=== PATIENT | male | born 1935 | race Caucasian/White ===

== ENCOUNTER 2016-07-11 19:19 | Emergency (ER) | payer MEDICARE ==
[~2016-07-11] VITALS: Ht 182.9 cm; Wt 82.0 kg
[~2016-07-11 19:19] MED LIST: ATRO17AE INH; CART120C2 PO; DUONI NEB; LORA-474 PO; PRED20 PO; PROT40TA PO; TAB-TAB PO; VENTAER INH
[2016-07-11 19:21] VITALS: BP 132/60; PULSE 96; RESP 16; TEMP 97.4; O2SAT 96
[2016-07-11] MEDS ORDERED: IPRASOL INH (21:18)
[2016-07-11] MEDS ORDERED: IPRA17I INH (21:18)
[2016-07-11] MEDS ORDERED: VENTAER INH (21:18)
[2016-07-11] MEDS ORDERED: LORA-474 PO (21:18)
[2016-07-11] MEDS ORDERED: MULT1TAB78 (21:18)
[2016-07-11] MEDS ORDERED: PANT40TA3 PO (21:18)
[2016-07-11] MEDS ORDERED: PLAV75TA29 PO (21:20)
--- NOTE | 2016-07-11 21:23 | PD ---
HPI Chief Complaint: Respiratory Symptoms Time Seen by Provider: 21:23 Travel History International Travel<30 days: No Contact w/Intl Traveler<30days: No Traveled to known affect area: No History of Present Illness HPI 81-year-old male with history of COPD, hypertension, paroxysmal A. fib, CHF, previous [place], on Plavix, benign stomach mass presents to the emergency department for evaluation of worsening shortness of breath and right upper quadrant pain that radiates to his back. He is not acutely short of breath. Patient states that he has had these symptoms for weeks to months. He has been evaluated in the emergency department for evaluation shortness of breath with essentially negative workups in October and January of 2016. Patient states that his primary care provider is aware of the symptoms. He ports he recently had a Holter monitor due to his worsening shortness of breath that showed he was going in and out of A. fib. Patient denies any recent illnesses, fever, or chills. No chest pain. His only pain is his right upper quadrant pain. Reports one time emesis after taking metoprolol for the first time but since not taking it again he has not had any nausea or vomiting. Denies any bowel changes. Does report difficulty urinating which is not new for him. No hematuria. PFSH Past Medical History Hx Anticoagulant Therapy: Yes (PLAVIX) AAA: Yes Arthritis: Yes Asthma: Yes Atrial Fibrillation: Yes Autoimmune Disease: No Blood Disorders: No Anxiety: Yes Depression: No Heart Rhythm Problems: Yes Cancer: No Cardiovascular Problems: Yes (AFIB/[place]) High Cholesterol: No Chemotherapy: No Chest Pain: No Congestive Heart Failure: Yes COPD: Yes Cerebrovascular Accident: No Coronary Artery Disease: Yes Diabetes: No Diminished Hearing: Yes (HARD OF HEARING) Endocrine: No Gastrointestinal Disorders: Yes (COLON LESION) GERD: Yes Genitourinary: Yes Headaches: No Hiatal Hernia: No Hypertension: Yes Immune Disorder: No Implanted Vascular Access Dvce: No Kidney Stones: Yes Musculoskeletal: No Neurologic: No Psychiatric: Yes Reproductive: No Respiratory: Yes (COPD) Immunizations Current: Yes Migraines: Yes Radiation Therapy: No Renal Failure: No Seizures: No Sickle Cell Disease: No Sleep Apnea: No Thyroid Disease: No Ulcer: No PNEUMOCCOCAL Vaccine (Year): 2007 Past Surgical History Abdominal Surgery: No AICD: No Arteriovenous Shunt: No Body Medical Devices: stents in both legs Cardiac Surgery: No Coronary Stent: Yes Ear Surgery: No Endocrine Surgery: No Eye Surgery: Yes (CATARACTS WITH LENS IMPLANTS) Genitourinary Surgery: Yes (TURP AGE 60) Gynecologic Surgery: No Insulin Pump: No Joint Replacement: No Neurologic Surgery: No Oral Surgery: No Pacemaker: No Thoracic Surgery: No Other Surgery: Yes Social History Alcohol Use: Yes Tobacco Use: No (quit 2 yrs ago) Substance Use: No Allergies-Medications (Allergen,Severity, Reaction): Coded Allergies: Aspirin (Verified Allergy, Severe, HIVES, 07/11/16) PT STATES HE IS NOT Lanoxin (Verified Allergy, Severe, Hives, 07/11/16) PT STATES HE IS NOT Reported Meds & Prescriptions Reported Meds & Active Scripts Active Reported Plavix (Clopidogrel Bisulfate) 75 Mg Tab 75 Mg PO DAILY Pantoprazole (Pantoprazole Sodium) 40 Mg Tab 40 Mg PO DAILY Multivitamin Adults 50+ (Multiple Vitamins W/ Minerals) 1 Tab Tab Ativan (Lorazepam) 1 Mg Tab 1 Mg PO HS PRN Atrovent HFA 12.9 GM Inh (Ipratropium [place]) 17 Mcg/Act Aer 1 Puff INH Q6HR PRN Duoneb (Ipratropium-Albuterol Neb) 0.5-2.5 Mg/3 Ml Neb 1 Nebule INH Q6HR NEB Ventolin Hfa 18 GM Inh (Albuterol Sulfate) 90 Mcg/Act Aer 2 Puff INH Q6H PRN Review of Systems Except as stated in HPI: all other systems reviewed are Neg Physical Exam Narrative GENERAL: Well-nourished elderly male patient, lying in bed, in no acute distress SKIN: Warm and dry. HEAD: Atraumatic. Normocephalic. EYES: Pupils are equal, left pupil is 3 mm while the right pupil is 2 mm. This is chronic for the patient following surgery on the left eye. No scleral icterus. No injection or drainage. ENT: No nasal bleeding or discharge. Mucous membranes pink and moist. NECK: Trachea midline. No JVD. CARDIOVASCULAR: Regular rate and rhythm. No murmur appreciated. RESPIRATORY: No accessory muscle use. Clear; diminished bases. Breath sounds equal bilaterally. GASTROINTESTINAL: Abdomen soft, nondistended. Right upper quadrant tenderness to palpation. No rebound tenderness. No guarding. Hepatic and splenic margins not palpable. MUSCULOSKELETAL: No obvious deformities. No clubbing. No cyanosis. No edema. Tenderness to percussion over the right posterior thorax NEUROLOGICAL: Awake and alert. No obvious cranial nerve deficits. Motor grossly within normal limits. Normal speech. PSYCHIATRIC: Appropriate mood and affect; insight and judgment normal. Data Data Last Documented VS Vital Signs Date Time Temp Pulse Resp B/P Pulse Ox O2 Delivery O2 Flow Rate FiO2 07/11/16 21:37 18 97 Room Air 07/11/16 19:21 97.4 96 132/60 Orders Electrocardiogram (07/11/16 ) Complete Blood Count With Diff (07/11/16 21:21) Comprehensive Metabolic Panel (07/11/16 21:21) Lipase (07/11/16 21:21) Prothrombin Time / Inr (Pt) (07/11/16 21:21) Act Partial Throm Time (Ptt) (07/11/16 21:21) Urinalysis - C+S If Indicated (07/11/16 21:21) Iv Access Insert/Monitor (07/11/16 21:21) Ecg Monitoring (07/11/16 21:21) Oximetry (07/11/16 21:21) Sodium Chloride 0.9% Flush (Ns Flush) (07/11/16 21:30) Chest, Single Ap (07/11/16 21:21) B-Type Natriuretic Peptide (07/11/16 21:21) Ckmb (Isoenzyme) Profile (07/11/16 21:21) Troponin I (07/11/16 21:21) Ct Abd/Pel W Iv Contrast(Rout) (07/11/16 ) Labs Laboratory Tests Test 07/11/16 21:20 White Blood Count 6.0 TH/MM3 Red Blood Count 4.35 MIL/MM3 Hemoglobin 11.9 GM/DL Hematocrit 35.9 % Mean Corpuscular Volume 82.5 FL Mean Corpuscular Hemoglobin 27.4 PG Mean Corpuscular Hemoglobin 33.2 % Concent Red Cell Distribution Width 15.4 % Platelet Count 236 TH/MM3 Mean Platelet Volume 7.5 FL Neutrophils (%) (Auto) 55.4 % Lymphocytes (%) (Auto) 29.6 % Monocytes (%) (Auto) 12.7 % Eosinophils (%) (Auto) 0.9 % Basophils (%) (Auto) 1.4 % Neutrophils # (Auto) 3.3 TH/MM3 Lymphocytes # (Auto) 1.8 TH/MM3 Monocytes # (Auto) 0.8 TH/MM3 Eosinophils # (Auto) 0.1 TH/MM3 Basophils # (Auto) 0.1 TH/MM3 CBC Comment DIFF FINAL Differential Comment Prothrombin Time 11.4 SEC Prothromb Time International 1.0 RATIO Ratio Activated Partial 26.7 SEC Thromboplast Time Sodium Level 139 MEQ/L Potassium Level 4.3 MEQ/L Chloride Level 105 MEQ/L Carbon Dioxide Level 28.1 MEQ/L Anion Gap 6 MEQ/L Blood Urea Nitrogen 18 MG/DL Creatinine 0.92 MG/DL Estimat Glomerular Filtration 79 ML/MIN Rate Random Glucose 97 MG/DL Calcium Level 8.7 MG/DL Total Bilirubin 0.3 MG/DL Aspartate Amino Transf 15 U/L (AST/SGOT) Alanine Aminotransferase 17 U/L (ALT/SGPT) Alkaline Phosphatase 114 U/L Total Creatine Kinase 65 U/L Troponin I LESS THAN 0.02 NG/ML B-Type Natriuretic Peptide 209 PG/ML Total Protein 6.9 GM/DL Albumin 3.6 GM/DL Lipase 200 U/L [facility] Medical Decision Making Medical Screen Exam Complete: Yes Emergency Medical Condition: Yes Medical Record Reviewed: Yes Differential Diagnosis COPD exacerbation versus CHF versus cholecystitis versus chest wall pain versus pneumonia versus biliary colic Narrative Course 81 year old male presents to the ED for evaluation of shortness of breath and RUQ pain that has persisted over the last weeks to months, but has gotten worse as of late. Pt appears well. He does have RUQ tenderness to palpation. His vital signs are stable. Laboratory Tests Test 07/11/16 21:20 White Blood Count 6.0 TH/MM3 Red Blood Count 4.35 MIL/MM3 Hemoglobin 11.9 GM/DL Hematocrit 35.9 % Mean Corpuscular Volume 82.5 FL Mean Corpuscular Hemoglobin 27.4 PG Mean Corpuscular Hemoglobin 33.2 % Concent Red Cell Distribution Width 15.4 % Platelet Count 236 TH/MM3 Mean Platelet Volume 7.5 FL Neutrophils (%) (Auto) 55.4 % Lymphocytes (%) (Auto) 29.6 % Monocytes (%) (Auto) 12.7 % Eosinophils (%) (Auto) 0.9 % Basophils (%) (Auto) 1.4 % Neutrophils # (Auto) 3.3 TH/MM3 Lymphocytes # (Auto) 1.8 TH/MM3 Monocytes # (Auto) 0.8 TH/MM3 Eosinophils # (Auto) 0.1 TH/MM3 Basophils # (Auto) 0.1 TH/MM3 CBC Comment DIFF FINAL Differential Comment Prothrombin Time 11.4 SEC Prothromb Time International 1.0 RATIO Ratio Activated Partial 26.7 SEC Thromboplast Time Sodium Level 139 MEQ/L Potassium Level 4.3 MEQ/L Chloride Level 105 MEQ/L Carbon Dioxide Level 28.1 MEQ/L Anion Gap 6 MEQ/L Blood Urea Nitrogen 18 MG/DL Creatinine 0.92 MG/DL Estimat Glomerular Filtration 79 ML/MIN Rate Random Glucose 97 MG/DL Calcium Level 8.7 MG/DL Total Bilirubin 0.3 MG/DL Aspartate Amino Transf 15 U/L (AST/SGOT) Alanine Aminotransferase 17 U/L (ALT/SGPT) Alkaline Phosphatase 114 U/L Total Creatine Kinase 65 U/L Troponin I LESS THAN 0.02 NG/ML B-Type Natriuretic Peptide 209 PG/ML Total Protein 6.9 GM/DL Albumin 3.6 GM/DL Lipase 200 U/L CBC and CMP are without acute concern. Lipase is 200. Troponin is <0.2; BNP is 209. I have discussed the pt with Dr. Dong who also assessed the pt. CT abd.pelvis is ordered; he will assume care at this time. Condition: Stable Juliana Goetz Jul 11, 2016 21:23
[2016-07-11] MEDS ORDERED: SODIUM CHLORIDE 0.9% FLUSH 10 ML FLUSH IV FLUSH PRN (21:30)
[2016-07-11 21:37] VITALS: RESP 18; O2SAT 97
[2016-07-11 21:45] LABS: AUTOMATED NEUTROPHIL # 3.3 TH/MM3 (1.8-7.7); BASOPHIL # 0.1 TH/MM3 (0-0.2); BASOPHIL % 1.4 % (0.0-2.0); EOSINOPHIL # 0.1 TH/MM3 (0-0.4); EOSINOPHIL % 0.9 % (0.0-4.0); HEMATOCRIT 35.9 % (39.0-51.0); HEMO FLAGS DIFF FINAL; LYMPH % 29.6 % (9.0-44.0); LYMPHOCYTE # 1.8 TH/MM3 (1.0-4.8); MEAN CELL VOLUME 82.5 FL (80.0-100.0); MEAN CORPUSCULAR HEMOGLOBIN 27.4 PG (27.0-34.0); MEAN CORPUSCULAR HGB CONC 33.2 % (32.0-36.0); MONO % 12.7 % (0.0-8.0); NEUT % 55.4 % (16.0-70.0); PLATELET COUNT 236 TH/MM3 (150-450); RED BLOOD COUNT 4.35 MIL/MM3 (4.50-5.90); RED CELL DISTRIBUTION WIDTH 15.4 % (11.6-17.2)
[2016-07-11 21:51] LABS: APTT (PATIENT) 26.7 SEC (24.3-30.1); PROTHROMBIN TIME - PATIENT 11.4 SEC (9.8-11.6)
--- NOTE | 2016-07-11 21:52 | RADRPT ---
EXAM DATE/TIME: 07/11/2016 21:39 [facility] COMPARISON: CHEST PA & LAT, February 02, 2016, 8:34. INDICATIONS : Shortness of breath and chest pain. MEDICAL HISTORY : Congestive heart failure. Chronic obstructive pulmonary disease. SURGICAL HISTORY : None. ENCOUNTER: Initial ACUITY: 1 day PAIN SCORE: 4/10 LOCATION: chest FINDINGS: The lungs are clear without infiltrate, nodule, or mass. There is no appreciable pleural effusion fo r technique. Heart and mediastinum are unremarkable. CONCLUSION: No acute cardiopulmonary disease. Tres Monte MD on July 11, 2016 at 21:50 Board Certified Radiologist. This report was verified electronically.
[2016-07-11 21:55] LABS: ANION GAP 6 MEQ/L (5-15); AST (GOT) 15 U/L (15-37); BICARBONATE 28.1 MEQ/L (21.0-32.0); BLOOD UREA NITROGEN 18 MG/DL (7-18); CHLORIDE 105 MEQ/L (98-107); GLOMERULAR FILTRATION RATE 79 ML/MIN (>89); POTASSIUM 4.3 MEQ/L (3.5-5.1); SODIUM (NA) 139 MEQ/L (136-145)
[2016-07-11 22:00] LABS: ALKALINE PHOSPHATASE 114 U/L (45-117); ALT (GPT) 17 U/L (12-78); TOTAL BILIRUBIN ADULT 0.3 MG/DL (0.2-1.0)
[2016-07-11 22:01] LABS: CREATINE KINASE 65 U/L (39-308)
[2016-07-11 23:00] LABS: BLOOD, URINE NEG (NEG); GLUCOSE,URINE NEG (NEG); KETONE, URINE NEG (NEG); NITRITE,URINE NEG (NEG); PH, URINE 5.5 (5.0-8.5); SQUAMOUS EPITHELIAL CELL URINE <1 /hpf (0-5); URINE COLOR LIGHT-YELLOW (YELLW/STRAW)
[2016-07-11 23:11] LABS: COMMENT (UR) CULT NOT INDICATED; CULTURE IF INDICATED CULT NOT INDICATED
[2016-07-12] MEDS ORDERED: IOHEXOL 350 MG/ML 10 ML VIAL (for RAD DIAG) IV ONE (00:50)
--- NOTE | 2016-07-12 01:06 | RADRPT ---
EXAM DATE/TIME: 07/12/2016 00:42 [facility] COMPARISON: CHEST PA & LAT, February 02, 2016, 8:34. CT LUMBAR SPINE W/O CONTRAST, November 13, 2015, 10:16. INDICATIONS : Right flank pain past 3weeks. IV CONTRAST: 100 cc Omnipaque 350 (iohexol) IV ORAL CONTRAST: No oral contrast ingested. RADIATION DOSE: 9.96 CTDIvol (mGy) MEDICAL HISTORY : Cardiovascular disease. Hypertension. Chronic obstructive pulmonary disease.Renal stones GERD AAA SURGICAL HISTORY : None. ENCOUNTER: Initial ACUITY: 3 weeks PAIN SCALE: 2/10 LOCATION: Right flank TECHNIQUE: Volumetric scanning of the abdomen and pelvis was performed. Using automated exposure control and ad justment of the mA and/or kV according to patient size, radiation dose was kept as low as reasonably achievable to obtain optimal diagnostic quality images. FINDINGS: Upper scrotum of the aorta and iliac vessels are identified. There is a stent in the right external i liac artery and the right internal iliac artery is occluded. Urinary bladder contains a calcification in the posterior portion measuring 5.4 mm. There is no evidence of bowel obstruction. Appendix is no rmal. There is no lymphadenopathy. The adrenal glands, pancreas, gallbladder are unremarkable. Calcif ied granulomas in the spleen and liver are present. There is aneurysmal dilatation of the infrarenal abdominal aorta with a large amount of mural thrombus measuring 4.7 x 4.9 cm in transverse dimension. There is a nonobstructing right middle pole renal calculus measuring 3 mm on image 41. Left kidney u nremarkable. Stomach unremarkable. Small fat containing umbilical hernia. Emphysematous changes are s een with mild interstitial prominence. There is a noncalcified nodule in the right middle lobe latera l segment measuring 6.9 mm. The osseous structures demonstrate degenerative changes of the spine with a severe compression fracture deformity of T12 vertebral body. This is nonacute. Small pericardial e ffusion. CONCLUSION: 1. Abdominal aortic aneurysm and atherosclerosis. 2. Bladder calculus. 3. Calcified liver and splenic granulomas. 4. Small pericardial effusion. 5. Emphysematous changes and mild interstitial prominence with right middle lobe nodule. Rebel Taylor MD on July 12, 2016 at 1:00 Board Certified Radiologist. This report was verified electronically.
[2016-07-12] MEDS ORDERED: HYDR-3533 PO (01:39)
--- NOTE | 2016-07-12 01:40 | PD ---
Data Data Last Documented VS Vital Signs Date Time Temp Pulse Resp B/P Pulse Ox O2 Delivery O2 Flow Rate FiO2 07/11/16 21:37 18 97 Room Air 07/11/16 19:21 97.4 96 132/60 Orders Electrocardiogram (07/11/16 ) Complete Blood Count With Diff (07/11/16 21:21) Comprehensive Metabolic Panel (07/11/16 21:21) Lipase (07/11/16 21:21) Prothrombin Time / Inr (Pt) (07/11/16 21:21) Act Partial Throm Time (Ptt) (07/11/16 21:21) Urinalysis - C+S If Indicated (07/11/16 21:21) Iv Access Insert/Monitor (07/11/16 21:21) Ecg Monitoring (07/11/16 21:21) Oximetry (07/11/16 21:21) Sodium Chloride 0.9% Flush (Ns Flush) (07/11/16 21:30) Chest, Single Ap (07/11/16 21:21) B-Type Natriuretic Peptide (07/11/16 21:21) Ckmb (Isoenzyme) Profile (07/11/16 21:21) Troponin I (07/11/16 21:21) Ct Abd/Pel W Iv Contrast(Rout) (07/12/16 ) Iohexol 350 Inj (Omnipaque 350 Inj) (07/12/16 00:50) Acetamin-Hydrocod 325-5 Mg ([place] 5-325 (07/12/16 01:45) Labs Laboratory Tests Test 07/11/16 07/11/16 21:20 22:35 White Blood Count 6.0 TH/MM3 Red Blood Count 4.35 MIL/MM3 Hemoglobin 11.9 GM/DL Hematocrit 35.9 % Mean Corpuscular Volume 82.5 FL Mean Corpuscular Hemoglobin 27.4 PG Mean Corpuscular Hemoglobin 33.2 % Concent Red Cell Distribution Width 15.4 % Platelet Count 236 TH/MM3 Mean Platelet Volume 7.5 FL Neutrophils (%) (Auto) 55.4 % Lymphocytes (%) (Auto) 29.6 % Monocytes (%) (Auto) 12.7 % Eosinophils (%) (Auto) 0.9 % Basophils (%) (Auto) 1.4 % Neutrophils # (Auto) 3.3 TH/MM3 Lymphocytes # (Auto) 1.8 TH/MM3 Monocytes # (Auto) 0.8 TH/MM3 Eosinophils # (Auto) 0.1 TH/MM3 Basophils # (Auto) 0.1 TH/MM3 CBC Comment DIFF FINAL Differential Comment Prothrombin Time 11.4 SEC Prothromb Time International 1.0 RATIO Ratio Activated Partial 26.7 SEC Thromboplast Time Sodium Level 139 MEQ/L Potassium Level 4.3 MEQ/L Chloride Level 105 MEQ/L Carbon Dioxide Level 28.1 MEQ/L Anion Gap 6 MEQ/L Blood Urea Nitrogen 18 MG/DL Creatinine 0.92 MG/DL Estimat Glomerular Filtration 79 ML/MIN Rate Random Glucose 97 MG/DL Calcium Level 8.7 MG/DL Total Bilirubin 0.3 MG/DL Aspartate Amino Transf 15 U/L (AST/SGOT) Alanine Aminotransferase 17 U/L (ALT/SGPT) Alkaline Phosphatase 114 U/L Total Creatine Kinase 65 U/L Troponin I LESS THAN 0.02 NG/ML B-Type Natriuretic Peptide 209 PG/ML Total Protein 6.9 GM/DL Albumin 3.6 GM/DL Lipase 200 U/L Urine Color LIGHT-YELLOW Urine Turbidity CLEAR Urine pH 5.5 Urine Specific [place] 1.005 Urine Protein NEG mg/dL Urine Glucose (UA) NEG mg/dL Urine Ketones NEG mg/dL Urine Occult Blood NEG Urine Nitrite NEG Urine Bilirubin NEG Urine Urobilinogen LESS THAN 2.0 MG/DL Urine Leukocyte Esterase NEG Urine RBC LESS THAN 1 /hpf Urine WBC LESS THAN 1 /hpf Urine Squamous Epithelial <1 /hpf Cells Microscopic Urinalysis Comment CULT NOT INDICATED MDM Medical Record Reviewed: Yes Supervised Visit with LORELEI: Yes Narrative Course I, Dr. Dong, have reviewed the advance practice practitioner's documentation and am in agreement, met with the patient face to face, made the diagnosis, and the medical decision making was done by me. *My assessment and Findings: Please refer to the mid-level provider note. The plan is fairly nonspecific. He has flank pain and right upper quadrant pain with walking. He is under the impression might be suffering from claudication in the paralumbar musculature. Her workup here reveals a urinary bladder calculus as well as a 4.9 cm infrarenal abdominal aortic aneurysm. The patient states he is noted to have a 5 cm infrarenal abdominal aortic aneurysm. He follows closely with Dr. Carney. He will follow up tomorrow. We'll provide Lortab for the interim. Last 24 hours Impressions Abdomen/Pelvis CT 07/12/16 0000 Signed Impressions: Service Date/Time: June 00:42 - CONCLUSION: 1. Abdominal aortic aneurysm and atherosclerosis. 2. Bladder calculus. 3. Calcified liver and splenic granulomas. 4. Small pericardial effusion. 5. Emphysematous changes and mild interstitial prominence with right middle lobe nodule. Rebel Taylor MD Chest X-Ray 07/11/162120 Signed Impressions: Service Date/Time: Monday, July 11, 2016 21:39 - CONCLUSION: No acute cardiopulmonary disease. Tres Monte MD CBC & BMP Diagram 07/11/16 21:20 LFTs normal BNP 209 Lipase 200 Diagnosis Primary Impression: AAA (abdominal aortic aneurysm) Qualified Code: I71.4 - Abdominal aortic aneurysm (AAA) without rupture Additional Impressions: Back pain Qualified Code: M54.9 - Back pain, unspecified back location, unspecified back pain laterality, unspecified chronicity Dyspnea on exertion Referrals: Mita Carney MD 1 day Additional Instruction: You have a choice when it comes to health care, and we are glad that you chose [facility]. Hopefully, we have met your expectations on today's visit. You are welcome to return to [facility] at any time, as we are committed to meeting the health care needs of our community. Med/Other Pt SpecificInfo: Prescription(s) given Scripts Hydrocodone-Acetaminophen (Lortab)5-325 Mg Tab1-2 Tab PO Q6H PRN (PAIN SCALE 6 TO 10) #15 TAB Ref 0 Prov:Osmani Dong MD 07/12/16 Disposition: DISCHARGE HOME Condition: Stable Osmani Dong MD Jul 12, 2016 01:40
[2016-07-12] MEDS ORDERED: ACETAMINOPHEN/HYDROcodone 325 MG/5 MG TAB PO ONE (01:45)
--- NOTE | 2016-07-12 21:05 | EKG ---
Date Performed: 07/11/2016 Time Performed: 19:53:15 PTAGE: 81 years EKG: ATRIAL FIBRILLATION WITH RAPID VENTRICULAR RESPONSE WITH ABERRANT CONDUCTION OR VENTRICULAR PREMATURE COMPLEXES. When compared to previous tracing, atrial fibrillation is new. ABNORMAL RHYTHM ECG PREVIOUS TRACING : 02/01/201609 DOCTOR: Adam Crystal Interpretating Date/Time 07/12/2016 21:05:13
== END 2016-07-12 02:00 | disposition home or self-care (01) ==
LOC: NEPE 19:19
DX: I71.4 Abdominal aortic aneurysm, without rupture (principal); M54.9 Dorsalgia, unspecified; R06.09 Other forms of dyspnea; R94.31 Abnormal electrocardiogram [ECG] [EKG]; I48.0 Paroxysmal atrial fibrillation; J44.9 Chronic obstructive pulmonary disease, unspecified; I25.2 Old myocardial infarction; I10 Essential (primary) hypertension; I50.9 Heart failure, unspecified; Z79.02 Long term (current) use of antithrombotics/antiplatelets
CPT/HCPCS: 71010; 74177; 80053; 81001; 82550; 83690; 83880; 84484; 85025; 85610; 85730; 93005; 99284; Q9967

== ENCOUNTER 2016-07-16 10:12 | Emergency (ER) | payer MEDICARE ==
[~2016-07-16] VITALS: Ht 182.9 cm; Wt 72.5 kg
[2016-07-16] VITALS (8 sets, daily range): BP systolic 101–151; BP diastolic 55–85; PULSE 69–99; RESP 16–18; TEMP 97.5; O2SAT 94–97
[~2016-07-16 10:12] MED LIST changes: -ATRO17AE INH; -CART120C2 PO; -DUONI NEB; +HYDR-3533 PO; +IPRA17I INH; +IPRASOL INH; +MULT1TAB78; +PANT40TA3 PO; +PLAV75TA29 PO; -PRED20 PO; -PROT40TA PO; -TAB-TAB PO
--- NOTE | 2016-07-16 10:34 | PD ---
HPI Chief Complaint: OD/ Ingestion Time Seen by Provider: 10:22 Travel History International Travel<30 days: No Contact w/Intl Traveler<30days: No Traveled to known affect area: No History of Present Illness HPI Patient is an 81-year-old male presents to emergency department after accidentally ingesting 15 lorazepam 1 mg tablets in 5-7 Fioricet tablets approximately 30 minutes prior to arrival. Patient states he normally puts his pills and one bottle and take small amount time in the morning but accidentally grabbed the pill bottles the above medicines instead. Patient states he has no complaints currently. Denies suicidal or homicidal ideation. PFSH Past Medical History Hx Anticoagulant Therapy: Yes (PLAVIX) AAA: Yes Arthritis: Yes Asthma: Yes Atrial Fibrillation: Yes Autoimmune Disease: No Blood Disorders: No Anxiety: Yes Depression: No Heart Rhythm Problems: Yes Cancer: No Cardiovascular Problems: Yes High Cholesterol: No Chemotherapy: No Chest Pain: No Congestive Heart Failure: Yes COPD: Yes Cerebrovascular Accident: No Coronary Artery Disease: Yes Diabetes: No Diminished Hearing: Yes (HARD OF HEARING) Endocrine: No Gastrointestinal Disorders: Yes (COLON LESION) GERD: Yes Genitourinary: Yes Headaches: No Hiatal Hernia: No Heparin Induced Thrombocytopen: No Hypertension: Yes Immune Disorder: No Implanted Vascular Access Dvce: No Kidney Stones: Yes Musculoskeletal: No Neurologic: No Psychiatric: Yes Reproductive: No Respiratory: Yes Immunizations Current: Yes Migraines: Yes Radiation Therapy: No Renal Failure: No Seizures: No Sickle Cell Disease: No Sleep Apnea: No Thyroid Disease: No Ulcer: No Tetanus Vaccination: < 5 Years PNEUMOCCOCAL Vaccine (Year): 2007 Past Surgical History Abdominal Surgery: No AICD: No Arteriovenous Shunt: No Body Medical Devices: stents in both legs Cardiac Surgery: No Coronary Stent: Yes Ear Surgery: No Endocrine Surgery: No Eye Surgery: Yes (CATARACTS WITH LENS IMPLANTS) Genitourinary Surgery: Yes (TURP AGE 60) Gynecologic Surgery: No Insulin Pump: No Joint Replacement: No Neurologic Surgery: No Oral Surgery: No Pacemaker: No Thoracic Surgery: No Other Surgery: Yes Social History Alcohol Use: Yes Tobacco Use: No (quit 2 yrs ago) Substance Use: No Allergies-Medications (Allergen,Severity, Reaction): Coded Allergies: Aspirin (Verified Allergy, Severe, HIVES, 07/16/16) PT STATES HE IS NOT Lanoxin (Verified Allergy, Severe, Hives, 07/16/16) PT STATES HE IS NOT Reported Meds & Prescriptions Reported Meds & Active Scripts Active Lortab (Hydrocodone-Acetaminophen) 5-325 Mg Tab 1-2 Tab PO Q6H PRN Reported Pantoprazole (Pantoprazole Sodium) 40 Mg Tab 40 Mg PO DAILY Multivitamin Adults 50+ (Multiple Vitamins W/ Minerals) 1 Tab Tab Ativan (Lorazepam) 1 Mg Tab 1 Mg PO HS PRN Atrovent HFA 12.9 GM Inh (Ipratropium [place]) 17 Mcg/Act Aer 1 Puff INH Q6HR PRN Duoneb (Ipratropium-Albuterol Neb) 0.5-2.5 Mg/3 Ml Neb 1 Nebule INH Q6HR NEB Ventolin Hfa 18 GM Inh (Albuterol Sulfate) 90 Mcg/Act Aer 2 Puff INH Q6H PRN Review of Systems Except as stated in HPI: all other systems reviewed are Neg Physical Exam Narrative GENERAL: Well-developed well-nourished no apparent distress. SKIN: Focused skin assessment warm/dry. HEAD: Atraumatic. Normocephalic. EYES: Left pupil is 4mm right is 3. Left is irregular. History of left cataract surgery.. No scleral icterus. No injection or drainage. ENT: No nasal bleeding or discharge. Mucous membranes pink and moist. NECK: Trachea midline. No JVD. CARDIOVASCULAR: Regular rate and rhythm. No murmur appreciated. RESPIRATORY: No accessory muscle use. Clear to auscultation. Breath sounds equal bilaterally. GASTROINTESTINAL: Abdomen soft, non-tender, nondistended. Hepatic and splenic margins not palpable. MUSCULOSKELETAL: No obvious deformities. No clubbing. No cyanosis. No edema. NEUROLOGICAL: Awake and alert. No obvious cranial nerve deficits. Motor grossly within normal limits. Normal speech. PSYCHIATRIC: Appropriate mood and affect; insight and judgment normal. Data Data Last Documented VS Vital Signs Date Time Temp Pulse Resp B/P Pulse Ox O2 Delivery O2 Flow Rate FiO2 07/16/16 16:49 79 16 136/75 97 Room Air 07/16/16 10:16 97.5 Orders Complete Blood Count With Diff (07/16/16 10:31) Comprehensive Metabolic Panel (07/16/16 10:31) Prothrombin Time / Inr (Pt) (07/16/16 10:31) Act Partial Throm Time (Ptt) (07/16/16 10:31) Urinalysis - C+S If Indicated (07/16/16 10:31) Chest, Single Ap (07/16/16 10:31) Iv Access Insert/Monitor (07/16/16 10:31) Ecg Monitoring (07/16/16 10:31) Oximetry (07/16/16 10:31) Charcoal Activated Liq (Actidose-Aqua Li (07/16/16 10:45) Sodium Chloride 0.9% Flush (Ns Flush) (07/16/16 10:45) Drug Screen, Random Urine (07/16/16 10:31) Alcohol (Ethanol) (07/16/16 10:31) Salicylates (Aspirin) (07/16/16 10:31) Tylenol (Acetaminophen) (07/16/16 10:31) Tylenol (Acetaminophen) (07/16/16 14:00) Electrocardiogram (07/16/16 10:23) Diet Regular Basic (07/16/16 Dinner) Labs Laboratory Tests Test 07/16/16 07/16/16 07/16/16 10:40 12:55 13:54 White Blood Count 6.1 TH/MM3 Red Blood Count 4.17 MIL/MM3 Hemoglobin 11.0 GM/DL Hematocrit 35.1 % Mean Corpuscular Volume 84.1 FL Mean Corpuscular Hemoglobin 26.4 PG Mean Corpuscular Hemoglobin 31.4 % Concent Red Cell Distribution Width 14.8 % Platelet Count 241 TH/MM3 Mean Platelet Volume 7.7 FL Neutrophils (%) (Auto) 68.1 % Lymphocytes (%) (Auto) 21.5 % Monocytes (%) (Auto) 8.5 % Eosinophils (%) (Auto) 0.9 % Basophils (%) (Auto) 1.0 % Neutrophils # (Auto) 4.1 TH/MM3 Lymphocytes # (Auto) 1.3 TH/MM3 Monocytes # (Auto) 0.5 TH/MM3 Eosinophils # (Auto) 0.1 TH/MM3 Basophils # (Auto) 0.1 TH/MM3 CBC Comment DIFF FINAL Differential Comment Prothrombin Time 11.4 SEC Prothromb Time International 1.0 RATIO Ratio Activated Partial 25.9 SEC Thromboplast Time Sodium Level 142 MEQ/L Potassium Level 4.0 MEQ/L Chloride Level 108 MEQ/L Carbon Dioxide Level 24.3 MEQ/L Anion Gap 10 MEQ/L Blood Urea Nitrogen 20 MG/DL Creatinine 1.10 MG/DL Estimat Glomerular Filtration 64 ML/MIN Rate Random Glucose 146 MG/DL Calcium Level 8.9 MG/DL Total Bilirubin 0.4 MG/DL Aspartate Amino Transf 11 U/L (AST/SGOT) Alanine Aminotransferase 15 U/L (ALT/SGPT) Alkaline Phosphatase 105 U/L Total Protein 6.6 GM/DL Albumin 3.5 GM/DL Salicylates Level LESS THAN 1.7 MG/DL Acetaminophen Level 5.1 MCG/ML 10.2 MCG/ML Ethyl Alcohol Level LESS THAN 3 MG/DL Urine Collection Type VOIDED Urine Color YELLOW Urine Turbidity CLEAR Urine pH 6.0 Urine Specific [place] 1.009 Urine Protein NEG mg/dL Urine Glucose (UA) NEG mg/dL Urine Ketones NEG mg/dL Urine Occult Blood NEG Urine Nitrite NEG Urine Bilirubin NEG Urine Leukocyte Esterase NEG Urine WBC 0-2 /hpf Urine Hyaline Casts 0-2 /lpf Microscopic Urinalysis Comment CULT NOT INDICATED Urine Collection Time 1255 Urine Opiates Screen NEG Urine Barbiturates Screen POS Urine Amphetamines Screen NEG Urine Benzodiazepines Screen NEG Urine Cocaine Screen NEG Urine Cannabinoids Screen NEG MDM Medical Decision Making Medical Screen Exam Complete: Yes Emergency Medical Condition: Yes Interpretation(s) EKG shows age fibrillation with a normal axis normal R-wave progression. Intervals otherwise within normal limits. No concerning ST T changes. This an abnormal EKG. Differential Diagnosis Overdose, Tylenol toxicity, which led abnormality, benzodiazepine overdose, Narrative Course Patient was roomed in the emergency department, given that he is only 30 minutes out of ingestion he does meet criteria for activated charcoal and patient drank this without objection. Patient is hemodynamically stable and is not sedated on arrival. He was observed in the emergency department for almost 6 hours under my care. His second Tylenol level was drawn at a 4 hour time are from his ingestion. His disposition would be dependent on this Tylenol level. Patient is becoming and see in the emergency department and would like to leave. I explained to him that Fioricet does contain Tylenol and he needs to have Tylenol toxicity ruled out prior to discharge. Patient will be discussed with the oncoming provider Dr. Mendoza to follow-up Tylenol level and disposition properly. I highly doubt the patient has had an intentional overdose to harm himself. He contracts for self-preservation Darren Newton MD Jul 16, 2016 10:34
[2016-07-16] MEDS ORDERED: SODIUM CHLORIDE 0.9% FLUSH 10 ML FLUSH IVF PRN (10:45)
[2016-07-16] MEDS ORDERED: ACTIVATED CHARCOAL LIQUID 25 GM/120 ML BTL PO/NG ONE (10:45)
[2016-07-16 10:59] LABS: AUTOMATED NEUTROPHIL # 4.1 TH/MM3 (1.8-7.7); BASOPHIL # 0.1 TH/MM3 (0-0.2); EOSINOPHIL # 0.1 TH/MM3 (0-0.4); EOSINOPHIL % 0.9 % (0.0-4.0); HEMATOCRIT 35.1 % (39.0-51.0); HEMO FLAGS DIFF FINAL; LYMPH % 21.5 % (9.0-44.0); LYMPHOCYTE # 1.3 TH/MM3 (1.0-4.8); MEAN CELL VOLUME 84.1 FL (80.0-100.0); MEAN CORPUSCULAR HEMOGLOBIN 26.4 PG (27.0-34.0); MEAN CORPUSCULAR HGB CONC 31.4 % (32.0-36.0); MONO % 8.5 % (0.0-8.0); NEUT % 68.1 % (16.0-70.0); PLATELET COUNT 241 TH/MM3 (150-450); RED BLOOD COUNT 4.17 MIL/MM3 (4.50-5.90); RED CELL DISTRIBUTION WIDTH 14.8 % (11.6-17.2); WHITE BLOOD COUNT 6.1 TH/MM3 (4.0-11.0)
[2016-07-16 11:03] LABS: CHLORIDE 108 MEQ/L (98-107); SODIUM (NA) 142 MEQ/L (136-145)
[2016-07-16 11:07] LABS: ANION GAP 10 MEQ/L (5-15); BICARBONATE 24.3 MEQ/L (21.0-32.0); BLOOD UREA NITROGEN 20 MG/DL (7-18)
[2016-07-16 11:08] LABS: APTT (PATIENT) 25.9 SEC (24.3-30.1); PROTHROMBIN TIME - PATIENT 11.4 SEC (9.8-11.6)
[2016-07-16 11:10] LABS: ALT (GPT) 15 U/L (12-78); AST (GOT) 11 U/L (15-37); GLOMERULAR FILTRATION RATE 64 ML/MIN (>89)
[2016-07-16 11:12] LABS: TOTAL BILIRUBIN ADULT 0.4 MG/DL (0.2-1.0)
[2016-07-16 11:13] LABS: ALKALINE PHOSPHATASE 105 U/L (45-117)
--- NOTE | 2016-07-16 11:28 | RADHPO ---
EXAM DATE/TIME: 07/16/2016 10:54 [facility] COMPARISON: CHEST SINGLE AP, July 11, 2016, 21:39. INDICATIONS : Short of breath MEDICAL HISTORY : Congestive heart failure. Hypertension SURGICAL HISTORY : Carotid stent. ENCOUNTER: Initial ACUITY: 1 day PAIN SCORE: 2/10 LOCATION: Bilateral chest FINDINGS: A single view of the chest demonstrates the lungs to be symmetrically aerated without evidence of mas s, infiltrate or effusion. The cardiomediastinal contours are unremarkable. Osseous structures are intact. CONCLUSION: No acute disease. Octavio Phillips MD FACR on July 16, 2016 at 11:26 Board Certified Radiologist. This report was verified electronically.
[2016-07-16 12:28] LABS: ACETAMINOPHEN 5.1 MCG/ML (10.0-30.0)
[2016-07-16 13:12] LABS: BLOOD, URINE NEG (NEG); GLUCOSE,URINE NEG (NEG); KETONE, URINE NEG (NEG); NITRITE,URINE NEG (NEG)
[2016-07-16 13:16] LABS: METHOD OF COLLECTION VOIDED; URINE COLOR YELLOW (YELLW/STRAW)
[2016-07-16 13:19] LABS: COMMENT (UR) CULT NOT INDICATED; CULTURE IF INDICATED CULT NOT INDICATED; WBC, URINE 0-2 /hpf (0-5)
[2016-07-16 13:20] LABS: AMPHETAMINE, URINE NEG (NEG); BARBITURATES, URINE POS (NEG); COCAINE, URINE NEG (NEG); COMMENT2 (UR) MUCOUS PRESENT; HYALINE CAST, URINE 0-2 /lpf (RARE)
--- NOTE | 2016-07-16 17:17 | PD ---
Physical Exam Date Seen by Provider: Jul 16, 2016 Time Seen by Provider: 17:15 Narrative This 81-year-old male accidentally ingested about 15 mg of lorazepam and 5-7 tablets of Fioricet just prior to arrival. He took the pills accidentally and drove immediately to the emergency department. He has been observed. He remains awake so he is a little bit unsteady on his feet. His Tylenol level is nontoxic. Patient has been stable in the emergency department. He has remained alert. He will be released but we are insisting that he get somebody to drive him home Data Data Last Documented VS Vital Signs Date Time Temp Pulse Resp B/P Pulse Ox O2 Delivery O2 Flow Rate FiO2 07/16/16 16:49 79 16 136/75 97 Room Air 07/16/16 10:16 97.5 Orders Complete Blood Count With Diff (07/16/16 10:31) Comprehensive Metabolic Panel (07/16/16 10:31) Prothrombin Time / Inr (Pt) (07/16/16 10:31) Act Partial Throm Time (Ptt) (07/16/16 10:31) Urinalysis - C+S If Indicated (07/16/16 10:31) Chest, Single Ap (07/16/16 10:31) Iv Access Insert/Monitor (07/16/16 10:31) Ecg Monitoring (07/16/16 10:31) Oximetry (07/16/16 10:31) Charcoal Activated Liq (Actidose-Aqua Li (07/16/16 10:45) Sodium Chloride 0.9% Flush (Ns Flush) (07/16/16 10:45) Drug Screen, Random Urine (07/16/16 10:31) Alcohol (Ethanol) (07/16/16 10:31) Salicylates (Aspirin) (07/16/16 10:31) Tylenol (Acetaminophen) (07/16/16 10:31) Tylenol (Acetaminophen) (07/16/16 14:00) Electrocardiogram (07/16/16 10:23) Diet Regular Basic (07/16/16 Dinner) Labs Laboratory Tests Test 07/16/16 07/16/16 07/16/16 10:40 12:55 13:54 White Blood Count 6.1 TH/MM3 Red Blood Count 4.17 MIL/MM3 Hemoglobin 11.0 GM/DL Hematocrit 35.1 % Mean Corpuscular Volume 84.1 FL Mean Corpuscular Hemoglobin 26.4 PG Mean Corpuscular Hemoglobin 31.4 % Concent Red Cell Distribution Width 14.8 % Platelet Count 241 TH/MM3 Mean Platelet Volume 7.7 FL Neutrophils (%) (Auto) 68.1 % Lymphocytes (%) (Auto) 21.5 % Monocytes (%) (Auto) 8.5 % Eosinophils (%) (Auto) 0.9 % Basophils (%) (Auto) 1.0 % Neutrophils # (Auto) 4.1 TH/MM3 Lymphocytes # (Auto) 1.3 TH/MM3 Monocytes # (Auto) 0.5 TH/MM3 Eosinophils # (Auto) 0.1 TH/MM3 Basophils # (Auto) 0.1 TH/MM3 CBC Comment DIFF FINAL Differential Comment Prothrombin Time 11.4 SEC Prothromb Time International 1.0 RATIO Ratio Activated Partial 25.9 SEC Thromboplast Time Sodium Level 142 MEQ/L Potassium Level 4.0 MEQ/L Chloride Level 108 MEQ/L Carbon Dioxide Level 24.3 MEQ/L Anion Gap 10 MEQ/L Blood Urea Nitrogen 20 MG/DL Creatinine 1.10 MG/DL Estimat Glomerular Filtration 64 ML/MIN Rate Random Glucose 146 MG/DL Calcium Level 8.9 MG/DL Total Bilirubin 0.4 MG/DL Aspartate Amino Transf 11 U/L (AST/SGOT) Alanine Aminotransferase 15 U/L (ALT/SGPT) Alkaline Phosphatase 105 U/L Total Protein 6.6 GM/DL Albumin 3.5 GM/DL Salicylates Level LESS THAN 1.7 MG/DL Acetaminophen Level 5.1 MCG/ML 10.2 MCG/ML Ethyl Alcohol Level LESS THAN 3 MG/DL Urine Collection Type VOIDED Urine Color YELLOW Urine Turbidity CLEAR Urine pH 6.0 Urine Specific [place] 1.009 Urine Protein NEG mg/dL Urine Glucose (UA) NEG mg/dL Urine Ketones NEG mg/dL Urine Occult Blood NEG Urine Nitrite NEG Urine Bilirubin NEG Urine Leukocyte Esterase NEG Urine WBC 0-2 /hpf Urine Hyaline Casts 0-2 /lpf Microscopic Urinalysis Comment CULT NOT INDICATED Urine Collection Time 1255 Urine Opiates Screen NEG Urine Barbiturates Screen POS Urine Amphetamines Screen NEG Urine Benzodiazepines Screen NEG Urine Cocaine Screen NEG Urine Cannabinoids Screen NEG MDM Medical Record Reviewed: Yes Supervised Visit with LORELEI: No Differential Diagnosis Differential includes benzodiazepine toxicity, Tylenol toxicity Narrative Course Patient has remained stable. His Tylenol level is nontoxic. He remains awake and alert. He will be released home Diagnosis Primary Impression: Accidental drug ingestion Qualified Code: T50.901A - Accidental drug ingestion, initial encounter Disposition: DISCHARGE HOME Condition: Stable Adarsh Mendoza MD Jul 16, 2016 17:17
--- NOTE | 2016-07-17 21:41 | EKG ---
Date Performed: 07/16/2016 Time Performed: 10:23:18 PTAGE: 81 years EKG: Atrial fibrillation with PVC(s) or aberrant ventricular conduction Since previous tracing, no significant change noted Abnormal ECG PREVIOUS TRACING : 07/11/2016 19.53 DOCTOR: Tanisha Aquino Interpretating Date/Time 07/17/2016 21:40:23
== END 2016-07-16 18:06 | disposition home or self-care (01) ==
LOC: PHED 10:12
DX: T39.1X1A Poisoning by 4-Aminophenol derivatives, accidental (unintentional), initial encounter (principal); I48.91 Unspecified atrial fibrillation
CPT/HCPCS: 71010; 80053; 80307; 81001; 85025; 85610; 85730; 93005

== ENCOUNTER → 2016-08-27 | Outpatient (CLI) | payer MEDICARE ==
[2016-08-27 10:51] LABS: BLOOD GAS BASE EXCESS -3.9 mmol/L (-2-2); BLOOD GAS CARBOXYHEMOGLOBIN 1.7 % (0-4); BLOOD GAS HCO3 20 mmol/L (22-26); BLOOD GAS O2 HGB SATURATION 95 % (90-100); BLOOD GAS OXYGEN CONTENT 14.7 Vol % (12.0-20.0); BLOOD GAS PCO2 30 mmHG (38-42); BLOOD GAS PO2 94 mmHG (61-120); BLOOD GAS TOTAL HGB 10.9 G/DL (12.0-16.0); CRITICAL VALUE NO; OXYGEN DEVICE ROOM AIR; TEMP CORR TO 98.6
[2016-08-27 10:52] LABS: DRAW SITE RT RADIAL; FIO2 21 %; NUMBER OF ARTERIAL PUNCTURES 1; STAT NO; ULNAR PULSE PRESENT
--- NOTE | 2016-08-28 09:26 | RSPPFT ---
DATE OF PROCEDURE: 08/27/16 COMMENTS: Spirometry shows FVC of 3.8 at 88% of predicted, FEV1 of 2.1 at 78%, FEV1/FVC ratio is decreased. Flow is decreased at FEF 25-, FEF 50, FEF 75 and FEF 25-75. There is no response after bronchodilator treatment. Lung volumes show residual volume is decreased. TLC is mildly decreased. Diffusion capacity is decreased. Flow volume loop indicates an obstructive pattern. Room air arterial blood gases show pH of 7.43, PCO2 of 30, PO2 of 93, BiCarb of 20 and O2 Saturation at 95%. IMPRESSION: 1. Mild obstructive lung disease. 2. No response after bronchodilator treatment. 3. Additional mild restrictive lung disease. 4. Significant loss in diffusion capacity. 5. Blood gases show normal oxygenation on room air.
== END ==
LOC: PHRSP 10:26
PROVIDERS: ATTEND Specialist
DX: J44.9 Chronic obstructive pulmonary disease, unspecified (principal)
CPT/HCPCS: 36600; 82805; 94060; 94726; 94729

== ENCOUNTER 2017-03-24 09:17 | Observation (INO) | payer MEDICARE ==
[~2017-03-24] VITALS: Ht 182.9 cm; Wt 81.0 kg
[2017-03-24 09:19] VITALS: BP 122/60; PULSE 74; RESP 12; TEMP 97.8; O2SAT 96
[2017-03-24 10:27] LABS: AUTOMATED NEUTROPHIL # 3.3 TH/MM3 (1.8-7.7); BASOPHIL % 0.8 % (0.0-2.0); EOSINOPHIL # 0.1 TH/MM3 (0-0.4); EOSINOPHIL % 2.6 % (0.0-4.0); HEMATOCRIT 37.3 % (39.0-51.0); HEMO FLAGS DIFF FINAL; LYMPH % 22.3 % (9.0-44.0); LYMPHOCYTE # 1.3 TH/MM3 (1.0-4.8); MEAN CELL VOLUME 87.1 FL (80.0-100.0); MEAN CORPUSCULAR HEMOGLOBIN 28.5 PG (27.0-34.0); MEAN CORPUSCULAR HGB CONC 32.7 % (32.0-36.0); NEUT % 57.3 % (16.0-70.0); PLATELET COUNT 267 TH/MM3 (150-450); RED BLOOD COUNT 4.28 MIL/MM3 (4.50-5.90); RED CELL DISTRIBUTION WIDTH 19.2 % (11.6-17.2); WHITE BLOOD COUNT 5.7 TH/MM3 (4.0-11.0)
--- NOTE | 2017-03-24 10:32 | PD ---
HPI Chief Complaint: Neuro Symptoms/ Deficits Time Seen by Provider: 09:55 Travel History International Travel<30 days: No Contact w/Intl Traveler<30days: No Traveled to known affect area: No History of Present Illness HPI This is a 81-year-old man who presents to the emergency department with progressive worsening diarrhea. Patient has extensive medical history including was notably gastric mass with initial negative biopsy still being evaluated. He also has A. fib COPD hypertension. He AAA and GERD. He had a CT scan done about 3 weeks ago after which she had significant diarrhea. His intermittent diarrhea since then. Over the past week he's had progressive worsening diarrhea and had diarrhea with fecal incontinence in the emergency department. He describes loose watery stools. No blood that he is noted. He does have abdominal pain and cramping with it. He also no significant weight loss, as well as feeling lightheaded and off balance when he first stands up. No history of previous similar symptoms. History Past Medical History Narrative Medical A. fib COPD Hypertension PAD AAA GERD Gastric mass PNEUMOCCOCAL Vaccine (Year): 2007 Social History Alcohol Use: Yes Tobacco Use: No Allergies-Medications (Allergen,Severity, Reaction): Coded Allergies: aspirin (Unverified Allergy, Severe, HIVES, 03/24/17) PT STATES HE IS NOT digoxin (Unverified Allergy, Severe, Hives, 03/24/17) PT STATES HE IS NOT Reported Meds & Prescriptions Reported Meds & Active Scripts Active Reported Prednisone 10 Mg Tab 10 Mg PO DAILY Multiple Vitamin 1 Tab 1 Tab PO DAILY Oxycodone-Acetaminophen 5-325 (Oxycodone HCl/Acetaminophen) 5 Mg-325 Mg Tablet Lansoprazole 30 Mg Capdr 30 Mg PO DAILY Ferrous Fumarate 324 Mg (106 Mg Iron) Tab 325 Mg PO DAILY Cartia Xt (Diltiazem ER 24 HR) 120 Mg Caper 120 Mg PO DAILY Amiodarone (Amiodarone HCl) 200 Mg Tab 200 Mg PO DAILY Plavix (Clopidogrel Bisulfate) 75 Mg Tab 75 Mg PO DAILY Ativan (Lorazepam) 1 Mg Tab 1 Mg PO HS PRN Atrovent HFA 12.9 GM Inh (Ipratropium [place]) 17 Mcg/Act Aer 1 Puff INH Q6HR PRN Duoneb (Ipratropium-Albuterol Neb) 0.5-2.5 Mg/3 Ml Neb 1 Nebule INH Q6HR NEB Ventolin Hfa 18 GM Inh (Albuterol Sulfate) 90 Mcg/Act Aer 2 Puff INH Q6H PRN Review of Systems Except as stated in HPI: all other systems reviewed are Neg Physical Exam Narrative GENERAL: 81-year-old man, little bit wan appearing. July wasting. SKIN: Focused skin assessment warm/dry. Decreased skin turgor. NECK: Trachea midline. No JVD. CARDIOVASCULAR: Regular rate and rhythm. No murmur appreciated. RESPIRATORY: No accessory muscle use. Clear to auscultation. Breath sounds equal bilaterally. GASTROINTESTINAL: Abdomen is flat and soft. No CVA tenderness. MUSCULOSKELETAL: No obvious deformities. No clubbing. No cyanosis. No edema. NEUROLOGICAL: Awake and alert. No obvious cranial nerve deficits. Motor grossly within normal limits. Normal speech. PSYCHIATRIC: Appropriate mood and affect; insight and judgment normal. Data Data Last Documented VS Vital Signs Date Time Temp Pulse Resp B/P (MAP) Pulse Ox O2 Delivery O2 Flow Rate FiO2 03/24/17 09:34 74 22 97 Room Air 03/24/17 09:19 97.8 122/60 (80) Orders Orders Complete Blood Count With Diff (03/24/17 10:12) Comprehensive Metabolic Panel (03/24/17 10:12) Iv Access Insert/Monitor (03/24/17 10:12) C Diff Toxin Pcr (03/24/17 10:12) Enteric Path (Stool) (03/24/17 10:12) Ct Abd/Pel W Iv Contrast(Rout) (03/24/17 ) Iohexol 350 Inj (Omnipaque 350 Inj) (03/24/17 11:11) Ct Brain W/O Iv Contrast(Rout) (03/24/17 ) Isolation (03/24/17 11:36) Admit To Inpatient (03/24/17 ) Code Status (03/24/17 11:47) Vital Signs (Adult) Q4H (03/24/17 11:47) Activity Oob With Assistance (03/24/17 11:47) Diet Regular Basic (03/24/17 Lunch) Sodium Chloride 0.9% Flush (Ns Flush) (03/24/17 12:00) Sodium Chloride 0.9% Flush (Ns Flush) (03/24/17 21:00) Acetaminophen (Tylenol) (03/24/17 12:00) Ondansetron Inj (Zofran Inj) (03/24/17 12:00) Basic Metabolic Panel (Bmp) (03/25/17 06:00) Complete Blood Count With Diff (03/25/17 06:00) Chest, Single Ap (03/24/17 11:47) Electrocardiogram (03/24/17 11:47) Pt Request For Service (03/24/17 11:47) Scd Bilateral/Knee High TL.BID (03/24/17 11:47) Naloxone Inj (Narcan Inj) (03/24/17 12:00) Inpatient Certification (03/24/17 ) 1/2 Ns + Kcl 20 Meq Inj (1/2 Ns + Kcl 20 (03/24/17 12:00) Amiodarone (Cordarone) (03/25/17 09:00) Clopidogrel (Plavix) (03/25/17 09:00) Diltiazem Cd (Cardizem Cd) (03/25/17 09:00) Lorazepam (Ativan) (03/24/17 12:00) (Nf) Lansoprazole (03/25/17 09:00) Albuterol-Ipratropium Neb (Duoneb Neb) (03/24/17 12:00) Acetamin-Hydrocod 325-5 Mg ([place] 5-325 (03/24/17 12:00) Admit Order (Ed Use Only) (03/24/17 ) Cryptosporidium (Stool) (03/24/17 11:56) Cyclospora (Stool) (03/24/17 11:56) Giardia Antigen (Stool) (03/24/17 11:56) Occult Blood (Hemoccult) Stool (03/24/17 11:56) Stool Ova And Parasite Screen (03/24/17 11:56) Stool Wbc (Leukocytes) (03/24/17 11:56) Specimen To Be Collected PRN (03/24/17 11:56) Specimen To Be Collected PRN (03/24/17 11:56) Specimen To Be Collected PRN (03/24/17 11:56) Specimen To Be Collected PRN (03/24/17 11:56) Labs Laboratory Tests Test 12/3/17 10:15 White Blood Count 5.7 TH/MM3 Red Blood Count 4.28 MIL/MM3 Hemoglobin 12.2 GM/DL Hematocrit 37.3 % Mean Corpuscular Volume 87.1 FL Mean Corpuscular Hemoglobin 28.5 PG Mean Corpuscular Hemoglobin Concent 32.7 % Red Cell Distribution Width 19.2 % Platelet Count 267 TH/MM3 Mean Platelet Volume 7.3 FL Neutrophils (%) (Auto) 57.3 % Lymphocytes (%) (Auto) 22.3 % Monocytes (%) (Auto) 17.0 % Eosinophils (%) (Auto) 2.6 % Basophils (%) (Auto) 0.8 % Neutrophils # (Auto) 3.3 TH/MM3 Lymphocytes # (Auto) 1.3 TH/MM3 Monocytes # (Auto) 1.0 TH/MM3 Eosinophils # (Auto) 0.1 TH/MM3 Basophils # (Auto) 0.0 TH/MM3 CBC Comment DIFF FINAL Differential Comment Blood Urea Nitrogen 9 MG/DL Creatinine 1.25 MG/DL Random Glucose 88 MG/DL Total Protein 6.9 GM/DL Albumin 3.6 GM/DL Calcium Level 8.8 MG/DL Alkaline Phosphatase 196 U/L Aspartate Amino Transf (AST/SGOT) 58 U/L Alanine Aminotransferase (ALT/SGPT) 100 U/L Total Bilirubin 0.3 MG/DL Sodium Level 138 MEQ/L Potassium Level 3.0 MEQ/L Chloride Level 104 MEQ/L Carbon Dioxide Level 28.9 MEQ/L Anion Gap 5 MEQ/L Estimat Glomerular Filtration Rate 55 ML/MIN MDM Medical Decision Making Medical Screen Exam Complete: Yes Emergency Medical Condition: Yes Interpretation(s) LABS: CBC is remarkable for mild anemia. CMP is remarkable for mildly elevated AST ALT and alkaline phosphatase. CT abdomen and pelvis: No acute inflammatory process. Nonobstructing right renal calculus. Normal appendix. Bilateral renal low densities. Aortic aneurysm bypass grafting residual aneurysmal sac measuring 4.3 cm. Differential Diagnosis Diarrhea, C. difficile, infection, neuroendocrine tumor or carcinoid syndrome, adverse effect of medication Narrative Course Medical decision making INITIAL: Is an 81-year-old man who presents emergency Department with neuroendocrine several weeks of persistent diarrhea and the setting of gastric mass and recent CT scan. Possible diverticulitis. Concern for other unusual causes of diarrhea including infection, C. difficile. No recent antibiotic exposures. Multiple healthcare exposures although no recent hospitalizations. Also has a gastric mass and a neuroendocrine tumor is possible. Recommend IV fluid hydration, check labs, check CT scan for diverticulitis, likely admission for further evaluation. Diagnosis Primary Impression: Severe diarrhea Additional Impression: Dehydration Admitting Information Admitting Physician Requests: Admit Pierre Goodwin MD Mar 24, 2017 10:32
[2017-03-24 10:45] LABS: ALT (GPT) 100 U/L (12-78); ANION GAP 5 MEQ/L (5-15); AST (GOT) 58 U/L (15-37); BICARBONATE 28.9 MEQ/L (21.0-32.0); BLOOD UREA NITROGEN 9 MG/DL (7-18); CHLORIDE 104 MEQ/L (98-107); GLOMERULAR FILTRATION RATE 55 ML/MIN (>89); SODIUM (NA) 138 MEQ/L (136-145)
[2017-03-24 10:47] LABS: ALKALINE PHOSPHATASE 196 U/L (45-117); TOTAL BILIRUBIN ADULT 0.3 MG/DL (0.2-1.0)
[2017-03-24] MEDS ORDERED: AMIO200T PO (10:56)
[2017-03-24] MEDS ORDERED: MULTTAB67 PO (10:56)
[2017-03-24] MEDS ORDERED: LANS30CA PO (10:56)
[2017-03-24] MEDS ORDERED: FERR324T8 PO (10:56)
[2017-03-24] MEDS ORDERED: PRED10 PO (10:56)
[2017-03-24] MEDS ORDERED: OXYC1TAB63 (10:56)
[2017-03-24] MEDS ORDERED: CART120C PO (10:56)
[2017-03-24] MEDS ORDERED: IOHEXOL 350 MG/ML 10 ML VIAL (for RAD DIAG) IVCONTRAST ONE (11:11)
--- NOTE | 2017-03-24 11:23 | RADRPT ---
EXAM DATE/TIME: 03/24/2017 11:01 [facility] COMPARISON: CT ABDOMEN & PELVIS W CONTRAST, July 12, 2016, 0:42. INDICATIONS : Right side abdominal pain with diarrhea x3 weeks. IV CONTRAST: 100 cc Omnipaque 350 (iohexol) IV ORAL CONTRAST: No oral contrast ingested. RADIATION DOSE: 15.00 CTDIvol (mGy) MEDICAL HISTORY : Congestive heart failure. Gastroesophageal reflux disease. Renal calculi.AAA. Hypertension. COPD. SURGICAL HISTORY : Coronary artery stent. ENCOUNTER: Initial ACUITY: 3 weeks PAIN SCALE: 8/10 LOCATION: Right abdomen. TECHNIQUE: Volumetric scanning of the abdomen and pelvis was performed. Using automated exposure control and ad justment of the mA and/or kV according to patient size, radiation dose was kept as low as reasonably achievable to obtain optimal diagnostic quality images. DICOM format image data is available electro nically for review and comparison. FINDINGS: LOWER LUNGS: The visualized lower lungs are clear. LIVER: Homogeneous density without lesion. There is no dilation of the biliary tree. No calcified [place] es. SPLEEN: Normal size without lesion. PANCREAS: Within normal limits. KIDNEYS: Normal in size and shape. There is no mass or hydronephrosis. Nonobstructing calculus lower Pole rig ht kidney measures 3-4 mm. Subcentimeter low densities bilaterally. ADRENAL GLANDS: Within normal limits. VASCULAR: Aortobifemoral bypass graft. Residual aneurysmal sac measures 4.3 x 4.1 cm and the distal aorta.. BOWEL/MESENTERY: The stomach, small bowel, and colon demonstrate no acute abnormality. There is no free intraperitone al air or fluid. Normal appendix. ABDOMINAL WALL: Within normal limits. RETROPERITONEUM: There is no lymphadenopathy. BLADDER: No wall thickening or mass. REPRODUCTIVE: Within normal limits. INGUINAL: There is no lymphadenopathy or hernia. MUSCULOSKELETAL: Within normal limits for patient age. CONCLUSION: 1. No acute inflammatory process. 2. Nonobstructing 3-4 mm right renal calculus. 3. Normal appendix. 4. Bilateral renal low densities. 5. Abdominal aortic aneurysm with bypass graft and residual aneurysmal sac measuring 4.3 cm. Juanito Chen MD on March 24, 2017 at 11:18 Board Certified Radiologist. This report was verified electronically.
[2017-03-24] MEDS ORDERED: SODIUM CHLORIDE 0.9% FLUSH 10 ML FLUSH IV FLUSH PRN (12:00)
[2017-03-24] MEDS ORDERED: ACETAMINOPHEN 325 MG TAB PO PRN (12:00)
[2017-03-24] MEDS ORDERED: RESP: ALBUTEROL 2.5 MG/IPRATROPIUM 0.5 MG NEB (PRN) NEB ×2 (12:00→17:00)
[2017-03-24] MEDS ORDERED: NALOXONE HCL 0.4 MG/ML AMP IV PUSH PRN (12:00)
--- NOTE | 2017-03-24 12:05 | RADRPT ---
EXAM DATE/TIME: 03/24/2017 11:52 [facility] COMPARISON: No previous studies available for comparison. INDICATIONS : Dizziness. RADIATION DOSE: 48.48 CTDIvol (mGy) MEDICAL HISTORY : Cardiovascular disease. Congestive heart failure. Aneurysm, abdominal.Hypertension. A-Fib. SURGICAL HISTORY : None. ENCOUNTER: Initial ACUITY: 1 week PAIN SCALE: 0/10 LOCATION: cranial TECHNIQUE: Multiple contiguous axial images were obtained of the head. Using automated exposure control and adj ustment of the mA and/or kV according to patient size, radiation dose was kept as low as reasonably a chievable to obtain optimal diagnostic quality images. DICOM format image data is available electro nically for review and comparison. FINDINGS: CEREBRUM: The ventricles are normal for age. No evidence of midline shift, mass lesion, hemorrhage or acute in farction. No extra-axial fluid collections are seen. POSTERIOR FOSSA: The cerebellum and brainstem are intact. The 4th ventricle is midline. The cerebellopontine angle i s unremarkable. EXTRACRANIAL: The visualized portion of the orbits is intact. Plate and screws along the left maxillary sinus. SKULL: The calvaria is intact. No evidence of skull fracture. CONCLUSION: No acute intracranial abnormality. Juanito Chen MD on March 24, 2017 at 12:01 Board Certified Radiologist. This report was verified electronically.
--- NOTE | 2017-03-24 12:14 | RADRPT ---
EXAM DATE/TIME: 03/24/2017 12:00 [facility] COMPARISON: CHEST SINGLE AP, July 16, 2016, 10:54. INDICATIONS : Cough. MEDICAL HISTORY : Chronic obstructive pulmonary disease. Congestive heart failure. Gastroesophageal reflux diseas e. Renal calculi. Hypertension. SURGICAL HISTORY : Coronary artery stent. ENCOUNTER: Initial ACUITY: 1 day PAIN SCORE: 0/10 LOCATION: Bilateral chest FINDINGS: A single view of the chest demonstrates the lungs to be symmetrically aerated without evidence of mas s, infiltrate or effusion. The cardiomediastinal contours are unremarkable. Osseous structures are intact. CONCLUSION: No acute disease. Juanito Chen MD on March 24, 2017 at 12:11 Board Certified Radiologist. This report was verified electronically.
[2017-03-24 12:19] VITALS: BP 168/77; PULSE 59; RESP 20; O2SAT 96
[2017-03-24 14:19] VITALS: BP 167/74; PULSE 60; RESP 18; TEMP 98.7; O2SAT 97
[2017-03-24] MEDS: ONDANSETRON HCL 4 MG/2 ML VIAL IVP PRN ×2 (15:06→21:55)
[2017-03-24] MEDS: ACETAMINOPHEN/HYDROcodone 325 MG/5 MG TAB PO PRN (15:07)
[2017-03-24] MEDS: 1/2 NS + KCL 20 MEQ INJ 1,000 ML IV SCH (15:07)
[2017-03-24 15:26] LABS: C. DIFF EPI 027 PRESUMPTIVE NEGATIVE (NEGATIVE)
--- NOTE | 2017-03-24 15:38 | HHI.HP ---
HPI Service [facility] Hospitalists Primary Care Physician Mita Carney MD Admission Diagnosis diarrhea, lightheadedness Chief Complaint: Diarrhea, abd pain Travel History International Travel<30 Days: No Contact w/Intl Traveler <30 Da: No Traveled to Known Affected Are: No History of Present Illness Mr. Nino is an 81 y/o male with paroxysmal atrial fibrillation, COPD, HTN, known gastric mass, and previous T12 compression fracture in 10/2015. Pt presented to the ER at [facility] [place]24/17 with progressive worsening diarrhea. Patient has known history of a gastric mass, initially noted in 2015. He initially had an EGD/colonoscopy on 10/18/15 which noted a submucosal mass in the antrum, gastritis in the gastric antrum, sessile polyp in the ascending colon and proximal transverse colon, mild diverticulosis in the sigmoid colon. Pathology was negative. He was recommended to have an EUS which was performed on 02/07/[address] 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 There are two final pathology reports in the EHR system ( one was path report from EGD and one was from FNA done during the EUS). 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 He has followed back up with GI in February 2017 and had a repeat EGD on 02/20/17 and revealed food residue in the gastric body, mass measuring 3cm x 3cm in the gastric antrum, multiple biopsies performed which were negative for malignancy. He had a CT Abd/pelvis with IV contrast on for complaints of continued abd pain. The CT noted a stable appearing soft tissue mass in the gastric antrum measuring up to 2.6cm. After the CT he reportedly began having significant diarrhea. This was initially intermittent diarrhea, but over the past week he's had progressive worsening diarrhea having over 10 BMs in a 24 hour time period. He has had progressive generalized weakness and worsening appetite. He states that he has lost about 6lbs in the last 3 weeks. Pt denies any noted melena or hematochezia. He describes the stools as loose, watery stools. He does have abdominal pain and cramping. He has had some fecal incontinence. CT Abd/pelvis in the ED noted no acute inflammatory process, nonobstructing 3-4 mm right renal calculus, normal appendix, bilateral renal low densities, abdominal aortic aneurysm with bypass graft and residual aneurysmal sac measuring 4.3 cm. Stool studies were taken in the ED and are negative for C. diff. He has not been on any antibiotics recently and denies any recent medicine changes. Review of Systems Constitutional: COMPLAINS OF: Weight loss, Dizziness, DENIES: Fever, Chills Eyes: DENIES: Vision loss Ears, nose, mouth, throat: DENIES: Hearing loss Respiratory: DENIES: Cough, Shortness of breath Cardiovascular: DENIES: Chest pain, Palpitations, Dyspnea on Exertion, Lower Extremity Edema Gastrointestinal: COMPLAINS OF: Abdominal pain, Diarrhea, See HPI, DENIES: Black stools, Bloody stools, BRB per rectum, Constipation, GERD, Nausea, Vomiting, Difficulty Swallowing Genitourinary: DENIES: Hematuria, Dysuria Musculoskeletal: DENIES: Back pain Integumentary: DENIES: Rash Neurologic: DENIES: Headache Psychiatric: DENIES: Confusion Past Family Social History Past Medical History COPD HTN PAD with stenting to the right ext iliac and left sup. fem 2013 AAA A. fib GERD T12 comp fx,10% Submucosal gastric mass, pathology was negative. - Pt had a CT Abd/pelvis (10/25/15) --> 2.6cm enteral mass without evidence of metastatic adenopathy, 4.6cm dominant aortic aneurysm, and nonobstructing right renal stone and bladder stone. - Pt was recommended to have an outpt EUS and Capsule endoscopy which has not been done yet. Essential tremor Past Surgical History EGD (02/20/17) with Dr. Zacarias --> Food residue in the gastric body, mass measuring 3cm x 3cm in the gastric antrum, multiple biopsies performed which were negative for malignancy EUS (02/07/16) with Dr. 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 Pathology was negative Cataract surgery TURP Reported Medications -Oxycodone-Acetaminophen 5-325Mg PO BID PRN -Lansoprazole 30 Mg PO DAILY -Ferrous Fumarate 325 Mg PO DAILY -Cartia Xt 120 Mg PO DAILY -Amiodarone 200 Mg PO DAILY -Plavix 75 Mg PO DAILY -Ativan 1 Mg PO HS PRN -Atrovent HFA 12.9 GM Inh (Ipratropium [place]oria) 17 Mcg/Act Aer 1 Puff INH Q6HR PRN -Duoneb 0.5-2.5 Mg/3 Ml Neb 1 Nebule INH Q6HR NEB -Ventolin Hfa 90 Mcg/Act Aer 2 Puff INH Q6H PRN Allergies: Coded Allergies: digoxin (Unverified Allergy, Intermediate, hives, 03/27/17) pt stopped this medication 30 years ago aspirin (Verified Allergy, Mild, pt states he takes aspirin and is not allergic to aspirin, 03/27/17) PT STATES HE IS NOT Family History Noncontributory Social History Denies any tobacco use Hx of alcohol use, none recently Francois any illicit drug use Physical Exam Vital Signs Vital Signs Date Time Temp Pulse Resp B/P (MAP) Pulse Ox O2 Delivery O2 Flow Rate FiO2 03/24/17 14:19 98.7 60 18 167/74 (105) 97 03/24/17 13:06 (107) 03/24/17 12:19 59 20 168/77 (107) 96 Room Air 03/24/17 09:34 74 22 97 Room Air 03/24/17 09:19 97.8 74 12 122/60 (80) 96 Physical Exam GENERAL: This is a well-nourished, well-developed patient, in no apparent distress. SKIN: No rashes, ecchymoses or lesions. Cool and dry. HEENT: Atraumatic. Normocephalic. No temporal or scalp tenderness. No scleral icterus. Airway patent. NECK: Trachea midline, supple, nontender, no meningeal signs. CARDIO: Regular. RESP: CTA bilaterally. No wheezes, rales, or rhonchi. ABD: +BS, soft, non-tender, nondistended. EXT: Extremities without clubbing, cyanosis, or edema. NEURO: Awake and alert. Motor and sensory grossly within normal limits. Normal speech. Laboratory Laboratory Tests Test 03/24/17 10:15 03/24/17 13:25 White Blood Count 5.7 Red Blood Count 4.28 Hemoglobin 12.2 Hematocrit 37.3 Mean Corpuscular Volume 87.1 Mean Corpuscular Hemoglobin 28.5 Mean Corpuscular Hemoglobin Concent 32.7 Red Cell Distribution Width 19.2 Platelet Count 267 Mean Platelet Volume 7.3 Neutrophils (%) (Auto) 57.3 Lymphocytes (%) (Auto) 22.3 Monocytes (%) (Auto) 17.0 Eosinophils (%) (Auto) 2.6 Basophils (%) (Auto) 0.8 Neutrophils # (Auto) 3.3 Lymphocytes # (Auto) 1.3 Monocytes # (Auto) 1.0 Eosinophils # (Auto) 0.1 Basophils # (Auto) 0.0 CBC Comment DIFF FINAL Differential Comment Blood Urea Nitrogen 9 Creatinine 1.25 Random Glucose 88 Total Protein 6.9 Albumin 3.6 Calcium Level 8.8 Alkaline Phosphatase 196 Aspartate Amino Transf (AST/SGOT) 58 Alanine Aminotransferase (ALT/SGPT) 100 Total Bilirubin 0.3 Sodium Level 138 Potassium Level 3.0 Chloride Level 104 Carbon Dioxide Level 28.9 Anion Gap 5 Estimat Glomerular Filtration Rate 55 Date/Time Source Procedure Growth Status 03/24/17 13:25 Stool Stool Pending Received Result Diagram: 03/24/17 1015 03/24/17 1015 Imaging Last Impressions Chest X-Ray 03/24/17 1147 Signed Impressions: Service Date/Time: Friday, March 24, 2017 12:00 - CONCLUSION: No acute disease. Juanito Chen MD Head CT 03/24/17 0000 Signed Impressions: Service Date/Time: Friday, March 24, 2017 11:52 - CONCLUSION: No acute intracranial abnormality. Juanito Chen MD Abdomen/Pelvis CT 03/24/17 0000 Signed Impressions: Service Date/Time: Friday, March 24, 2017 11:01 - CONCLUSION: 1. No acute inflammatory process. 2. Nonobstructing 3-4 mm right renal calculus. 3. Normal appendix. 4. Bilateral renal low densities. 5. Abdominal aortic aneurysm with bypass graft and residual aneurysmal sac measuring 4.3 cm. Juanito Chen MD Septic Shock Reassessment Heart: Regular rate and rhythm Lungs: Clear Skin: Warm Caprini VTE Risk Assessment Caprini VTE Risk Assessment: Mod/High Risk (score >= 2) Caprini Risk Assessment Model Point Value = 1 Point Value = 2 Point Value = 3 Point Value = 5 Age 41-60 Minor surgery BMI > 25 kg/m2 Swollen legs Varicose veins or History of unexplained or recurrent spontaneous Oral contraceptives or hormone replacement Sepsis (< 1 month) Serious lung disease, including pneumonia (< 1 month) Abnormal pulmonary function Acute myocardial infarction Congestive heart failure (< 1 month) History of inflammatory bowel disease Medical patient at bed rest Age 61-74 Arthroscopic surgery Major open surgery (> 45 min) Laparoscopic surgery (> 45 min) Malignancy Confined to bed (> 72 hours) Immobilizing plaster cast Central venous access Age >= 75 History of VTE Family history of VTE Factor V Leiden Prothrombin [id number] Lupus anticoagulant Anticardiolipin antibodies Elevated serum homocysteine Heparin-induced thrombocytopenia Other congenital or acquired thrombophilia Stroke (< 1 month) Elective arthroplasty Hip, pelvis, or leg fracture Acute spinal cord injury (< 1 month) Prophylaxis Regimen Total Risk Factor Score Risk Level Prophylaxis Regimen 0-1 Low Early ambulation 2 Moderate Order ONE of the following: *Sequential Compression Device (SCD) *Heparin 5000 units SQ BID 3-4 Higher Order ONE of the following medications: *Heparin 5000 units SQ TID *Enoxaparin/Lovenox 40 mg SQ daily (WT < 150 kg, CrCl > 30 mL/min) *Enoxaparin/Lovenox 30 mg SQ daily (WT < 150 kg, CrCl > 10-29 mL/min) *Enoxaparin/Lovenox 30 mg SQ BID (WT < 150 kg, CrCl > 30 mL/min) AND/OR *Sequential Compression Device (SCD) 5 or more Highest Order ONE of the following medications: *Heparin 5000 units SQ TID (Preferred with Epidurals) *Enoxaparin/Lovenox 40 mg SQ daily (WT < 150 kg, CrCl > 30 mL/min) *Enoxaparin/Lovenox 30 mg SQ daily (WT < 150 kg, CrCl > 10-29 mL/min) *Enoxaparin/Lovenox 30 mg SQ BID (WT < 150 kg, CrCl > 30 mL/min) AND *Sequential Compression Device (SCD) Assessment and Plan Problem List: (1) Severe diarrhea ICD Codes: K52.9 - Noninfective gastroenteritis and colitis, unspecified Status: Acute Plan: - Pt is an 81 y/o male with paroxysmal atrial fibrillation, COPD, HTN, known gastric mass, and previous T12 compression fracture in 10/2015. - Pt presented to the ER at [facility] on 03/24/17 with progressive worsening diarrhea. - Pt has had issues with abd pain and his PCP sent him for a CT Abd/pelvis with IV contrast on 03/06/17 for complaints of continued abd pain. The CT noted a stable appearing soft tissue mass in the gastric antrum measuring up to 2.6cm. After the CT he reportedly began having significant diarrhea. This was initially intermittent diarrhea, but over the past week he's had progressive worsening diarrhea having over 10 BMs in a 24 hour time period. He has had progressive generalized weakness and worsening appetite. He states that he has lost about 6lbs in the last 3 weeks. Pt denies any noted melena or hematochezia. The weakness and profuse diarrhea prompted his ER evaluation. - In the ED he had CT Abd/pelvis --> no acute inflammatory process, nonobstructing 3-4 mm right renal calculus, normal appendix, bilateral renal low densities, abdominal aortic aneurysm with bypass graft and residual aneurysmal sac measuring 4.3 cm. - Stool studies were taken in the ED and are negative for C. diff. - Await remaining stool study results - He has not been on any antibiotics recently and denies any recent medicine changes. - IVF with potassium - Consult GI - Supportive care - DVT prophylaxis with SCDs (2) Dehydration ICD Codes: E86.0 - Dehydration Status: Acute Plan: - See above. (3) Gastric mass ICD Codes: K31.9 - Disease of stomach and duodenum, unspecified Status: Acute Plan: - Patient has known history of a gastric mass, initially noted in 2015. - He initially had an EGD/colonoscopy on 10/18/15 which noted a submucosal mass in the antrum, gastritis in the gastric antrum, sessile polyp in the ascending colon and proximal transverse colon, mild diverticulosis in the sigmoid colon. Pathology was negative. - He was recommended to have an EUS which was performed on 02/07/[address] 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 There are two final pathology reports in the EHR system (one was path report from EGD and one was from FNA done during the EUS). 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 - He has followed back up with GI in January 2017 and had a repeat EGD on which noted food residue in the gastric body, mass measuring 3cm x 3cm in the gastric antrum, multiple biopsies performed which were negative for malignancy. - GI consulted (4) COPD (chronic obstructive pulmonary disease) ICD Codes: J44.9 - Chronic obstructive pulmonary disease, unspecified Status: Chronic Plan: - Home meds continued - Duonebs PRN and scheduled (5) AAA (abdominal aortic aneurysm) ICD Codes: I71.4 - Abdominal aortic aneurysm, without rupture Status: Acute Plan: - s/p surgical repair (6) HTN (hypertension) ICD Codes: I10 - Essential (primary) hypertension Status: Chronic Plan: - Home meds continued - Vasotec and Clonidine PRN (7) Paroxysmal atrial fibrillation ICD Codes: I48.0 - Paroxysmal atrial fibrillation Status: Chronic Plan: - Home meds continued - telemetry Assessment and Plan Patient examined. Assessment and plan formulated with Lorena Schneider PA-C. I agree with the above. Physician Certification 2 Midnight Certification Type: Admission for Inpatient Services Order for Inpatient Services The services are ordered in accordance with Medicare regulations or non- Medicare payer requirements, as applicable. In the case of services not specified as inpatient-only, they are appropriately provided as inpatient services in accordance with the 2-midnight benchmark. Estimated LOS (days): 3 3 days is the estimated time the patient will need to remain in the hospital, assuming treatment plan goals are met and no additional complications. Post-Hospital Plan: Not yet determined Lorena Schneider Mar 24, 2017 15:38 Byron Gaoan DO Mar 27, 2017 22:59
[2017-03-24 16:48] VITALS: BP 156/95; PULSE 82; RESP 18; TEMP 98.2; O2SAT 95
[2017-03-24 20:40] VITALS: BP 142/66; PULSE 60; RESP 18; TEMP 98.1; O2SAT 96
[2017-03-24] MEDS: SODIUM CHLORIDE 0.9% FLUSH 10 ML FLUSH IV FLUSH SCH (21:00)
[2017-03-24] MEDS: RESP: ALBUTEROL 2.5 MG/IPRATROPIUM 0.5 MG NEB (SCH) NEB (21:36)
[2017-03-25] VITALS (9 sets, daily range): BP systolic 132–164; BP diastolic 58–72; PULSE 54–69; RESP 17–20; TEMP 97.4–98.1; O2SAT 94–98
[2017-03-25] MEDS: ACETAMINOPHEN/HYDROcodone 325 MG/5 MG TAB PO PRN ×2 (02:26→08:03)
[2017-03-25] MEDS: 1/2 NS + KCL 20 MEQ INJ 1,000 ML IV SCH ×2 (06:11→11:43)
[2017-03-25] MEDS: SODIUM CHLORIDE 0.9% FLUSH 10 ML FLUSH IV FLUSH SCH ×2 (07:45→21:00)
[2017-03-25] MEDS: RESP: ALBUTEROL 2.5 MG/IPRATROPIUM 0.5 MG NEB (SCH) NEB ×3 (07:47→19:54)
[2017-03-25] MEDS: DILTIAZEM-CD 120 MG CAP ER PO SCH (07:57)
[2017-03-25] MEDS: AMIODARONE 200 MG TAB PO SCH (07:57)
[2017-03-25] MEDS: PANTOPRAZOLE SOD 40 MG DELAYED RELEASE TAB PO SCH (07:57)
[2017-03-25] MEDS: CLOPIDOGREL 75 MG TAB PO SCH (07:57)
[2017-03-25] MEDS: LORazepam 1 MG TAB PO PRN (08:02)
[2017-03-25 08:04] LABS: AUTOMATED NEUTROPHIL # 2.5 TH/MM3 (1.8-7.7); BASOPHIL % 0.7 % (0.0-2.0); EOSINOPHIL # 0.1 TH/MM3 (0-0.4); EOSINOPHIL % 1.6 % (0.0-4.0); HEMATOCRIT 35.1 % (39.0-51.0); HEMO FLAGS DIFF FINAL; LYMPH % 30.2 % (9.0-44.0); LYMPHOCYTE # 1.5 TH/MM3 (1.0-4.8); MEAN CELL VOLUME 86.7 FL (80.0-100.0); MEAN CORPUSCULAR HEMOGLOBIN 28.5 PG (27.0-34.0); MEAN CORPUSCULAR HGB CONC 32.8 % (32.0-36.0); MONO % 17.5 % (0.0-8.0); PLATELET COUNT 254 TH/MM3 (150-450); RED BLOOD COUNT 4.05 MIL/MM3 (4.50-5.90); WHITE BLOOD COUNT 4.9 TH/MM3 (4.0-11.0)
[2017-03-25 08:36] LABS: BICARBONATE 25.5 MEQ/L (21.0-32.0); POTASSIUM 3.3 MEQ/L (3.5-5.1)
[2017-03-25] MEDS ORDERED: POTASSIUM CHLORIDE 20 MEQ CONTROLLED RELEASE TAB PO ONE (10:00)
[2017-03-25 10:24] LABS: INDIRECT BILIRUBIN 0.2 MG/DL (0.0-0.8); TOTAL BILIRUBIN ADULT 0.3 MG/DL (0.2-1.0)
--- NOTE | 2017-03-25 12:56 | PD.CONS ---
HPI History of Present Illness This is a 81 year old male with hx AF, COPD, CHF, gastric mass who presented with loose frequent stool, onset 3 weeks ago. He had a CT scan 3 weeks ago and subsequently developed loose watery stool 10-15 times daily and some nausea. He also has epigastric pain which he has had intermittently for months but is becoming more frequent. He tells me that he had a 15 second long episode of continuous flatus and had a great deal of relief after but can provide no other associated, relieving or aggravating factors. He is also c/o more flatus than usual. He denies blood in stool, vomiting, black tarry stool, fevers, medication change, change diet, recent travel or recent abx use. Per EMR His last EGD was 02/2017 and found food residue and a 3x3 cm mass with benign pathology. He had EGD and colonoscopy in 05/2015 that found submucosal mass antrum, gatritis; sessile polyp, mild isgmoid diverticulosis, path benign. He had EUS with Dr Motta 01/2017 that found antrum nodule pancreatic heterotopia vs GIST and conflicting path reports per EMR. He tells me it has been more than 2 years since his last colonoscopy and is unable to provide further details. (Tiffanie Cho) PFSH Past Medical History AF COPD Gastric mass kidney stones bladder stones Past Surgical History cataract TURP (Tiffanie Cho) Coded Allergies: aspirin (Unverified Allergy, Severe, HIVES, 03/24/17) PT STATES HE IS NOT digoxin (Unverified Allergy, Severe, Hives, 03/24/17) PT STATES HE IS NOT Family History kidney ca Social History denies ETOH quit smoking 2 y ago no illicit drug use (Tfifanie Cho) Review of Systems Constitutional: DENIES: Fever Eyes: DENIES: Blurred vision Ears, nose, mouth, throat: COMPLAINS OF: Hearing loss Respiratory: DENIES: Cough Cardiovascular: DENIES: Chest pain Gastrointestinal: COMPLAINS OF: Abdominal pain, Diarrhea, Nausea, DENIES: Black stools, Bloody stools, Constipation, Vomiting, Hematemesis Genitourinary: DENIES: Urinary incontinence Musculoskeletal: DENIES: Muscle aches Integumentary: DENIES: Abnormal pigmentation Hematologic/lymphatic: DENIES: Lymphadenopathy Neurologic: DENIES: Headache Psychiatric: DENIES: Confusion (Tiffanie Cho) GI Exam Vitals I&O Vital Signs Date Time Temp Pulse Resp B/P (MAP) Pulse Ox O2 Delivery O2 Flow Rate FiO2 03/25/17 09:06 16 03/25/17 08:00 97.7 54 18 164/72 (102) 94 03/25/17 04:40 97.8 59 18 134/70 (91) 97 03/25/17 00:00 97.4 56 17 147/67 (93) 95 03/24/17 20:40 98.1 60 18 142/66 (91) 96 03/24/17 16:48 98.2 82 18 156/95 (115) 95 03/24/17 14:19 98.7 60 18 167/74 (105) 97 03/24/17 13:06 (107) I/O 03/24/17 03/24/17 03/24/17 03/25/17 03/25/17 03/25/17 07:00 15:00 23:00 07:00 15:00 23:00 Intake Total 500 ml 1000 ml Output Total 900 ml Balance 500 ml 100 ml Intake Oral 500 ml 1000 ml Output Urine Total 900 ml # Voids 1 # Bowel Movements 3 4 Imaging Last Impressions Chest X-Ray 03/24/17 1147 Signed Impressions: Service Date/Time: Friday, March 24, 2017 12:00 - CONCLUSION: No acute disease. Juanito Chen MD Head CT 03/24/17 0000 Signed Impressions: Service Date/Time: Friday, March 24, 2017 11:52 - CONCLUSION: No acute intracranial abnormality. Juanito Chen MD Abdomen/Pelvis CT 03/24/17 0000 Signed Impressions: Service Date/Time: Friday, March 24, 2017 11:01 - CONCLUSION: 1. No acute inflammatory process. 2. Nonobstructing 3-4 mm right renal calculus. 3. Normal appendix. 4. Bilateral renal low densities. 5. Abdominal aortic aneurysm with bypass graft and residual aneurysmal sac measuring 4.3 cm. Juanito Chen MD Laboratory Test 03/24/17 13:25 03/25/17 07:34 Stool C. difficile Toxin (PCR) NEGATIVE Stl C. difficile Toxin Epiderm 027 PRESUMPTIVE NEGATIVE White Blood Count 4.9 TH/MM3 Red Blood Count 4.05 MIL/MM3 Hemoglobin 11.5 GM/DL Hematocrit 35.1 % Mean Corpuscular Volume 86.7 FL Mean Corpuscular Hemoglobin 28.5 PG Mean Corpuscular Hemoglobin Concent 32.8 % Red Cell Distribution Width 19.0 % Platelet Count 254 TH/MM3 Mean Platelet Volume 7.0 FL Neutrophils (%) (Auto) 50.0 % Lymphocytes (%) (Auto) 30.2 % Monocytes (%) (Auto) 17.5 % Eosinophils (%) (Auto) 1.6 % Basophils (%) (Auto) 0.7 % Neutrophils # (Auto) 2.5 TH/MM3 Lymphocytes # (Auto) 1.5 TH/MM3 Monocytes # (Auto) 0.9 TH/MM3 Eosinophils # (Auto) 0.1 TH/MM3 Basophils # (Auto) 0.0 TH/MM3 CBC Comment DIFF FINAL Differential Comment Blood Urea Nitrogen 9 MG/DL Creatinine 1.23 MG/DL Random Glucose 87 MG/DL Calcium Level 8.4 MG/DL Sodium Level 140 MEQ/L Potassium Level 3.3 MEQ/L Chloride Level 106 MEQ/L Carbon Dioxide Level 25.5 MEQ/L Anion Gap 9 MEQ/L Estimat Glomerular Filtration Rate 56 ML/MIN Total Bilirubin 0.3 MG/DL Direct Bilirubin 0.1 MG/DL Indirect Bilirubin 0.2 MG/DL Aspartate Amino Transf (AST/SGOT) 31 U/L Alanine Aminotransferase (ALT/SGPT) 63 U/L Alkaline Phosphatase 160 U/L Total Protein 6.3 GM/DL Albumin 3.3 GM/DL Date/Time Source Procedure Growth Status 03/24/17 15:08 Stool Stool Cyclospora Exam - Final NO CYCLOSPORA SEEN Complete 03/24/17 15:08 Stool Stool Cryptosporidium Exam - Final NEGATIVE - NO CRYPTOSPORIDIUM ANTIGEN... Complete 03/24/17 15:08 Stool Stool Stool Pus ([facility]) - Final RARE WBC Complete 03/24/17 15:08 Stool Stool Giardia Antigen ([facility]) - Final NEGATIVE - NO GIARDIA ANTIGEN DETECTE... Complete 03/24/17 15:08 Stool Stool Stool Occult Blood ([facility]Y[place]) - Final HEMOCCULT NEGATIVE Complete Physical Examination HEENT: PERRL; normocephalic; atraumatic; no jaundice. CHEST: CTA CARDIAC: RRR ABDOMEN: Soft, nondistended,epigastric TTP; no hepatosplenomegaly; bowel sounds are present in all four quadrants. EXTREMITIES: No clubbing, cyanosis, or edema. SKIN: Normal; no rash; no jaundice. CEO NA: alert (Tiffanie Cho) Assessment and Plan Plan ASSESSMENT - diarrhea - onset 3 wks ago, 10-15 BM daily. last colonoscopy 09/2015 per EMR and sessile polyp, mild sigmoid diverticulosis found. stool studies pending. c diff neg - epigastric pain - pt unable to give exact onset but has "been awhile". could be r/t stomach mass. EGD 02/20 food residue, 3cm x 3 cm mass with benign path. GS consulted PLAN - await stool studies - if neg will consider colonoscopy - await GS consult - ISA - PPI - further recs to follow - supportive care This pt seen by myself and Dr Faust and this note is written on his behalf (Tiffanie Cho) Physician Comments Seen and examined with JUNG, previous history reviewed with DR. Gaona and Ms. Wyatt FENG. Stool studies-p. recent egd and colonoscopy noted. Consulted Oncology and surgery for GIST. ? repeat colonoscopy depending upon above. Thank you (Marilyn Faust MD) Tiffanie Cho Mar 25, 2017 12:56 Marilyn Faust MD Mar 25, 2017 14:02
--- NOTE | 2017-03-25 14:06 | HHI.PR ---
Subjective Remarks Pt complains of continued diarrhea. He had three BMs last night and 4 so far today Pt has been afebrile He states that he did not sleep much last night because of the diarrhea. Objective Vitals Vital Signs Date Time Temp Pulse Resp B/P (MAP) Pulse Ox O2 Delivery O2 Flow Rate FiO2 03/25/17 12:00 98.0 55 18 132/58 (82) 98 03/25/17 09:06 16 03/25/17 08:00 97.7 54 18 164/72 (102) 94 03/25/17 04:40 97.8 59 18 134/70 (91) 97 03/25/17 00:00 97.4 56 17 147/67 (93) 95 03/24/17 20:40 98.1 60 18 142/66 (91) 96 03/24/17 16:48 98.2 82 18 156/95 (115) 95 03/24/17 14:19 98.7 60 18 167/74 (105) 97 Result Diagram: 03/25/17 0734 03/25/17 0734 Other Results Laboratory Tests Test 03/24/17 10:15 03/24/17 13:25 03/25/17 07:34 White Blood Count 5.7 TH/MM3 4.9 TH/MM3 Red Blood Count 4.28 MIL/MM3 4.05 MIL/MM3 Hemoglobin 12.2 GM/DL 11.5 GM/DL Hematocrit 37.3 % 35.1 % Mean Corpuscular Volume 87.1 FL 86.7 FL Mean Corpuscular Hemoglobin 28.5 PG 28.5 PG Mean Corpuscular Hemoglobin Concent 32.7 % 32.8 % Red Cell Distribution Width 19.2 % 19.0 % Platelet Count 267 TH/MM3 254 TH/MM3 Mean Platelet Volume 7.3 FL 7.0 FL Neutrophils (%) (Auto) 57.3 % 50.0 % Lymphocytes (%) (Auto) 22.3 % 30.2 % Monocytes (%) (Auto) 17.0 % 17.5 % Eosinophils (%) (Auto) 2.6 % 1.6 % Basophils (%) (Auto) 0.8 % 0.7 % Neutrophils # (Auto) 3.3 TH/MM3 2.5 TH/MM3 Lymphocytes # (Auto) 1.3 TH/MM3 1.5 TH/MM3 Monocytes # (Auto) 1.0 TH/MM3 0.9 TH/MM3 Eosinophils # (Auto) 0.1 TH/MM3 0.1 TH/MM3 Basophils # (Auto) 0.0 TH/MM3 0.0 TH/MM3 CBC Comment DIFF FINAL DIFF FINAL Differential Comment Blood Urea Nitrogen 9 MG/DL 9 MG/DL Creatinine 1.25 MG/DL 1.23 MG/DL Random Glucose 88 MG/DL 87 MG/DL Total Protein 6.9 GM/DL 6.3 GM/DL Albumin 3.6 GM/DL 3.3 GM/DL Calcium Level 8.8 MG/DL 8.4 MG/DL Alkaline Phosphatase 196 U/L 160 U/L Aspartate Amino Transf (AST/SGOT) 58 U/L 31 U/L Alanine Aminotransferase (ALT/SGPT) 100 U/L 63 U/L Total Bilirubin 0.3 MG/DL 0.3 MG/DL Sodium Level 138 MEQ/L 140 MEQ/L Potassium Level 3.0 MEQ/L 3.3 MEQ/L Chloride Level 104 MEQ/L 106 MEQ/L Carbon Dioxide Level 28.9 MEQ/L 25.5 MEQ/L Anion Gap 5 MEQ/L 9 MEQ/L Estimat Glomerular Filtration Rate 55 ML/MIN 56 ML/MIN Stool C. difficile Toxin (PCR) NEGATIVE Stl C. difficile Toxin Epiderm 027 PRESUMPTIVE NEGATIVE Direct Bilirubin 0.1 MG/DL Indirect Bilirubin 0.2 MG/DL Imaging Last Impressions Chest X-Ray 03/24/17 1147 Signed Impressions: Service Date/Time: Friday, March 24, 2017 12:00 - CONCLUSION: No acute disease. Juanito Chen MD Head CT 03/24/17 0000 Signed Impressions: Service Date/Time: Friday, March 24, 2017 11:52 - CONCLUSION: No acute intracranial abnormality. Juanito Chen MD Abdomen/Pelvis CT 03/24/17 0000 Signed Impressions: Service Date/Time: Friday, March 24, 2017 11:01 - CONCLUSION: 1. No acute inflammatory process. 2. Nonobstructing 3-4 mm right renal calculus. 3. Normal appendix. 4. Bilateral renal low densities. 5. Abdominal aortic aneurysm with bypass graft and residual aneurysmal sac measuring 4.3 cm. Juanito Chen MD Objective Remarks General: NAD, AAOx3 Chest: CTA Cardiac: Regular Abd: +BS, soft ND, epigastric tenderness Ext: No edema A/P Problem List: (1) Severe diarrhea ICD Codes: K52.9 - Noninfective gastroenteritis and colitis, unspecified Status: Acute Plan: - Pt is an 81 y/o male with paroxysmal atrial fibrillation, COPD, HTN, known gastric mass/GIST, and previous T12 compression fracture in 10/2015. - [place] [facility] [place] with progressive worsening diarrhea. - Pt has had issues with abd pain and his PCP sent him for a CT Abd/pelvis with IV contrast on 03/06/17 for complaints of continued abd pain. The CT noted a stable appearing soft tissue mass in the gastric antrum measuring up to 2.6cm. After the CT he reportedly began having significant diarrhea. This was initially intermittent diarrhea, but over the past week he's had progressive worsening diarrhea having over 10 BMs in a 24 hour time period. He has had progressive generalized weakness and worsening appetite. He states that he has lost about 6lbs in the last 3 weeks. Pt denies any noted melena or hematochezia. The weakness and profuse diarrhea prompted his ER evaluation. - In the ED he had CT Abd/pelvis --> no acute inflammatory process, nonobstructing 3-4 mm right renal calculus, normal appendix, bilateral renal low densities, abdominal aortic aneurysm with bypass graft and residual aneurysmal sac measuring 4.3 cm. - Stool studies taken in the ED are pending - Stools are negative for C. diff. - He has not been on any antibiotics recently and denies any recent medicine changes. - IVF with potassium - Replace with oral potassium today - Monitor electrolytes - His last colonoscopy was 10/18/2015 --> sessile polyp in the ascending colon and proximal transverse colon, mild diverticulosis in the sigmoid colon. - Appreciate GI consultation, discussed the case with Dr Faust. Ok for Lomotil PRN - Supportive care - DVT prophylaxis with SCDs (2) Dehydration ICD Codes: E86.0 - Dehydration Status: Acute Plan: - See above. (3) Gastric mass ICD Codes: K31.9 - Disease of stomach and duodenum, unspecified Status: Acute Plan: - Patient has known history of a gastric mass, initially noted in 2015. - He initially had an EGD/colonoscopy on 10/18/15 which noted a submucosal mass in the antrum, gastritis in the gastric antrum, sessile polyp in the ascending colon and proximal transverse colon, mild diverticulosis in the sigmoid colon. Pathology was negative. - He was recommended to have an EUS which was performed on 02/07/[address] 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 There are two final pathology reports in the EHR system (one was path report from EGD and one was from FNA done during the EUS). 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 - He has followed back up with GI in January 2017 and had a repeat EGD on which noted food residue in the gastric body, mass measuring 3cm x 3cm in the gastric antrum, multiple biopsies performed which were negative for malignancy. - GI consulted. The case was discussed with Dr. Faust today - Reviewed pathology and previous reports - It was recommended to get General Surgery involved in the case for further evaluation of the GIST tumor. (4) COPD (chronic obstructive pulmonary disease) ICD Codes: J44.9 - Chronic obstructive pulmonary disease, unspecified Status: Chronic Plan: - Home meds continued - Duonebs PRN and scheduled (5) AAA (abdominal aortic aneurysm) ICD Codes: I71.4 - Abdominal aortic aneurysm, without rupture Status: Acute Plan: - s/p surgical repair (6) HTN (hypertension) ICD Codes: I10 - Essential (primary) hypertension Status: Chronic Plan: - Home meds continued - Vasotec and Clonidine PRN (7) Paroxysmal atrial fibrillation ICD Codes: I48.0 - Paroxysmal atrial fibrillation Status: Chronic Plan: - Home meds continued - telemetry Assessment and Plan Patient examined. Assessment and plan formulated with Lorena Schneider PA-C. I agree with the above. Lorena Schneider Mar 25, 2017 14:06 Byron Gaona DO Mar 27, 2017 23:00
[2017-03-25] MEDS: DIPHENOXYLATE/ATROPINE 2.5 MG/0.025 MG TAB PO PRN (17:47)
--- NOTE | 2017-03-25 19:12 | EKG ---
Date Performed: 03/24/2017 Time Performed: 12:13:44 PTAGE: 81 years EKG: SINUS BRADYCARDIA WITH FIRST DEGREE AV BLOCK MODERATE INTRAVENTRICULAR CONDUCTION DELAY Sin ce previous tracing, no significant change noted ABNORMAL ECG PREVIOUS TRACING : 07/16/2016 10.23 DOCTOR: Mamie Apple Interpretating Date/Time 03/25/2017 19:10:44
[2017-03-26] VITALS (9 sets, daily range): BP systolic 133–168; BP diastolic 57–112; PULSE 53–73; RESP 18–20; TEMP 97.2–97.7; O2SAT 95–99
[2017-03-26] MEDS: ACETAMINOPHEN/HYDROcodone 325 MG/5 MG TAB PO PRN ×2 (00:57→23:24)
[2017-03-26] MEDS: LORazepam 1 MG TAB PO PRN ×3 (00:57→23:32)
[2017-03-26] MEDS: 1/2 NS + KCL 20 MEQ INJ 1,000 ML IV SCH ×3 (04:59→21:09)
[2017-03-26] MEDS: RESP: ALBUTEROL 2.5 MG/IPRATROPIUM 0.5 MG NEB (SCH) NEB ×3 (08:00→20:00)
[2017-03-26] MEDS: SODIUM CHLORIDE 0.9% FLUSH 10 ML FLUSH IV FLUSH SCH ×2 (08:16→21:00)
[2017-03-26] MEDS: CLOPIDOGREL 75 MG TAB PO SCH (08:27)
[2017-03-26] MEDS: DILTIAZEM-CD 120 MG CAP ER PO SCH (08:27)
[2017-03-26] MEDS: AMIODARONE 200 MG TAB PO SCH (08:27)
[2017-03-26] MEDS: PANTOPRAZOLE SOD 40 MG DELAYED RELEASE TAB PO SCH (08:27)
[2017-03-26] MEDS: ONDANSETRON HCL 4 MG/2 ML VIAL IVP PRN ×2 (08:28→23:27)
[2017-03-26 12:01] LABS: AUTOMATED NEUTROPHIL # 2.7 TH/MM3 (1.8-7.7); BASOPHIL % 0.8 % (0.0-2.0); EOSINOPHIL # 0.1 TH/MM3 (0-0.4); EOSINOPHIL % 1.8 % (0.0-4.0); HEMATOCRIT 32.5 % (39.0-51.0); HEMO FLAGS DIFF FINAL; LYMPH % 23.5 % (9.0-44.0); LYMPHOCYTE # 1.1 TH/MM3 (1.0-4.8); MEAN CELL VOLUME 86.9 FL (80.0-100.0); MEAN CORPUSCULAR HEMOGLOBIN 28.4 PG (27.0-34.0); MEAN CORPUSCULAR HGB CONC 32.7 % (32.0-36.0); MONO % 17.6 % (0.0-8.0); NEUT % 56.3 % (16.0-70.0); PLATELET COUNT 220 TH/MM3 (150-450); RED BLOOD COUNT 3.74 MIL/MM3 (4.50-5.90); RED CELL DISTRIBUTION WIDTH 18.9 % (11.6-17.2); WHITE BLOOD COUNT 4.7 TH/MM3 (4.0-11.0)
--- NOTE | 2017-03-26 12:16 | HHI.PR ---
Subjective Remarks Pt reports three loose stools so far today No melena or BRBPR Pt tolerating diet without difficulty this afternoon but did have some nausea this morning. Afebrile. Objective Vitals Vital Signs Date Time Temp Pulse Resp B/P (MAP) Pulse Ox O2 Delivery O2 Flow Rate FiO2 03/26/17 11:45 97.7 58 20 150/67 (94) 95 03/26/17 07:00 73 03/26/17 07:00 97.7 73 20 133/60 (84) 95 03/26/17 05:23 97.6 56 20 168/72 (104) 96 03/26/17 00:55 97.2 60 20 144/66 (92) 95 03/25/17 23:42 60 03/25/17 20:03 69 03/25/17 20:00 98.1 60 20 148/67 (94) 94 03/25/17 16:17 55 03/25/17 16:00 97.7 54 18 135/61 (85) 96 Result Diagram: 03/26/17 1140 03/25/17 0734 Other Results Laboratory Tests Test 03/24/17 13:25 03/25/17 07:34 03/26/17 11:40 Stool C. difficile Toxin (PCR) NEGATIVE Stl C. difficile Toxin Epiderm 027 PRESUMPTIVE NEGATIVE White Blood Count 4.9 TH/MM3 4.7 TH/MM3 Red Blood Count 4.05 MIL/MM3 3.74 MIL/MM3 Hemoglobin 11.5 GM/DL 10.6 GM/DL Hematocrit 35.1 % 32.5 % Mean Corpuscular Volume 86.7 FL 86.9 FL Mean Corpuscular Hemoglobin 28.5 PG 28.4 PG Mean Corpuscular Hemoglobin Concent 32.8 % 32.7 % Red Cell Distribution Width 19.0 % 18.9 % Platelet Count 254 TH/MM3 220 TH/MM3 Mean Platelet Volume 7.0 FL 6.9 FL Neutrophils (%) (Auto) 50.0 % 56.3 % Lymphocytes (%) (Auto) 30.2 % 23.5 % Monocytes (%) (Auto) 17.5 % 17.6 % Eosinophils (%) (Auto) 1.6 % 1.8 % Basophils (%) (Auto) 0.7 % 0.8 % Neutrophils # (Auto) 2.5 TH/MM3 2.7 TH/MM3 Lymphocytes # (Auto) 1.5 TH/MM3 1.1 TH/MM3 Monocytes # (Auto) 0.9 TH/MM3 0.8 TH/MM3 Eosinophils # (Auto) 0.1 TH/MM3 0.1 TH/MM3 Basophils # (Auto) 0.0 TH/MM3 0.0 TH/MM3 CBC Comment DIFF FINAL DIFF FINAL Differential Comment Blood Urea Nitrogen 9 MG/DL Creatinine 1.23 MG/DL Random Glucose 87 MG/DL Calcium Level 8.4 MG/DL Sodium Level 140 MEQ/L Potassium Level 3.3 MEQ/L Chloride Level 106 MEQ/L Carbon Dioxide Level 25.5 MEQ/L Anion Gap 9 MEQ/L Estimat Glomerular Filtration Rate 56 ML/MIN Total Bilirubin 0.3 MG/DL Direct Bilirubin 0.1 MG/DL Indirect Bilirubin 0.2 MG/DL Aspartate Amino Transf (AST/SGOT) 31 U/L Alanine Aminotransferase (ALT/SGPT) 63 U/L Alkaline Phosphatase 160 U/L Total Protein 6.3 GM/DL Albumin 3.3 GM/DL Imaging Last Impressions Chest X-Ray 03/24/17 1147 Signed Impressions: Service Date/Time: Friday, March 24, 2017 12:00 - CONCLUSION: No acute disease. Juanito Chen MD Head CT 03/24/17 0000 Signed Impressions: Service Date/Time: Friday, March 24, 2017 11:52 - CONCLUSION: No acute intracranial abnormality. Juanito Chen MD Abdomen/Pelvis CT 03/24/17 0000 Signed Impressions: Service Date/Time: Friday, March 24, 2017 11:01 - CONCLUSION: 1. No acute inflammatory process. 2. Nonobstructing 3-4 mm right renal calculus. 3. Normal appendix. 4. Bilateral renal low densities. 5. Abdominal aortic aneurysm with bypass graft and residual aneurysmal sac measuring 4.3 cm. Juanito Chen MD Objective Remarks General: NAD, AAOx3 Chest: CTA Cardiac: Regular Abd: +BS, soft ND, epigastric tenderness Ext: No edema A/P Problem List: (1) Severe diarrhea ICD Codes: K52.9 - Noninfective gastroenteritis and colitis, unspecified Status: Acute Plan: - Pt is an 81 y/o male with paroxysmal atrial fibrillation, COPD, HTN, known gastric mass/GIST, and previous T12 compression fracture in 10/2015. - Pt presented to the [place] [facility] [place] with progressive worsening diarrhea. - Pt has had issues with abd pain and his PCP sent him for a CT Abd/pelvis with IV contrast on 03/06/17 for complaints of continued abd pain. The CT noted a stable appearing soft tissue mass in the gastric antrum measuring up to 2.6cm. After the CT he reportedly began having significant diarrhea. This was initially intermittent diarrhea, but over the past week he's had progressive worsening diarrhea having over 10 BMs in a 24 hour time period. He has had progressive generalized weakness and worsening appetite. He states that he has lost about 6lbs in the last 3 weeks. Pt denies any noted melena or hematochezia. The weakness and profuse diarrhea prompted his ER evaluation. - In the ED he had CT Abd/pelvis --> no acute inflammatory process, nonobstructing 3-4 mm right renal calculus, normal appendix, bilateral renal low densities, abdominal aortic aneurysm with bypass graft and residual aneurysmal sac measuring 4.3 cm. - Stool studies taken in the ED are negative - Stools are negative for C. diff. - He has not been on any antibiotics recently and denies any recent medicine changes. - IVF with potassium - Replace with oral potassium today - Monitor electrolytes - His last colonoscopy was 10/18/2015 --> sessile polyp in the ascending colon and proximal transverse colon, mild diverticulosis in the sigmoid colon. - Appreciate GI consultation, discussed the case with Dr Faust. - Lomotil PRN - Supportive care - DVT prophylaxis with SCDs (2) Dehydration ICD Codes: E86.0 - Dehydration Status: Acute Plan: - See above. (3) Gastric mass ICD Codes: K31.9 - Disease of stomach and duodenum, unspecified Status: Acute Plan: - Patient has known history of a gastric mass, initially noted in 2015. - He initially had an EGD/colonoscopy on 10/18/15 which noted a submucosal mass in the antrum, gastritis in the gastric antrum, sessile polyp in the ascending colon and proximal transverse colon, mild diverticulosis in the sigmoid colon. Pathology was negative. - He was recommended to have an EUS which was performed on 02/07/[address] 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 There are two final pathology reports in the EHR system (one was path report from EGD and one was from FNA done during the EUS). 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 - He has followed back up with GI in January 2017 and had a repeat EGD on which noted food residue in the gastric body, mass measuring 3cm x 3cm in the gastric antrum, multiple biopsies performed which were negative for malignancy. - GI consulted. The case was discussed with Dr. Faust on 03/25 - Reviewed pathology and previous reports - Await General Surgery consultation for further evaluation of the GIST tumor. (4) COPD (chronic obstructive pulmonary disease) ICD Codes: J44.9 - Chronic obstructive pulmonary disease, unspecified Status: Chronic Plan: - Home meds continued - Duonebs PRN and scheduled (5) AAA (abdominal aortic aneurysm) ICD Codes: I71.4 - Abdominal aortic aneurysm, without rupture Status: Acute Plan: - s/p surgical repair (6) HTN (hypertension) ICD Codes: I10 - Essential (primary) hypertension Status: Chronic Plan: - Home meds continued - Vasotec and Clonidine PRN (7) Paroxysmal atrial fibrillation ICD Codes: I48.0 - Paroxysmal atrial fibrillation Status: Chronic Plan: - Home meds continued - telemetry Assessment and Plan Patient examined. Assessment and plan formulated with Lorena Schneider PA-C. I agree with the above. Lorena Schneider Mar 26, 2017 12:16 Byron Gaona DO Mar 27, 2017 23:00
[2017-03-26 12:23] LABS: ALKALINE PHOSPHATASE 137 U/L (45-117); ALT (GPT) 45 U/L (12-78); ANION GAP 9 MEQ/L (5-15); AST (GOT) 23 U/L (15-37); BICARBONATE 24.8 MEQ/L (21.0-32.0); BLOOD UREA NITROGEN 10 MG/DL (7-18); CHLORIDE 106 MEQ/L (98-107); GLOMERULAR FILTRATION RATE 61 ML/MIN (>89); MAGNESIUM 1.6 MG/DL (1.5-2.5); SODIUM (NA) 140 MEQ/L (136-145); TOTAL BILIRUBIN ADULT 0.2 MG/DL (0.2-1.0)
[2017-03-26 12:29] LABS: POTASSIUM 2.9 MEQ/L (3.5-5.1)
[2017-03-26] MEDS: DIPHENOXYLATE/ATROPINE 2.5 MG/0.025 MG TAB PO PRN (14:45)
[2017-03-26] MEDS ORDERED: PEG (High)/E-LYTE SOLN 4000 ML BTL PO ONE (14:45)
[2017-03-26] MEDS: POTASSIUM CHLORIDE 20 MEQ CONTROLLED RELEASE TAB PO SCH ×2 (14:46→21:13)
--- NOTE | 2017-03-26 14:46 | HHI.GIFU ---
Subjective Remarks Pt resting in bed. Still with diarrhea. (Tiffanie Cho) Objective Vitals I&O Vital Signs Date Time Temp Pulse Resp B/P (MAP) Pulse Ox O2 Delivery O2 Flow Rate FiO2 03/26/17 11:45 97.7 58 20 150/67 (94) 95 03/26/17 07:00 73 03/26/17 07:00 97.7 73 20 133/60 (84) 95 03/26/17 05:23 97.6 56 20 168/72 (104) 96 03/26/17 00:55 97.2 60 20 144/66 (92) 95 03/25/17 23:42 60 03/25/17 20:03 69 03/25/17 20:00 98.1 60 20 148/67 (94) 94 03/25/17 16:17 55 03/25/17 16:00 97.7 54 18 135/61 (85) 96 I/O 03/25/17 03/25/17 03/25/17 03/26/17 03/26/17 03/26/17 07:00 15:00 23:00 07:00 15:00 23:00 Intake Total 1000 ml 720 ml Output Total 900 ml Balance 100 ml 720 ml Intake Oral 1000 ml 720 ml Output Urine Total 900 ml # Voids 3 1 # Bowel Movements 4 3 5 Laboratory Laboratory Tests Test 03/26/17 11:40 White Blood Count 4.7 Red Blood Count 3.74 Hemoglobin 10.6 Hematocrit 32.5 Mean Corpuscular Volume 86.9 Mean Corpuscular Hemoglobin 28.4 Mean Corpuscular Hemoglobin Concent 32.7 Red Cell Distribution Width 18.9 Platelet Count 220 Mean Platelet Volume 6.9 Neutrophils (%) (Auto) 56.3 Lymphocytes (%) (Auto) 23.5 Monocytes (%) (Auto) 17.6 Eosinophils (%) (Auto) 1.8 Basophils (%) (Auto) 0.8 Neutrophils # (Auto) 2.7 Lymphocytes # (Auto) 1.1 Monocytes # (Auto) 0.8 Eosinophils # (Auto) 0.1 Basophils # (Auto) 0.0 CBC Comment DIFF FINAL Differential Comment Blood Urea Nitrogen 10 Creatinine 1.15 Random Glucose 94 Total Protein 5.9 Albumin 3.0 Calcium Level 8.3 Magnesium Level 1.6 Alkaline Phosphatase 137 Aspartate Amino Transf (AST/SGOT) 23 Alanine Aminotransferase (ALT/SGPT) 45 Total Bilirubin 0.2 Sodium Level 140 Potassium Level 2.9 Chloride Level 106 Carbon Dioxide Level 24.8 Anion Gap 9 Estimat Glomerular Filtration Rate 61 Date/Time Source Procedure Growth Status 03/24/17 15:08 Stool Stool Cyclospora Exam - Final NO CYCLOSPORA SEEN Complete 03/24/17 15:08 Stool Stool Cryptosporidium Exam - Final NEGATIVE - NO CRYPTOSPORIDIUM ANTIGEN... Complete 03/24/17 15:08 Stool Stool Stool Pus ([facility]) - Final RARE WBC Complete 03/24/17 15:08 Stool Stool Giardia Antigen ([facility]) - Final NEGATIVE - NO GIARDIA ANTIGEN DETECTE... Complete 03/24/17 15:08 Stool Stool Stool Occult Blood ([facility]) - Final HEMOCCULT NEGATIVE Complete Physical Exam HEENT: PERRL; normocephalic; atraumatic; no jaundice. CHEST: CTA CARDIAC: RRR ABDOMEN: Soft, nondistended, mild lower quadrant TTP; no hepatosplenomegaly; bowel sounds are present in all four quadrants. EXTREMITIES: No clubbing, cyanosis, or edema. SKIN: Normal; no rash; no jaundice. COLOR ARTIST: No focal deficits; alert and oriented times three. (Tiffanie Cho) Assessment and Plan Plan ASSESSMENT - diarrhea - onset 3 wks ago, 10-15 BM daily. last colonoscopy 09/2015 per EMR and sessile polyp, mild sigmoid diverticulosis found. stool studies neg. c diff neg - epigastric pain - pt unable to give exact onset but has "been awhile". could be r/t stomach mass. EGD 02/20 food residue, 3cm x 3 cm mass with benign path. GS consulted PLAN - colonoscopy tomorrow - obtain consent - clears - NPO after midnight - GoLytely - await GS consult - ISA - PPI - further recs to follow - supportive care This pt seen by myself and Dr Faust and this note is written on his behalf (Tiffanie Cho) Physician Comments Seen and examined with JUNG, still with diarrhea and abdominal pain. Discussed with , no immediate surgery planned. Colonoscopy tomorrow. Recent egd noted. (Marilyn Faust MD) Tiffanie Cho Mar 26, 2017 14:46 Marilyn Faust MD Mar 26, 2017 15:28
[2017-03-27] VITALS (9 sets, daily range): BP systolic 134–176; BP diastolic 63–77; PULSE 53–73; RESP 18; TEMP 97.5–98.6; O2SAT 95–97
[2017-03-27 08:06] LABS: AUTOMATED NEUTROPHIL # 2.2 TH/MM3 (1.8-7.7); BASOPHIL % 0.8 % (0.0-2.0); EOSINOPHIL # 0.1 TH/MM3 (0-0.4); EOSINOPHIL % 2.9 % (0.0-4.0); HEMO FLAGS DIFF FINAL; LYMPHOCYTE # 1.6 TH/MM3 (1.0-4.8); MEAN CORPUSCULAR HEMOGLOBIN 29.4 PG (27.0-34.0); MEAN CORPUSCULAR HGB CONC 33.8 % (32.0-36.0); MONO % 14.2 % (0.0-8.0); NEUT % 47.1 % (16.0-70.0); PLATELET COUNT 209 TH/MM3 (150-450); RED BLOOD COUNT 3.68 MIL/MM3 (4.50-5.90); RED CELL DISTRIBUTION WIDTH 19.1 % (11.6-17.2); WHITE BLOOD COUNT 4.6 TH/MM3 (4.0-11.0)
[2017-03-27 08:34] LABS: BICARBONATE 27.9 MEQ/L (21.0-32.0); MAGNESIUM 1.5 MG/DL (1.5-2.5); POTASSIUM 3.9 MEQ/L (3.5-5.1)
[2017-03-27] MEDS: PANTOPRAZOLE SOD 40 MG DELAYED RELEASE TAB PO SCH (08:48)
[2017-03-27] MEDS: DILTIAZEM-CD 120 MG CAP ER PO SCH (08:49)
[2017-03-27] MEDS: SODIUM CHLORIDE 0.9% FLUSH 10 ML FLUSH IV FLUSH SCH ×2 (08:49→21:00)
[2017-03-27] MEDS: CLOPIDOGREL 75 MG TAB PO SCH (08:49)
[2017-03-27] MEDS: AMIODARONE 200 MG TAB PO SCH (08:49)
[2017-03-27] MEDS: RESP: ALBUTEROL 2.5 MG/IPRATROPIUM 0.5 MG NEB (SCH) NEB ×3 (08:50→19:43)
[2017-03-27] MEDS: 1/2 NS + KCL 20 MEQ INJ 1,000 ML IV SCH (09:01)
[2017-03-27] MEDS ORDERED: PROPOFOL 200 MG/20 ML AMP IV ONE (12:00)
[2017-03-27] MEDS ORDERED: LIDOCAINE HCL 1% PF 5 ML SYRINGE OTHER ONE (12:00)
--- NOTE | 2017-03-27 14:48 | GIPROC ---
[facility] [address] [facility]. [facility], [address] COLONOSCOPY PROCEDURE REPORT EXAM DATE: 03/27/2017 PATIENT NAME: Darren Nino MR #: [id number] BIRTHDATE: 1935 ENDOSCOPIST: Marilyn Faust MD ORDER #: [id number] NURSE MIDWIFE: Yolanda Manuel STATUS: inpatient INDICATIONS: The patient is a 81 yr old male here for a colonoscopy due to unexplained diarrhea PROCEDURE PERFORMED: Colonoscopy with biopsy MEDICATIONS: None and Per Anesthesia. PREP QUALITY: The [place] Bowel Prep Score was Right colon 2, Mid colon 2, and Left colon 3. Total = 7. PREP TYPE:GoLytely ESTIMATED BLOOD LOSS: None CONSENT: The patient understands the risks and benefits of the procedure and understands that these risks include, but are not limited to: sedation, allergic reaction, infection, perforation and/or bleeding. Alternative means of evaluation and treatment include, among others: physical exam, x-rays, and/or surgical intervention. The patient elects to proceed with this endoscopic procedure. medical equipment was checked for proper function. Hand hygiene and appropriate measures for infection prevention was taken. After the risks, benefits and alternatives of the procedure were thoroughly explained, Informed consent was verified, confirmed and timeout was successfully executed by the treatment team. A digital exam revealed external hemorrhoids The Pentax [id number] endoscope was introduced through the anus and advanced to the cecum, which was identified by both the appendix and ileocecal valve. The instrument was then slowly withdrawn as the colon was fully examined. COLON FINDINGS: Mild diverticulosis was noted in the sigmoid colon. Biopsied. Retroflexed views revealed internal hemorrhoids and Retroflexed views revealed small internal hemorrhoids The scope was then completely withdrawn from the patient and the procedure terminated. PROCEDURE WITHDRAWAL TIME:6minutes ADVERSE EVENTS: There were no complications. IMPRESSIONS: 1. Mild diverticulosis was noted in the sigmoid colon 2. Biopsied 3. Retroflexed views revealed internal hemorrhoids 4. Retroflexed views revealed small internal hemorrhoids 5. Revealed external hemorrhoids RECOMMENDATIONS: 1. Await biopsy results. Biopsy results will not be ready for 7-10 days. If you don't hear from us in two weeks, call our office for results. 2. Continue surveillance 3. Yearly hemoccult RECALL: Return 5 years Colonoscopy, pending biopsy results Marilyn Faust MD eSigned: Marilyn Faust MD 03/27/2017 2:48 PM cc: PATIENT NAME: Darren Nino MR#: [id number]
--- NOTE | 2017-03-27 15:52 | HHI.PR ---
Subjective Remarks Patient is S/P colonoscopy today Objective Vitals Vital Signs Date Time Temp Pulse Resp B/P (MAP) Pulse Ox O2 Delivery O2 Flow Rate FiO2 03/27/17 14:57 97.9 59 20 150/65 (93) 96 Room Air 03/27/17 10:23 155/70 (98) 03/27/17 08:00 97.5 56 18 176/77 (110) 97 03/27/17 04:00 97.5 61 18 160/72 (101) 96 03/27/17 00:00 97.6 62 18 134/63 (86) 95 03/26/17 23:00 59 03/26/17 20:54 69 03/26/17 20:00 97.6 63 18 162/57 (92) 99 03/26/17 16:07 97.4 60 20 148/112 (124) 96 03/26/17 16:00 53 03/27/17 03/27/17 03/28/17 15:00 23:00 07:00 # Voids 4 Result Diagram: 03/27/17 0700 03/27/17 0700 Other Results Laboratory Tests Test 03/25/17 07:34 03/26/17 11:40 03/27/17 07:00 White Blood Count 4.9 TH/MM3 4.7 TH/MM3 4.6 TH/MM3 Red Blood Count 4.05 MIL/MM3 3.74 MIL/MM3 3.68 MIL/MM3 Hemoglobin 11.5 GM/DL 10.6 GM/DL 10.8 GM/DL Hematocrit 35.1 % 32.5 % 32.0 % Mean Corpuscular Volume 86.7 FL 86.9 FL 87.0 FL Mean Corpuscular Hemoglobin 28.5 PG 28.4 PG 29.4 PG Mean Corpuscular Hemoglobin Concent 32.8 % 32.7 % 33.8 % Red Cell Distribution Width 19.0 % 18.9 % 19.1 % Platelet Count 254 TH/MM3 220 TH/MM3 209 TH/MM3 Mean Platelet Volume 7.0 FL 6.9 FL 7.5 FL Neutrophils (%) (Auto) 50.0 % 56.3 % 47.1 % Lymphocytes (%) (Auto) 30.2 % 23.5 % 35.0 % Monocytes (%) (Auto) 17.5 % 17.6 % 14.2 % Eosinophils (%) (Auto) 1.6 % 1.8 % 2.9 % Basophils (%) (Auto) 0.7 % 0.8 % 0.8 % Neutrophils # (Auto) 2.5 TH/MM3 2.7 TH/MM3 2.2 TH/MM3 Lymphocytes # (Auto) 1.5 TH/MM3 1.1 TH/MM3 1.6 TH/MM3 Monocytes # (Auto) 0.9 TH/MM3 0.8 TH/MM3 0.7 TH/MM3 Eosinophils # (Auto) 0.1 TH/MM3 0.1 TH/MM3 0.1 TH/MM3 Basophils # (Auto) 0.0 TH/MM3 0.0 TH/MM3 0.0 TH/MM3 CBC Comment DIFF FINAL DIFF FINAL DIFF FINAL Differential Comment Blood Urea Nitrogen 9 MG/DL 10 MG/DL 7 MG/DL Creatinine 1.23 MG/DL 1.15 MG/DL 0.98 MG/DL Random Glucose 87 MG/DL 94 MG/DL 81 MG/DL Calcium Level 8.4 MG/DL 8.3 MG/DL 8.6 MG/DL Sodium Level 140 MEQ/L 140 MEQ/L 143 MEQ/L Potassium Level 3.3 MEQ/L 2.9 MEQ/L 3.9 MEQ/L Chloride Level 106 MEQ/L 106 MEQ/L 109 MEQ/L Carbon Dioxide Level 25.5 MEQ/L 24.8 MEQ/L 27.9 MEQ/L Anion Gap 9 MEQ/L 9 MEQ/L 6 MEQ/L Estimat Glomerular Filtration Rate 56 ML/MIN 61 ML/MIN 73 ML/MIN Total Bilirubin 0.3 MG/DL 0.2 MG/DL Direct Bilirubin 0.1 MG/DL Indirect Bilirubin 0.2 MG/DL Aspartate Amino Transf (AST/SGOT) 31 U/L 23 U/L Alanine Aminotransferase (ALT/SGPT) 63 U/L 45 U/L Alkaline Phosphatase 160 U/L 137 U/L Total Protein 6.3 GM/DL 5.9 GM/DL Albumin 3.3 GM/DL 3.0 GM/DL Magnesium Level 1.6 MG/DL 1.5 MG/DL Imaging Last Impressions Chest X-Ray 03/24/17 1147 Signed Impressions: Service Date/Time: Friday, March 24, 2017 12:00 - CONCLUSION: No acute disease. Juanito Chen MD Head CT 03/24/17 0000 Signed Impressions: Service Date/Time: Friday, March 24, 2017 11:52 - CONCLUSION: No acute intracranial abnormality. Juanito Chen MD Abdomen/Pelvis CT 03/24/17 0000 Signed Impressions: Service Date/Time: Friday, March 24, 2017 11:01 - CONCLUSION: 1. No acute inflammatory process. 2. Nonobstructing 3-4 mm right renal calculus. 3. Normal appendix. 4. Bilateral renal low densities. 5. Abdominal aortic aneurysm with bypass graft and residual aneurysmal sac measuring 4.3 cm. Juanito Chen MD Objective Remarks General: NAD, AAOx3 Chest: CTA Cardiac: Regular Abd: +BS, soft ND, epigastric tenderness Ext: No edema Procedures 03/[address] Faust A/P Problem List: (1) Severe diarrhea ICD Codes: K52.9 - Noninfective gastroenteritis and colitis, unspecified Status: Acute Plan: - Pt is an 81 y/o male with paroxysmal atrial fibrillation, COPD, HTN, known gastric mass/GIST, and previous T12 compression fracture in 10/2015. - [place] [facility] [place] with progressive worsening diarrhea. - Pt has had issues with abd pain and his PCP sent him for a CT Abd/pelvis with IV contrast on 03/06/17 for complaints of continued abd pain. The CT noted a stable appearing soft tissue mass in the gastric antrum measuring up to 2.6cm. After the CT he reportedly began having significant diarrhea. This was initially intermittent diarrhea, but over the past week he's had progressive worsening diarrhea having over 10 BMs in a 24 hour time period. He has had progressive generalized weakness and worsening appetite. He states that he has lost about 6lbs in the last 3 weeks. Pt denies any noted melena or hematochezia. The weakness and profuse diarrhea prompted his ER evaluation. - In the ED he had CT Abd/pelvis --> no acute inflammatory process, nonobstructing 3-4 mm right renal calculus, normal appendix, bilateral renal low densities, abdominal aortic aneurysm with bypass graft and residual aneurysmal sac measuring 4.3 cm. - Stool studies taken in the ED are negative - Stools are negative for C. diff. - He has not been on any antibiotics recently and denies any recent medicine changes. - IVF with potassium - Replace with oral potassium 03/26 - Monitor electrolytes - His last colonoscopy was 10/18/2015 --> sessile polyp in the ascending colon and proximal transverse colon, mild diverticulosis in the sigmoid colon. - Appreciate GI consultation, discussed the case with Dr Faust. - patient s/p colonoscopy 03/27 which revealed: Mild diverticulosis was noted in the sigmoid colon, Biopsied, Retroflexed views revealed internal hemorrhoids, Retroflexed views revealed small internal hemorrhoids, Revealed external hemorrhoids GI recommendations: F/U outpatient for biopsy results. Continue surveillance. Yearly Hemoccult and Return 5 years Colonoscopy, pending biopsy results - Lomotil PRN - Supportive care - DVT prophylaxis with SCDs (2) Dehydration ICD Codes: E86.0 - Dehydration Status: Acute Plan: - See above. (3) Gastric mass ICD Codes: K31.9 - Disease of stomach and duodenum, unspecified Status: Acute Plan: - Patient has known history of a gastric mass, initially noted in 2015. - He initially had an EGD/colonoscopy on 10/18/15 which noted a submucosal mass in the antrum, gastritis in the gastric antrum, sessile polyp in the ascending colon and proximal transverse colon, mild diverticulosis in the sigmoid colon. Pathology was negative. - He was recommended to have an EUS which was performed on 02/07/[address] 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 There are two final pathology reports in the EHR system (one was path report from EGD and one was from FNA done during the EUS). 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 - He has followed back up with GI in January 2017 and had a repeat EGD on which noted food residue in the gastric body, mass measuring 3cm x 3cm in the gastric antrum, multiple biopsies performed which were negative for malignancy. - GI consulted. The case was discussed with Dr. Faust on 03/25 - Reviewed pathology and previous reports - Discussed case with Dr. 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 and future surgery as an outpatient (4) COPD (chronic obstructive pulmonary disease) ICD Codes: J44.9 - Chronic obstructive pulmonary disease, unspecified Status: Chronic Plan: - Home meds continued - Duonebs PRN and scheduled (5) AAA (abdominal aortic aneurysm) ICD Codes: I71.4 - Abdominal aortic aneurysm, without rupture Status: Acute Plan: - s/p surgical repair (6) HTN (hypertension) ICD Codes: I10 - Essential (primary) hypertension Status: Chronic Plan: - Home meds continued - Vasotec and Clonidine PRN (7) Paroxysmal atrial fibrillation ICD Codes: I48.0 - Paroxysmal atrial fibrillation Status: Chronic Plan: - Home meds continued - telemetry Assessment and Plan Patient examined. Assessment and plan formulated with Niesha Teran PA-C. I agree with the above. Pt seen in room following return from colonoscopy. Pt some confused and agitation. Suspect etoh withdraw. pt to receive ativan prn Case d/w Dr. Faust. Colonoscopy showed diverticulosis and hem. Case d/w Dr. Martinez (03/27) No surgery during this hospitalization. pt will f/u with Dr. Martinez outpt & discuss possible resection of gastric mass. Niesha Teran Mar 27, 2017 15:52 Byorn Gaona DO Mar 27, 2017 23:03
[2017-03-27] MEDS ORDERED: ENALAPRILAT 1.25 MG/ML VIAL IV PUSH PRN (16:00)
[2017-03-27] MEDS ORDERED: LORazepam 2 MG/ML VIAL IV PUSH PRN (16:45)
[2017-03-27] MEDS: LORazepam 1 MG TAB PO PRN (23:34)
[2017-03-27] MEDS: ACETAMINOPHEN/HYDROcodone 325 MG/5 MG TAB PO PRN (23:34)
[2017-03-27] MEDS: DIPHENOXYLATE/ATROPINE 2.5 MG/0.025 MG TAB PO PRN (23:38)
[2017-03-28] VITALS (10 sets, daily range): BP systolic 136–178; BP diastolic 65–78; PULSE 49–73; RESP 16–20; TEMP 97.4–98.1; O2SAT 94–97
[2017-03-28] MEDS: 1/2 NS + KCL 20 MEQ INJ 1,000 ML IV SCH (02:49)
[2017-03-28] MEDS: DILTIAZEM-CD 120 MG CAP ER PO SCH (09:00)
[2017-03-28] MEDS: RESP: ALBUTEROL 2.5 MG/IPRATROPIUM 0.5 MG NEB (SCH) NEB (09:25)
[2017-03-28] MEDS: PANTOPRAZOLE SOD 40 MG DELAYED RELEASE TAB PO SCH (10:21)
[2017-03-28] MEDS: AMIODARONE 200 MG TAB PO SCH (10:21)
[2017-03-28] MEDS: CLOPIDOGREL 75 MG TAB PO SCH (10:22)
[2017-03-28] MEDS: ACETAMINOPHEN/HYDROcodone 325 MG/5 MG TAB PO PRN ×2 (10:33→21:21)
--- NOTE | 2017-03-28 13:22 | HHI.GIFU ---
Subjective Remarks Pt resting in bed comfortably. He reports he is tolerating diet today, had scrambled eggs for breakfast. Denies BM today. Denies abdominal pain, nausea, vomiting. Pt is complaining that no one has done anything for his diarrhea since he arrived to the hospital. Pt does have Lomotil ordered PRN which has not been given since 03/25. Made pt aware that he has medication for the diarrhea if needed. Discussed with nurse to educate pt that medication is available on an as needed basis. (Julia Valladares) Objective Vitals I&O Vital Signs Date Time Temp Pulse Resp B/P (MAP) Pulse Ox O2 Delivery O2 Flow Rate FiO2 03/28/17 09:26 96 03/28/17 08:13 97.4 60 20 178/78 (111) 96 03/28/17 05:34 97.6 54 16 163/71 (101) 96 03/28/17 01:29 98.1 73 18 143/65 (91) 97 03/27/17 23:00 73 03/27/17 20:32 53 03/27/17 20:00 98.0 53 18 155/72 (99) 95 03/27/17 16:00 98.6 62 18 166/74 (104) 96 03/27/17 15:00 57 03/27/17 14:57 97.9 59 20 150/65 (93) 96 Room Air I/O 03/27/17 03/27/17 03/27/17 03/28/17 03/28/17 03/28/17 07:00 15:00 23:00 07:00 15:00 23:00 Intake Total 200 ml 600 ml Balance 200 ml 600 ml IV Total 600 ml Other 200 ml # Voids 4 Laboratory Date/Time Source Procedure Growth Status 03/24/17 15:08 Stool Stool Cyclospora Exam - Final NO CYCLOSPORA SEEN Complete 03/24/17 15:08 Stool Stool Cryptosporidium Exam - Final NEGATIVE - NO CRYPTOSPORIDIUM ANTIGEN... Complete 03/24/17 15:08 Stool Stool Stool Pus ([facility]) - Final RARE WBC Complete 03/24/17 15:08 Stool Stool Giardia Antigen ([facility]) - Final NEGATIVE - NO GIARDIA ANTIGEN DETECTE... Complete 03/24/17 15:08 Stool Stool Stool Occult Blood ([facility]) - Final HEMOCCULT NEGATIVE Complete Imaging Last Impressions Chest X-Ray 03/24/17 1147 Signed Impressions: Service Date/Time: Friday, March 24, 2017 12:00 - CONCLUSION: No acute disease. Juanito Chen MD Head CT 03/24/17 0000 Signed Impressions: Service Date/Time: Friday, March 24, 2017 11:52 - CONCLUSION: No acute intracranial abnormality. Juanito Chen MD Abdomen/Pelvis CT 03/24/17 0000 Signed Impressions: Service Date/Time: Friday, March 24, 2017 11:01 - CONCLUSION: 1. No acute inflammatory process. 2. Nonobstructing 3-4 mm right renal calculus. 3. Normal appendix. 4. Bilateral renal low densities. 5. Abdominal aortic aneurysm with bypass graft and residual aneurysmal sac measuring 4.3 cm. Juanito Chen MD Physical Exam HEENT: PERRL; normocephalic; atraumatic; no jaundice. CHEST: CTA CARDIAC: RRR ABDOMEN: Soft, nondistended, mild lower quadrant TTP; no hepatosplenomegaly; bowel sounds active x 4. EXTREMITIES: No clubbing, cyanosis, or edema. SKIN: Normal; no rash; no jaundice. [employer]: No focal deficits; alert and oriented times three. (Julia Valladares) Assessment and Plan Plan ASSESSMENT - Diarrhea with fecal urgency - onset 3 wks ago, 10-15 BM daily. Has not had BM today S/P colonoscopy yesterday. Colonoscopy (03/27) --> Mild diverticulosis in the sigmoid colon.Biopsied. Internal and external hemorrhoids. Recommendation for repeat exam in 5 years. Biopsy pending. Lomotil PRN. - Epigastric pain - pt unable to give exact onset but has "been awhile". could be r/t stomach mass. EGD 02/20 food residue, 3cm x 3 cm mass with benign path. GS consulted, discussed with Dr. Simpson and no immediate surgery is planned. PLAN - PPI - Repeat colonoscopy in 5 years - Biopsy pending - Lomotil PRN for diarrhea - Supportive care - Follow up at [facility] in 1-2 weeks post discharge This pt has been seen and examined by myself and Dr. Faust and this note is written on his behalf (Julia Valladares) Physician Comments Seen and examined with [employer], still with diarrhea. Lomotil 1 po bid. Cholestyramine 4 gm po bid. Await biopsies. (Marilyn Faust MD) Julia Valladares Mar 28, 2017 13:22 Marilyn Faust MD Mar 28, 2017 15:41
[2017-03-28] MEDS: DIPHENOXYLATE/ATROPINE 2.5 MG/0.025 MG TAB PO SCH (14:45)
--- NOTE | 2017-03-28 14:50 | HHI.PR ---
Subjective Remarks Pt c/o continued diarrhea, but has NOT been requesting prn lomotil Objective Vitals Vital Signs Date Time Temp Pulse Resp B/P (MAP) Pulse Ox O2 Delivery O2 Flow Rate FiO2 03/28/17 12:00 97.4 59 20 146/65 (92) 95 03/28/17 09:26 96 03/28/17 08:13 97.4 60 20 178/78 (111) 96 03/28/17 05:34 97.6 54 16 163/71 (101) 96 03/28/17 01:29 98.1 73 18 143/65 (91) 97 03/27/17 23:00 73 03/27/17 20:32 53 03/27/17 20:00 98.0 53 18 155/72 (99) 95 03/27/17 16:00 98.6 62 18 166/74 (104) 96 03/27/17 15:00 57 03/27/17 14:57 97.9 59 20 150/65 (93) 96 Room Air Result Diagram: 03/27/17 0700 03/27/17 0700 Imaging Last Impressions Chest X-Ray 03/24/17 1147 Signed Impressions: Service Date/Time: Friday, March 24, 2017 12:00 - CONCLUSION: No acute disease. Juanito Chen MD Head CT 03/24/17 0000 Signed Impressions: Service Date/Time: Friday, March 24, 2017 11:52 - CONCLUSION: No acute intracranial abnormality. Juanito Chen MD Abdomen/Pelvis CT 03/24/17 0000 Signed Impressions: Service Date/Time: Friday, March 24, 2017 11:01 - CONCLUSION: 1. No acute inflammatory process. 2. Nonobstructing 3-4 mm right renal calculus. 3. Normal appendix. 4. Bilateral renal low densities. 5. Abdominal aortic aneurysm with bypass graft and residual aneurysmal sac measuring 4.3 cm. Juanito Chen MD Objective Remarks General: NAD, AAOx3 Chest: CTA Cardiac: Regular Abd: +BS, soft ND, epigastric tenderness Ext: No edema Procedures 03/[address] Faust A/P Problem List: (1) Severe diarrhea ICD Codes: K52.9 - Noninfective gastroenteritis and colitis, unspecified Status: Acute Plan: - Pt is an 81 y/o male with paroxysmal atrial fibrillation, COPD, HTN, known gastric mass/GIST, and previous T12 compression fracture in 10/2015. - [place] [facility] [place] with progressive worsening diarrhea. - Pt has had issues with abd pain and his PCP sent him for a CT Abd/pelvis with IV contrast on 03/06/17 for complaints of continued abd pain. The CT noted a stable appearing soft tissue mass in the gastric antrum measuring up to 2.6cm. After the CT he reportedly began having significant diarrhea. This was initially intermittent diarrhea, but over the past week he's had progressive worsening diarrhea having over 10 BMs in a 24 hour time period. He has had progressive generalized weakness and worsening appetite. He states that he has lost about 6lbs in the last 3 weeks. Pt denies any noted melena or hematochezia. The weakness and profuse diarrhea prompted his ER evaluation. - In the ED he had CT Abd/pelvis --> no acute inflammatory process, nonobstructing 3-4 mm right renal calculus, normal appendix, bilateral renal low densities, abdominal aortic aneurysm with bypass graft and residual aneurysmal sac measuring 4.3 cm. - Stool studies taken in the ED are negative - Stools are negative for C. diff. - Potassium repleted - colonoscopy was 10/18/2015 --> sessile polyp in the ascending colon and proximal transverse colon, mild diverticulosis in the sigmoid colon. - patient s/p colonoscopy 03/27 which revealed: Mild diverticulosis was noted in the sigmoid colon, Biopsied, Retroflexed views revealed internal hemorrhoids, Retroflexed views revealed small internal hemorrhoids, Revealed external hemorrhoids, biopsies taken to r/o microscopic colitis - pending GI recommendations: F/U outpatient for biopsy results. Continue surveillance. Yearly Hemoccult and Return 5 years Colonoscopy, pending biopsy results - Lomotil. will schedule. and prn - Supportive care - DVT prophylaxis with SCDs - anticipate d/c to home in next 1-2 days with [facility] and home PT (2) Dehydration ICD Codes: E86.0 - Dehydration Status: Acute Plan: - See above. (3) Gastric mass ICD Codes: K31.9 - Disease of stomach and duodenum, unspecified Status: Acute Plan: - Patient has known history of a gastric mass, initially noted in 2015. - He initially had an EGD/colonoscopy on 10/18/15 which noted a submucosal mass in the antrum, gastritis in the gastric antrum, sessile polyp in the ascending colon and proximal transverse colon, mild diverticulosis in the sigmoid colon. Pathology was negative. - He was recommended to have an EUS which was performed on 02/07/[address] 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 There are two final pathology reports in the EHR system (one was path report from EGD and one was from FNA done during the EUS). 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 - He has followed back up with GI in January 2017 and had a repeat EGD on which noted food residue in the gastric body, mass measuring 3cm x 3cm in the gastric antrum, multiple biopsies performed which were negative for malignancy. - GI consulted. The case was discussed with Dr. Faust on 03/25 - Reviewed pathology and previous reports - Discussed case with Dr. 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 and future surgery as an outpatient (4) COPD (chronic obstructive pulmonary disease) ICD Codes: J44.9 - Chronic obstructive pulmonary disease, unspecified Status: Chronic Plan: - Home meds continued - Duonebs PRN and scheduled (5) AAA (abdominal aortic aneurysm) ICD Codes: I71.4 - Abdominal aortic aneurysm, without rupture Status: Acute Plan: - s/p surgical repair (6) HTN (hypertension) ICD Codes: I10 - Essential (primary) hypertension Status: Chronic Plan: - Home meds continued - Vasotec and Clonidine PRN (7) Paroxysmal atrial fibrillation ICD Codes: I48.0 - Paroxysmal atrial fibrillation Status: Chronic Plan: - Home meds continued - telemetry Byron Gaona DO Mar 28, 2017 14:50
[2017-03-28] MEDS ORDERED: CHOLESTYRAMINE LIGHT 4 GM PACKAGE PO SCH (21:00)
[2017-03-28] MEDS ORDERED: DIPHENOXYLATE/ATROPINE 2.5 MG/0.025 MG TAB PO SCH (21:00)
[2017-03-28] MEDS: SODIUM CHLORIDE 0.9% FLUSH 10 ML FLUSH IV FLUSH SCH (21:20)
[2017-03-28] MEDS: LORazepam 1 MG TAB PO PRN (22:22)
[2017-03-29] VITALS (11 sets, daily range): BP systolic 115–170; BP diastolic 58–78; PULSE 51–86; RESP 16–19; TEMP 97.4–98.8; O2SAT 93–97
[2017-03-29] MEDS: cloNIDine HCL 0.1 MG TAB PO PRN (00:48)
[2017-03-29] MEDS: DILTIAZEM-CD 120 MG CAP ER PO SCH (08:48)
[2017-03-29] MEDS: AMIODARONE 200 MG TAB PO SCH (08:49)
[2017-03-29] MEDS: PANTOPRAZOLE SOD 40 MG DELAYED RELEASE TAB PO SCH (08:49)
[2017-03-29] MEDS: CLOPIDOGREL 75 MG TAB PO SCH (08:50)
[2017-03-29] MEDS: DIPHENOXYLATE/ATROPINE 2.5 MG/0.025 MG TAB PO SCH (08:53)
--- NOTE | 2017-03-29 08:53 | HHI.DS ---
Discharge Summary Admission Date Mar 28, 2017 at 09:15 Discharge Date: Mar 30, 2017 Admitting Diagnosis diarrhea, lightheadedness (1) Severe diarrhea Diagnosis: Principal ICD Codes: K52.9 - Noninfective gastroenteritis and colitis, unspecified Status: Acute (2) Dehydration Diagnosis: Principal ICD Codes: E86.0 - Dehydration Status: Acute (3) Gastric mass Diagnosis: Principal ICD Codes: K31.9 - Disease of stomach and duodenum, unspecified Status: Acute (4) COPD (chronic obstructive pulmonary disease) Diagnosis: Secondary ICD Codes: J44.9 - Chronic obstructive pulmonary disease, unspecified Status: Chronic (5) AAA (abdominal aortic aneurysm) Diagnosis: Secondary ICD Codes: I71.4 - Abdominal aortic aneurysm, without rupture Status: Acute (6) HTN (hypertension) Diagnosis: Secondary ICD Codes: I10 - Essential (primary) hypertension Status: Chronic (7) Paroxysmal atrial fibrillation Diagnosis: Secondary ICD Codes: I48.0 - Paroxysmal atrial fibrillation Status: Chronic Consultants Dr. Faust Procedures 03/[address] Faust Brief History Mr. Nino is an 81 y/o male with paroxysmal atrial fibrillation, COPD, HTN, known gastric mass, and previous T12 compression fracture in 10/2015. Pt presented to the ER at [facility] on 03/24/17 with progressive worsening diarrhea. Patient has known history of a gastric mass, initially noted in 2015. He initially had an EGD/colonoscopy on 10/18/15 which noted a submucosal mass in the antrum, gastritis in the gastric antrum, sessile polyp in the ascending colon and proximal transverse colon, mild diverticulosis in the sigmoid colon. Pathology was negative. He was recommended to have an EUS which was performed on 02/07/[address] 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 There are two final pathology reports in the EHR system ( one was path report from EGD and one was from FNA done during the EUS). 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 He has followed back up with GI in February 2017 and had a repeat EGD on 02/20/17 and revealed food residue in the gastric body, mass measuring 3cm x 3cm in the gastric antrum, multiple biopsies performed which were negative for malignancy. He had a CT Abd/pelvis with IV contrast on for complaints of continued abd pain. The CT noted a stable appearing soft tissue mass in the gastric antrum measuring up to 2.6cm. After the CT he reportedly began having significant diarrhea. This was initially intermittent diarrhea, but over the past week he's had progressive worsening diarrhea having over 10 BMs in a 24 hour time period. He has had progressive generalized weakness and worsening appetite. He states that he has lost about 6lbs in the last 3 weeks. Pt denies any noted melena or hematochezia. He describes the stools as loose, watery stools. He does have abdominal pain and cramping. He has had some fecal incontinence. CT Abd/pelvis in the ED noted no acute inflammatory process, nonobstructing 3-4 mm right renal calculus, normal appendix, bilateral renal low densities, abdominal aortic aneurysm with bypass graft and residual aneurysmal sac measuring 4.3 cm. Stool studies were taken in the ED and are negative for C. diff. He has not been on any antibiotics recently and denies any recent medicine changes. CBC/BMP: 03/27/17 0700 03/27/17 0700 Significant Findings Laboratory Tests Test 03/26/17 11:40 03/27/17 07:00 Red Blood Count 3.74 MIL/MM3 (4.50-5.90) 3.68 MIL/MM3 (4.50-5.90) Hemoglobin 10.6 GM/DL (13.0-17.0) 10.8 GM/DL (13.0-17.0) Hematocrit 32.5 % (39.0-51.0) 32.0 % (39.0-51.0) Red Cell Distribution Width 18.9 % (11.6-17.2) 19.1 % (11.6-17.2) Mean Platelet Volume 6.9 FL (7.0-11.0) Monocytes (%) (Auto) 17.6 % (0.0-8.0) 14.2 % (0.0-8.0) Total Protein 5.9 GM/DL (6.4-8.2) Albumin 3.0 GM/DL (3.4-5.0) Calcium Level 8.3 MG/DL (8.5-10.1) Alkaline Phosphatase 137 U/L (45-117) Potassium Level 2.9 MEQ/L (3.5-5.1) Estimat Glomerular Filtration Rate 61 ML/MIN (>89) 73 ML/MIN (>89) Chloride Level 109 MEQ/L (98-107) Imaging Last Impressions Chest X-Ray 03/24/17 1147 Signed Impressions: Service Date/Time: Friday, March 24, 2017 12:00 - CONCLUSION: No acute disease. Juanito Chen MD Head CT 03/24/17 0000 Signed Impressions: Service Date/Time: Friday, March 24, 2017 11:52 - CONCLUSION: No acute intracranial abnormality. Juanito Chen MD Abdomen/Pelvis CT 03/24/17 0000 Signed Impressions: Service Date/Time: Friday, March 24, 2017 11:01 - CONCLUSION: 1. No acute inflammatory process. 2. Nonobstructing 3-4 mm right renal calculus. 3. Normal appendix. 4. Bilateral renal low densities. 5. Abdominal aortic aneurysm with bypass graft and residual aneurysmal sac measuring 4.3 cm. Juanito Chen MD PE at Discharge General: NAD, AAOx3 Chest: CTA Cardiac: Regular Abd: +BS, soft ND, epigastric tenderness Ext: No edema Hospital Course Severe diarrhea - Pt is an 81 y/o male with paroxysmal atrial fibrillation, COPD, HTN, known gastric mass/GIST, and previous T12 compression fracture in 10/2015. - Pt presented to the ER at [facility] on 03/24/17 with progressive worsening diarrhea. - Pt has had issues with abd pain and his PCP sent him for a CT Abd/pelvis with IV contrast on 03/06/17 for complaints of continued abd pain. The CT noted a stable appearing soft tissue mass in the gastric antrum measuring up to 2.6cm. After the CT he reportedly began having significant diarrhea. This was initially intermittent diarrhea, but over the past week he's had progressive worsening diarrhea having over 10 BMs in a 24 hour time period. He has had progressive generalized weakness and worsening appetite. He states that he has lost about 6lbs in the last 3 weeks. Pt denies any noted melena or hematochezia. The weakness and profuse diarrhea prompted his ER evaluation. - In the ED he had CT Abd/pelvis --> no acute inflammatory process, nonobstructing 3-4 mm right renal calculus, normal appendix, bilateral renal low densities, abdominal aortic aneurysm with bypass graft and residual aneurysmal sac measuring 4.3 cm. - Stool studies taken in the ED are negative - Stools are negative for C. diff. - Potassium repleted - colonoscopy was 10/18/2015 --> sessile polyp in the ascending colon and proximal transverse colon, mild diverticulosis in the sigmoid colon. - patient s/p colonoscopy 03/27 which revealed: Mild diverticulosis was noted in the sigmoid colon, Biopsied, Retroflexed views revealed internal hemorrhoids, Retroflexed views revealed small internal hemorrhoids, Revealed external hemorrhoids, biopsies taken to r/o microscopic colitis - pending GI recommendations: F/U outpatient for biopsy results. Continue surveillance. Yearly Hemoccult and Return 5 years Colonoscopy, pending biopsy results - Lomotil. will schedule. and prn - Supportive care - DVT prophylaxis with SCDs - d/c to home with HHC and home PT Dehydration - See above. Gastric mass - Patient has known history of a gastric mass, initially noted in 2015. - He initially had an EGD/colonoscopy on 10/18/15 which noted a submucosal mass in the antrum, gastritis in the gastric antrum, sessile polyp in the ascending colon and proximal transverse colon, mild diverticulosis in the sigmoid colon. Pathology was negative. - He was recommended to have an EUS which was performed on 02/07/[address] 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 There are two final pathology reports in the EHR system (one was path report from EGD and one was from FNA done during the EUS). 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 - He has followed back up with GI in January 2017 and had a repeat EGD on which noted food residue in the gastric body, mass measuring 3cm x 3cm in the gastric antrum, multiple biopsies performed which were negative for malignancy. - GI consulted. The case was discussed with Dr. Faust on 03/25 - Reviewed pathology and previous reports - Discussed case with Dr. 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 and future surgery as an outpatient COPD (chronic obstructive pulmonary disease) - Home meds continued - Duonebs PRN and scheduled AAA (abdominal aortic aneurysm) - s/p surgical repair HTN (hypertension) - Home meds continued - Vasotec and Clonidine PRN Paroxysmal atrial fibrillation - Home meds continued - telemetry Pt Condition on Discharge: Stable Discharge Disposition: Disch w/ Home Health Serv Discharge Instructions DIET: Follow Instructions for: As Tolerated, No Restrictions Activities you can perform: Regular-No Restrictions Follow up Referrals: Gastroenterology - 2 Weeks with Marilyn Faust MD PCP Follow-up - [address] Keenan Montes Surgical - 2 Weeks with Dayo Marsh MD New Medications: Diphenoxylate W/ Atropine (Diphenatol 2.5-0.025 mg) 2.5 Mg-0.025 Mg Tab 1 TAB PO DAILY for diarrhea, #30 TAB 0 Refills Losartan (Cozaar) 50 Mg Tab 50 MG PO DAILY for blood pressure, #30 TAB 0 Refills Continued Medications: Albuterol 18 GM Inh (Ventolin Hfa 18 GM Inh) 90 Mcg/Act Aer 2 PUFF INH Q6H PRN for SHORTNESS OF BREATH, #1 INHALER 0 Refills Amiodarone (Amiodarone) 200 Mg Tab 200 MG PO DAILY for Regulate Heart Beat, #30 TAB 0 Refills Clopidogrel (Plavix) 75 Mg Tab 75 MG PO DAILY for Blood Clot Prevention, #30 TAB 0 Refills Diltiazem ER 24 HR (Cartia Xt) 120 Mg Caper 120 MG PO DAILY, #30 CAP 0 Refills Ferrous Fumarate (Ferrous Fumarate) 324 Mg (106 Mg Iron) Tab 325 MG PO DAILY for Nutritional Supplement, #30 TAB 0 Refills Ipratropium HFA 12.9 GM Inh (Atrovent HFA 12.9 GM Inh) 17 Mcg/Act Aer 1 PUFF INH Q6HR PRN for SHORTNESS OF BREATH, #1 INHALER 0 Refills Ipratropium-Albuterol Neb (Duoneb) 0.5-2.5 Mg/3 Ml Neb 1 NEBULE INH Q6HR NEB for Breathing Treatment, #120 NEBULE 0 Refills Lansoprazole (Lansoprazole) 30 Mg Capdr 30 MG PO DAILY, CAP 0 Refills Lorazepam (Ativan) 1 Mg Tab 1 MG PO HS PRN for ANXIETY AND/OR AGITATION, TAB 0 Refills Multiple Vitamin (Multiple Vitamin) 1 Tab 1 TAB PO DAILY for Nutritional Supplement, TAB 0 Refills Oxycodone HCl/Acetaminophen (Oxycodone-Acetaminophen 5-325) 5 Mg-325 Mg Tablet Discontinued Medications: Prednisone (Prednisone) 10 Mg Tab 10 MG PO DAILY, TAB 0 Refills Additional Information Patient examined. Assessment and plan formulated with Niesha Teran PA-C. I agree with the above. Niesha Teran Mar 29, 2017 08:53 Byron Gaona DO Apr 05, 2017 11:24
--- NOTE | 2017-03-29 08:54 | HHI.DCPOC ---
Discharge Care Plan Diagnosis: (1) Severe diarrhea (2) Gastric mass (3) Paroxysmal atrial fibrillation (4) COPD (chronic obstructive pulmonary disease) (5) HTN (hypertension) Goals to Promote Your Health * To prevent worsening of your condition and complications * To maintain your health at the optimal level Directions to Meet Your Goals Take your medications as prescribed Follow your dietary instruction Follow activity as directed Keep your appointments as scheduled Take your immunizations and boosters as scheduled If your symptoms worsen call your PCP, if no PCP go to Urgent Care Center or Emergency Room Smoking is Dangerous to Your Health. Avoid second hand smoke Call the 24-hour hour crisis hotline for domestic abuse at Niesha Teran Mar 29, 2017 08:54 Byron Gaona DO Apr 05, 2017 11:25
[2017-03-29] MEDS ORDERED: LISINOPRIL 5 MG TAB PO SCH (09:00)
[2017-03-29] MEDS: SODIUM CHLORIDE 0.9% FLUSH 10 ML FLUSH IV FLUSH SCH ×2 (09:00→20:54)
--- NOTE | 2017-03-29 09:53 | HHI.FF ---
Face to Face Verification Diagnosis: (1) Severe diarrhea (2) Paroxysmal atrial fibrillation (3) HTN (hypertension) Physical Therapy Order: Evaluate and Treat, Improve ambulation, Strength and gait training Home Health Nursing Order: Medical education Signs/symptoms of disease process Medication education-adverse effect Nursing assessment with vital signs I have seen patient Darren Nino on 03/29/17. My clinical findings support the need for the requested home health care services because: Limited ability to care for self Limited ability to care for self I certify that my clinical findings support that this patient is homebound because: Unsteady gait/balance Unsteady gait/balance Niesha Teran Mar 29, 2017 09:53 Byron Gaona DO Apr 05, 2017 11:23
[2017-03-29] MEDS ORDERED: LOSARTAN 50 MG TAB PO ONE (10:30)
[2017-03-29] MEDS: ACETAMINOPHEN/HYDROcodone 325 MG/5 MG TAB PO PRN (10:54)
--- NOTE | 2017-03-29 13:58 | HHI.GIFU ---
Subjective Remarks Pt resting in bed, in no apparent distress. He denies any episodes of diarrhea since having the colonoscopy done. Pt denies N/V/abdominal pain. (Julia Valladares) Objective Vitals I&O Vital Signs Date Time Temp Pulse Resp B/P (MAP) Pulse Ox O2 Delivery O2 Flow Rate FiO2 03/29/17 12:19 97.4 56 18 156/70 (98) 94 03/29/17 08:25 97.6 56 18 170/73 (105) 96 03/29/17 06:22 97.5 56 16 163/78 (106) 95 03/29/17 04:45 54 03/29/17 00:44 97.7 86 18 170/72 (104) 93 03/29/17 00:11 54 03/28/17 21:12 97.5 57 16 153/67 (95) 94 03/28/17 20:00 55 03/28/17 16:00 97.7 56 20 136/65 (88) 95 I/O 03/28/17 03/28/17 03/28/17 03/29/17 03/29/17 03/29/17 07:00 15:00 23:00 07:00 15:00 23:00 Intake Total 480 ml 700 ml Balance 480 ml 700 ml Intake Oral 480 ml IV Total 700 ml # Voids 4 2 Laboratory Date/Time Source Procedure Growth Status 03/24/17 15:08 Stool Stool Cyclospora Exam - Final NO CYCLOSPORA SEEN Complete 03/24/17 15:08 Stool Stool Cryptosporidium Exam - Final NEGATIVE - NO CRYPTOSPORIDIUM ANTIGEN... Complete 03/24/17 15:08 Stool Stool Stool Pus ([facility]) - Final RARE WBC Complete 03/24/17 15:08 Stool Stool Giardia Antigen ([facility]) - Final NEGATIVE - NO GIARDIA ANTIGEN DETECTE... Complete 03/24/17 15:08 Stool Stool Stool Occult Blood ([facility]) - Final HEMOCCULT NEGATIVE Complete Imaging Last Impressions Chest X-Ray 03/24/17 1147 Signed Impressions: Service Date/Time: Friday, March 24, 2017 12:00 - CONCLUSION: No acute disease. Juanito Chen MD Head CT 03/24/17 0000 Signed Impressions: Service Date/Time: Friday, March 24, 2017 11:52 - CONCLUSION: No acute intracranial abnormality. Juanito Chen MD Abdomen/Pelvis CT 03/24/17 0000 Signed Impressions: Service Date/Time: Friday, March 24, 2017 11:01 - CONCLUSION: 1. No acute inflammatory process. 2. Nonobstructing 3-4 mm right renal calculus. 3. Normal appendix. 4. Bilateral renal low densities. 5. Abdominal aortic aneurysm with bypass graft and residual aneurysmal sac measuring 4.3 cm. Juanito Chen MD Physical Exam HEENT: PERRL; normocephalic; atraumatic; no jaundice. CHEST: CTA CARDIAC: RRR ABDOMEN: Soft, nondistended, nontender; no hepatosplenomegaly; bowel sounds active x 4. EXTREMITIES: No clubbing, cyanosis, or edema. SKIN: Normal; no rash; no jaundice. LPN INSTRUCTOR: No focal deficits; alert and oriented times three. (Julia Valladares) Assessment and Plan Plan ASSESSMENT - Diarrhea with fecal urgency - resolved. Colonoscopy (03/27) --> Mild diverticulosis in the sigmoid colon.Biopsied. Internal and external hemorrhoids. Recommendation for repeat exam in 5 years. Biopsy pending. Lomotil PRN. - Epigastric pain - pt unable to give exact onset but has "been awhile". could be r/t stomach mass. EGD 02/20 food residue, 3cm x 3 cm mass with benign path. GS consulted, discussed with Dr. Simpson and no immediate surgery is planned. PLAN - Continue PPI - Repeat colonoscopy in 5 years - Biopsy pending - Lomotil PRN for diarrhea - Supportive care - Follow up at [facility] in 1-2 weeks post discharge This pt has been seen and examined by myself and Dr. Faust and this note is written on his behalf (Julia Valladaers) Physician Comments Seen and examined with JUNG, doing better in terms of diarrhea. History inconsistent. Started on scheduled lomotil and cholestyramine yesterday. Can dc home with gi fu. DIscussed with Dr. Gaona yesterday. (Marilyn Faust MD) Julia Valladares Mar 29, 2017 13:58 Marilyn Faust MD Mar 29, 2017 15:01
[2017-03-29] MEDS ORDERED: COZA50TA PO (17:41)
[2017-03-29] MEDS ORDERED: LOMO PO (17:42)
[2017-03-29] MEDS: LORazepam 1 MG TAB PO PRN (20:54)
[2017-03-30] VITALS (7 sets, daily range): BP systolic 143–170; BP diastolic 63–78; PULSE 48–70; RESP 17–20; TEMP 97.1–97.4; O2SAT 94–97
[2017-03-30] MEDS: cloNIDine HCL 0.1 MG TAB PO PRN (04:47)
[2017-03-30] MEDS: ACETAMINOPHEN/HYDROcodone 325 MG/5 MG TAB PO PRN (06:29)
--- NOTE | 2017-03-30 08:58 | HHI.PR ---
Subjective Remarks Late charting 03/29 around 1700 Patient denies any diarrhea since colonoscopy patient reports feeling generally unwell although is unable to pinpoint Objective Vitals Vital Signs Date Time Temp Pulse Resp B/P (MAP) Pulse Ox O2 Delivery O2 Flow Rate FiO2 03/30/17 08:35 97.4 55 20 165/70 (101) 95 03/30/17 04:15 97.3 58 18 170/78 (108) 97 03/30/17 04:08 55 03/30/17 00:22 48 03/29/17 22:00 98.8 64 19 118/64 (82) 97 03/29/17 20:15 98.1 65 19 115/58 (77) 96 03/29/17 16:00 97.4 55 18 139/65 (89) 95 03/29/17 16:00 51 03/29/17 12:19 97.4 56 18 156/70 (98) 94 03/29/17 12:00 53 Result Diagram: 03/27/17 0700 03/27/17 0700 Imaging Last Impressions Chest X-Ray 03/24/17 1147 Signed Impressions: Service Date/Time: Friday, March 24, 2017 12:00 - CONCLUSION: No acute disease. Juanito Chen MD Head CT 03/24/17 0000 Signed Impressions: Service Date/Time: Friday, March 24, 2017 11:52 - CONCLUSION: No acute intracranial abnormality. Juanito Chen MD Abdomen/Pelvis CT 03/24/17 0000 Signed Impressions: Service Date/Time: Friday, March 24, 2017 11:01 - CONCLUSION: 1. No acute inflammatory process. 2. Nonobstructing 3-4 mm right renal calculus. 3. Normal appendix. 4. Bilateral renal low densities. 5. Abdominal aortic aneurysm with bypass graft and residual aneurysmal sac measuring 4.3 cm. Juanito Chen MD Objective Remarks General: NAD, AAOx3 Chest: CTA Cardiac: Regular Abd: +BS, soft ND, epigastric tenderness Ext: No edema Procedures 03/[address] Faust A/P Problem List: (1) Severe diarrhea ICD Codes: K52.9 - Noninfective gastroenteritis and colitis, unspecified Status: Acute Plan: - Pt is an 81 y/o male with paroxysmal atrial fibrillation, COPD, HTN, known gastric mass/GIST, and previous T12 compression fracture in 10/2015. - Pt presented to the ER at [facility] on 03/24/17 with progressive worsening diarrhea. - Pt has had issues with abd pain and his PCP sent him for a CT Abd/pelvis with IV contrast on 03/06/17 for complaints of continued abd pain. The CT noted a stable appearing soft tissue mass in the gastric antrum measuring up to 2.6cm. After the CT he reportedly began having significant diarrhea. This was initially intermittent diarrhea, but over the past week he's had progressive worsening diarrhea having over 10 BMs in a 24 hour time period. He has had progressive generalized weakness and worsening appetite. He states that he has lost about 6lbs in the last 3 weeks. Pt denies any noted melena or hematochezia. The weakness and profuse diarrhea prompted his ER evaluation. - In the ED he had CT Abd/pelvis --> no acute inflammatory process, nonobstructing 3-4 mm right renal calculus, normal appendix, bilateral renal low densities, abdominal aortic aneurysm with bypass graft and residual aneurysmal sac measuring 4.3 cm. - Stool studies taken in the ED are negative - Stools are negative for C. diff. - Potassium repleted - colonoscopy was 10/18/2015 --> sessile polyp in the ascending colon and proximal transverse colon, mild diverticulosis in the sigmoid colon. - patient s/p colonoscopy 03/27 which revealed: Mild diverticulosis was noted in the sigmoid colon, Biopsied, Retroflexed views revealed internal hemorrhoids, Retroflexed views revealed small internal hemorrhoids, Revealed external hemorrhoids, biopsies taken to r/o microscopic colitis - pending GI recommendations: F/U outpatient for biopsy results. Continue surveillance. Yearly Hemoccult and Return 5 years Colonoscopy, pending biopsy results - Lomotil. will schedule. and prn - Supportive care - DVT prophylaxis with SCDs - will observe overnight anticipate d/c to home tomorrow if stable (2) Dehydration ICD Codes: E86.0 - Dehydration Status: Acute Plan: - See above. (3) Gastric mass ICD Codes: K31.9 - Disease of stomach and duodenum, unspecified Status: Acute Plan: - Patient has known history of a gastric mass, initially noted in 2015. - He initially had an EGD/colonoscopy on 10/18/15 which noted a submucosal mass in the antrum, gastritis in the gastric antrum, sessile polyp in the ascending colon and proximal transverse colon, mild diverticulosis in the sigmoid colon. Pathology was negative. - He was recommended to have an EUS which was performed on 02/07/[address] 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 There are two final pathology reports in the EHR system (one was path report from EGD and one was from FNA done during the EUS). 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 - He has followed back up with GI in January 2017 and had a repeat EGD on which noted food residue in the gastric body, mass measuring 3cm x 3cm in the gastric antrum, multiple biopsies performed which were negative for malignancy. - GI consulted. The case was discussed with Dr. Faust on 03/25 - Reviewed pathology and previous reports - Discussed case with Dr. 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 and future surgery as an outpatient (4) COPD (chronic obstructive pulmonary disease) ICD Codes: J44.9 - Chronic obstructive pulmonary disease, unspecified Status: Chronic Plan: - Home meds continued - Duonebs PRN and scheduled (5) AAA (abdominal aortic aneurysm) ICD Codes: I71.4 - Abdominal aortic aneurysm, without rupture Status: Acute Plan: - s/p surgical repair (6) HTN (hypertension) ICD Codes: I10 - Essential (primary) hypertension Status: Chronic Plan: - Home meds continued - Vasotec and Clonidine PRN (7) Paroxysmal atrial fibrillation ICD Codes: I48.0 - Paroxysmal atrial fibrillation Status: Chronic Plan: - Home meds continued - telemetry Assessment and Plan Patient examined. Assessment and plan formulated with Niesha Teran PA-C. I agree with the above. Niesha Teran Mar 30, 2017 08:58 Byron Gaona DO Apr 05, 2017 11:23
[2017-03-30] MEDS ORDERED: LOSARTAN 50 MG TAB PO SCH (09:00)
[2017-03-30] MEDS: SODIUM CHLORIDE 0.9% FLUSH 10 ML FLUSH IV FLUSH SCH (09:00)
[2017-03-30] MEDS: DILTIAZEM-CD 120 MG CAP ER PO SCH (09:00)
[2017-03-30] MEDS: DIPHENOXYLATE/ATROPINE 2.5 MG/0.025 MG TAB PO SCH (09:00)
[2017-03-30] MEDS: PANTOPRAZOLE SOD 40 MG DELAYED RELEASE TAB PO SCH (09:24)
[2017-03-30] MEDS: CLOPIDOGREL 75 MG TAB PO SCH (09:24)
[2017-03-30] MEDS: AMIODARONE 200 MG TAB PO SCH (09:25)
[2017-03-30] MEDS: LORazepam 1 MG TAB PO PRN (17:42)
== END 2017-03-30 18:01 | disposition home health service (06) ==
LOC: NEPE 09:17 → INTOOBSV 12:03 → NEDA 12:03 → N05B 13:42 → INTOOBSV 03-28 09:15 → OBSVTOIN 03-28 09:15
PROVIDERS: ADMIT Hospitalist; ATTEND Hospitalist
DX: K52.9 Noninfective gastroenteritis and colitis, unspecified (principal); E86.0 Dehydration; K31.9 Disease of stomach and duodenum, unspecified; K57.30 Diverticulosis of large intestine without perforation or abscess without bleeding; I44.0 Atrioventricular block, first degree; R00.1 Bradycardia, unspecified; R94.31 Abnormal electrocardiogram [ECG] [EKG]; K64.8 Other hemorrhoids; K64.4 Residual hemorrhoidal skin tags; R15.9 Full incontinence of feces; R42 Dizziness and giddiness; N20.0 Calculus of kidney; R05 Cough; J44.9 Chronic obstructive pulmonary disease, unspecified; I71.4 Abdominal aortic aneurysm, without rupture; I11.0 Hypertensive heart disease with heart failure; I50.9 Heart failure, unspecified; I73.9 Peripheral vascular disease, unspecified; I48.0 Paroxysmal atrial fibrillation; K21.9 Gastro-esophageal reflux disease without esophagitis; G25.0 Essential tremor; Z79.899 Other long term (current) drug therapy; Z79.02 Long term (current) use of antithrombotics/antiplatelets; Z95.5 Presence of coronary angioplasty implant and graft
CPT/HCPCS: 00810; 45380; 70450; 71010; 74177; 80048; 80053; 80076; 82272; 83735; 85025; 87205; 87207; 87328; 87329; 87493; 87506; 88305; 93005; 94640; 94664; 96361; 96374; 96375; 96376; 97110; 97116; 97162; 99285; G0378; J2060; J2405; Q9967

== ENCOUNTER → 2017-05-16 | Outpatient (CLI) | payer MEDICARE ==
[~2017-05-16] VITALS: Ht 182.9 cm; Wt 79.2 kg
[~2017-05-16] MED LIST changes: +AMIO200T PO; +CART120C PO; +CHLORHEXIDINE GLUCONATE 2 % 1 PACK (2 CLOTHS) TOPICAL PRN; +COZA50TA PO; +FERR324T8 PO; +HYDR-3516 PO; -HYDR-3533 PO; +LACTATED RINGER'S 1000 ML IV PRN; +LANS30CA PO; +LOMO PO; +METOPROLOL TARTRATE 25 MG TAB PO PRN; -MULT1TAB78; +MULTTAB67 PO; +OXYC1TAB63; -PANT40TA3 PO; +POVIDONE IODINE 5% (ANTISEPSIS KIT) 4 APPLICATIONS EACH NARE PRN; +PROPOFOL 200 MG/20 ML AMP IV ONE; +SODIUM CHLORID 0.9% 500 ML IV PRN
--- NOTE | 2017-05-16 14:14 | PD.PROCEDR ---
GI Procedure PROCEDURE PERFORMED Endoscopic ultrasound with fine-needle aspiration INDICATION FOR PROCEDURE Submucosal gastric mass PROCEDURE: The procedure, risks and benefits were discussed with Mr. Nino and informed consent was obtained. Anesthesia sedated him with Diprivan. He was placed in the left lateral decubitus position. Endoscopic ultrasound: The Pentax videoscope was introduced through the oropharynx and advanced to the second portion of the stomach. 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
[2017-05-16 14:42] VITALS: BP 138/72; PULSE 52; RESP 16; TEMP 97.8; O2SAT 99
== END ==
LOC: HSDC 11:14
PROVIDERS: ATTEND Internal Medicine Gastroenterology
DX: C49.A2 Gastrointestinal stromal tumor of stomach (principal); J44.9 Chronic obstructive pulmonary disease, unspecified; I10 Essential (primary) hypertension
CPT/HCPCS: 00731; 43242; 88112; 88305; 88341; 88342; J7120

== ENCOUNTER 2017-07-08 08:22 | Inpatient (IN) | payer MEDICARE ==
[~2017-07-08] VITALS: Ht 182.9 cm; Wt 77.6 kg
[~2017-07-08 08:22] MED LIST changes: -CHLORHEXIDINE GLUCONATE 2 % 1 PACK (2 CLOTHS) TOPICAL PRN; -FERR324T8 PO; -LACTATED RINGER'S 1000 ML IV PRN; -LOMO PO; -METOPROLOL TARTRATE 25 MG TAB PO PRN; -OXYC1TAB63; -POVIDONE IODINE 5% (ANTISEPSIS KIT) 4 APPLICATIONS EACH NARE PRN; -PROPOFOL 200 MG/20 ML AMP IV ONE; -SODIUM CHLORID 0.9% 500 ML IV PRN
[2017-07-08] MEDS ORDERED: SODIUM CHLORID 0.9% 500 ML IV PRN (09:00)
[2017-07-08] MEDS ORDERED: POVIDONE IODINE 5% (ANTISEPSIS KIT) 4 APPLICATIONS EACH NARE PRN (09:00)
[2017-07-08] MEDS ORDERED: METOPROLOL TARTRATE 25 MG TAB PO PRN (09:00)
[2017-07-08] MEDS ORDERED: CHLORHEXIDINE GLUCONATE 2 % 1 PACK (2 CLOTHS) TOPICAL PRN (09:00)
[2017-07-08] MEDS ORDERED: LACTATED RINGER'S 1000 ML IV PRN (09:00)
[2017-07-08] MEDS ORDERED: ZOFR4TAB PO (09:14)
[2017-07-08] MEDS ORDERED: MIRA3350 PO (09:15)
[2017-07-08] MEDS ORDERED: ONDANSETRON HCL 4 MG/2 ML VIAL ONE (09:40)
[2017-07-08] MEDS ORDERED: ACETAMINOPHEN 1000 MG/100 ML 100 ML IV ONE (09:40)
[2017-07-08] MEDS ORDERED: APREPITANT 40 MG CAP ONE (09:40)
[2017-07-08] MEDS ORDERED: ONDANSETRON HCL 4 MG/2 ML VIAL IV PUSH SCH (10:15)
[2017-07-08] MEDS ORDERED: ceFAZolin 2 GM PREMIX 50 ML IV SCH (10:15)
[2017-07-08] MEDS ORDERED: APREPITANT 40 MG CAP PO SCH (10:15)
[2017-07-08] MEDS ORDERED: ACETAMINOPHEN 1000 MG/100 ML 100 ML IV SCH (10:15)
[2017-07-08] MEDS ORDERED: GLYCOPYRROLATE 1 MG/5 ML SYRINGE IV PUSH ONE (12:00)
[2017-07-08] MEDS ORDERED: ESMOLOL HCL 100 MG/10 ML VIAL IV ONE (12:00)
[2017-07-08] MEDS ORDERED: NEOSTIGMINE 5 MG/5 ML SYRINGE IV PUSH ONE (12:00)
[2017-07-08] MEDS ORDERED: LIDOCAINE HCL 1% PF 5 ML SYRINGE OTHER ONE (12:00)
[2017-07-08] MEDS ORDERED: ePHEDrine/NS 25 MG/5 ML SYRINGE IV ONE (12:00)
[2017-07-08] MEDS ORDERED: ONDANSETRON HCL 4 MG/2 ML VIAL IV ONE (12:00)
[2017-07-08] MEDS ORDERED: PROPOFOL 200 MG/20 ML AMP IV ONE (12:00)
[2017-07-08] MEDS ORDERED: LACTATED RINGER'S 1000 ML INJ 1,000 ML IV ONE (12:00)
[2017-07-08] MEDS ORDERED: DEXAMETHASONE SOD PHOS 4 MG/ML VIAL IV ONE (12:00)
[2017-07-08] MEDS ORDERED: ROCURONIUM INJ 50 MG/5 ML SYRINGE IV PUSH ONE (12:00)
[2017-07-08] MEDS ORDERED: BUPIVACAINE/EPINEPHRINE 0.25% PF 10 ML VIAL ONE (12:29)
[2017-07-08] MEDS ORDERED: fentaNYL CITRATE 250 MCG/5 ML AMP ONE (15:08)
[2017-07-08] MEDS ORDERED: SUGAMMADEX SODIUM 200 MG/2 ML VIAL IV PUSH ONE (16:15)
[2017-07-08] MEDS ORDERED: METHYLENE BLUE 10 MG/ML VIAL ONE (16:32)
[2017-07-08] MEDS ORDERED: MORPHINE SULFATE 30 MG/30 ML PCA IV SCH (17:15)
[2017-07-08] MEDS ORDERED: METOCLOPRAMIDE HCL 10 MG/2 ML VIAL IVS PRN (17:15)
[2017-07-08] MEDS ORDERED: SODIUM CHLORIDE 0.9% FLUSH 10 ML FLUSH IV FLUSH PRN (17:15)
[2017-07-08] MEDS ORDERED: MAGNESIUM HYDROXIDE SUSP 30 ML CUP PO PRN (17:15)
[2017-07-08] MEDS ORDERED: ONDANSETRON HCL 4 MG/2 ML VIAL IV PUSH PRN (17:15)
[2017-07-08] MEDS ORDERED: NALOXONE HCL 0.4 MG/ML AMP IV PUSH PRN (17:15)
[2017-07-08] MEDS ORDERED: Post-op Orders (for Pharmacy) XX ONE (17:15)
[2017-07-08] MEDS ORDERED: ACETAMINOPHEN/HYDROcodone 325 MG/5 MG TAB PO PRN (17:15)
[2017-07-08] MEDS ORDERED: DO NOT ADM ANY ANTICOAGULANT DRUGS PRN (17:26)
[2017-07-08] MEDS ORDERED: *morphine SULFATE 10 MG/ML PERIprocedure ONLY ONE ×2 (17:30→18:00)
[2017-07-08] MEDS: SODIUM CHLOR 0.9% 1000 ML INJ 1,000 ML IV SCH (19:11)
[2017-07-08 20:00] VITALS: BP 191/78; PULSE 60; RESP 17; TEMP 97.6; O2SAT 100
[2017-07-08] MEDS: SODIUM CHLORIDE 0.9% FLUSH 10 ML FLUSH IV FLUSH SCH (21:00)
[2017-07-08] MEDS: PCA - TOTAL MG MORPHINE DELIVERED PER SHIFT SCH (22:00)
[2017-07-09] VITALS: BP 164/78; PULSE 61; RESP 17; TEMP 97.2; O2SAT 100
[2017-07-09 04:00] VITALS: BP 151/72; PULSE 65; RESP 17; TEMP 96.2; O2SAT 98
[2017-07-09] MEDS: SODIUM CHLOR 0.9% 1000 ML INJ 1,000 ML IV SCH ×2 (05:22→14:00)
[2017-07-09] MEDS: PCA - TOTAL MG MORPHINE DELIVERED PER SHIFT SCH ×2 (05:22→14:00)
[2017-07-09 06:08] LABS: AUTOMATED NEUTROPHIL # 6.6 TH/MM3 (1.8-7.7); BASOPHIL % 0.1 % (0.0-2.0); HEMATOCRIT 38.7 % (39.0-51.0); LYMPH % 7.1 % (9.0-44.0); LYMPHOCYTE # 0.5 TH/MM3 (1.0-4.8); MEAN CELL VOLUME 92.2 FL (80.0-100.0); MEAN CORPUSCULAR HEMOGLOBIN 30.9 PG (27.0-34.0); MEAN CORPUSCULAR HGB CONC 33.6 % (32.0-36.0); MEAN PLATELET VOLUME 8.2 FL (7.0-11.0); MONO % 4.5 % (0.0-8.0); MONOCYTE # 0.3 TH/MM3 (0-0.9); NEUT % 88.3 % (16.0-70.0); PLATELET COUNT 185 TH/MM3 (150-450); RED CELL DISTRIBUTION WIDTH 15.3 % (11.6-17.2); WHITE BLOOD COUNT 7.4 TH/MM3 (4.0-11.0)
[2017-07-09 06:34] LABS: BICARBONATE 26.3 MEQ/L (21.0-32.0); CREATININE 1.14 MG/DL (0.60-1.30)
[2017-07-09 08:00] VITALS: BP 164/72; PULSE 62; RESP 17; TEMP 97.3; O2SAT 100
[2017-07-09] MEDS: SODIUM CHLORIDE 0.9% FLUSH 10 ML FLUSH IV FLUSH SCH ×2 (08:03→21:00)
[2017-07-09] MEDS ORDERED: ACETAMINOPHEN/HYDROcodone 325 MG/5 MG TAB PO PRN (09:30)
[2017-07-09] MEDS ORDERED: ALBUTEROL SULFATE 90 MCG/ACT HFA 8 GM INHALER INH PRN (10:00)
--- NOTE | 2017-07-09 10:01 | HHI.PR ---
Subjective Subjective Notes C/O of some gas pain, no flatus yet Pain fairly well controlled Objective Vitals/I&O Vital Signs Date Time Temp Pulse Resp B/P (MAP) Pulse Ox O2 Delivery O2 Flow Rate FiO2 07/09/17 08:00 97.3 62 17 164/72 (102) 100 07/08/17 21:43 Nasal Cannula 3.00 Labs Laboratory Tests Test 07/09/17 03:58 White Blood Count 7.4 Red Blood Count 4.20 Hemoglobin 13.0 Hematocrit 38.7 Mean Corpuscular Volume 92.2 Mean Corpuscular Hemoglobin 30.9 Mean Corpuscular Hemoglobin Concent 33.6 Red Cell Distribution Width 15.3 Platelet Count 185 Mean Platelet Volume 8.2 Neutrophils (%) (Auto) 88.3 Lymphocytes (%) (Auto) 7.1 Monocytes (%) (Auto) 4.5 Eosinophils (%) (Auto) 0.0 Basophils (%) (Auto) 0.1 Neutrophils # (Auto) 6.6 Lymphocytes # (Auto) 0.5 Monocytes # (Auto) 0.3 Eosinophils # (Auto) 0.0 Basophils # (Auto) 0.0 CBC Comment DIFF FINAL Differential Comment Blood Urea Nitrogen 14 Creatinine 1.14 Random Glucose 132 Calcium Level 9.0 Sodium Level 139 Potassium Level 4.9 Chloride Level 105 Carbon Dioxide Level 26.3 Anion Gap 8 Estimat Glomerular Filtration Rate 61 Cardiovascular: Regular Lungs: Clear Abdomen: Post-op tenderness Extremities: Perfused Wound Wound : Wound Location: Abdomen Appearance: Clean & Dry A/P Assessment and Plan 82yo M POD#1 Laparoscopic cholecystectomy and wedge resection of stomach -Transition to oral pain control -Restart home BP meds -Continue with PO liquids -Continue with frequent ambulation -Will consult CM for short term SNF placement Talib Feliciano Jul 09, 2017 10:01
[2017-07-09] MEDS: AMIODARONE 200 MG TAB PO SCH (10:27)
[2017-07-09] MEDS: POLYETHYLENE GLYCOL 17 GM PKG PO SCH (10:27)
[2017-07-09] MEDS: CLOPIDOGREL 75 MG TAB PO SCH (10:28)
[2017-07-09] MEDS: DILTIAZEM-CD 120 MG CAP ER PO SCH (10:28)
[2017-07-09] MEDS: LOSARTAN 50 MG TAB PO SCH (10:28)
--- NOTE | 2017-07-09 11:28 | MP ---
cc: Dayo Marsh MD DATE OF OPERATION: 07/08/2017 PREOPERATIVE DIAGNOSIS: 1. Chronic cholecystitis. 2. GIST tumor of the antrum. POSTOPERATIVE DIAGNOSIS: 1. Chronic cholecystitis. 2. GIST tumor of the antrum. PROCEDURE: Laparoscopic cholecystectomy. SURGEON: Hayden Marsh MD ANESTHESIA: General endotracheal anesthesia. ESTIMATED BLOOD LOSS: Scant. FINDINGS: Distended gallbladder, tumor in the antrum of the stomach. SPECIMENS: None. COMPLICATIONS: None. OPERATIVE PROCEDURE: The patient was taken to the operating room and placed on the operating table in supine position. Bilateral sequential inflation devices were placed on the lower extremities. General anesthesia was instituted. The abdomen was then prepped and draped in a standard surgical fashion. The infraumbilical region was anesthetized with 0.5% Marcaine with epinephrine. A vertical incision was made and extended into the umbilicus. A 12 mm Optiview port was placed. A pneumoperitoneum was created. Under direct vision a 10 mm subxiphoid and two 5 mm right upper quadrant ports were placed. Prior to placement of all ports the skin and peritoneum was anesthetized with 0.5% Marcaine with epinephrine. The gallbladder was identified, grasped and retracted into the right upper quadrant. The infundibulum was grasped. The peritoneum overlying Calot's triangle was incised with a Bovie. The cystic duct was identified, circumferentially dissected, doubly ligated proximally and distally and then divided. The cystic artery was identified, circumferentially dissected, doubly ligated proximally and distally and divided. The gallbladder was removed from the gallbladder fossa using Bovie electrocautery. Hemostasis was achieved along the way using the Bovie. The gallbladder was removed from the peritoneal cavity through the subxiphoid port. The liver bed was inspected. Hemostasis was present. Hemoclips were intact. There was no evidence of hemorrhage or bile leak. Attention was then focused in the left upper quadrant, a 5 mm port was placed in the left upper quadrant under direct vision. The tumor was identified in the antrum of the stomach along the greater curve. A 40-Irish ViSiGi bougie was placed into the duodenum. The vasculature along the greater curve in association with the antrum was using the Harmonic scalpel. An endovascular stapler black load, reinforced with Seamguard was then used to resect the tumor. Care was taken not to encroach on the angle incisura. Two firings of the stapler were taken. The posterior leaflet of Seamguard was then sutured to the gastrocolic ligament. The operating field was inspected. Hemostasis was present. CO2 was then released. All ports were removed. All incisions closed with 4-0 Monocryl. The abdominal wall was cleaned and a sterile dressing placed. The patient was awakened and taken to the recovery room stable. MD NIKHIL Patiño/LINCOLN , 11:08 AM , 11:27 AM
[2017-07-09 12:00] VITALS: BP 165/69; PULSE 61; RESP 16; TEMP 96.5; O2SAT 99
[2017-07-09 16:00] VITALS: BP 167/72; PULSE 59; RESP 17; TEMP 95.8; O2SAT 99
[2017-07-09] MEDS ORDERED: diphenhydrAMINE HCL 50 MG/ML VIAL IV PUSH ONE (16:15)
[2017-07-09] MEDS: ENOXAPARIN SODIUM 30 MG/0.3 ML SYRINGE SQ SCH (18:11)
[2017-07-09 20:00] VITALS: BP 171/73; PULSE 62; RESP 16; TEMP 95.6; O2SAT 99
[2017-07-09] MEDS ORDERED: LORazepam 1 MG TAB PO PRN (21:00)
[2017-07-09] MEDS: ACETAMINOPHEN/HYDROcodone 325 MG/5 MG TAB PO PRN (21:55)
[2017-07-10] VITALS: BP 182/79; PULSE 61; RESP 18; TEMP 95.6; O2SAT 95
[2017-07-10] MEDS: ACETAMINOPHEN/HYDROcodone 325 MG/5 MG TAB PO PRN ×2 (01:26→10:59)
[2017-07-10] MEDS: SODIUM CHLOR 0.9% 1000 ML INJ 1,000 ML IV SCH ×2 (01:28→10:21)
[2017-07-10 01:32] VITALS: BP 174/74; PULSE 58; RESP 18; O2SAT 95
[2017-07-10 08:00] VITALS: BP 159/70; PULSE 57; RESP 15; TEMP 96.8; O2SAT 94
[2017-07-10] MEDS: SODIUM CHLORIDE 0.9% FLUSH 10 ML FLUSH IV FLUSH SCH (09:00)
[2017-07-10] MEDS: POLYETHYLENE GLYCOL 17 GM PKG PO SCH (09:00)
[2017-07-10] MEDS: LOSARTAN 50 MG TAB PO SCH (10:18)
[2017-07-10] MEDS: AMIODARONE 200 MG TAB PO SCH (10:18)
[2017-07-10] MEDS: DILTIAZEM-CD 120 MG CAP ER PO SCH (10:19)
[2017-07-10] MEDS: CLOPIDOGREL 75 MG TAB PO SCH (10:19)
[2017-07-10 12:00] VITALS: BP 160/69; PULSE 62; RESP 16; TEMP 96.1; O2SAT 96
[2017-07-10] MEDS ORDERED: LOSARTAN 25 MG TAB PO ONE (12:15)
--- NOTE | 2017-07-10 12:19 | HHI.PR ---
Subjective Subjective Notes Pain fairly controlled Tolerating PO fluids Objective Vitals/I&O Vital Signs Date Time Temp Pulse Resp B/P (MAP) Pulse Ox O2 Delivery O2 Flow Rate FiO2 07/10/17 08:00 96.8 57 15 159/70 (99) 94 07/08/17 21:43 Nasal Cannula 3.00 Labs Laboratory Tests Test 07/09/17 03:58 White Blood Count 7.4 TH/MM3 Red Blood Count 4.20 MIL/MM3 Hemoglobin 13.0 GM/DL Hematocrit 38.7 % Mean Corpuscular Volume 92.2 FL Mean Corpuscular Hemoglobin 30.9 PG Mean Corpuscular Hemoglobin Concent 33.6 % Red Cell Distribution Width 15.3 % Platelet Count 185 TH/MM3 Mean Platelet Volume 8.2 FL Neutrophils (%) (Auto) 88.3 % Lymphocytes (%) (Auto) 7.1 % Monocytes (%) (Auto) 4.5 % Eosinophils (%) (Auto) 0.0 % Basophils (%) (Auto) 0.1 % Neutrophils # (Auto) 6.6 TH/MM3 Lymphocytes # (Auto) 0.5 TH/MM3 Monocytes # (Auto) 0.3 TH/MM3 Eosinophils # (Auto) 0.0 TH/MM3 Basophils # (Auto) 0.0 TH/MM3 CBC Comment DIFF FINAL Differential Comment Blood Urea Nitrogen 14 MG/DL Creatinine 1.14 MG/DL Random Glucose 132 MG/DL Calcium Level 9.0 MG/DL Sodium Level 139 MEQ/L Potassium Level 4.9 MEQ/L Chloride Level 105 MEQ/L Carbon Dioxide Level 26.3 MEQ/L Anion Gap 8 MEQ/L Estimat Glomerular Filtration Rate 61 ML/MIN Cardiovascular: Regular Lungs: Clear Abdomen: Post-op tenderness Extremities: Perfused Wound Wound : Wound Location: Abdomen Appearance: Clean & Dry A/P Assessment and Plan 82yo M POD#2 Laparoscopic cholecystectomy and wedge resection of stomach -Pt has been hypertensive overnight into today despite restarting home meds, will give additional one time dose of losartan 25mg -Continue with PO liquids -Continue with frequent ambulation -If placement available D/C to SNF today Discharge Planning D/C to SNF for short term rehab Talib Feliciano Jul 10, 2017 12:19
[2017-07-10 16:00] VITALS: BP 180/74; PULSE 53; RESP 15; TEMP 95.2; O2SAT 96
[2017-07-10] MEDS: ENOXAPARIN SODIUM 30 MG/0.3 ML SYRINGE SQ SCH (17:02)
[2017-07-10] MEDS ORDERED: PERC5TAB12 PO ×2 (17:06)
[2017-07-10] MEDS ORDERED: LORA-474 PO (17:06)
== END 2017-07-10 19:12 | DRG 418 ==
LOC: HSDI 08:22 → N07A 19:40
PROVIDERS: ADMIT Surgery; ATTEND Surgery
PROC: 0DB64ZZ Excision of Stomach, Percutaneous Endoscopic Approach (ICD-10-PCS; 2017-07-08)
PROC: 0FT44ZZ Resection of Gallbladder, Percutaneous Endoscopic Approach (ICD-10-PCS; principal; 2017-07-08 15:26)
DX: K80.10 Calculus of gallbladder with chronic cholecystitis without obstruction (principal); C49.A0 Gastrointestinal stromal tumor, unspecified site; I27.20 Pulmonary hypertension, unspecified; I48.91 Unspecified atrial fibrillation; I73.9 Peripheral vascular disease, unspecified; I10 Essential (primary) hypertension; I25.10 Atherosclerotic heart disease of native coronary artery without angina pectoris; Z95.5 Presence of coronary angioplasty implant and graft; Z79.02 Long term (current) use of antithrombotics/antiplatelets; J44.9 Chronic obstructive pulmonary disease, unspecified; Z87.891 Personal history of nicotine dependence; K21.9 Gastro-esophageal reflux disease without esophagitis; N40.0 Benign prostatic hyperplasia without lower urinary tract symptoms; F41.9 Anxiety disorder, unspecified
CPT/HCPCS: 80048; 85025; 88304; 88307; 88309; 94150; J0131; J0690; J1100; J1200; J1650; J2270; J2405; J2710; J2765; J3010; J7030; J7120; J8501

== ENCOUNTER 2017-07-18 00:36 | Inpatient (IN) | payer MEDICARE ==
[2017-07-18] VITALS (8 sets, daily range): BP systolic 144–195; BP diastolic 65–83; PULSE 71–79; RESP 16–20; TEMP 98.2–101.2; O2SAT 92–95
[~2017-07-18] VITALS: Ht 182.9 cm; Wt 83.9 kg
[~2017-07-18 00:36] MED LIST changes: +MIRA3350 PO; +PERC5TAB12 PO; +ZOFR4TAB PO
[2017-07-18] MEDS ORDERED: SODIUM CHLOR 0.9% 1000 ML INJ 1,000 ML IV SCH (00:52)
[2017-07-18] MEDS ORDERED: SODIUM CHLORIDE 0.9% FLUSH 10 ML FLUSH IV FLUSH PRN (01:00)
[2017-07-18] MEDS ORDERED: ONDANSETRON HCL 4 MG/2 ML VIAL IVP ONE (01:00)
[2017-07-18] MEDS ORDERED: PIPERACIL-TAZO 3.375 GM PREMIX 50 ML IV ONE (01:00)
[2017-07-18 01:18] LABS: AUTOMATED NEUTROPHIL # 6.7 TH/MM3 (1.8-7.7); BASOPHIL % 0.6 % (0.0-2.0); EOSINOPHIL # 0.1 TH/MM3 (0-0.4); EOSINOPHIL % 1.1 % (0.0-4.0); HEMATOCRIT 33.2 % (39.0-51.0); HEMOGLOBIN 11.3 GM/DL (13.0-17.0); LYMPH % 7.9 % (9.0-44.0); LYMPHOCYTE # 0.7 TH/MM3 (1.0-4.8); MEAN CELL VOLUME 91.2 FL (80.0-100.0); MEAN CORPUSCULAR HEMOGLOBIN 31.1 PG (27.0-34.0); MEAN CORPUSCULAR HGB CONC 34.1 % (32.0-36.0); MEAN PLATELET VOLUME 7.8 FL (7.0-11.0); MONO % 9.1 % (0.0-8.0); MONOCYTE # 0.8 TH/MM3 (0-0.9); NEUT % 81.3 % (16.0-70.0); PLATELET COUNT 228 TH/MM3 (150-450); RED BLOOD COUNT 3.64 MIL/MM3 (4.50-5.90); WHITE BLOOD COUNT 8.3 TH/MM3 (4.0-11.0)
[2017-07-18 01:30] LABS: INTERNATIONAL NORMALIZED RATIO 1.1 RATIO; PROTHROMBIN TIME - PATIENT 11.4 SEC (9.8-11.6)
--- NOTE | 2017-07-18 01:41 | RADRPT ---
EXAM DATE/TIME: 07/18/2017 01:12 [facility] COMPARISON: CHEST SINGLE AP, March 24, 2017, 12:00. INDICATIONS : Weakness. Short of breath. MEDICAL HISTORY : Hypertension. Renal calculi. Chronic obstructive pulmonary disease. Congestive heart failure. SURGICAL HISTORY : Coronary artery stent. ENCOUNTER: Initial ACUITY: 1 day PAIN SCORE: 0/10 LOCATION: Bilateral chest FINDINGS: A single view of the chest demonstrates the lungs to be symmetrically aerated without evidence of mas s, infiltrate or effusion. The cardiomediastinal contours are unremarkable. Osseous structures are intact. CONCLUSION: No acute disease. Juanito Chen MD on July 18, 2017 at 1:39 Board Certified Radiologist. This report was verified electronically.
[2017-07-18 01:42] LABS: ALBUMIN 3.2 GM/DL (3.4-5.0); ALT (GPT) 25 U/L (12-78); AST (GOT) 14 U/L (15-37); BICARBONATE 26.8 MEQ/L (21.0-32.0); BLOOD UREA NITROGEN 16 MG/DL (7-18); CALCIUM 8.6 MG/DL (8.5-10.1); CHLORIDE 105 MEQ/L (98-107); CREATININE 1.25 MG/DL (0.60-1.30); GLOMERULAR FILTRATION RATE 55 ML/MIN (>89); GLUCOSE,RANDOM 88 MG/DL (74-106); SODIUM (NA) 140 MEQ/L (136-145)
[2017-07-18 01:45] LABS: ALKALINE PHOSPHATASE 100 U/L (45-117); TOTAL BILIRUBIN ADULT 0.3 MG/DL (0.2-1.0); TOTAL PROTEIN 6.2 GM/DL (6.4-8.2)
[2017-07-18] MEDS ORDERED: IOHEXOL 350 MG/ML 10 ML VIAL (for RAD DIAG) IVCONTRAST ONE (01:53)
[2017-07-18] MEDS ORDERED: MORPHINE SULFATE 2 MG/ML SYRINGE IV PUSH ONE (02:30)
[2017-07-18] MEDS ORDERED: ONDANSETRON HCL 4 MG/2 ML VIAL IV PUSH ONE (02:30)
--- NOTE | 2017-07-18 02:35 | RADRPT ---
EXAM DATE/TIME: 07/18/2017 01:52 [facility] COMPARISON: CT ABDOMEN & PELVIS W CONTRAST, March 24, 2017, 11:01. INDICATIONS : Abdomen pain. IV CONTRAST: 75 cc Omnipaque 350 (iohexol) IV ORAL CONTRAST: No oral contrast ingested.]Frontal and RADIATION DOSE: 7.17 CTDIvol (mGy) MEDICAL HISTORY : Cardiovascular disease. Renal calculi. Chronic obstructive pulmonary disease. SURGICAL HISTORY : Cholecystectomy. ENCOUNTER: Initial ACUITY: 1 day PAIN SCALE: 5/10 LOCATION: Bilateral abdomen TECHNIQUE: Volumetric scanning of the abdomen and pelvis was performed. Using automated exposure control and ad justment of the mA and/or kV according to patient size, radiation dose was kept as low as reasonably achievable to obtain optimal diagnostic quality images. DICOM format image data is available electro nically for review and comparison. FINDINGS: LOWER LUNGS: The visualized lower lungs are clear. LIVER: Homogeneous density without lesion. There is no dilation of the biliary tree. Cholecystectomy clips. SPLEEN: Normal size without lesion. PANCREAS: Within normal limits. KIDNEYS: Normal in size and shape. There is no mass, stone or hydronephrosis on the left. 3-4 mm nonobstructi ng right renal calculus. Small renal low densities. ADRENAL GLANDS: Within normal limits. VASCULAR: Aortic stent graft again seen with aneurysmal sac measuring 4.0 x 3.9 cm. No. BOWEL/MESENTERY: The stomach is dilated containing debris. There is pneumoperitoneum predominantly in the right upper quadrant as well as some adjacent to the dilated stomach. There is no free intraperitoneal fluid. ABDOMINAL WALL: Within normal limits. RETROPERITONEUM: There is no lymphadenopathy. BLADDER: No wall thickening or mass. 3-4 mm calculus seen posteriorly. REPRODUCTIVE: Within normal limits. INGUINAL: There is no lymphadenopathy or hernia. MUSCULOSKELETAL: Compression fracture at T12. CONCLUSION: 1. Pneumoperitoneum. Stomach being the likely source. 2. Dilated stomach containing debris. 3. Bladder calculus measuring 3-4 mm. 4. Unchanged nonobstructing right renal calculus. 5. Status post cholecystectomy. 6. Aortic stent graft with aneurysmal sac measuring [address] Morris was notified. Juanito Chen MD on July 18, 2017 at 2:20 Board Certified Radiologist. This report was verified electronically.
[2017-07-18 02:37] LABS: BILIRUBIN, URINE NEG (NEG); BLOOD, URINE NEG (NEG); GLUCOSE,URINE NEG (NEG); HYALINE CAST, URINE 6 /lpf (RARE); KETONE, URINE 10 mg/dL (NEG); MUCUS URINE FEW /lpf (OCC); NITRITE,URINE NEG (NEG); URINE COLOR YELLOW (YELLW/STRAW); URINE LEUKOCYTE ESTERASE NEG (NEG)
[2017-07-18] MEDS ORDERED: PIPERACIL-TAZO 4.5 GM PREMIX 100 ML IV ONE (03:00)
--- NOTE | 2017-07-18 03:04 | PD ---
HPI Chief Complaint: Abdominal Pain Time Seen by Provider: 00:52 Travel History International Travel<30 days: No Contact w/Intl Traveler<30days: No Traveled to known affect area: No History of Present Illness HPI 82-year-old male presents to the emergency department complaint of progressively worsening abdominal pain. Patient is status post cholecystectomy and antral wedge biopsy. Patient's had no fever chills. Patient has had nausea. No report of hematemesis or coffee-ground emesis melena hematochezia. Patient is taking Plavix. Patient rates his pain 10/10 in intensity. Patient has not noticed any abdominal distention. PFSH Past Medical History Narrative Medical Plavix therapy, CAD, CHF, COPD, diminished hearing, cholecystectomy, GIST status post antral biopsy, AAA repair, anxiety depression, atrial fibrillation, HTN, migraines Hx Anticoagulant Therapy: Yes (plavix) AAA: Yes Arthritis: No Asthma: No Atrial Fibrillation: Yes Autoimmune Disease: No Blood Disorders: No Anxiety: Yes Depression: Yes Heart Rhythm Problems: Yes (Afib) Cancer: Yes Cardiovascular Problems: Yes (afib, stent in aorta, stents in both hips) High Cholesterol: No Chemotherapy: No Chest Pain: No Congestive Heart Failure: Yes COPD: Yes Cerebrovascular Accident: No Coronary Artery Disease: Yes Diabetes: No Diminished Hearing: Yes (HARD OF HEARING) Endocrine: Yes Gastrointestinal Disorders: Yes (COLON LESION) GERD: Yes Genitourinary: Yes (TURP) Headaches: No Hepatitis: No Hiatal Hernia: No Heparin Induced Thrombocytopen: No Hypertension: Yes Immune Disorder: No Implanted Vascular Access Dvce: No Kidney Stones: Yes Musculoskeletal: No Neurologic: No Psychiatric: Yes Reproductive: No Respiratory: Yes Immunizations Current: Yes Migraines: Yes Radiation Therapy: No Renal Failure: No Seizures: No Sickle Cell Disease: No Sleep Apnea: No Thyroid Disease: Yes Ulcer: No PNEUMOCCOCAL Vaccine (Year): 2007 Past Surgical History Abdominal Surgery: No AICD: No Arteriovenous Shunt: No Body Medical Devices: stents bilateral lower extremities & heart Cardiac Surgery: Yes (stents aorta, stents in both legs) Cholecystectomy: Yes (06/2017) Coronary Stent: Yes Ear Surgery: No Endocrine Surgery: No Eye Surgery: Yes (cataracts, surgery around l eye) Genitourinary Surgery: Yes (turp, bladder stone removal ) Gynecologic Surgery: No Insulin Pump: No Joint Replacement: No Neurologic Surgery: No Oral Surgery: No Pacemaker: No Thoracic Surgery: No Other Surgery: Yes Social History Alcohol Use: No Tobacco Use: No Substance Use: No Allergies-Medications (Allergen,Severity, Reaction): Coded Allergies: digoxin (Unverified Allergy, Intermediate, hives, 05/16/17) pt stopped this medication 30 years ago Reported Meds & Prescriptions Reported Meds & Active Scripts Active Ativan (Lorazepam) 1 Mg Tab 1 Mg PO HS PRN Percocet (Oxycodone-Acetaminophen) 5-325 mg Tab 1-2 Tab PO Q4H PRN Percocet (Oxycodone-Acetaminophen) 5-325 mg Tab 1 Tab PO Q6H PRN 30 Days Cozaar (Losartan Potassium) 50 Mg Tab 50 Mg PO DAILY Reported Linzess (Linaclotide) 145 Mcg Cap 145 Mcg PO DAILY Zofran (Ondansetron HCl) 4 Mg Tab 4 Mg PO Q6HR PRN Ferrous Sulfate 325 Mg (65 Mg Iron) Tablet 325 Mg PO BIDPC Miralax Powder (Polyethylene Glycol 3350 Powder) 17 Gm Powd 17 Gm PO DAILY Mix and dissolve one measuring cap-ful (17 grams) in water or juice. Zofran (Ondansetron HCl) 4 Mg Tab 4 Mg PO Q6HR PRN Hydrocodone-Acetaminophen 5-325 mg Tab 1 Tab PO BID PRN Multiple Vitamin 1 Tab 1 Tab PO DAILY Lansoprazole 30 Mg Capdr 30 Mg PO DAILY Cartia Xt (Diltiazem ER 24 HR) 120 Mg Caper 120 Mg PO DAILY Amiodarone (Amiodarone HCl) 200 Mg Tab 200 Mg PO DAILY Plavix (Clopidogrel Bisulfate) 75 Mg Tab 75 Mg PO DAILY Ativan (Lorazepam) 1 Mg Tab 1 Mg PO HS PRN Atrovent HFA 12.9 GM Inh (Ipratropium Albia) 17 Mcg/Act Aer 1 Puff INH Q6HR PRN Duoneb (Ipratropium-Albuterol Neb) 0.5-2.5 Mg/3 Ml Neb 1 Nebule INH Q6HR NEB Ventolin Hfa 18 GM Inh (Albuterol Sulfate) 90 Mcg/Act Aer 2 Puff INH Q6H PRN Review of Systems Except as stated in HPI: all other systems reviewed are Neg General / Constitutional: No: Fever, Chills HENT: No: Congestion Cardiovascular: No: Chest Pain or Discomfort Respiratory: No: Shortness of Breath Gastrointestinal: Positive: Nausea, Abdominal Pain Genitourinary: No: Dysuria, Flank Pain Musculoskeletal: No: Myalgias, Arthralgias Skin: No Rash Neurologic: No: Weakness Psychiatric: No: Anxiety Hematologic/Lymphatic: No: Lymph Node Enlargement Physical Exam Narrative GENERAL: Well-developed elderly male in no respiratory SKIN: Warm and dry. HEAD: Normocephalic. EYES: No scleral icterus. No injection or drainage. NECK: Supple, trachea midline. No JVD or lymphadenopathy. CARDIOVASCULAR: Regular rate and rhythm without murmurs, gallops, or rubs. RESPIRATORY: Breath sounds equal bilaterally. No accessory muscle use. GASTROINTESTINAL: Abdomen soft, diffusely tender to palpation, nondistended. MUSCULOSKELETAL: No cyanosis, or edema. BACK: Nontender without obvious deformity. No CVA tenderness. Data Data Last Documented VS Orders Orders Complete Blood Count With Diff (07/18/17 00:52) Comprehensive Metabolic Panel (07/18/17 00:52) Lipase (07/18/17 00:52) Lactic Acid (07/18/17 00:52) Prothrombin Time / Inr (Pt) (07/18/17 00:52) Act Partial Throm Time (Ptt) (07/18/17 00:52) Urinalysis - C+S If Indicated (07/18/17 00:52) Ct Abd/Pel W Iv Contrast(Rout) (07/18/17 00:52) Iv Access Insert/Monitor (07/18/17 00:52) Ecg Monitoring (07/18/17 00:52) Oximetry (07/18/17 00:52) Ondansetron Inj (Zofran Inj) (07/18/17 01:00) Sodium Chlor 0.9% 1000 Ml Inj (Ns 1000 M (07/18/17 00:52) Sodium Chloride 0.9% Flush (Ns Flush) (07/18/17 01:00) Electrocardiogram (07/18/17 00:52) Chest, Single Ap (07/18/17 00:52) Piperacil-Tazo 3.375 Gm Premix (Zosyn 3. (07/18/17 01:00) Blood Culture (07/18/17 00:52) Iohexol 350 Inj (Omnipaque 350 Inj) (07/18/17 01:53) Ondansetron Inj (Zofran Inj) (07/18/17 02:30) Morphine Inj (Morphine Inj) (07/18/17 02:30) Ng Gastric Tube Insert/Monitor (07/18/17 02:54) Place Ng Tube To Low Intermit (07/18/17 02:54) Piperacil-Tazo 4.5 Gm Premix (Zosyn 4.5 (07/18/17 03:00) NPO (07/18/17 02:59) Admit Order (Ed Use Only) (07/18/17 ) Director Of Income Tax / Telemetry TL.Q8H (07/18/17 03:17) Diet Npo (07/18/17 Breakfast) Activity Bed Rest (07/18/17 03:17) Notify Dr: Other (07/18/17 03:17) Labs Laboratory Tests Test 07/18/17 00:55 07/18/17 02:25 White Blood Count 8.3 TH/MM3 Red Blood Count 3.64 MIL/MM3 Hemoglobin 11.3 GM/DL Hematocrit 33.2 % Mean Corpuscular Volume 91.2 FL Mean Corpuscular Hemoglobin 31.1 PG Mean Corpuscular Hemoglobin Concent 34.1 % Red Cell Distribution Width 15.0 % Platelet Count 228 TH/MM3 Mean Platelet Volume 7.8 FL Neutrophils (%) (Auto) 81.3 % Lymphocytes (%) (Auto) 7.9 % Monocytes (%) (Auto) 9.1 % Eosinophils (%) (Auto) 1.1 % Basophils (%) (Auto) 0.6 % Neutrophils # (Auto) 6.7 TH/MM3 Lymphocytes # (Auto) 0.7 TH/MM3 Monocytes # (Auto) 0.8 TH/MM3 Eosinophils # (Auto) 0.1 TH/MM3 Basophils # (Auto) 0.0 TH/MM3 CBC Comment DIFF FINAL Differential Comment Prothrombin Time 11.4 SEC Prothromb Time International Ratio 1.1 RATIO Activated Partial Thromboplast Time 23.4 SEC Blood Urea Nitrogen 16 MG/DL Creatinine 1.25 MG/DL Random Glucose 88 MG/DL Total Protein 6.2 GM/DL Albumin 3.2 GM/DL Calcium Level 8.6 MG/DL Alkaline Phosphatase 100 U/L Aspartate Amino Transf (AST/SGOT) 14 U/L Alanine Aminotransferase (ALT/SGPT) 25 U/L Total Bilirubin 0.3 MG/DL Sodium Level 140 MEQ/L Potassium Level 3.8 MEQ/L Chloride Level 105 MEQ/L Carbon Dioxide Level 26.8 MEQ/L Anion Gap 8 MEQ/L Estimat Glomerular Filtration Rate 55 ML/MIN Lactic Acid Level 0.8 mmol/L Lipase 89 U/L Urine Color YELLOW Urine Turbidity CLEAR Urine pH 6.0 Urine Specific [place] 1.016 Urine Protein NEG mg/dL Urine Glucose (UA) NEG mg/dL Urine Ketones 10 mg/dL Urine Occult Blood NEG Urine Nitrite NEG Urine Bilirubin NEG Urine Urobilinogen LESS THAN 2.0 MG/DL Urine Leukocyte Esterase NEG Urine RBC 5 /hpf Urine WBC 1 /hpf Urine Hyaline Casts 6 /lpf Urine Mucus FEW /lpf Microscopic Urinalysis Comment CULT NOT INDICATED MDM Medical Decision Making Medical Screen Exam Complete: Yes Emergency Medical Condition: Yes Medical Record Reviewed: Yes Interpretation(s) Last Impressions Chest X-Ray 07/18/1751 Signed Impressions: Service Date/Time: June 01:12 - CONCLUSION: No acute disease. Juanito Chen MD Abdomen/Pelvis CT 07/18/1751 Signed Impressions: Service Date/Time: June 01:52 - CONCLUSION: 1. Pneumoperitoneum. Stomach being the likely source. 2. Dilated stomach containing debris. 3. Bladder calculus measuring 3-4 mm. 4. Unchanged nonobstructing right renal calculus. 5. Status post cholecystectomy. 6. Aortic stent graft with aneurysmal sac measuring [address] Morris was notified. Juanito Chen MD CBC & BMP Diagram 07/18/17 00:55 Total Protein 6.2 L, Albumin 3.2 L, Calcium Level 8.6, Alkaline Phosphatase 100 , Aspartate Amino Transf (AST/SGOT) 14 L, Alanine Aminotransferase (ALT/SGPT) 25 , Total Bilirubin 0.3 Differential Diagnosis Abdominal pain, perforated viscus, abscess, bowel obstruction, ileus, colitis, diverticulitis Narrative Course IV access obtained specimens collected and sent for resulting; chest x-ray ordered; CT abdomen and pelvis ordered Called by radiologist regarding CT shows pneumoperitoneum Call placed to general surgeon covering for Physician Communication Physician Communication @ 03:[address] Fly --- admit Diagnosis Primary Impression: Pneumoperitoneum Admitting Information Admitting Physician Requests: Admit Klaudia Morris MD Jul 18, 2017 03:03
[2017-07-18] MEDS: SODIUM CHLOR 0.9% 1000 ML INJ 1,000 ML IV SCH ×3 (03:29→23:17)
[2017-07-18] MEDS ORDERED: ZOFR4TAB PO (03:32)
[2017-07-18] MEDS ORDERED: FERR325T18 PO (03:32)
[2017-07-18] MEDS ORDERED: LINA145C PO (04:26)
[2017-07-18] MEDS: MORPHINE SULFATE 2 MG/ML SYRINGE IV PUSH PRN ×5 (04:27→23:37)
[2017-07-18] MEDS: PANTOPRAZOLE SODIUM 40 MG VIAL IV PUSH SCH (08:54)
[2017-07-18] MEDS ORDERED: LINACLOTIDE 145 MCG PO SCH (09:00)
[2017-07-18] MEDS: SODIUM CHLORIDE 0.9% FLUSH 10 ML FLUSH IV FLUSH SCH ×2 (09:00→23:38)
[2017-07-18] MEDS ORDERED: DIATRIZOATE MEGLUM/DIATRIZOATE SOD 120 ML BTL (for RAD DIAG) NG ONE (10:30)
[2017-07-18] MEDS: LOSARTAN 50 MG TAB PO SCH (11:32)
[2017-07-18] MEDS: AMIODARONE 200 MG TAB PO SCH (11:32)
[2017-07-18] MEDS: DILTIAZEM-CD 120 MG CAP ER PO SCH (11:32)
--- NOTE | 2017-07-18 11:40 | RADRPT ---
EXAM DATE/TIME: 07/18/2017 09:53 [facility] COMPARISON: No previous studies available for comparison. INDICATIONS : Abdominal pain, evaluate gastric obstruction and free air FLUORO TIME: 3.3 minutes IMAGE COUNT: 26 CONTRAST: 1. MD Young MEDICAL HISTORY : gastric mass SURGICAL HISTORY : Cholecystectomy. partial antrectomy ENCOUNTER: Subsequent ACUITY: 2 days PAIN SCORE: 10/10 LOCATION: Bilateral abdomen FINDINGS: The preliminary film demonstrates a coiled NG tube in the esophagus. Prior to the examination the NG tube was repositioned into the stomach. Gastrografin was placed through the NG tube into the stomach. There is good filling of the stomach. The stomach appears to be diffusely distended. After approxima tely 30-40 minutes a small amount of contrast is seen in the proximal small bowel. No definite extrav asation is seen. The stomach is diffusely distended. The findings were called by telephone to the ordering physician. CONCLUSION: The stomach is diffusely distended with debris. By 30-40 minutes there is a small amount of contrast getting into the proximal small bowel. This suggests a partial gastric outlet obstruction. Demond Kingston MD on July 18, 2017 at 11:36 Board Certified Radiologist. This report was verified electronically.
--- NOTE | 2017-07-18 12:22 | EKG ---
Date Performed: 07/18/2017 Time Performed: 01:35:09 PTAGE: 82 years EKG: Sinus rhythm WITH FIRST DEGREE AV BLOCK NONSPECIFIC T-WAVE ABNORMALITY ABNORMAL ECG PREVIOUS TRACING : 03/24/2017 12.13 Since the previous tracing, no significant change noted DOCTOR: Evin Trent Interpretating Date/Time 07/18/2017 12:21:36
--- NOTE | 2017-07-18 14:06 | HHI.HP ---
[facility] Primary Care Physician Mita Carney MD Admission Diagnosis pneumoperitoneum s/p cholecystectomy and antral biopsy Chief Complaint: Abdominal pain and vomiting History of Present Illness Mr. Nino is a pleasant 82yo male who recently underwent laparoscopic cholecystecomy with wedge resection of the stomach on 06/27/17. He was sent to a SNF for rehab due to his deconditioned status and the fact that he lives alone. Yesterday he developed abdominal pain and vomiting and was transported to the ER. CT show pneumoperitoneum and he was admitted for further evaluation Review of Systems Constitutional: COMPLAINS OF: Fatigue Endocrine: DENIES: Heat/cold intolerance, Polydipsia, Polyuria, Polyphagia Eyes: DENIES: Blurred vision, Diplopia, Eye inflammation, Eye pain, Vision loss , Photosensitivity, Double Vision Ears, nose, mouth, throat: DENIES: Tinnitus, Hearing loss, Vertigo, Nasal discharge, Oral lesions, Throat pain, Hoarseness, Ear Pain, Running Nose, Epistaxis, Sinus Pain, Toothache, Odynophagia Respiratory: DENIES: Apneas, Cough, Snoring, Wheezing, Hemoptysis, Sputum production, Shortness of breath Cardiovascular: DENIES: Chest pain, Palpitations, Syncope, Dyspnea on Exertion , PND, Lower Extremity Edema, Orthopnea, Claudication Gastrointestinal: COMPLAINS OF: Abdominal pain, Nausea, Vomiting Genitourinary: DENIES: Sexual dysfunction, Urinary frequency, Urinary incontinence, Urgency, Hematuria, Dysuria, Nocturia, Penile Discharge, Testicular Pain, Testicular Swelling Musculoskeletal: DENIES: Joint pain, Muscle aches, Stiffness, Joint Swelling, Back pain, Neck pain Integumentary: DENIES: Abnormal pigmentation, Nail changes, Pruritus, Rash Hematologic/lymphatic: DENIES: Bruising, Lymphadenopathy Immunologic/allergic: DENIES: Eczema, Urticaria Neurologic: DENIES: Abnormal gait, Headache, Localized weakness, Paresthesias, Seizures, Speech Problems, Tremor, Poor Balance Psychiatric: DENIES: Anxiety, Confusion, Mood changes, Depression, Hallucinations, Agitation, Suicidal Ideation, Homicidal Ideation, Delusions Past Family Social History Past Medical History HTN Afib CVD AAA COPD Reflux Hypothyroidism Migraines Past Surgical History Cardiac stent placement Cholecystectomy Reported Medications Current Medications Medications (Trade) Dose Ordered Sig/Rudolph Route PRN Reason Start Time Stop Time Status Last Admin Dose Admin Sodium Chloride 1,000 ml @ 100 mls/hr Q10H IV 07/18/17 03:17 07/18/17 08:53 Sodium Chloride (NS Flush) 2 ml UNSCH PRN IV FLUSH FLUSH AFTER USING IV ACCESS 07/18/17 03:30 Sodium Chloride (NS Flush) 2 ml BID IV FLUSH 07/18/17 09:00 Ondansetron HCl (Zofran Inj) 4 mg Q6H PRN IV PUSH NAUSEA 07/18/17 03:30 Morphine Sulfate (Morphine Inj) 2 mg Q3H PRN IV PUSH PAIN SCALE 4 TO 10 07/18/17 03:30 07/18/17 08:54 Pantoprazole Sodium (Protonix Inj) 40 mg Q24H IV PUSH 07/18/17 09:00 07/18/17 08:54 Amiodarone HCl (Cordarone) 200 mg DAILY PO 07/18/17 09:00 07/18/17 11:32 Diltiazem HCl (Cardizem Cd) 120 mg DAILY PO 07/18/17 09:00 07/18/17 11:32 Lorazepam (Ativan) 1 mg HS PRN PO ANXIETY AND/OR AGITATION 07/18/17 09:00 Losartan Potassium (Cozaar) 50 mg DAILY PO 07/18/17 09:00 07/18/17 11:32 Patient Own Medication PT OWN MED: LINACLOT... DAILY PO 07/18/17 09:00 Future Hold Allergies: Coded Allergies: digoxin (Unverified Allergy, Intermediate, hives, 05/16/17) pt stopped this medication 30 years ago Active Ordered Medications Current Medications Medications (Trade) Dose Ordered Sig/Rudolph Route Start Time Stop Time Status Last Admin Sodium Chloride 1,000 ml @ 100 mls/hr Q10H IV 07/18/17 03:17 07/18/17 08:53 (NS Flush) 2 ml UNSCH PRN IV FLUSH 07/18/17 03:30 (NS Flush) 2 ml BID IV FLUSH 07/18/17 09:00 (Zofran Inj) 4 mg Q6H PRN IV PUSH 07/18/17 03:30 (Morphine Inj) 2 mg Q3H PRN IV PUSH 07/18/17 03:30 07/18/17 08:54 (Protonix Inj) 40 mg Q24H IV PUSH 07/18/17 09:00 07/18/17 08:54 (Cordarone) 200 mg DAILY PO 07/18/17 09:00 07/18/17 11:32 (Cardizem Cd) 120 mg DAILY PO 07/18/17 09:00 07/18/17 11:32 (Ativan) 1 mg HS PRN PO 07/18/17 09:00 (Cozaar) 50 mg DAILY PO 07/18/17 09:00 07/18/17 11:32 Patient Own Medication PT OWN MED: LINACLOT... DAILY PO 07/18/17 09:00 Future Hold Family History Non contributory Social History Retired Physical Exam Vital Signs Vital Signs Date Time Temp Pulse Resp B/P (MAP) Pulse Ox O2 Delivery O2 Flow Rate FiO2 07/18/17 13:25 73 16 195/81 (119) 94 07/18/17 08:50 98.9 71 16 193/83 (119) 94 Room Air 07/18/17 04:32 16 07/18/17 03:15 78 16 182/81 (114) 94 Room Air 07/18/17 01:57 95 Room Air 07/18/17 00:50 98.2 72 16 185/83 (117) 94 Room Air 07/18/17 00:45 16 Physical Exam GENERAL: appears fatigued RESPIRATORY: No accessory muscle use. GASTROINTESTINAL: Abdomen soft, tenderness to the epigastrum MUSCULOSKELETAL: No cyanosis, or edema. Laboratory Laboratory Tests Test 07/18/17 00:55 07/18/17 02:25 White Blood Count 8.3 Red Blood Count 3.64 Hemoglobin 11.3 Hematocrit 33.2 Mean Corpuscular Volume 91.2 Mean Corpuscular Hemoglobin 31.1 Mean Corpuscular Hemoglobin Concent 34.1 Red Cell Distribution Width 15.0 Platelet Count 228 Mean Platelet Volume 7.8 Neutrophils (%) (Auto) 81.3 Lymphocytes (%) (Auto) 7.9 Monocytes (%) (Auto) 9.1 Eosinophils (%) (Auto) 1.1 Basophils (%) (Auto) 0.6 Neutrophils # (Auto) 6.7 Lymphocytes # (Auto) 0.7 Monocytes # (Auto) 0.8 Eosinophils # (Auto) 0.1 Basophils # (Auto) 0.0 CBC Comment DIFF FINAL Differential Comment Prothrombin Time 11.4 Prothromb Time International Ratio 1.1 Activated Partial Thromboplast Time 23.4 Blood Urea Nitrogen 16 Creatinine 1.25 Random Glucose 88 Total Protein 6.2 Albumin 3.2 Calcium Level 8.6 Alkaline Phosphatase 100 Aspartate Amino Transf (AST/SGOT) 14 Alanine Aminotransferase (ALT/SGPT) 25 Total Bilirubin 0.3 Sodium Level 140 Potassium Level 3.8 Chloride Level 105 Carbon Dioxide Level 26.8 Anion Gap 8 Estimat Glomerular Filtration Rate 55 Lactic Acid Level 0.8 Lipase 89 Urine Color YELLOW Urine Turbidity CLEAR Urine pH 6.0 Urine Specific [place] 1.016 Urine Protein NEG Urine Glucose (UA) NEG Urine Ketones 10 Urine Occult Blood NEG Urine Nitrite NEG Urine Bilirubin NEG Urine Urobilinogen LESS THAN 2.0 Urine Leukocyte Esterase NEG Urine RBC 5 Urine WBC 1 Urine Hyaline Casts 6 Urine Mucus FEW Microscopic Urinalysis Comment CULT NOT INDICATED Date/Time Source Procedure Growth Status 07/18/17 01:05 Blood Peripheral Aerobic Blood Culture Pending Received 07/18/17 01:05 Blood Peripheral Anaerobic Blood Culture Pending Received Result Diagram: 07/18/175407/18/1754 Imaging Last Impressions Chest X-Ray 07/18/1751 Signed Impressions: Service Date/Time: June 01:12 - CONCLUSION: No acute disease. Juanito Chen MD Abdomen/Pelvis CT 07/18/1751 Signed Impressions: Service Date/Time: June 01:52 - CONCLUSION: 1. Pneumoperitoneum. Stomach being the likely source. 2. Dilated stomach containing debris. 3. Bladder calculus measuring 3-4 mm. 4. Unchanged nonobstructing right renal calculus. 5. Status post cholecystectomy. 6. Aortic stent graft with aneurysmal sac measuring [address] Morris was notified. Juanito Chen MD Upper GI Series 07/18/17 0000 Signed Impressions: Service Date/Time: June 09:53 - CONCLUSION: The stomach is diffusely distended with debris. By 30-40 minutes there is a small amount of contrast getting into the proximal small bowel. This suggests a partial gastric outlet obstruction. Demond Kingston MD Caprinboaz VTE Risk Assessment Caprini VTE Risk Assessment: Mod/High Risk (score >= 2) Caprini Risk Assessment Model Point Value = 1 Point Value = 2 Point Value = 3 Point Value = 5 Age 41-60 Minor surgery BMI > 25 kg/m2 Swollen legs Varicose veins or History of unexplained or recurrent spontaneous Oral contraceptives or hormone replacement Sepsis (< 1 month) Serious lung disease, including pneumonia (< 1 month) Abnormal pulmonary function Acute myocardial infarction Congestive heart failure (< 1 month) History of inflammatory bowel disease Medical patient at bed rest Age 61-74 Arthroscopic surgery Major open surgery (> 45 min) Laparoscopic surgery (> 45 min) Malignancy Confined to bed (> 72 hours) Immobilizing plaster cast Central venous access Age >= 75 History of VTE Family history of VTE Factor V Leiden Prothrombin [id number] Lupus anticoagulant Anticardiolipin antibodies Elevated serum homocysteine Heparin-induced thrombocytopenia Other congenital or acquired thrombophilia Stroke (< 1 month) Elective arthroplasty Hip, pelvis, or leg fracture Acute spinal cord injury (< 1 month) Prophylaxis Regimen Total Risk Factor Score Risk Level Prophylaxis Regimen 0-1 Low Early ambulation 2 Moderate Order ONE of the following: *Sequential Compression Device (SCD) *Heparin 5000 units SQ BID 3-4 Higher Order ONE of the following medications: *Heparin 5000 units SQ TID *Enoxaparin/Lovenox 40 mg SQ daily (WT < 150 kg, CrCl > 30 mL/min) *Enoxaparin/Lovenox 30 mg SQ daily (WT < 150 kg, CrCl > 10-29 mL/min) *Enoxaparin/Lovenox 30 mg SQ BID (WT < 150 kg, CrCl > 30 mL/min) AND/OR *Sequential Compression Device (SCD) 5 or more Highest Order ONE of the following medications: *Heparin 5000 units SQ TID (Preferred with Epidurals) *Enoxaparin/Lovenox 40 mg SQ daily (WT < 150 kg, CrCl > 30 mL/min) *Enoxaparin/Lovenox 30 mg SQ daily (WT < 150 kg, CrCl > 10-29 mL/min) *Enoxaparin/Lovenox 30 mg SQ BID (WT < 150 kg, CrCl > 30 mL/min) AND *Sequential Compression Device (SCD) Assessment and Plan Assessment and Plan 82yo M with Pneumoperitoneum -UGI shows partial gastric outlet obstruction, keep NGT to LIWS and NPO for bowel rest -Restart pt's home meds -Repeat labs in the AM The exam, history, and the medical decision-making described in the above note were completed with the assistance of the mid-level provider. I reviewed and agree with the findings presented. I attest that I had a [id number] encounter with the patient on the same day, and personally performed and documented my assessment and findings in the medical record. Code Status Depending on hospital course Talib Feliciano Jul 18, 2017 14:06 Dayo Marsh MD Aug 07, 2017 21:30
[2017-07-18] MEDS: CLOPIDOGREL 75 MG TAB PO SCH (15:10)
[2017-07-18] MEDS: ONDANSETRON HCL 4 MG/2 ML VIAL IV PUSH PRN (18:33)
[2017-07-19 00:09] VITALS: PULSE 74
[2017-07-19 00:13] VITALS: BP 169/70; PULSE 81; RESP 24; TEMP 101.4; O2SAT 90
[2017-07-19] MEDS: MORPHINE SULFATE 2 MG/ML SYRINGE IV PUSH PRN ×5 (03:47→20:14)
[2017-07-19] MEDS: ONDANSETRON HCL 4 MG/2 ML VIAL IV PUSH PRN ×2 (03:47→14:46)
[2017-07-19] MEDS: SODIUM CHLOR 0.9% 1000 ML INJ 1,000 ML IV SCH ×2 (03:48→14:47)
[2017-07-19 08:00] VITALS: BP 158/61; PULSE 72; PULSE 75; RESP 20; TEMP 98.5; O2SAT 93
--- NOTE | 2017-07-19 10:17 | RADRPT ---
EXAM DATE/TIME: 07/19/2017 09:28 [facility] COMPARISON: CT ABDOMEN & PELVIS W CONTRAST, July 18, 2017, 1:52. CHEST SINGLE AP, July 18, 2017, 1:12. INDICATIONS : Shortness of breath. MEDICAL HISTORY : Cardiovascular disease. Chronic obstructive pulmonary disease. SURGICAL HISTORY : Cholecystectomy. ENCOUNTER: Initial ACUITY: 3 days PAIN SCORE: 0/10 LOCATION: Bilateral chest FINDINGS: A single view of the chest demonstrates the lungs to be symmetrically aerated without evidence of mas s, infiltrate or effusion. The cardiomediastinal contours are unremarkable. Osseous structures are intact. A nasogastric tube is seen coursing through the esophagus into the stomach. There mild athero sclerotic changes in the aorta and CONCLUSION: No acute disease. Toney Pathak MD on July 19, 2017 at 10:13 Board Certified Radiologist. This report was verified electronically.
[2017-07-19] MEDS: PANTOPRAZOLE SODIUM 40 MG VIAL IV PUSH SCH (10:20)
[2017-07-19] MEDS: AMIODARONE 200 MG TAB PO SCH (10:21)
[2017-07-19] MEDS: LOSARTAN 50 MG TAB PO SCH (10:21)
[2017-07-19] MEDS: SODIUM CHLORIDE 0.9% FLUSH 10 ML FLUSH IV FLUSH SCH ×2 (10:21→20:27)
[2017-07-19] MEDS: DILTIAZEM-CD 120 MG CAP ER PO SCH (10:21)
[2017-07-19] MEDS: CLOPIDOGREL 75 MG TAB PO SCH ×2 (10:22→14:47)
[2017-07-19 10:55] LABS: HEMATOCRIT 30.9 % (39.0-51.0); HEMOGLOBIN 10.5 GM/DL (13.0-17.0); MEAN CELL VOLUME 91.5 FL (80.0-100.0); MEAN CORPUSCULAR HGB CONC 33.9 % (32.0-36.0); MEAN PLATELET VOLUME 7.5 FL (7.0-11.0); PLATELET COUNT 196 TH/MM3 (150-450); RED BLOOD COUNT 3.38 MIL/MM3 (4.50-5.90); RED CELL DISTRIBUTION WIDTH 15.2 % (11.6-17.2); WHITE BLOOD COUNT 7.6 TH/MM3 (4.0-11.0)
[2017-07-19 11:20] LABS: BICARBONATE 20.8 MEQ/L (21.0-32.0); CALCIUM 8.2 MG/DL (8.5-10.1); CREATININE 1.02 MG/DL (0.60-1.30); MAGNESIUM 1.9 MG/DL (1.5-2.5)
[2017-07-19 12:00] VITALS: BP 161/65; PULSE 73; RESP 20; TEMP 97; O2SAT 93
--- NOTE | 2017-07-19 13:53 | HHI.PR ---
Subjective Subjective Notes C/O epigastric pain, nausea, and weakness Objective Vitals/I&O Vital Signs Date Time Temp Pulse Resp B/P (MAP) Pulse Ox O2 Delivery O2 Flow Rate FiO2 07/19/17 08:00 98.5 75 20 158/61 (93) 93 07/18/17 08:50 Room Air Labs Laboratory Tests Test 07/19/17 10:43 White Blood Count 7.6 Red Blood Count 3.38 Hemoglobin 10.5 Hematocrit 30.9 Mean Corpuscular Volume 91.5 Mean Corpuscular Hemoglobin 31.0 Mean Corpuscular Hemoglobin Concent 33.9 Red Cell Distribution Width 15.2 Platelet Count 196 Mean Platelet Volume 7.5 Blood Urea Nitrogen 15 Creatinine 1.02 Random Glucose 75 Calcium Level 8.2 Magnesium Level 1.9 Sodium Level 144 Potassium Level 4.1 Chloride Level 111 Carbon Dioxide Level 20.8 Anion Gap 12 Estimat Glomerular Filtration Rate 70 Date/Time Source Procedure Growth Status 07/18/17 01:05 Blood Peripheral Aerobic Blood Culture - Preliminary NO GROWTH IN 1 DAY Resulted 07/18/17 01:05 Blood Peripheral Anaerobic Blood Culture - Preliminary NO GROWTH IN 1 DAY Resulted Radiology Last 24 hours Impressions Chest X-Ray 07/19/17 0000 Signed Impressions: Service Date/Time: Wednesday, July 19, 2017 09:28 - CONCLUSION: No acute disease. Toney Pathak MD Last Impressions Chest X-Ray 07/18/1751 Signed Impressions: Service Date/Time: June 01:12 - CONCLUSION: No acute disease. Juanito Chen MD Abdomen/Pelvis CT 07/18/1751 Signed Impressions: Service Date/Time: June 01:52 - CONCLUSION: 1. Pneumoperitoneum. Stomach being the likely source. 2. Dilated stomach containing debris. 3. Bladder calculus measuring 3-4 mm. 4. Unchanged nonobstructing right renal calculus. 5. Status post cholecystectomy. 6. Aortic stent graft with aneurysmal sac measuring [address] Morris was notified. Juanito Chen MD Upper GI Series 07/18/17 0000 Signed Impressions: Service Date/Time: June 09:53 - CONCLUSION: The stomach is diffusely distended with debris. By 30-40 minutes there is a small amount of contrast getting into the proximal small bowel. This suggests a partial gastric outlet obstruction. Demond Kingston MD Abdomen: Other (distened but soft, moderated tenderness to the epigastrum) A/P Assessment and Plan 82yo M with Abdominal pain and possible gastric outlet obstruction -Recheck CBC and BMP in AM -IS Q1h -PT eval and treat, pt needs to be OOB to chair -Keep NPO and NGT to LIWS for now, if no improvement over the weekend may need laparotomy on Saturday The exam, history, and the medical decision-making described in the above note were completed with the assistance of the mid-level provider. I reviewed and agree with the findings presented. I attest that I had a [id number] encounter with the patient on the same day, and personally performed and documented my assessment and findings in the medical record. Discharge Planning Depending on hospital course Talib Feliciano Jul 19, 2017 13:53 Dayo Marsh MD Aug 07, 2017 21:31
[2017-07-19 16:00] VITALS: BP 174/74; PULSE 68; RESP 18; TEMP 98.1; O2SAT 94
[2017-07-19 19:42] VITALS: BP 167/79; PULSE 74; RESP 18; TEMP 98.3; O2SAT 91
[2017-07-20] VITALS (7 sets, daily range): BP systolic 155–199; BP diastolic 72–84; PULSE 62–71; RESP 18–20; TEMP 97.5–98.6; O2SAT 90–93
[2017-07-20] MEDS: MORPHINE SULFATE 2 MG/ML SYRINGE IV PUSH PRN ×7 (00:28→23:43)
[2017-07-20] MEDS: ONDANSETRON HCL 4 MG/2 ML VIAL IV PUSH PRN ×3 (02:05→17:55)
[2017-07-20] MEDS: SODIUM CHLOR 0.9% 1000 ML INJ 1,000 ML IV SCH ×2 (02:05→21:39)
[2017-07-20 07:19] LABS: HEMOGLOBIN 11.5 GM/DL (13.0-17.0); MEAN CELL VOLUME 91.9 FL (80.0-100.0); MEAN CORPUSCULAR HEMOGLOBIN 31.2 PG (27.0-34.0); MEAN PLATELET VOLUME 7.5 FL (7.0-11.0); PLATELET COUNT 197 TH/MM3 (150-450); RED CELL DISTRIBUTION WIDTH 15.2 % (11.6-17.2); WHITE BLOOD COUNT 8.9 TH/MM3 (4.0-11.0)
[2017-07-20 07:42] LABS: BICARBONATE 21.8 MEQ/L (21.0-32.0); CALCIUM 8.1 MG/DL (8.5-10.1); CREATININE 0.76 MG/DL (0.60-1.30)
[2017-07-20] MEDS: LOSARTAN 50 MG TAB PO SCH (08:58)
[2017-07-20] MEDS: AMIODARONE 200 MG TAB PO SCH (08:58)
[2017-07-20] MEDS: CLOPIDOGREL 75 MG TAB PO SCH (08:58)
[2017-07-20] MEDS: DILTIAZEM-CD 120 MG CAP ER PO SCH (08:58)
[2017-07-20] MEDS: SODIUM CHLORIDE 0.9% FLUSH 10 ML FLUSH IV FLUSH SCH ×2 (08:59→21:00)
[2017-07-20] MEDS: PANTOPRAZOLE SODIUM 40 MG VIAL IV PUSH SCH (08:59)
--- NOTE | 2017-07-20 08:59 | HHI.PR ---
Subjective Subjective Notes C/o abdominal pain, and feeling poorly overall. Very thirsty. Feels like he is retaining fluid. Objective Vitals/I&O Vital Signs Date Time Temp Pulse Resp B/P (MAP) Pulse Ox O2 Delivery O2 Flow Rate FiO2 07/20/17 04:00 98.4 70 20 182/81 (114) 90 07/18/17 08:50 Room Air Labs Laboratory Tests Test 07/19/17 10:43 07/20/17 06:31 White Blood Count 7.6 8.9 Red Blood Count 3.38 3.70 Hemoglobin 10.5 11.5 Hematocrit 30.9 34.0 Mean Corpuscular Volume 91.5 91.9 Mean Corpuscular Hemoglobin 31.0 31.2 Mean Corpuscular Hemoglobin Concent 33.9 34.0 Red Cell Distribution Width 15.2 15.2 Platelet Count 196 197 Mean Platelet Volume 7.5 7.5 Blood Urea Nitrogen 15 16 Creatinine 1.02 0.76 Random Glucose 75 65 Calcium Level 8.2 8.1 Magnesium Level 1.9 Sodium Level 144 144 Potassium Level 4.1 3.5 Chloride Level 111 112 Carbon Dioxide Level 20.8 21.8 Anion Gap 12 10 Estimat Glomerular Filtration Rate 70 98 Prealbumin 11 Date/Time Source Procedure Growth Status 07/18/17 01:05 Blood Peripheral Aerobic Blood Culture - Preliminary NO GROWTH IN 1 DAY Resulted 07/18/17 01:05 Blood Peripheral Anaerobic Blood Culture - Preliminary NO GROWTH IN 1 DAY Resulted Radiology Last 24 hours Impressions Chest X-Ray 07/19/17 0000 Signed Impressions: Service Date/Time: Wednesday, July 19, 2017 09:28 - CONCLUSION: No acute disease. Toney Pathak MD Last Impressions Chest X-Ray 07/18/1751 Signed Impressions: Service Date/Time: June 01:12 - CONCLUSION: No acute disease. Juanito Chen MD Abdomen/Pelvis CT 07/18/1751 Signed Impressions: Service Date/Time: June 01:52 - CONCLUSION: 1. Pneumoperitoneum. Stomach being the likely source. 2. Dilated stomach containing debris. 3. Bladder calculus measuring 3-4 mm. 4. Unchanged nonobstructing right renal calculus. 5. Status post cholecystectomy. 6. Aortic stent graft with aneurysmal sac measuring [address] Morris was notified. Juanito Chen MD Upper GI Series 07/18/17 0000 Signed Impressions: Service Date/Time: June 09:53 - CONCLUSION: The stomach is diffusely distended with debris. By 30-40 minutes there is a small amount of contrast getting into the proximal small bowel. This suggests a partial gastric outlet obstruction. Demond Kingston MD Narrative Exam Appears mildly ill, generalized tremor. Alert and oriented. Nonlabored breathing. Abd: moderate distention, inc c/d/i. moderate ttp in RLQ, otherwise soft ntd. 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 Continues to feel poorly. Concerned he is retaining fluid. Has been afebrile now over 24h. Decrease IVF, give one dose lasix. Check labs. Cont NGT to suction. Start Zosyn. Sujti Bill MD Jul 20, 2017 08:59
[2017-07-20] MEDS ORDERED: BENZOCAINE 6 MG/MENTHOL 10 MG LOZENGE BUCCAL PRN (09:00)
[2017-07-20] MEDS ORDERED: FUROSEMIDE 20 MG/2 ML VIAL IV PUSH ONE (09:00)
[2017-07-20] MEDS: POTASSIUM CHLOR 10 MEQ PREMIX 100 ML IV SCH ×4 (10:00→20:00)
[2017-07-20 10:24] LABS: AUTOMATED NEUTROPHIL # 6.8 TH/MM3 (1.8-7.7); BASOPHIL % 0.3 % (0.0-2.0); EOSINOPHIL % 0.1 % (0.0-4.0); HEMATOCRIT 33.8 % (39.0-51.0); HEMOGLOBIN 11.4 GM/DL (13.0-17.0); LYMPH % 10.6 % (9.0-44.0); LYMPHOCYTE # 0.9 TH/MM3 (1.0-4.8); MEAN CELL VOLUME 91.8 FL (80.0-100.0); MEAN CORPUSCULAR HGB CONC 33.8 % (32.0-36.0); MEAN PLATELET VOLUME 7.5 FL (7.0-11.0); MONO % 8.9 % (0.0-8.0); MONOCYTE # 0.8 TH/MM3 (0-0.9); NEUT % 80.1 % (16.0-70.0); PLATELET COUNT 201 TH/MM3 (150-450); RED BLOOD COUNT 3.68 MIL/MM3 (4.50-5.90); RED CELL DISTRIBUTION WIDTH 15.4 % (11.6-17.2); WHITE BLOOD COUNT 8.5 TH/MM3 (4.0-11.0)
[2017-07-20] MEDS: PIPERACIL-TAZO 3.375 GM PREMIX 50 ML IV SCH ×3 (11:25→23:43)
[2017-07-20] MEDS: ENALAPRILAT 1.25 MG/ML VIAL IV PUSH PRN (14:15)
[2017-07-20] MEDS: LORazepam 1 MG TAB PO PRN (23:47)
[2017-07-21] VITALS: BP 179/72; PULSE 66; RESP 19; TEMP 98; O2SAT 92
[2017-07-21] MEDS: ONDANSETRON HCL 4 MG/2 ML VIAL IV PUSH PRN ×3 (00:05→20:41)
[2017-07-21 04:20] VITALS: BP 182/74; PULSE 59; RESP 18; TEMP 98.7; O2SAT 92
[2017-07-21] MEDS: PIPERACIL-TAZO 3.375 GM PREMIX 50 ML IV SCH ×4 (04:52→23:26)
[2017-07-21] MEDS: MORPHINE SULFATE 2 MG/ML SYRINGE IV PUSH PRN ×2 (05:28→09:20)
[2017-07-21 06:38] LABS: BASOPHIL % 0.5 % (0.0-2.0); EOSINOPHIL % 0.2 % (0.0-4.0); HEMATOCRIT 34.8 % (39.0-51.0); HEMOGLOBIN 11.8 GM/DL (13.0-17.0); LYMPH % 14.7 % (9.0-44.0); LYMPHOCYTE # 1.4 TH/MM3 (1.0-4.8); MEAN CELL VOLUME 91.5 FL (80.0-100.0); MEAN CORPUSCULAR HEMOGLOBIN 31.1 PG (27.0-34.0); MEAN PLATELET VOLUME 7.8 FL (7.0-11.0); MONO % 8.5 % (0.0-8.0); MONOCYTE # 0.8 TH/MM3 (0-0.9); NEUT % 76.1 % (16.0-70.0); PLATELET COUNT 213 TH/MM3 (150-450); RED CELL DISTRIBUTION WIDTH 15.2 % (11.6-17.2); WHITE BLOOD COUNT 9.3 TH/MM3 (4.0-11.0)
[2017-07-21] MEDS: ENALAPRILAT 1.25 MG/ML VIAL IV PUSH PRN (06:49)
[2017-07-21 06:58] LABS: BICARBONATE 21.3 MEQ/L (21.0-32.0); CALCIUM 8.2 MG/DL (8.5-10.1); CREATININE 0.88 MG/DL (0.60-1.30)
[2017-07-21 08:00] VITALS: BP 173/74; PULSE 60; RESP 16; TEMP 97.9; O2SAT 92
[2017-07-21] MEDS: SODIUM CHLORIDE 0.9% FLUSH 10 ML FLUSH IV FLUSH SCH ×2 (09:00→21:00)
[2017-07-21] MEDS: AMIODARONE 200 MG TAB PO SCH (09:20)
[2017-07-21] MEDS: PANTOPRAZOLE SODIUM 40 MG VIAL IV PUSH SCH (09:20)
[2017-07-21] MEDS: DILTIAZEM-CD 120 MG CAP ER PO SCH (09:20)
[2017-07-21] MEDS: LOSARTAN 50 MG TAB PO SCH (09:21)
[2017-07-21] MEDS: CLOPIDOGREL 75 MG TAB PO SCH (09:21)
[2017-07-21 12:00] VITALS: BP 146/64; PULSE 64; RESP 16; TEMP 98.1; O2SAT 91
--- NOTE | 2017-07-21 13:01 | HHI.PR ---
Subjective Subjective Notes Feels a little better today. NG had to be repositioned last night and now has no output. Objective Vitals/I&O Vital Signs Date Time Temp Pulse Resp B/P (MAP) Pulse Ox O2 Delivery O2 Flow Rate FiO2 07/21/17 08:00 97.9 60 16 173/74 (107) 92 07/18/17 08:50 Room Air Labs Laboratory Tests Test 07/21/17 05:20 White Blood Count 9.3 Red Blood Count 3.80 Hemoglobin 11.8 Hematocrit 34.8 Mean Corpuscular Volume 91.5 Mean Corpuscular Hemoglobin 31.1 Mean Corpuscular Hemoglobin Concent 34.0 Red Cell Distribution Width 15.2 Platelet Count 213 Mean Platelet Volume 7.8 Neutrophils (%) (Auto) 76.1 Lymphocytes (%) (Auto) 14.7 Monocytes (%) (Auto) 8.5 Eosinophils (%) (Auto) 0.2 Basophils (%) (Auto) 0.5 Neutrophils # (Auto) 7.0 Lymphocytes # (Auto) 1.4 Monocytes # (Auto) 0.8 Eosinophils # (Auto) 0.0 Basophils # (Auto) 0.0 CBC Comment DIFF FINAL Differential Comment Blood Urea Nitrogen 18 Creatinine 0.88 Random Glucose 68 Calcium Level 8.2 Sodium Level 144 Potassium Level 3.5 Chloride Level 110 Carbon Dioxide Level 21.3 Anion Gap 13 Estimat Glomerular Filtration Rate 83 Date/Time Source Procedure Growth Status 07/18/17 01:05 Blood Peripheral Aerobic Blood Culture - Preliminary NO GROWTH IN 3 DAYS Resulted 07/18/17 01:05 Blood Peripheral Anaerobic Blood Culture - Preliminary NO GROWTH IN 3 DAYS Resulted Radiology Last 24 hours Impressions Chest X-Ray 07/19/17 0000 Signed Impressions: Service Date/Time: Wednesday, July 19, 2017 09:28 - CONCLUSION: No acute disease. Toney Pathak MD Last Impressions Chest X-Ray 07/18/1751 Signed Impressions: Service Date/Time: June 01:12 - CONCLUSION: No acute disease. Juanito Chen MD Abdomen/Pelvis CT 07/18/17 005 Signed Impressions: Service Date/Time: June 01:52 - CONCLUSION: 1. Pneumoperitoneum. Stomach being the likely source. 2. Dilated stomach containing debris. 3. Bladder calculus measuring 3-4 mm. 4. Unchanged nonobstructing right renal calculus. 5. Status post cholecystectomy. 6. Aortic stent graft with aneurysmal sac measuring [address] Morris was notified. Juanito Chen MD Upper GI Series 07/18/17 0000 Signed Impressions: Service Date/Time: June 09:53 - CONCLUSION: The stomach is diffusely distended with debris. By 30-40 minutes there is a small amount of contrast getting into the proximal small bowel. This suggests a partial gastric outlet obstruction. Demond Kingston MD Narrative Exam Alert and oriented. Nonlabored breathing. Abd: moderate distention, inc c/d/i. mild ttp in RLQ, otherwise soft ntd. 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 Stable. WBC normal. Cont NGT to suction. Check KUB to confirm repositioning. [place]. Sujit Bill MD Jul 21, 2017 13:01
--- NOTE | 2017-07-21 13:42 | RADRPT ---
EXAM DATE/TIME: 07/21/2017 13:15 [facility] COMPARISON: No previous studies available for comparison. INDICATIONS : NG tube placement. MEDICAL HISTORY : Cardiovascular disease. Chronic obstructive pulmonary disease. SURGICAL HISTORY : Cholecystectomy. ENCOUNTER: Initial ACUITY: 1 day PAIN SCORE: 0/10 LOCATION: Bilateral abdomen. FINDINGS: Moderate distention of the stomach containing contrast is noted. Nasogastric tube is in good position . Intestinal gas pattern is otherwise nonspecific. Air is noted throughout the small and large intestin al tract without pathologic distention. Aortic stent graft is noted in place. CONCLUSION: 1. Satisfactory placement of nasogastric tube within the stomach 2. Distended stomach containing contrast. 3. Nonspecific gas pattern described above. 4. Aortic stent graft in place. Patricio Butler MD on July 21, 2017 at 13:38 Board Certified Radiologist. This report was verified electronically.
[2017-07-21] MEDS: HYDROmorphone HCL PF 2 MG/ML VIAL IV PUSH PRN ×2 (14:26→20:34)
[2017-07-21 16:00] VITALS: BP 158/65; PULSE 62; RESP 16; TEMP 98; O2SAT 91
[2017-07-21] MEDS: SODIUM CHLOR 0.9% 1000 ML INJ 1,000 ML IV SCH (17:39)
[2017-07-21 20:00] VITALS: BP 180/79; PULSE 67; RESP 17; TEMP 98; O2SAT 92
[2017-07-21] MEDS: LORazepam 1 MG TAB PO PRN (23:22)
[2017-07-22] VITALS (7 sets, daily range): BP systolic 146–179; BP diastolic 62–78; PULSE 60–77; RESP 16–18; TEMP 97.3–97.8; O2SAT 92–94
[2017-07-22] MEDS: HYDROmorphone HCL PF 2 MG/ML VIAL IV PUSH PRN ×7 (01:10→22:48)
[2017-07-22] MEDS ORDERED: SODIUM CHLORID 0.9% 500 ML IV PRN (01:15)
[2017-07-22] MEDS ORDERED: POVIDONE IODINE 5% (ANTISEPSIS KIT) 4 APPLICATIONS EACH NARE PRN (01:15)
[2017-07-22] MEDS ORDERED: LACTATED RINGER'S 1000 ML IV PRN (01:15)
[2017-07-22] MEDS ORDERED: CHLORHEXIDINE GLUCONATE 2 % 1 PACK (2 CLOTHS) TOPICAL PRN (01:15)
[2017-07-22] MEDS: PIPERACIL-TAZO 3.375 GM PREMIX 50 ML IV SCH ×4 (05:04→21:26)
[2017-07-22] MEDS: SODIUM CHLORIDE 0.9% FLUSH 10 ML FLUSH IV FLUSH SCH ×2 (09:18→21:00)
[2017-07-22] MEDS: CLOPIDOGREL 75 MG TAB PO SCH (09:21)
[2017-07-22] MEDS: LOSARTAN 50 MG TAB PO SCH (09:21)
[2017-07-22] MEDS: AMIODARONE 200 MG TAB PO SCH (09:21)
[2017-07-22] MEDS: DILTIAZEM-CD 120 MG CAP ER PO SCH (09:21)
[2017-07-22] MEDS: PANTOPRAZOLE SODIUM 40 MG VIAL IV PUSH SCH (09:24)
--- NOTE | 2017-07-22 11:36 | RADRPT ---
EXAM DATE/TIME: 07/22/2017 09:31 [facility] COMPARISON: GASTROGRAFIN GI SERIES, July 18, 2017, 9:53. INDICATIONS : Abdominal pain and distension, evaluate stomach emptying post gastrografin UGI on 07/18/17 FLUORO TIME: 0.0 minutes IMAGE COUNT: 7 MEDICAL HISTORY : Aneurysm, abdominal. Renal calculi. gastric outlet obstruction, pneumoperitoneum SURGICAL HISTORY : Cholecystectomy. Abdominal aortic aneurysm repair. partial antrectomy gastric mass ENCOUNTER: Subsequent ACUITY: 1 week PAIN SCORE: 10/10 LOCATION: Bilateral abdomen FINDINGS: Preliminary film demonstrates retained water-soluble contrast in the distended stomach. Gastric tube tip and side-port are within the stomach. A series of overhead images including supine, erect, righ t lateral, and shallow right anterior oblique were performed. There is no significant water-soluble contrast appreciated in the small bowel. There is no contrast seen in the small bowel on the erect o r oblique views. CONCLUSION: No passage of water-soluble contrast seen beyond the distended stomach suggesting persistent gastric outlet obstruction. Herbert Torres MD on July 22, 2017 at 11:31 Board Certified Radiologist. This report was verified electronically.
[2017-07-22] MEDS: SODIUM CHLOR 0.9% 1000 ML INJ 1,000 ML IV SCH (13:39)
--- NOTE | 2017-07-22 14:00 | HHI.PR ---
Subjective Subjective Notes Pain is improving. Denies any more nausea or vomiting. No output from NGT. Repeat UGI shows no passage of water-soluble contrast beyond the stomach. Objective Vitals/I&O Vital Signs Date Time Temp Pulse Resp B/P (MAP) Pulse Ox O2 Delivery O2 Flow Rate FiO2 07/22/17 12:00 97.3 77 18 153/78 (103) 93 07/18/17 08:50 Room Air Labs Laboratory Tests Test 07/18/17 00:55 07/18/17 02:25 07/19/17 10:43 07/21/17 05:20 Prothrombin Time 11.4 SEC Prothromb Time International Ratio 1.1 RATIO Activated Partial Thromboplast Time 23.4 SEC Lactic Acid Level 0.8 mmol/L Blood Urea Nitrogen 16 MG/DL 15 MG/DL 18 MG/DL Creatinine 1.25 MG/DL 1.02 MG/DL 0.88 MG/DL Random Glucose 88 MG/DL 75 MG/DL 68 MG/DL Total Protein 6.2 GM/DL Albumin 3.2 GM/DL Calcium Level 8.6 MG/DL 8.2 MG/DL 8.2 MG/DL Alkaline Phosphatase 100 U/L Aspartate Amino Transf (AST/SGOT) 14 U/L Alanine Aminotransferase (ALT/SGPT) 25 U/L Total Bilirubin 0.3 MG/DL Sodium Level 140 MEQ/L 144 MEQ/L 144 MEQ/L Potassium Level 3.8 MEQ/L 4.1 MEQ/L 3.5 MEQ/L Chloride Level 105 MEQ/L 111 MEQ/L 110 MEQ/L Carbon Dioxide Level 26.8 MEQ/L 20.8 MEQ/L 21.3 MEQ/L Lipase 89 U/L Urine Color YELLOW Urine Turbidity CLEAR Urine pH 6.0 Urine Specific [place] 1.016 Urine Protein NEG mg/dL Urine Glucose (UA) NEG mg/dL Urine Ketones 10 mg/dL Urine Occult Blood NEG Urine Nitrite NEG Urine Bilirubin NEG Urine Urobilinogen LESS THAN 2.0 MG/DL Urine Leukocyte Esterase NEG Urine RBC 5 /hpf Urine WBC 1 /hpf Urine Hyaline Casts 6 /lpf Urine Mucus FEW /lpf Microscopic Urinalysis Comment CULT NOT INDICATED Magnesium Level 1.9 MG/DL Prealbumin 11 MG/DL White Blood Count 9.3 TH/MM3 Red Blood Count 3.80 MIL/MM3 Hemoglobin 11.8 GM/DL Hematocrit 34.8 % Mean Corpuscular Volume 91.5 FL Mean Corpuscular Hemoglobin 31.1 PG Mean Corpuscular Hemoglobin Concent 34.0 % Red Cell Distribution Width 15.2 % Platelet Count 213 TH/MM3 Mean Platelet Volume 7.8 FL Neutrophils (%) (Auto) 76.1 % Lymphocytes (%) (Auto) 14.7 % Monocytes (%) (Auto) 8.5 % Eosinophils (%) (Auto) 0.2 % Basophils (%) (Auto) 0.5 % Neutrophils # (Auto) 7.0 TH/MM3 Lymphocytes # (Auto) 1.4 TH/MM3 Monocytes # (Auto) 0.8 TH/MM3 Eosinophils # (Auto) 0.0 TH/MM3 Basophils # (Auto) 0.0 TH/MM3 CBC Comment DIFF FINAL Differential Comment Anion Gap 13 MEQ/L Estimat Glomerular Filtration Rate 83 ML/MIN Date/Time Source Procedure Growth Status 07/18/17 01:05 Blood Peripheral Aerobic Blood Culture - Preliminary NO GROWTH IN 4 DAYS Resulted 07/18/17 01:05 Blood Peripheral Anaerobic Blood Culture - Preliminary NO GROWTH IN 4 DAYS Resulted Radiology Last 24 hours Impressions Upper GI Series 07/22/17 0000 Signed Impressions: Service Date/Time: Saturday, July 22, 2017 09:31 - CONCLUSION: No passage of water-soluble contrast seen beyond the distended stomach suggesting persistent gastric outlet obstruction. Herbert Torres MD Last Impressions Chest X-Ray 07/18/1751 Signed Impressions: Service Date/Time: June 01:12 - CONCLUSION: No acute disease. Juanito Chen MD Abdomen/Pelvis CT 07/18/1751 Signed Impressions: Service Date/Time: June 01:52 - CONCLUSION: 1. Pneumoperitoneum. Stomach being the likely source. 2. Dilated stomach containing debris. 3. Bladder calculus measuring 3-4 mm. 4. Unchanged nonobstructing right renal calculus. 5. Status post cholecystectomy. 6. Aortic stent graft with aneurysmal sac measuring [address] Morris was notified. Juanito Chen MD Upper GI Series 07/18/17 0000 Signed Impressions: Service Date/Time: June 09:53 - CONCLUSION: The stomach is diffusely distended with debris. By 30-40 minutes there is a small amount of contrast getting into the proximal small bowel. This suggests a partial gastric outlet obstruction. Demond Kingston MD Abdomen: Other (Distend) Extremities: Perfused A/P Assessment and Plan 82yo M with Abdominal pain and possible gastric outlet obstruction -Persistent hypertension despite restarting home meds, will consult Medicine for management -Hold plavix for OR on 07/24/17 The exam, history, and the medical decision-making described in the above note were completed with the assistance of the mid-level provider. I reviewed and agree with the findings presented. I attest that I had a [id number] encounter with the patient on the same day, and personally performed and documented my assessment and findings in the medical record. Discharge Planning Depending on hospital course Talib Feliciano Jul 22, 2017 14:00 Dayo Marsh MD Aug 07, 2017 21:32
--- NOTE | 2017-07-22 15:17 | PD.CONS ---
HPI Service [facility] Hospitalists Consult Requested By Talib FENG Reason for Consult HTN management Primary Care Physician Mita Carney MD Diagnoses: History of Present Illness Mr. Nino is an 80 y/o male with paroxysmal atrial fibrillation, COPD, HTN, and previous T12 compression fracture in 10/2015. 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 Patient is unsure of his last BM. Patient returned 07/18/17 with N/V. Prior to returning to the hospital on 07/18 patient reports he vomited peaches which he ate several days earlier. Patient now felt to have a partial gastric outlet obstruction with plans for surgical intervention 06/23/17. Patient currently NPO and has NGT in place to LIWS. We have been consulted for medical management primarily HTN. Patient evaluated reports feels better than he did. Epigastric discomfort resolved with NGT. Patient no longer having N/V. Patient denies headache, chest pain or SOB. Review of Systems Constitutional: COMPLAINS OF: Fatigue, DENIES: Fever, Chills Respiratory: DENIES: Cough, Sputum production, Shortness of breath Cardiovascular: DENIES: Chest pain, Palpitations, Dyspnea on Exertion Gastrointestinal: COMPLAINS OF: Abdominal pain (better with NGT), Constipation , Nausea, Vomiting, DENIES: Diarrhea Neurologic: COMPLAINS OF: Headache, Localized weakness, Speech Problems Psychiatric: COMPLAINS OF: Anxiety, Confusion, Depression Past Family Social History Past Medical History COPD HTN PAD with stenting to the right ext iliac and left sup. fem 2013 AAA A. fib GERD T12 comp fx,10% Submucosal gastric mass, pathology was negative. GIST tumor Essential tremor Past Surgical History EGD/colonoscopy on 10/18/15 --> Submucosal mass in the antrum, gastritis in the gastric antrum, sessile polyp in the ascending colon and proximal transverse colon, mild diverticulosis in the sigmoid colon. Pathology was negative Cataract surgery TURP Reported Medications Ativan (Lorazepam) 1 Mg Tab 1 Mg PO HS PRN Percocet (Oxycodone-Acetaminophen) 5-325 mg Tab 1-2 Tab PO Q4H PRN Percocet (Oxycodone-Acetaminophen) 5-325 mg Tab 1 Tab PO Q6H PRN 30 Days Cozaar (Losartan Potassium) 50 Mg Tab 50 Mg PO DAILY Linzess (Linaclotide) 145 Mcg Cap 145 Mcg PO DAILY Zofran (Ondansetron HCl) 4 Mg Tab 4 Mg PO Q6HR PRN Ferrous Sulfate 325 Mg (65 Mg Iron) Tablet 325 Mg PO BIDPC Miralax Powder (Polyethylene Glycol 3350 Powder) 17 Gm Powd 17 Gm PO DAILY Mix and dissolve one measuring cap-ful (17 grams) in water or juice. Zofran (Ondansetron HCl) 4 Mg Tab 4 Mg PO Q6HR PRN Hydrocodone-Acetaminophen 5-325 mg Tab 1 Tab PO BID PRN Multiple Vitamin 1 Tab 1 Tab PO DAILY Lansoprazole 30 Mg Capdr 30 Mg PO DAILY Cartia Xt (Diltiazem ER 24 HR) 120 Mg Caper 120 Mg PO DAILY Amiodarone (Amiodarone HCl) 200 Mg Tab 200 Mg PO DAILY Plavix (Clopidogrel Bisulfate) 75 Mg Tab 75 Mg PO DAILY Ativan (Lorazepam) 1 Mg Tab 1 Mg PO HS PRN Atrovent HFA 12.9 GM Inh (Ipratropium [place]) 17 Mcg/Act Aer 1 Puff INH Q6HR PRN Duoneb (Ipratropium-Albuterol Neb) 0.5-2.5 Mg/3 Ml Neb 1 Nebule INH Q6HR NEB Ventolin Hfa 18 GM Inh (Albuterol Sulfate) 90 Mcg/Act Aer 2 Puff INH Q6H PRN Allergies: Coded Allergies: digoxin (Unverified Allergy, Intermediate, hives, 05/16/17) pt stopped this medication 30 years ago Family History Noncontributory Social History Hx of intermittent tobacco use, none recently (+)Alcohol use, hx of heavy alcohol use. Physical Exam Vital Signs Vital Signs Date Time Temp Pulse Resp B/P (MAP) Pulse Ox O2 Delivery O2 Flow Rate FiO2 07/22/17 13:24 18 07/22/17 12:00 97.3 77 18 153/78 (103) 93 07/22/17 08:00 97.4 67 17 167/75 (105) 93 07/22/17 04:00 97.4 67 16 164/62 (96) 92 07/22/17 00:00 97.8 64 16 177/75 (109) 92 07/21/17 20:00 98.0 67 17 180/79 (112) 92 07/21/17 16:00 98.0 62 16 158/65 (96) 91 Physical Exam GENERAL: This is an elderly fail in appearance with NGT in place, in no apparent distress. SKIN: generalized thinning of skin, scattered ecchymotic areas bilateral upper extremities HEAD: Atraumatic. Normocephalic. No temporal or scalp tenderness. EYES: Extraocular motions intact. No scleral icterus. No injection or drainage. CARDIOVASCULAR: Regular rate and rhythm RESPIRATORY: Clear to auscultation. Breath sounds equal bilaterally. GASTROINTESTINAL: Abdomen soft, non-tender, nondistended. NGT to LIWS MUSCULOSKELETAL: Extremities without clubbing, cyanosis, or edema. No joint tenderness, effusion, or edema noted. No calf tenderness. Negative Homans sign bilaterally. NEUROLOGICAL: Awake and alert. Motor and sensory grossly within normal limits. 4 out of 5 muscle strength in all muscle groups. Normal speech. Laboratory Date/Time Source Procedure Growth Status 07/18/17 01:05 Blood Peripheral Aerobic Blood Culture - Preliminary NO GROWTH IN 4 DAYS Resulted 07/18/17 01:05 Blood Peripheral Anaerobic Blood Culture - Preliminary NO GROWTH IN 4 DAYS Resulted Result Diagram: 07/21/17 0520 07/21/17 0520 Imaging Last Impressions Upper GI Series 07/22/17 0000 Signed Impressions: Service Date/Time: Saturday, July 22, 2017 09:31 - CONCLUSION: No passage of water-soluble contrast seen beyond the distended stomach suggesting persistent gastric outlet obstruction. Herbert Torres MD Abdomen X-Ray 07/21/17 0000 Signed Impressions: Service Date/Time: Friday, July 21, 2017 13:15 - CONCLUSION: 1. Satisfactory placement of nasogastric tube within the stomach 2. Distended stomach containing contrast. 3. Nonspecific gas pattern described above. 4. Aortic stent graft in place. Patricio Butler MD Chest X-Ray 07/19/17 0000 Signed Impressions: Service Date/Time: Wednesday, July 19, 2017 09:28 - CONCLUSION: No acute disease. Toney Pathak MD Abdomen/Pelvis CT 07/18/17 0052 Signed Impressions: Service Date/Time: June 01:52 - CONCLUSION: 1. Pneumoperitoneum. Stomach being the likely source. 2. Dilated stomach containing debris. 3. Bladder calculus measuring 3-4 mm. 4. Unchanged nonobstructing right renal calculus. 5. Status post cholecystectomy. 6. Aortic stent graft with aneurysmal sac measuring [address] Morris was notified. 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 Plan: Partial gastric outlet obstruction HTN Paroxysmal Atrial Fibrillation anxiety Primary management per general surgery, plan surgical intervention 06/23/17 Plavix on hold for pending surgery Patient blood glucose noted to be 60's-70's on BMP will change IVF to d5 NS with 20 meq KCL at 84ml/H NGT to LIWS patient NPO but has been taking PO Amiodarone 200 mg PO daily, Cardizem 120 mg daily, Losartan 50 mg PO daily and Ativan 1 mg PO QHS Patient with partial gastric outlet obstruction and NGT - concerned that medications ar not getting absorbed properly Call placed to gerneral surgery to clarify plan and future PO intake status If patient is to remain NPO for extended period of time recommend considering clonidine patch for BP control In the mean time increase PRN Vasotec to 2.5 mg Q6H for HTN Patient's HR is currently controlled continue current regiment, may need to place patient on Cardizem drip for HR control if patient becomes completely NPO or HR becomes uncontrolled DVT prophylaxis with SCDs (2) Paroxysmal atrial fibrillation ICD Codes: I48.0 - Paroxysmal atrial fibrillation Status: Chronic (3) COPD (chronic obstructive pulmonary disease) ICD Codes: J44.9 - Chronic obstructive pulmonary disease, unspecified Status: Chronic (4) Anxiety ICD Codes: F41.9 - Anxiety disorder, unspecified Status: Chronic (5) HTN (hypertension) ICD Codes: I10 - Essential (primary) hypertension Status: Chronic Assessment and Plan Patient examined. Assessment and plan formulated with Niesha Teran PA-C. I agree with the above. GIST tumor recently resected. readmitted for gastric outlet obstruction has ngt int suction pt on home bp/afib meds. probably not getting absorbed very well observe today. prn vasotec might need to convert to clonidine patch ivf with d5 and kcl for hypoglycemia and hypokalemia surgery planning OR Saturday. call gen surg to discuss the proposed surgery. Niesha Teran Jul 22, 2017 15:17 Boyd Nunn MD Jul 22, 2017 16:50
[2017-07-22] MEDS ORDERED: ENALAPRILAT 1.25 MG/ML VIAL IV PUSH PRN (15:45)
[2017-07-22] MEDS: D5-NS + KCL 20 MEQ INJ 1,000 ML IV SCH (16:14)
[2017-07-22] MEDS: LORazepam 1 MG TAB PO PRN (21:35)
[2017-07-22] MEDS: ENALAPRILAT 2.5 MG/2 ML VIAL IV PUSH PRN (22:48)
[2017-07-22] MEDS: SODIUM CHLORIDE 0.9% FLUSH 10 ML FLUSH IV FLUSH PRN (22:49)
[2017-07-23] VITALS (7 sets, daily range): BP systolic 158–191; BP diastolic 72–83; PULSE 61–80; RESP 17–18; TEMP 97.3–99.7; O2SAT 91–93
[2017-07-23] MEDS: HYDROmorphone HCL PF 2 MG/ML VIAL IV PUSH PRN ×6 (02:01→23:34)
[2017-07-23] MEDS: SODIUM CHLORIDE 0.9% FLUSH 10 ML FLUSH IV FLUSH PRN ×3 (02:02→23:34)
[2017-07-23] MEDS: PIPERACIL-TAZO 3.375 GM PREMIX 50 ML IV SCH ×4 (05:34→21:18)
[2017-07-23] MEDS: D5-NS + KCL 20 MEQ INJ 1,000 ML IV SCH (05:35)
[2017-07-23] MEDS: SODIUM CHLORIDE 0.9% FLUSH 10 ML FLUSH IV FLUSH SCH ×2 (09:00→21:16)
[2017-07-23] MEDS: PANTOPRAZOLE SODIUM 40 MG VIAL IV PUSH SCH (09:00)
[2017-07-23] MEDS: AMIODARONE 200 MG TAB PO SCH (09:00)
[2017-07-23] MEDS: DILTIAZEM-CD 120 MG CAP ER PO SCH (09:00)
[2017-07-23] MEDS: LOSARTAN 50 MG TAB PO SCH ×2 (09:00→21:15)
[2017-07-23 09:37] LABS: BICARBONATE 25.7 MEQ/L (21.0-32.0); CALCIUM 8.5 MG/DL (8.5-10.1); CREATININE 0.76 MG/DL (0.60-1.30); MAGNESIUM 1.8 MG/DL (1.5-2.5); PHOSPHORUS 1.7 MG/DL (2.5-4.9)
--- NOTE | 2017-07-23 11:45 | HHI.PR ---
Subjective Remarks Patient feeling about the same as yesterday no new complaints continues with NGT to LIWS Objective Vitals Vital Signs Date Time Temp Pulse Resp B/P (MAP) Pulse Ox O2 Delivery O2 Flow Rate FiO2 07/23/17 10:30 18 07/23/17 08:00 98.2 68 18 175/79 (111) 93 07/23/17 04:00 98.4 71 18 158/83 (108) 93 07/23/17 00:00 97.3 80 18 187/81 (116) 93 07/23/17 00:00 61 07/22/17 20:37 60 07/22/17 20:00 97.7 62 18 179/76 (110) 92 07/22/17 16:00 97.4 66 17 146/67 (93) 94 07/22/17 12:00 97.3 77 18 153/78 (103) 93 Result Diagram: 07/21/17 0520 07/23/17 0813 Other Results Laboratory Tests Test 07/21/17 05:20 07/23/17 08:13 White Blood Count 9.3 TH/MM3 Red Blood Count 3.80 MIL/MM3 Hemoglobin 11.8 GM/DL Hematocrit 34.8 % Mean Corpuscular Volume 91.5 FL Mean Corpuscular Hemoglobin 31.1 PG Mean Corpuscular Hemoglobin Concent 34.0 % Red Cell Distribution Width 15.2 % Platelet Count 213 TH/MM3 Mean Platelet Volume 7.8 FL Neutrophils (%) (Auto) 76.1 % Lymphocytes (%) (Auto) 14.7 % Monocytes (%) (Auto) 8.5 % Eosinophils (%) (Auto) 0.2 % Basophils (%) (Auto) 0.5 % Neutrophils # (Auto) 7.0 TH/MM3 Lymphocytes # (Auto) 1.4 TH/MM3 Monocytes # (Auto) 0.8 TH/MM3 Eosinophils # (Auto) 0.0 TH/MM3 Basophils # (Auto) 0.0 TH/MM3 CBC Comment DIFF FINAL Differential Comment Blood Urea Nitrogen 18 MG/DL 13 MG/DL Creatinine 0.88 MG/DL 0.76 MG/DL Random Glucose 68 MG/DL 107 MG/DL Calcium Level 8.2 MG/DL 8.5 MG/DL Sodium Level 144 MEQ/L 151 MEQ/L Potassium Level 3.5 MEQ/L 3.2 MEQ/L Chloride Level 110 MEQ/L 117 MEQ/L Carbon Dioxide Level 21.3 MEQ/L 25.7 MEQ/L Anion Gap 13 MEQ/L 8 MEQ/L Estimat Glomerular Filtration Rate 83 ML/MIN 98 ML/MIN Phosphorus Level 1.7 MG/DL Magnesium Level 1.8 MG/DL Imaging Last Impressions Upper GI Series 07/22/17 0000 Signed Impressions: Service Date/Time: Saturday, July 22, 2017 09:31 - CONCLUSION: No passage of water-soluble contrast seen beyond the distended stomach suggesting persistent gastric outlet obstruction. Herbert Torres MD Abdomen X-Ray 07/21/17 0000 Signed Impressions: Service Date/Time: Friday, July 21, 2017 13:15 - CONCLUSION: 1. Satisfactory placement of nasogastric tube within the stomach 2. Distended stomach containing contrast. 3. Nonspecific gas pattern described above. 4. Aortic stent graft in place. Patricio Butler MD Chest X-Ray 07/19/17 0000 Signed Impressions: Service Date/Time: Wednesday, July 19, 2017 09:28 - CONCLUSION: No acute disease. Toney Pathak MD Abdomen/Pelvis CT 07/18/17 0052 Signed Impressions: Service Date/Time: June 01:52 - CONCLUSION: 1. Pneumoperitoneum. Stomach being the likely source. 2. Dilated stomach containing debris. 3. Bladder calculus measuring 3-4 mm. 4. Unchanged nonobstructing right renal calculus. 5. Status post cholecystectomy. 6. Aortic stent graft with aneurysmal sac measuring [address] Morris was notified. Juanito Chen MD Objective Remarks GENERAL: This is an elderly fail in appearance with NGT in place, in no apparent distress. CARDIOVASCULAR: Regular rate and rhythm RESPIRATORY: Clear to auscultation. Breath sounds equal bilaterally. GASTROINTESTINAL: Abdomen soft, non-tender, nondistended. NGT to LIWS MUSCULOSKELETAL: Extremities without clubbing, cyanosis, or edema. No joint tenderness, effusion, or edema noted. No calf tenderness. Negative Homans sign bilaterally. NEUROLOGICAL: Awake and alert. Motor and sensory grossly within normal limits. 4 out of 5 muscle strength in all muscle groups. Normal speech. 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 Plan: Partial gastric outlet obstruction HTN Paroxysmal Atrial Fibrillation anxiety Primary management per general surgery, plan surgical intervention 06/23/17 Plavix on hold for pending surgery Patient blood glucose noted to be 60's-70's on BMP will change IVF to d5 NS with 20 meq KCL at 84ml/H NGT to LIWS patient NPO but has been taking PO Amiodarone 200 mg PO daily, Cardizem 120 mg daily, Losartan 50 mg PO daily and Ativan 1 mg PO QHS - increase Losartan to 50 mg PO BID Patient with partial gastric outlet obstruction and NGT - concerned that medications ar not getting absorbed properly Call placed to gerneral surgery to clarify plan and future PO intake status If patient is to remain NPO for extended period of time recommend considering clonidine patch for BP control In the mean time increase PRN Vasotec to 2.5 mg Q6H for HTN Patient's HR is currently controlled continue current regiment, may need to place patient on Cardizem drip for HR control if patient becomes completely NPO or HR becomes uncontrolled Hypernatremia hypokalemia change IVF to D5 /2 NS with 40 meq kcl KCL 20 meq IV recheck BMP 1800 DVT prophylaxis with SCDs (2) Paroxysmal atrial fibrillation ICD Codes: I48.0 - Paroxysmal atrial fibrillation Status: Chronic (3) COPD (chronic obstructive pulmonary disease) ICD Codes: J44.9 - Chronic obstructive pulmonary disease, unspecified Status: Chronic (4) Anxiety ICD Codes: F41.9 - Anxiety disorder, unspecified Status: Chronic (5) HTN (hypertension) ICD Codes: I10 - Essential (primary) hypertension Status: Chronic Assessment and Plan Patient examined. Assessment and plan formulated with Niesha Teran PA-C. I agree with the above. spoke with Dr Lima. going to OR tomorrow cont ivf with kcl. scheduled bp meds. Niesha Teran Jul 23, 2017 11:45 Boyd Nunn MD Jul 23, 2017 13:01
[2017-07-23] MEDS: D5-1/2 NS + KCL 40 MEQ INJ 1,000 ML IV SCH (12:55)
[2017-07-23] MEDS ORDERED: POTASSIUM PHOSPHATE INJ 15 MMOL in SODIUM CHLORIDE 0.9% INJ 150 ML IV ONE (13:00)
[2017-07-23] MEDS: ENALAPRILAT 2.5 MG/2 ML VIAL IV PUSH PRN ×2 (13:13→23:33)
--- NOTE | 2017-07-23 14:00 | HHI.PR ---
Subjective Subjective Notes Still having some mild epigastric pain, has not had BM and low output from NGT Objective Vitals/I&O Vital Signs Date Time Temp Pulse Resp B/P (MAP) Pulse Ox O2 Delivery O2 Flow Rate FiO2 07/23/17 12:00 97.9 70 17 183/77 (112) 92 Labs Laboratory Tests Test 07/23/17 08:13 Blood Urea Nitrogen 13 Creatinine 0.76 Random Glucose 107 Calcium Level 8.5 Phosphorus Level 1.7 Magnesium Level 1.8 Sodium Level 151 Potassium Level 3.2 Chloride Level 117 Carbon Dioxide Level 25.7 Anion Gap 8 Estimat Glomerular Filtration Rate 98 Date/Time Source Procedure Growth Status 07/18/17 01:05 Blood Peripheral Aerobic Blood Culture - Final NO GROWTH IN 5 DAYS Complete 07/18/17 01:05 Blood Peripheral Anaerobic Blood Culture - Final NO GROWTH IN 5 DAYS Complete Radiology Last 24 hours Impressions Upper GI Series 07/22/17 0000 Signed Impressions: Service Date/Time: Saturday, July 22, 2017 09:31 - CONCLUSION: No passage of water-soluble contrast seen beyond the distended stomach suggesting persistent gastric outlet obstruction. Herbert Torres MD Last Impressions Chest X-Ray 07/18/1751 Signed Impressions: Service Date/Time: June 01:12 - CONCLUSION: No acute disease. Juanito Chen MD Abdomen/Pelvis CT 07/18/1751 Signed Impressions: Service Date/Time: June 01:52 - CONCLUSION: 1. Pneumoperitoneum. Stomach being the likely source. 2. Dilated stomach containing debris. 3. Bladder calculus measuring 3-4 mm. 4. Unchanged nonobstructing right renal calculus. 5. Status post cholecystectomy. 6. Aortic stent graft with aneurysmal sac measuring [address] Morris was notified. Juanito Chen MD Upper GI Series 07/18/17 0000 Signed Impressions: Service Date/Time: June 09:53 - CONCLUSION: The stomach is diffusely distended with debris. By 30-40 minutes there is a small amount of contrast getting into the proximal small bowel. This suggests a partial gastric outlet obstruction. Demond Kingston MD Abdomen: Other A/P Assessment and Plan 82yo M with Abdominal pain and possible gastric outlet obstruction -IVF changed to D5 1/2 NS and Kphos given for PO4, appreciate input from Medicine -Hold plavix for OR on 07/24/17, plans for gastric jejunostomy -Ok for ice chips, NPO after MN -Continue with frequent ambulation The exam, history, and the medical decision-making described in the above note were completed with the assistance of the mid-level provider. I reviewed and agree with the findings presented. I attest that I had a [id number] encounter with the patient on the same day, and personally performed and documented my assessment and findings in the medical record. Discharge Planning Depending on hospital course Talib Feliciano Jul 23, 2017 14:00 Dayo Marsh MD Aug 07, 2017 21:32
[2017-07-23] MEDS ORDERED: POTASSIUM CHLORIDE 25 MEQ EFFERVESCENT TAB PO ONE (20:45)
[2017-07-23] MEDS: ONDANSETRON HCL 4 MG/2 ML VIAL IV PUSH PRN (23:33)
[2017-07-24] MEDS: D5-1/2 NS + KCL 40 MEQ INJ 1,000 ML IV SCH ×3 (01:48→21:53)
[2017-07-24] MEDS: ENALAPRILAT 2.5 MG/2 ML VIAL IV PUSH PRN ×2 (04:38→16:58)
[2017-07-24] MEDS: HYDROmorphone HCL PF 2 MG/ML VIAL IV PUSH PRN ×2 (04:38→08:01)
[2017-07-24] MEDS: SODIUM CHLORIDE 0.9% FLUSH 10 ML FLUSH IV FLUSH PRN (04:38)
[2017-07-24] MEDS: PIPERACIL-TAZO 3.375 GM PREMIX 50 ML IV SCH ×4 (04:39→21:52)
[2017-07-24 04:40] VITALS: BP 173/79; PULSE 65; RESP 18; TEMP 98.5; O2SAT 92
[2017-07-24 07:46] VITALS: BP 130/77; PULSE 63; RESP 18; TEMP 98.8; O2SAT 91
[2017-07-24 07:54] LABS: BICARBONATE 26.9 MEQ/L (21.0-32.0); CALCIUM 8.3 MG/DL (8.5-10.1); CREATININE 0.67 MG/DL (0.60-1.30)
[2017-07-24] MEDS: PANTOPRAZOLE SODIUM 40 MG VIAL IV PUSH SCH (08:01)
[2017-07-24] MEDS: SODIUM CHLORIDE 0.9% FLUSH 10 ML FLUSH IV FLUSH SCH ×2 (08:02→21:54)
[2017-07-24] MEDS: LOSARTAN 50 MG TAB PO SCH ×2 (08:10→21:54)
[2017-07-24] MEDS: AMIODARONE 200 MG TAB PO SCH (08:10)
[2017-07-24] MEDS: DILTIAZEM-CD 120 MG CAP ER PO SCH (08:10)
--- NOTE | 2017-07-24 10:39 | HHI.PR ---
Subjective Remarks no new complaints Objective Vitals ngt heart reg lng cta abd bs ext no edema Vital Signs Date Time Temp Pulse Resp B/P (MAP) Pulse Ox O2 Delivery O2 Flow Rate FiO2 07/24/17 07:46 98.8 63 18 130/77 (94) 91 07/24/17 04:40 98.5 65 18 173/79 (110) 92 07/23/17 23:40 97.6 72 18 184/78 (113) 91 07/23/17 21:00 98.4 66 17 191/81 (117) 92 07/23/17 17:56 18 07/23/17 16:00 99.7 67 18 164/72 (102) 92 07/23/17 12:00 97.9 70 17 183/77 (112) 92 07/24/17 07/24/17 07/25/17 15:00 23:00 07:00 Intake Total 240 ml Output Total 400 ml Balance -160 ml Intake Oral 240 ml Output Urine Total 400 ml # Bowel Movements 6 Result Diagram: 07/21/17 0520 07/24/17 0537 Imaging Last Impressions Upper GI Series 07/22/17 0000 Signed Impressions: Service Date/Time: Saturday, July 22, 2017 09:31 - CONCLUSION: No passage of water-soluble contrast seen beyond the distended stomach suggesting persistent gastric outlet obstruction. Herbert Torres MD Abdomen X-Ray 07/21/17 0000 Signed Impressions: Service Date/Time: Friday, July 21, 2017 13:15 - CONCLUSION: 1. Satisfactory placement of nasogastric tube within the stomach 2. Distended stomach containing contrast. 3. Nonspecific gas pattern described above. 4. Aortic stent graft in place. Patricio Butler MD Chest X-Ray 07/19/17 0000 Signed Impressions: Service Date/Time: Wednesday, July 19, 2017 09:28 - CONCLUSION: No acute disease. Toney Pathak MD Abdomen/Pelvis CT 07/18/17 0052 Signed Impressions: Service Date/Time: June 01:52 - CONCLUSION: 1. Pneumoperitoneum. Stomach being the likely source. 2. Dilated stomach containing debris. 3. Bladder calculus measuring 3-4 mm. 4. Unchanged nonobstructing right renal calculus. 5. Status post cholecystectomy. 6. Aortic stent graft with aneurysmal sac measuring [address] Morris was notified. 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 has prn iv vasotec. Hypernatremia hypokalemia increase rate of IVF tD5 1/2 NS with 40 meq kcl DVT prophylaxis with SCDs (2) Paroxysmal atrial fibrillation ICD Codes: I48.0 - Paroxysmal atrial fibrillation Status: Chronic (3) COPD (chronic obstructive pulmonary disease) ICD Codes: J44.9 - Chronic obstructive pulmonary disease, unspecified Status: Chronic (4) Anxiety ICD Codes: F41.9 - Anxiety disorder, unspecified Status: Chronic (5) HTN (hypertension) ICD Codes: I10 - Essential (primary) hypertension Status: Chronic Boyd Nunn MD Jul 24, 2017 10:39
[2017-07-24] MEDS ORDERED: RESP: ALBUTEROL 2.5 MG/3 ML NEB (PRN) ONE (11:42)
[2017-07-24] MEDS ORDERED: LIDOCAINE HCL 1% PF 5 ML SYRINGE OTHER ONE (12:00)
[2017-07-24] MEDS ORDERED: POTASSIUM CHLOR 20 MEQ PREMIX 100 ML IV ONE (12:00)
[2017-07-24] MEDS ORDERED: ROCURONIUM INJ 50 MG/5 ML SYRINGE IV PUSH ONE (12:00)
[2017-07-24] MEDS ORDERED: PROPOFOL 200 MG/20 ML AMP IV ONE (12:00)
[2017-07-24] MEDS ORDERED: GLYCOPYRROLATE 1 MG/5 ML SYRINGE IV PUSH ONE (12:00)
[2017-07-24] MEDS ORDERED: NEOSTIGMINE 5 MG/5 ML SYRINGE IV PUSH ONE (12:00)
[2017-07-24] MEDS ORDERED: DEXAMETHASONE SOD PHOS 4 MG/ML VIAL IV ONE (12:00)
[2017-07-24] MEDS ORDERED: ONDANSETRON HCL 4 MG/2 ML VIAL IV ONE (12:00)
[2017-07-24] MEDS ORDERED: fentaNYL CITRATE 250 MCG/5 ML AMP ONE (12:26)
[2017-07-24] MEDS ORDERED: NALOXONE HCL 0.4 MG/ML AMP IV PUSH PRN (14:30)
[2017-07-24] MEDS ORDERED: DO NOT ADM ANY ANTICOAGULANT DRUGS PRN (14:42)
[2017-07-24] MEDS ORDERED: *morphine SULFATE 4 MG/ML PERIprocedure ONLY ONE (14:47)
[2017-07-24] MEDS: MORPHINE SULFATE 30 MG/30 ML PCA IV SCH ×2 (15:52→22:05)
[2017-07-24 16:52] VITALS: BP 167/74; PULSE 72; RESP 18; TEMP 98.9; O2SAT 98
[2017-07-24 20:00] VITALS: BP 162/70; PULSE 83; RESP 18; TEMP 99.2; O2SAT 91
[2017-07-24 20:30] VITALS: PULSE 75
[2017-07-24] MEDS: PCA - TOTAL MG MORPHINE DELIVERED PER SHIFT SCH (21:55)
[2017-07-25] VITALS (8 sets, daily range): BP systolic 130–165; BP diastolic 57–72; PULSE 67–88; RESP 17–22; TEMP 97.2–101.5; O2SAT 92–94
[2017-07-25] MEDS: PIPERACIL-TAZO 3.375 GM PREMIX 50 ML IV SCH ×4 (04:04→21:27)
[2017-07-25] MEDS: MORPHINE SULFATE 30 MG/30 ML PCA IV SCH ×2 (05:43→17:37)
[2017-07-25] MEDS: PCA - TOTAL MG MORPHINE DELIVERED PER SHIFT SCH ×3 (05:45→21:27)
[2017-07-25 06:32] LABS: BICARBONATE 28.2 MEQ/L (21.0-32.0); CALCIUM 8.5 MG/DL (8.5-10.1); CREATININE 0.84 MG/DL (0.60-1.30); MAGNESIUM 1.8 MG/DL (1.5-2.5)
[2017-07-25] MEDS: DEXT 5%-NACL 0.45% 1000 ML INJ 1,000 ML IV SCH ×2 (08:48→21:28)
[2017-07-25] MEDS: AMIODARONE 200 MG TAB PO SCH (08:51)
[2017-07-25] MEDS: PANTOPRAZOLE SODIUM 40 MG VIAL IV PUSH SCH (08:51)
[2017-07-25] MEDS: SODIUM CHLORIDE 0.9% FLUSH 10 ML FLUSH IV FLUSH SCH ×2 (08:51→21:00)
[2017-07-25] MEDS: DILTIAZEM-CD 120 MG CAP ER PO SCH (08:51)
[2017-07-25] MEDS: LOSARTAN 50 MG TAB PO SCH ×2 (08:51→21:27)
--- NOTE | 2017-07-25 09:08 | HHI.PR ---
Subjective Remarks Pt underwent laparoscopic Kassi-en-Y and gastrojejunostomy on 07/24/[address] Cordova. He reports that his pain is controlled on [employer] POUR He has been afebrile Pt with NGT in place and medications to be given via the NGT this morning. No flatus this morning Objective Vitals Vital Signs Date Time Temp Pulse Resp B/P (MAP) Pulse Ox O2 Delivery O2 Flow Rate FiO2 07/25/17 05:45 17 07/25/17 05:43 17 07/25/17 04:12 98.4 68 19 148/66 (93) 93 07/25/17 00:00 101.5 76 22 146/65 (92) 93 07/25/17 00:00 72 07/24/17 22:36 17 07/24/17 22:05 18 07/24/17 21:55 18 07/24/17 20:30 75 07/24/17 20:00 99.2 83 18 162/70 (100) 91 07/24/17 16:52 98.9 72 18 167/74 (105) 98 07/24/17 16:00 98.5 71 14 158/70 (99) 99 Simple Mask 4 07/24/17 15:52 12 07/24/17 15:15 71 16 146/67 (93) 92 Nasal Cannula 2 07/24/17 15:00 75 16 153/70 (97) 96 Nasal Cannula 2 07/24/17 14:45 82 16 154/70 (98) 97 Nasal Cannula 2 07/24/17 14:42 98.5 83 16 164/70 (101) 99 Simple Mask 8 Result Diagram: 07/21/17 0520 07/25/17 0514 Other Results Laboratory Tests Test 07/23/17 18:10 07/24/17 05:37 07/25/17 05:14 Potassium Level 3.2 MEQ/L 3.2 MEQ/L 5.0 MEQ/L Blood Urea Nitrogen 10 MG/DL 8 MG/DL Creatinine 0.67 MG/DL 0.84 MG/DL Random Glucose 95 MG/DL 170 MG/DL Calcium Level 8.3 MG/DL 8.5 MG/DL Sodium Level 151 MEQ/L 149 MEQ/L Chloride Level 117 MEQ/L 115 MEQ/L Carbon Dioxide Level 26.9 MEQ/L 28.2 MEQ/L Anion Gap 7 MEQ/L 6 MEQ/L Estimat Glomerular Filtration Rate 114 ML/MIN 87 ML/MIN Magnesium Level 1.8 MG/DL Imaging Last Impressions Upper GI Series 07/22/17 0000 Signed Impressions: Service Date/Time: Saturday, July 22, 2017 09:31 - CONCLUSION: No passage of water-soluble contrast seen beyond the distended stomach suggesting persistent gastric outlet obstruction. Herbert Torres MD Abdomen X-Ray 07/21/17 0000 Signed Impressions: Service Date/Time: Friday, July 21, 2017 13:15 - CONCLUSION: 1. Satisfactory placement of nasogastric tube within the stomach 2. Distended stomach containing contrast. 3. Nonspecific gas pattern described above. 4. Aortic stent graft in place. Patricio Butler MD Chest X-Ray 07/19/17 0000 Signed Impressions: Service Date/Time: Wednesday, July 19, 2017 09:28 - CONCLUSION: No acute disease. Toney Pathak MD Abdomen/Pelvis CT 07/18/17 0052 Signed Impressions: Service Date/Time: June 01:52 - CONCLUSION: 1. Pneumoperitoneum. Stomach being the likely source. 2. Dilated stomach containing debris. 3. Bladder calculus measuring 3-4 mm. 4. Unchanged nonobstructing right renal calculus. 5. Status post cholecystectomy. 6. Aortic stent graft with aneurysmal sac measuring [address] Morris was notified. 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 Cordova. - NGT in place to LIWS unless meds being given - Cont. IVF - Repeat labs in AM - Diet advancement per GS HTN Paroxysmal Atrial Fibrillation Anxiety - Patient NPO but has been taking PO Amiodarone 200 mg PO daily, Cardizem 120 mg daily, Losartan 50 mg PO bid and Ativan 1 mg PO QHS - Unclear how much is actually getting absorbed. Meds to be crushed and given via NGT - Vasotec IV PRN Hypernatremia hypokalemia - IVF changed today to D5W 1/2 NS - Repeat labs in AM DVT prophylaxis with SCDs (2) Paroxysmal atrial fibrillation ICD Codes: I48.0 - Paroxysmal atrial fibrillation Status: Chronic (3) COPD (chronic obstructive pulmonary disease) ICD Codes: J44.9 - Chronic obstructive pulmonary disease, unspecified Status: Chronic (4) Anxiety ICD Codes: F41.9 - Anxiety disorder, unspecified Status: Chronic (5) HTN (hypertension) ICD Codes: I10 - Essential (primary) hypertension Status: Chronic Assessment and Plan Patient examined. Assessment and plan formulated with Lorena Schneider PA-C. I agree with the above. post op day 1 nurse putting bp meds through ngt change ivf and remove the kcl fever overnight. f/u pending cxr. Lorena Schneider Jul 25, 2017 09:08 Boyd Nunn MD Jul 25, 2017 10:55
--- NOTE | 2017-07-25 11:22 | RADRPT ---
EXAM DATE/TIME: 07/25/2017 10:20 [facility] COMPARISON: CHEST SINGLE AP, July 19, 2017, 9:28. CHEST SINGLE AP, July 18, 2017, 1:12. GASTROGRAFIN GI SERIE S, July 22, 2017, 9:31. INDICATIONS : Fever, short of breath,weakness MEDICAL HISTORY : Chronic obstructive pulmonary disease. Cardiovascular disease. SURGICAL HISTORY : Cholecystectomy. ENCOUNTER: Subsequent ACUITY: 1 week PAIN SCORE: Non-responsive. LOCATION: Bilateral chest FINDINGS: The nasogastric tube is in satisfactory position. There is diffuse interstitial prominence which is n ew compared to previous dated 07/18/17. The diffuse nature this would suggest mild congestive failure. There minimal bilateral effusions. The visualized bony structures are grossly intact. CONCLUSION: Interval development of diffuse interstitial prominence and small bilateral effusions suggesting mild congestive failure Osmani Phillips MD on July 25, 2017 at 11:19 Board Certified Radiologist. This report was verified electronically.
[2017-07-25] MEDS ORDERED: FUROSEMIDE 20 MG/2 ML VIAL IV PUSH ONE (12:45)
--- NOTE | 2017-07-25 12:47 | HHI.PR ---
Subjective Subjective Notes Having a harder time breathing, on simple mask at 4L. Having some post-op tenderness. 100ml out of NGT Objective Vitals/I&O Vital Signs Date Time Temp Pulse Resp B/P (MAP) Pulse Ox O2 Delivery O2 Flow Rate FiO2 07/25/17 12:00 97.6 67 17 150/65 (93) 94 07/24/17 16:00 Simple Mask 4 Labs Laboratory Tests Test 07/25/17 05:14 Blood Urea Nitrogen 8 Creatinine 0.84 Random Glucose 170 Calcium Level 8.5 Magnesium Level 1.8 Sodium Level 149 Potassium Level 5.0 Chloride Level 115 Carbon Dioxide Level 28.2 Anion Gap 6 Estimat Glomerular Filtration Rate 87 Date/Time Source Procedure Growth Status 07/18/17 01:05 Blood Peripheral Aerobic Blood Culture - Final NO GROWTH IN 5 DAYS Complete 07/18/17 01:05 Blood Peripheral Anaerobic Blood Culture - Final NO GROWTH IN 5 DAYS Complete Radiology Last 24 hours Impressions Upper GI Series 07/22/17 0000 Signed Impressions: Service Date/Time: Saturday, July 22, 2017 09:31 - CONCLUSION: No passage of water-soluble contrast seen beyond the distended stomach suggesting persistent gastric outlet obstruction. Herbert Torres MD Last Impressions Chest X-Ray 07/18/1751 Signed Impressions: Service Date/Time: June 01:12 - CONCLUSION: No acute disease. Juanito Chen MD Abdomen/Pelvis CT 07/18/17 005 Signed Impressions: Service Date/Time: June 01:52 - CONCLUSION: 1. Pneumoperitoneum. Stomach being the likely source. 2. Dilated stomach containing debris. 3. Bladder calculus measuring 3-4 mm. 4. Unchanged nonobstructing right renal calculus. 5. Status post cholecystectomy. 6. Aortic stent graft with aneurysmal sac measuring [address] Morris was notified. Juanito Chen MD Upper GI Series 07/18/17 0000 Signed Impressions: Service Date/Time: June 09:53 - CONCLUSION: The stomach is diffusely distended with debris. By 30-40 minutes there is a small amount of contrast getting into the proximal small bowel. This suggests a partial gastric outlet obstruction. Demond Kingston MD Abdomen: Post-op tenderness Extremities: Perfused Wound Wound : Wound Location: Abdomen Appearance: Clean & Dry A/P Assessment and Plan 82yo M with Abdominal pain and possible gastric outlet obstruction -CXR shows interstitial prominence and small bilateral effusions. Lasix 20mg IV and Duonebs Q4h, decrease IVF -Clamp NGT, put back on suction for any N/V -Advance to clears -Continue with frequent ambulation, pt needs to be OOB The exam, history, and the medical decision-making described in the above note were completed with the assistance of the mid-level provider. I reviewed and agree with the findings presented. I attest that I had a [id number] encounter with the patient on the same day, and personally performed and documented my assessment and findings in the medical record. Discharge Planning Depending on hospital course Talib Feliciano [employer] ME[employer] Jul 25, 2017 12:47 Dayo Marsh MD Aug 07, 2017 21:33
[2017-07-25] MEDS: RESP: ALBUTEROL 2.5 MG/IPRATROPIUM 0.5 MG NEB (SCH) NEB ×2 (15:29→19:13)
[2017-07-25] MEDS: ENOXAPARIN SODIUM 30 MG/0.3 ML SYRINGE SQ SCH (16:36)
[2017-07-25 17:06] LABS: HEMATOCRIT 33.6 % (39.0-51.0); MEAN CELL VOLUME 92.3 FL (80.0-100.0); MEAN CORPUSCULAR HEMOGLOBIN 30.3 PG (27.0-34.0); MEAN CORPUSCULAR HGB CONC 32.8 % (32.0-36.0); MEAN PLATELET VOLUME 8.1 FL (7.0-11.0); PLATELET COUNT 239 TH/MM3 (150-450); RED BLOOD COUNT 3.65 MIL/MM3 (4.50-5.90); WHITE BLOOD COUNT 14.3 TH/MM3 (4.0-11.0)
[2017-07-26] VITALS (20 sets, daily range): BP systolic 104–171; BP diastolic 51–78; PULSE 75–101; RESP 18–38; TEMP 98–101.9; O2SAT 85–100
[2017-07-26] MEDS: RESP: ALBUTEROL 2.5 MG/IPRATROPIUM 0.5 MG NEB (SCH) NEB ×7 (00:07→23:55)
[2017-07-26] MEDS: LORazepam 1 MG TAB PO PRN (00:52)
[2017-07-26] MEDS: PIPERACIL-TAZO 3.375 GM PREMIX 50 ML IV SCH ×4 (03:25→22:11)
[2017-07-26] MEDS: PCA - TOTAL MG MORPHINE DELIVERED PER SHIFT SCH ×3 (03:25→22:00)
[2017-07-26] MEDS: ONDANSETRON HCL 4 MG/2 ML VIAL IV PUSH PRN (05:53)
[2017-07-26] MEDS: SODIUM CHLORIDE 0.9% FLUSH 10 ML FLUSH IV FLUSH SCH ×2 (09:00→21:00)
[2017-07-26] MEDS: DILTIAZEM-CD 120 MG CAP ER PO SCH (09:00)
[2017-07-26] MEDS ORDERED: FUROSEMIDE 40 MG/4 ML VIAL IV PUSH STA (09:01)
[2017-07-26 09:34] LABS: HEMATOCRIT 34.2 % (39.0-51.0); HEMOGLOBIN 11.4 GM/DL (13.0-17.0); MEAN CORPUSCULAR HEMOGLOBIN 30.2 PG (27.0-34.0); MEAN CORPUSCULAR HGB CONC 33.2 % (32.0-36.0); MEAN PLATELET VOLUME 8.4 FL (7.0-11.0); PLATELET COUNT 286 TH/MM3 (150-450); RED BLOOD COUNT 3.76 MIL/MM3 (4.50-5.90); RED CELL DISTRIBUTION WIDTH 15.1 % (11.6-17.2); WHITE BLOOD COUNT 13.7 TH/MM3 (4.0-11.0)
--- NOTE | 2017-07-26 09:48 | HHI.PR ---
Subjective Remarks halicat called for sob Objective Vitals mild labored breathing on nrb mask heart reg lung basilar crackles worse right senthil wheeze abd no rebound. surgical incisions noted minimal bs. ext no edema ngt. Vital Signs Date Time Temp Pulse Resp B/P (MAP) Pulse Ox O2 Delivery O2 Flow Rate FiO2 07/26/17 08:40 85 15.00 100 07/26/17 08:35 87 Simple Mask 10.00 07/26/17 05:00 97 07/26/17 04:00 98.0 91 22 141/62 (88) 88 07/26/17 03:25 20 07/26/17 00:00 99.3 86 20 171/72 (105) 92 07/26/17 00:00 85 07/25/17 21:27 18 07/25/17 20:00 72 07/25/17 19:25 98.4 71 18 143/65 (91) 93 07/25/17 19:04 Simple Mask 4.00 07/25/17 17:37 18 07/25/17 16:38 18 07/25/17 16:00 88 07/25/17 16:00 97.2 73 17 130/57 (81) 92 07/25/17 15:29 94 Simple Mask 4.00 07/25/17 12:00 82 07/25/17 12:00 97.6 67 17 150/65 (93) 94 Result Diagram: 07/26/17 0905 07/25/17 0514 Imaging Last Impressions Upper GI Series 07/22/17 0000 Signed Impressions: Service Date/Time: Saturday, July 22, 2017 09:31 - CONCLUSION: No passage of water-soluble contrast seen beyond the distended stomach suggesting persistent gastric outlet obstruction. Herbert Torres MD Abdomen X-Ray 07/21/17 0000 Signed Impressions: Service Date/Time: Friday, July 21, 2017 13:15 - CONCLUSION: 1. Satisfactory placement of nasogastric tube within the stomach 2. Distended stomach containing contrast. 3. Nonspecific gas pattern described above. 4. Aortic stent graft in place. Patricio Butler MD Chest X-Ray 07/19/17 0000 Signed Impressions: Service Date/Time: Wednesday, July 19, 2017 09:28 - CONCLUSION: No acute disease. Toney Pathak MD Abdomen/Pelvis CT 07/18/17 0052 Signed Impressions: Service Date/Time: June 01:52 - CONCLUSION: 1. Pneumoperitoneum. Stomach being the likely source. 2. Dilated stomach containing debris. 3. Bladder calculus measuring 3-4 mm. 4. Unchanged nonobstructing right renal calculus. 5. Status post cholecystectomy. 6. Aortic stent graft with aneurysmal sac measuring [address] Morris was notified. 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 concern for pulmonary edema..?aspiration. - Pt s/p Laparoscopic Kassi-en-Y and gastrojejunostomy on 07/24/[address] Lima -move pt to ICU - bipap added. cont duonebs. cont zosyn as he was already getting. hold ivf and administer iv lasix stat. stat cxr and stat labs pending. If not improvement will discuss with gasoline service attendant. (2) Paroxysmal atrial fibrillation ICD Codes: I48.0 - Paroxysmal atrial fibrillation Status: Chronic (3) COPD (chronic obstructive pulmonary disease) ICD Codes: J44.9 - Chronic obstructive pulmonary disease, unspecified Status: Chronic (4) Anxiety ICD Codes: F41.9 - Anxiety disorder, unspecified Status: Chronic (5) HTN (hypertension) ICD Codes: I10 - Essential (primary) hypertension Status: Chronic Boyd Nunn MD Jul 26, 2017 09:48
--- NOTE | 2017-07-26 10:07 | RADRPT ---
EXAM DATE/TIME: 07/26/2017 09:20 [facility] COMPARISON: CHEST SINGLE AP, July 25, 2017, 10:20. INDICATIONS : Short of breath. MEDICAL HISTORY : Cardiovascular disease. Renal calculi. Chronic obstructive pulmonary disease SURGICAL HISTORY : Cholecystectomy. ENCOUNTER: Subsequent ACUITY: 1 week PAIN SCORE: 0/10 LOCATION: Bilateral chest FINDINGS: There is a stable NGT with tip in the stomach. Progression of patchy airspace and interstitial promin ence in the right upper lobe with slightly improved aeration in the right lower lobe. Likely trace le ft pleural effusion. There is continued diffuse interstitial prominence. The cardiomediastinal contou rs are stable. Remainder of exam is unchanged. CONCLUSION: 1. Diffuse interstitial prominence consistent with positive fluid balance. 2. Progression of patchy airspace and interstitial opacities in the right upper lobe which may reflec t atypical pulmonary edema although differential considerations include developing superimposed pneum onia. 3. Improved aeration in the right lower lung zone. Mike Mijares MD on July 26, 2017 at 10:01 Board Certified Radiologist. This report was verified electronically.
[2017-07-26 10:20] LABS: CALCIUM 8.1 MG/DL (8.5-10.1); CREATININE 0.92 MG/DL (0.60-1.30)
[2017-07-26] MEDS: AMIODARONE 200 MG TAB PO SCH (11:00)
[2017-07-26] MEDS: CLOPIDOGREL 75 MG TAB PO SCH (11:00)
[2017-07-26] MEDS: LOSARTAN 50 MG TAB PO SCH ×2 (11:01→21:06)
[2017-07-26] MEDS: PANTOPRAZOLE SODIUM 40 MG VIAL IV PUSH SCH (11:01)
--- NOTE | 2017-07-26 11:04 | PD.CONS ---
[facility] Service Critical Care Medicine Consult Requested By Dr. Marsh Reason for Consult Acute hypoxemic hypercapnic respiratory failure Primary Care Physician Mita Carney MD History of Present Illness This is a 82-year-old male. Date of admission 07/18/2017. Date of consultation 07/26/2017. Past medical history includes congestive heart failure, atrial fibrillation, peripheral arterial disease status post stents, COPD, gastroesophageal reflux disease and cataracts. Patient was admitted 07/18/2017 by general surgery as patient has recently underwent laparoscopic cholecystecomy with wedge resection of the stomach on 06/27/17. He was sent to [facility] for r rehabilitation due to his deconditioned status and the fact that he lives alone. 07/17 he developed abdominal pain and vomiting and was transported to the ER. CT abdomen/pelvis show pneumoperitoneum and he was admitted for further evaluation 07/24 -Kassi-en-Y gastrojejunostomy by Dr. Marsh. Currently on Pipracil/ tazobactam for possible pneumonia on chest x-ray per hospitalist. Patient received furosemide 20 mg IV 1 yesterday. Today, patient acutely short of breath 100% nonrebreather mask was transported to ICU for further evaluation. Chest x-ray revealed pulmonary edema worse right upper lobe. Cannot rule out superimposed pneumonia. Patient is currently on BiPAP 10/500%. ABG is currently pending. Received 40 mg furosemide and 500 mg of chlorothiazide. Review of Systems Constitutional: COMPLAINS OF: Fatigue, Weight gain, DENIES: Fever, Weight loss Endocrine: DENIES: Polydipsia, Polyuria Eyes: DENIES: Blurred vision Ears, nose, mouth, throat: DENIES: Tinnitus Respiratory: COMPLAINS OF: Shortness of breath, DENIES: Cough, Sputum production Cardiovascular: DENIES: Chest pain Gastrointestinal: COMPLAINS OF: Abdominal pain, DENIES: Nausea, Vomiting Genitourinary: DENIES: Urgency Musculoskeletal: DENIES: Joint pain Integumentary: DENIES: Abnormal pigmentation Hematologic/lymphatic: DENIES: Bruising Immunologic/allergic: DENIES: Eczema Neurologic: DENIES: Abnormal gait, Headache Psychiatric: DENIES: Anxiety, Confusion Past Family Social History Allergies: Coded Allergies: digoxin (Unverified Allergy, Intermediate, hives, 05/16/17) pt stopped this medication 30 years ago Past Medical History Cataract Atrial fibrillation Peripheral arterial disease status post stent to the right external iliac and left superficial Femoral Hypertension Congestive heart failure COPD Gastroesophageal reflux disease Nephrolithiasis Diverticulosis sessile polyps History of gastric tumor T12 compression fracture history of HSV Essential tremor Past Surgical History History of AAA stent Cataract TURP History of laparoscopic cholecystectomy with wedge resection of the stomach on Kassi-en-Y with gastrojejunostomy 07/24/17 Renal lithotripsy Reported Medications Albuterol/ipratropium aerosols every 6 hours Albuterol aerosols as needed Ipratropium aerosols as needed Clopidogrel 75 mg p.o. daily Amiodarone 200 mg p.o. daily Diltiazem extended release 120 mg p.o. daily Losartan 50 mg p.o. twice daily Lansoprazole 30 mg p.o. daily Hydrocodone/acetaminophen as needed Oxycodone/acetaminophen as needed Linaclotide 145 mcg p.o. daily Active Ordered Medications Reviewed in EMR Family History Father with history of [place]. Sister with renal cell carcinoma/hypothyroidism Social History 4 beers weekly. History of heavy alkalosis. Prior tobaccoism 40 years. Denies current. No illicit drug use documented Physical Exam Vital Signs Vital Signs Date Time Temp Pulse Resp B/P (MAP) Pulse Ox O2 Delivery O2 Flow Rate FiO2 07/26/17 09:25 100 100 07/26/17 08:40 85 15.00 100 07/26/17 08:35 87 Simple Mask 10.00 07/26/17 05:00 97 07/26/17 04:00 98.0 91 22 141/62 (88) 88 07/26/17 03:25 20 07/26/17 00:00 99.3 86 20 171/72 (105) 92 07/26/17 00:00 85 07/25/17 21:27 18 07/25/17 20:00 72 07/25/17 19:25 98.4 71 18 143/65 (91) 93 07/25/17 19:04 Simple Mask 4.00 07/25/17 17:37 18 07/25/17 16:38 18 07/25/17 16:00 88 07/25/17 16:00 97.2 73 17 130/57 (81) 92 07/25/17 15:29 94 Simple Mask 4.00 07/25/17 12:00 82 07/25/17 12:00 97.6 67 17 150/65 (93) 94 Physical Exam GENERAL: 82-year-old male currently on BiPAP SKIN: Warm and dry. HEAD: Atraumatic. Normocephalic. EYES: Pupils equal and round around 2 mm bilaterally and reactive. No scleral icterus. No injection or drainage. ENT: No nasal bleeding or discharge. Mucous membranes pink and moist. NECK: Trachea midline. No JVD. CARDIOVASCULAR: IRR. S1, S2 no S4 no murmurs, clicks gallops or rubs RESPIRATORY: N coarse crackles are appreciated throughout lung rocha. No wheezing is appreciated GASTROINTESTINAL: Abdomen soft, non-tender, nondistended. 3 incisions covered with Steri-Strips are clean dry and intact MUSCULOSKELETAL: Extremities with trace bilateral lower extremity edema. No obvious deformities. NEUROLOGICAL: Awake and alert. No obvious cranial nerve deficits. Motor grossly within normal limits. Five out of 5 muscle strength in the arms and legs. Normal speech. Laboratory Laboratory Tests Test 07/25/17 16:45 07/26/17 08:50 07/26/17 09:05 07/26/17 09:10 White Blood Count 14.3 13.7 Red Blood Count 3.65 3.76 Hemoglobin 11.0 11.4 Hematocrit 33.6 34.2 Mean Corpuscular Volume 92.3 91.0 Mean Corpuscular Hemoglobin 30.3 30.2 Mean Corpuscular Hemoglobin Concent 32.8 33.2 Red Cell Distribution Width 15.0 15.1 Platelet Count 239 286 Mean Platelet Volume 8.1 8.4 Blood Gas Puncture Site RT RADIAL Blood Gas Patient Temperature 98.6 Blood Gas HCO3 26 Blood Gas Base Excess 2.6 Blood Gas Oxygen Saturation 85 Arterial Blood pH 7.47 Arterial Blood Partial Pressure CO2 37 Arterial Blood Partial Pressure O2 49 Arterial Blood Oxygen Content 13.1 Arterial Blood Carboxyhemoglobin 1.3 Arterial Blood Methemoglobin 0.8 Blood Gas Hemoglobin 10.9 Oxygen Delivery Device NRB Blood Gas Liter Flow 15 Blood Gas Inspired Oxygen 100 Blood Urea Nitrogen 11 Creatinine 0.92 Random Glucose 114 Calcium Level 8.1 Sodium Level 142 Potassium Level 3.6 Chloride Level 107 Carbon Dioxide Level 27.0 Anion Gap 8 Estimat Glomerular Filtration Rate 79 Date/Time Source Procedure Growth Status 07/18/17 01:05 Blood Peripheral Aerobic Blood Culture - Final NO GROWTH IN 5 DAYS Complete 07/18/17 01:05 Blood Peripheral Anaerobic Blood Culture - Final NO GROWTH IN 5 DAYS Complete Result Diagram: 07/26/17 0905 07/26/17 0910 Imaging Last Impressions Chest X-Ray 07/26/17 0000 Signed Impressions: Service Date/Time: Wednesday, July 26, 2017 09:20 - CONCLUSION: 1. Diffuse interstitial prominence consistent with positive fluid balance. 2. Progression of patchy airspace and interstitial opacities in the right upper lobe which may reflect atypical pulmonary edema although differential considerations include developing superimposed pneumonia. 3. Improved aeration in the right lower lung zone. Mike Mijares MD Upper GI Series 07/22/17 0000 Signed Impressions: Service Date/Time: Saturday, July 22, 2017 09:31 - CONCLUSION: No passage of water-soluble contrast seen beyond the distended stomach suggesting persistent gastric outlet obstruction. Herbert Torres MD Abdomen X-Ray 07/21/17 0000 Signed Impressions: Service Date/Time: Friday, July 21, 2017 13:15 - CONCLUSION: 1. Satisfactory placement of nasogastric tube within the stomach 2. Distended stomach containing contrast. 3. Nonspecific gas pattern described above. 4. Aortic stent graft in place. Patricio Butler MD Abdomen/Pelvis CT 07/18/17 0052 Signed Impressions: Service Date/Time: June 01:52 - CONCLUSION: 1. Pneumoperitoneum. Stomach being the likely source. 2. Dilated stomach containing debris. 3. Bladder calculus measuring 3-4 mm. 4. Unchanged nonobstructing right renal calculus. 5. Status post cholecystectomy. 6. Aortic stent graft with aneurysmal sac measuring [address] Morris was notified. Juanito Chen MD Septic Shock Reassessment Septic shock perfusion: reassessment completed Assessment and Plan Assessment and Plan Neuro/Psych: History of cataract History of EtOH Essential tremor Chronic benzodiazepine use Acetaminophen 650 mg by mouth every 6 hours as needed fever Patient is currently on a morphine DEMOLITIONIST for analgesia Thiamine, multivitamin folate daily for EtOH use. Monitor for DTs Lorazepam 1 mg at night as needed anxiety CV: Congestive heart failure unknown etiology likely chronic diastolic Atrial fibrillation Peripheral arterial disease -history of stent to right external iliac and left superior femoral Hypertension 2D echo 12/05 revealed ejection fraction 60 65%. PAP 43 mmHg Currently on diltiazem 120 mg daily, losartan 50 mg p.o. twice daily Currently amiodarone 200 mg p.o. daily Coumadin clopidogrel 75 mg p.o. daily Resp: Acute hypercapnic hypoxic respiratory failure History of COPD Chest x-ray revealed pulmonary edema likely possible superimposed pneumonia Currently on BiPAP 10/ 100% ABG pending Albuterol/ipratropium aerosols every 6 hours W aerosols every 2 hours as needed dyspnea Budesonide 0.5/2 1 puff twice daily Follow-up chest x-ray in a.m. / Received chlorothiazide 500 mg IV 1 and furosemide 40 mg normal 81. Recheck GI: Postop day #3 Kassi-en-Y/gastro jejunostomy History of GIST Hypoalbuminemia Status post small bowel surgery which revealed gastric outlet obstruction/[address] Marsh Pantoprazole 40 mg IV daily for GI prophylaxis On clear liquid diet per surgery : History of TURP Please Conrad catheter while on diuretics in the ICU Endo: Sliding scale insulin if indicated Renal: Monitor urine output Accurate I's and O's Heme: Leukocytosis Normocytic anemia Monitor CBC daily. Follow trends Continue clopidogrel 75 mg daily ID: Currently piperacillin l/tazobactam Pertinent cultures 07/18/blood cultures 2/no growth FEN Replace electrolytes as clinically indicated MSK: T12 compression fracture PT evaluate and treat Access -Utilize peripheral IV. Central line if indicated Prophylaxis -GI -pantoprazole -DVT -SCD/enoxaparin Critical Care: The total critical care time was 35 minutes. Time to perform other separately billable procedures was not included in the critical care time. Code Status Full code Discussed Condition With Patient. Dr. Marsh. Care plan discussed and all questions answered. Artur Myers MD Jul 26, 2017 11:04
[2017-07-26] MEDS ORDERED: CHLOROTHIAZIDE SOD 500 MG VIAL IV ONE (11:30)
[2017-07-26] MEDS: MORPHINE SULFATE 30 MG/30 ML PCA IV SCH (12:01)
[2017-07-26] MEDS ORDERED: THIAMINE HCL 100 MG TAB PO ONE (13:00)
[2017-07-26] MEDS: ACETAMINOPHEN 650 MG/20.3 ML UDC PO PRN (13:20)
[2017-07-26 13:30] LABS: BACTERIA, URINE RARE /hpf; BILIRUBIN, URINE NEG (NEG); BLOOD, URINE TRACE (NEG); GLUCOSE,URINE NEG (NEG); KETONE, URINE NEG (NEG); MUCUS URINE FEW /lpf (OCC); NITRITE,URINE NEG (NEG); PH, URINE 5.5 (5.0-8.5); URINE COLOR LIGHT-YELLOW (YELLW/STRAW); URINE LEUKOCYTE ESTERASE NEG (NEG)
[2017-07-26 13:44] LABS: MAGNESIUM 1.5 MG/DL (1.5-2.5); PHOSPHORUS 1.3 MG/DL (2.5-4.9)
[2017-07-26 13:47] LABS: TROPONIN I LESS THAN 0.02 NG/ML (0.02-0.05)
[2017-07-26] MEDS: ENOXAPARIN SODIUM 30 MG/0.3 ML SYRINGE SQ SCH (15:36)
--- NOTE | 2017-07-26 15:57 | EKG ---
Date Performed: 07/26/2017 Time Performed: 12:14:48 PTAGE: 82 years EKG: Sinus rhythm NONSPECIFIC T-WAVE ABNORMALITY BORDERLINE ECG PREVIOUS TRACING : 07/18/2017 01.35 No significant change from previous tracing noted. DOCTOR: Navdeep Johnson Interpretating Date/Time 07/26/2017 15:56:58
[2017-07-26] MEDS ORDERED: Vancomycin Consult Pharmacy 1 EA OTHER SCH (16:15)
--- NOTE | 2017-07-26 16:49 | ECHRPT ---
Indication: EF assessment of CHF CONCLUSIONS Normal left ventricular size. Mild to moderate concentric left ventricular hypertrophy. The left ventricular systolic function is mildly reduced with an estimated ejection fraction in the range of 45- 50%. There is diffuse global hypokinesis with distinct regional wall motion abnormalities. BP: / HR: Rhythm: Sinus MEASUREMENTS (Male / Female) Normal Values Technical Quality:Fair 2D ECHO LV Diastolic Diameter PLAX 3.5 cm 4.2 - 5.9 / 3.9 - 5.3 cm LV Systolic Diameter PLAX 2.8 cm IVS Diastolic Thickness 1.3 cm 0.6 - 1.0 / 0.6 - 0.9 cm LVPW Diastolic Thickness 1.3 cm 0.6 - 1.0 / 0.6 - 0.9 cm LV Relative Wall Thickness 0.7 RV Internal Dim ED PLAX 2.1 cm LVOT Diameter 2.3 cm Aortic Root Diameter 3.4 cm LA Systolic Diameter LX 3.1 cm 3.0 - 4.0 / 2.7 - 3.8 cm M-MODE AV Cusp Separation MM 2.1 cm FINDINGS LEFT VENTRICLE Normal left ventricular size. Mild to moderate concentric left ventricular hypertrophy. The left ventricular systolic function is mildly reduced with an estimated ejection fraction in the range of 45- 50%. There is diffuse global hypokinesis with distinct regional wall motion abnormalities. RIGHT VENTRICLE Normal right ventricular size and systolic function. LEFT ATRIUM The left atrial size is normal. RIGHT ATRIUM The right atrial size is normal. ATRIAL SEPTUM Normal atrial septal thickness without atrial level shunting by limited color doppler interrogation. AORTA The aortic root and proximal ascending aorta are normal in size on limited imaging. MITRAL VALVE Structurally normal mitral valve. No mitral valve stenosis or regurgitation. AORTIC VALVE Trileaflet aortic valve. No aortic valve stenosis or regurgitation. TRICUSPID VALVE Structurally normal tricuspid valve. No tricuspid valve stenosis or regurgitation. PULMONARY VALVE The pulmonary valve is not well visualized. VESSELS The inferior vena cava was not well visualized. PERICARDIUM No pericardial effusion. Pierre Bautista MD, FACC (Electronically Signed) Final Date:26 July 2017 16:48
[2017-07-26] MEDS: AZITHROMYCIN INJ 500 MG in SODIUM CHLOR 0.9% 250 ML INJ 250 ML IV SCH (18:00)
[2017-07-26] MEDS ORDERED: POTASSIUM CHLORIDE 20 MEQ CONTROLLED RELEASE TAB PO ONE (18:00)
[2017-07-26] MEDS ORDERED: FUROSEMIDE 40 MG/4 ML VIAL IV PUSH ONE (18:00)
[2017-07-26] MEDS: RESP: BUDESONIDE 0.5 MG/2 ML NEB NEB SCH (19:44)
[2017-07-26] MEDS ORDERED: POTASSIUM PHOSPHATE INJ 30 MMOL in SODIUM CHLOR 0.9% 250 ML INJ 250 ML IV ONE (20:00)
[2017-07-26] MEDS ORDERED: VANCOMYCIN INJ 2,000 MG in SODIUM CHLORID 0.9% 500 ML INJ 500 ML IV ONE (20:00)
[2017-07-26] MEDS ORDERED: POTASSIUM CHLORIDE 20 MEQ PWD PACKET NG ONE (20:30)
[2017-07-26] MEDS: MAGNESIUM SULFATE 1 GM PREMIX 100 ML IV SCH ×2 (21:06→23:00)
[2017-07-26] MEDS ORDERED: MAGNESIUM SULFATE 1 GM PREMIX 100 ML ONE (22:59)
[2017-07-27] VITALS (16 sets, daily range): BP systolic 126–169; BP diastolic 58–77; PULSE 69–85; RESP 16–29; TEMP 98.6–99.9; O2SAT 94–99
[2017-07-27] MEDS: RESP: ALBUTEROL 2.5 MG/IPRATROPIUM 0.5 MG NEB (SCH) NEB ×6 (03:45→23:49)
--- NOTE | 2017-07-27 04:11 | RADRPT ---
EXAM DATE/TIME: 07/27/2017 03:02 [facility] COMPARISON: CHEST SINGLE AP, July 26, 2017, 9:20. INDICATIONS : Pneumonia. MEDICAL HISTORY : Cardiovascular disease. Renal calculi. Chronic obstructive pulmonary disease SURGICAL HISTORY : Cholecystectomy. ENCOUNTER: Subsequent ACUITY: 1 week PAIN SCORE: 0/10 LOCATION: Bilateral chest FINDINGS: Single AP view of the chest. Nasogastric tube remains in place with the tip in the stomach. Bilateral pulmonary opacities, most prominent at the right upper lung zone and left mid to lower lung zone unc hanged. No evidence of pleural effusion or pneumothorax. Cardiomediastinal silhouette within normal l imits. CONCLUSION: No significant interval change. Persistent right upper lung and left mid to lower lung opacities. Bahman Rooney MD on July 27, 2017 at 4:09 Board Certified Radiologist. This report was verified electronically.
[2017-07-27] MEDS: PIPERACIL-TAZO 3.375 GM PREMIX 50 ML IV SCH ×4 (05:06→22:26)
[2017-07-27 05:10] LABS: AUTOMATED NEUTROPHIL # 12.8 TH/MM3 (1.8-7.7); BASOPHIL % 0.2 % (0.0-2.0); EOSINOPHIL % 0.2 % (0.0-4.0); HEMATOCRIT 33.3 % (39.0-51.0); HEMOGLOBIN 11.1 GM/DL (13.0-17.0); LYMPH % 5.5 % (9.0-44.0); LYMPHOCYTE # 0.8 TH/MM3 (1.0-4.8); MEAN CELL VOLUME 91.6 FL (80.0-100.0); MEAN CORPUSCULAR HEMOGLOBIN 30.4 PG (27.0-34.0); MEAN CORPUSCULAR HGB CONC 33.2 % (32.0-36.0); MEAN PLATELET VOLUME 8.5 FL (7.0-11.0); MONO % 8.4 % (0.0-8.0); MONOCYTE # 1.2 TH/MM3 (0-0.9); NEUT % 85.7 % (16.0-70.0); PLATELET COUNT 274 TH/MM3 (150-450); RED BLOOD COUNT 3.63 MIL/MM3 (4.50-5.90); RED CELL DISTRIBUTION WIDTH 15.2 % (11.6-17.2); WHITE BLOOD COUNT 14.9 TH/MM3 (4.0-11.0)
[2017-07-27 05:17] LABS: ALBUMIN 2.1 GM/DL (3.4-5.0); ALT (GPT) 29 U/L (12-78); AST (GOT) 19 U/L (15-37); BICARBONATE 31.3 MEQ/L (21.0-32.0); BLOOD UREA NITROGEN 15 MG/DL (7-18); CALCIUM 8.3 MG/DL (8.5-10.1); CHLORIDE 107 MEQ/L (98-107); CREATININE 1.15 MG/DL (0.60-1.30); GLOMERULAR FILTRATION RATE 61 ML/MIN (>89); GLUCOSE,RANDOM 87 MG/DL (74-106); PHOSPHORUS 3.1 MG/DL (2.5-4.9); SODIUM (NA) 145 MEQ/L (136-145)
[2017-07-27 05:21] LABS: ALKALINE PHOSPHATASE 86 U/L (45-117); TOTAL BILIRUBIN ADULT 0.7 MG/DL (0.2-1.0); TOTAL PROTEIN 5.9 GM/DL (6.4-8.2)
[2017-07-27] MEDS: PCA - TOTAL MG MORPHINE DELIVERED PER SHIFT SCH ×3 (06:00→22:00)
[2017-07-27] MEDS: RESP: BUDESONIDE 0.5 MG/2 ML NEB NEB SCH ×2 (07:40→19:30)
[2017-07-27] MEDS: MULTIVITAMIN TAB PO SCH (09:00)
[2017-07-27] MEDS: CLOPIDOGREL 75 MG TAB PO SCH (09:00)
[2017-07-27] MEDS: SODIUM CHLORIDE 0.9% FLUSH 10 ML FLUSH IV FLUSH SCH ×2 (09:00→19:49)
[2017-07-27] MEDS: DILTIAZEM-CD 120 MG CAP ER PO SCH (09:00)
[2017-07-27] MEDS: PANTOPRAZOLE SODIUM 40 MG VIAL IV PUSH SCH (09:00)
[2017-07-27] MEDS: AMIODARONE 200 MG TAB PO SCH (09:00)
[2017-07-27] MEDS: FOLIC ACID 1 MG TAB PO SCH (09:00)
[2017-07-27] MEDS: THIAMINE HCL 100 MG TAB PO SCH (09:00)
[2017-07-27] MEDS: LOSARTAN 50 MG TAB PO SCH ×2 (09:00→20:00)
[2017-07-27] MEDS: MORPHINE SULFATE 30 MG/30 ML PCA IV SCH ×2 (09:02→20:52)
--- NOTE | 2017-07-27 10:48 | HHI.CCPN ---
Subjective Remarks/Hospital Course This is a 82-year-old male. Date of admission 07/18/2017. Date of consultation 07/26/2017. Past medical history includes congestive heart failure, atrial fibrillation, peripheral arterial disease status post stents, COPD, gastroesophageal reflux disease and cataracts. Patient was admitted 07/18/2017 by general surgery as patient has recently underwent laparoscopic cholecystecomy with wedge resection of the stomach on 06/27/17. He was sent to extended care facility for r rehabilitation due to his deconditioned status and the fact that he lives alone. 07/17 he developed abdominal pain and vomiting and was transported to the ER. CT abdomen/pelvis show pneumoperitoneum and he was admitted for further evaluation 07/24 -Kassi-en-Y gastrojejunostomy by Dr. Marsh. Currently on Pipracil/ tazobactam for possible pneumonia on chest x-ray per hospitalist. Patient received furosemide 20 mg IV 1 yesterday. Today, patient acutely short of breath 100% nonrebreather mask was transported to ICU for further evaluation. Chest x-ray revealed pulmonary edema worse right upper lobe. Cannot rule out superimposed pneumonia. Patient is currently on BiPAP 10/500. ABG is currently pending. Received 40 mg furosemide and 500 mg of chlorothiazide. 04: On BiPAP 60% O2. CXR with suspected pneumonia - consistent with leukocytosis and fever. States he feels comfortable. Objective Vital Signs Date Time Temp Pulse Resp B/P (MAP) Pulse Ox O2 Delivery O2 Flow Rate FiO2 07/27/17 09:02 20 07/27/17 07:46 94 60 07/27/17 06:00 79 07/27/17 04:00 99.7 155/66 (95) 07/26/17 20:00 Bi-Pap 07/26/17 08:40 15.00 Intake and Output 07/27/17 07/27/17 07/28/17 08:00 16:00 00:00 Intake Total 880 ml Output Total 1680 ml Balance -800 ml Result Diagram: 07/27/17 0338 07/27/17 0338 Other Results Laboratory Tests Test 07/26/17 14:55 Blood Gas Puncture Site LT RADIAL Blood Gas Patient Temperature 98.6 Blood Gas HCO3 27 mmol/L (22-26) Blood Gas Base Excess 3.6 mmol/L (-2-2) Blood Gas Oxygen Saturation 92 % (90-100) Arterial Blood pH 7.45 (7.380-7.420) Arterial Blood Partial Pressure CO2 40 mmHg (38-42) Arterial Blood Partial Pressure O2 69 mmHg (61-120) Arterial Blood Oxygen Content 13.7 Vol % (12.0-20.0) Arterial Blood Carboxyhemoglobin 1.1 % (0-4) Arterial Blood Methemoglobin 1.0 % (0-2) Blood Gas Hemoglobin 10.5 G/DL (12.0-16.0) Oxygen Delivery Device BiPAP Blood Gas Ventilator Setting EPAP8/IPAP12 Blood Gas Inspired Oxygen 50 % Imaging Last Impressions Chest X-Ray 07/26/17 0000 Signed Impressions: Service Date/Time: Wednesday, July 26, 2017 09:20 - CONCLUSION: 1. Diffuse interstitial prominence consistent with positive fluid balance. 2. Progression of patchy airspace and interstitial opacities in the right upper lobe which may reflect atypical pulmonary edema although differential considerations include developing superimposed pneumonia. 3. Improved aeration in the right lower lung zone. Mike Mijares MD Upper GI Series 07/22/17 0000 Signed Impressions: Service Date/Time: Saturday, July 22, 2017 09:31 - CONCLUSION: No passage of water-soluble contrast seen beyond the distended stomach suggesting persistent gastric outlet obstruction. Herbert Torres MD Abdomen X-Ray 07/21/17 0000 Signed Impressions: Service Date/Time: Friday, July 21, 2017 13:15 - CONCLUSION: 1. Satisfactory placement of nasogastric tube within the stomach 2. Distended stomach containing contrast. 3. Nonspecific gas pattern described above. 4. Aortic stent graft in place. Patricio Butler MD Abdomen/Pelvis CT 07/18/17 0052 Signed Impressions: Service Date/Time: June 01:52 - CONCLUSION: 1. Pneumoperitoneum. Stomach being the likely source. 2. Dilated stomach containing debris. 3. Bladder calculus measuring 3-4 mm. 4. Unchanged nonobstructing right renal calculus. 5. Status post cholecystectomy. 6. Aortic stent graft with aneurysmal sac measuring [address] Morris was notified. Juanito Chen MD Objective Remarks GENERAL: 82-year-old male currently on BiPAP SKIN: Warm and dry. HEAD: Atraumatic. Normocephalic. EYES: Pupils equal and round 2 mm bilaterally and reactive. No scleral icterus. No injection or drainage. ENT: No nasal bleeding or discharge. Mucous membranes pink and moist. NECK: Trachea midline. Airway widely patent. CARDIOVASCULAR: IRR. S1, S2 no S4 no murmurs, clicks gallops or rubs. No JVD. RESPIRATORY: Coarse crackles are appreciated throughout lung rocha. No wheezing, acceptable air movement. GASTROINTESTINAL: Abdomen soft, non-tender, nondistended. 3 incisions covered with Steri-Strips are clean dry and intact. BS active. MUSCULOSKELETAL: Extremities with trace bilateral lower extremity edema. No obvious deformities. Warm, well-perfused NEUROLOGICAL: Awake and alert. No obvious cranial nerve deficits. Motor grossly within normal limits. Five out of 5 muscle strength in the arms and legs. Normal speech. 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 Monitor for DTs Lorazepam 1 mg at night as needed anxiety CV: Congestive heart failure unknown etiology likely chronic diastolic Atrial fibrillation Peripheral arterial disease -history of stent to right external iliac and left superior femoral Hypertension 2D echo 12/05 revealed ejection fraction 60 65%. PAP 43 mmHg Currently on diltiazem 120 mg daily, losartan 50 mg p.o. twice daily Currently amiodarone 200 mg p.o. daily Coumadin clopidogrel 75 mg p.o. daily Resp: Acute hypercapnic hypoxic respiratory failure History of COPD Chest x-ray revealed pulmonary edema likely possible superimposed pneumonia Currently on BiPAP / 100% ABG pending Albuterol/ipratropium aerosols every 6 hours W aerosols every 2 hours as needed dyspnea Budesonide 0.5/2 1 puff twice daily Follow-up chest x-ray in a.m. 4/7 Received hydro-chlorothiazide 500 mg IV 1 and furosemide 40 mg normal 81. Recheck GI: Postop day #3 Kassi-en-Y/gastro jejunostomy History of GIST Hypoalbuminemia Status post small bowel surgery which revealed gastric outlet obstruction/[address] Marsh Pantoprazole 40 mg IV daily for GI prophylaxis On clear liquid diet per surgery : History of TURP Please Conrad catheter while on diuretics in the ICU Endo: Sliding scale insulin if indicated Renal: Monitor urine output Accurate I's and O's Heme: Leukocytosis Normocytic anemia Monitor CBC daily. Follow trends Continue clopidogrel 75 mg daily ID: Currently piperacillin l/tazobactam Pertinent cultures 07/18/blood cultures 2/no growth FEN Replace electrolytes as clinically indicated MSK: T12 compression fracture PT evaluate and treat Access -Utilize peripheral IV. Central line if indicated Prophylaxis -GI -pantoprazole -DVT -SCD/enoxaparin Overall impression: This gentleman remains critically ill with hypoxia and respiratory failure. The radiographic picture is concerning and his oxygenation is markedly impaired. This appears to be a superimposed pneumonia causing most of his problems. Critical care time 39 minutes Leroy Aguilar MD Jul 27, 2017 10:48
--- NOTE | 2017-07-27 10:50 | HHI.PR ---
Subjective Subjective Notes Continuing to require BIPAP. He is awake and alert. C/o pain in left side of abdomen at one of the incision sites. Using [employer] some. Objective Vitals/I&O Vital Signs Date Time Temp Pulse Resp B/P (MAP) Pulse Ox O2 Delivery O2 Flow Rate FiO2 07/27/17 09:02 20 07/27/17 07:46 94 60 07/27/17 06:00 79 07/27/17 04:00 99.7 155/66 (95) 07/26/17 20:00 Bi-Pap 07/26/17 08:40 15.00 Labs Laboratory Tests Test 07/26/17 12:30 07/26/17 14:55 07/27/17 03:38 Urine Color LIGHT-YELLOW Urine Turbidity CLEAR Urine pH 5.5 Urine Specific [place] 1.010 Urine Protein NEG Urine Glucose (UA) NEG Urine Ketones NEG Urine Occult Blood TRACE Urine Nitrite NEG Urine Bilirubin NEG Urine Urobilinogen LESS THAN 2.0 Urine Leukocyte Esterase NEG Urine RBC 3 Urine WBC 1 Urine Bacteria RARE Urine Mucus FEW Microscopic Urinalysis Comment CATH-CULTURE IND Blood Gas Puncture Site LT RADIAL Blood Gas Patient Temperature 98.6 Blood Gas HCO3 27 Blood Gas Base Excess 3.6 Blood Gas Oxygen Saturation 92 Arterial Blood pH 7.45 Arterial Blood Partial Pressure CO2 40 Arterial Blood Partial Pressure O2 69 Arterial Blood Oxygen Content 13.7 Arterial Blood Carboxyhemoglobin 1.1 Arterial Blood Methemoglobin 1.0 Blood Gas Hemoglobin 10.5 Oxygen Delivery Device BiPAP Blood Gas Ventilator Setting EPAP8/IPAP12 Blood Gas Inspired Oxygen 50 White Blood Count 14.9 Red Blood Count 3.63 Hemoglobin 11.1 Hematocrit 33.3 Mean Corpuscular Volume 91.6 Mean Corpuscular Hemoglobin 30.4 Mean Corpuscular Hemoglobin Concent 33.2 Red Cell Distribution Width 15.2 Platelet Count 274 Mean Platelet Volume 8.5 Neutrophils (%) (Auto) 85.7 Lymphocytes (%) (Auto) 5.5 Monocytes (%) (Auto) 8.4 Eosinophils (%) (Auto) 0.2 Basophils (%) (Auto) 0.2 Neutrophils # (Auto) 12.8 Lymphocytes # (Auto) 0.8 Monocytes # (Auto) 1.2 Eosinophils # (Auto) 0.0 Basophils # (Auto) 0.0 CBC Comment DIFF FINAL Differential Comment Blood Urea Nitrogen 15 Creatinine 1.15 Random Glucose 87 Total Protein 5.9 Albumin 2.1 Calcium Level 8.3 Phosphorus Level 3.1 Magnesium Level 2.0 Alkaline Phosphatase 86 Aspartate Amino Transf (AST/SGOT) 19 Alanine Aminotransferase (ALT/SGPT) 29 Total Bilirubin 0.7 Sodium Level 145 Potassium Level 3.9 Chloride Level 107 Carbon Dioxide Level 31.3 Anion Gap 7 Estimat Glomerular Filtration Rate 61 Date/Time Source Procedure Growth Status 07/26/17 14:18 Blood Peripheral Aerobic Blood Culture Pending Received 07/26/17 14:18 Blood Peripheral Anaerobic Blood Culture Pending Received 07/26/17 12:30 Urine Clean Catch Urine Culture Pending Received Radiology Last 24 hours Impressions Upper [facility] Series 07/22/17 0000 Signed Impressions: Service Date/Time: Saturday, July 22, 2017 09:31 - CONCLUSION: No passage of water-soluble contrast seen beyond the distended stomach suggesting persistent gastric outlet obstruction. Herbert Torres MD Last Impressions Chest X-Ray 07/18/1751 Signed Impressions: Service Date/Time: June 01:12 - CONCLUSION: No acute disease. Juanito Chen MD Abdomen/Pelvis CT 07/18/1751 Signed Impressions: Service Date/Time: June 01:52 - CONCLUSION: 1. Pneumoperitoneum. Stomach being the likely source. 2. Dilated stomach containing debris. 3. Bladder calculus measuring 3-4 mm. 4. Unchanged nonobstructing right renal calculus. 5. Status post cholecystectomy. 6. Aortic stent graft with aneurysmal sac measuring [address] oMrris was notified. Juanito Chen MD Upper GI Series 07/18/17 0000 Signed Impressions: Service Date/Time: June 09:53 - CONCLUSION: The stomach is diffusely distended with debris. By 30-40 minutes there is a small amount of contrast getting into the proximal small bowel. This suggests a partial gastric outlet obstruction. Demond Kingston MD Narrative Exam Alert and oriented. BIPAP Abd: NGT to LIS. Abd mild distention, mild post op ttp, inc c/d/i A/P Assessment and Plan s/p lap gastrojejunostomy bypass, respiratory distress. Requiring BIPAP. Appreciate critical care. Cont NGT to LIS. Plavix. May need to consider TPN in next couple of days. Sujit Bill MD Jul 27, 2017 10:50
[2017-07-27] MEDS: ENOXAPARIN SODIUM 30 MG/0.3 ML SYRINGE SQ SCH (15:00)
[2017-07-27] MEDS: VANCOMYCIN INJ 1,250 MG in SODIUM CHLOR 0.9% 250 ML INJ 250 ML IV SCH (16:00)
[2017-07-27] MEDS: AZITHROMYCIN INJ 500 MG in SODIUM CHLOR 0.9% 250 ML INJ 250 ML IV SCH (18:00)
[2017-07-28] VITALS (16 sets, daily range): BP systolic 136–171; BP diastolic 63–73; PULSE 63–113; RESP 22–26; TEMP 98.2–100.4; O2SAT 93–100
[2017-07-28] MEDS: RESP: ALBUTEROL 2.5 MG/IPRATROPIUM 0.5 MG NEB (SCH) NEB ×5 (02:59→20:00)
[2017-07-28] MEDS: PIPERACIL-TAZO 3.375 GM PREMIX 50 ML IV SCH ×4 (04:49→21:09)
[2017-07-28 05:41] LABS: AUTOMATED NEUTROPHIL # 11.2 TH/MM3 (1.8-7.7); BASOPHIL % 0.3 % (0.0-2.0); EOSINOPHIL # 0.2 TH/MM3 (0-0.4); EOSINOPHIL % 1.6 % (0.0-4.0); HEMATOCRIT 33.8 % (39.0-51.0); LYMPH % 6.5 % (9.0-44.0); LYMPHOCYTE # 0.9 TH/MM3 (1.0-4.8); MEAN CELL VOLUME 92.1 FL (80.0-100.0); MEAN CORPUSCULAR HGB CONC 32.6 % (32.0-36.0); MEAN PLATELET VOLUME 8.7 FL (7.0-11.0); MONO % 8.4 % (0.0-8.0); MONOCYTE # 1.1 TH/MM3 (0-0.9); NEUT % 83.2 % (16.0-70.0); PLATELET COUNT 293 TH/MM3 (150-450); RED BLOOD COUNT 3.67 MIL/MM3 (4.50-5.90); RED CELL DISTRIBUTION WIDTH 15.6 % (11.6-17.2); WHITE BLOOD COUNT 13.5 TH/MM3 (4.0-11.0)
[2017-07-28] MEDS: PCA - TOTAL MG MORPHINE DELIVERED PER SHIFT SCH ×3 (06:00→22:00)
[2017-07-28 06:13] LABS: BICARBONATE 31.2 MEQ/L (21.0-32.0); CALCIUM 8.9 MG/DL (8.5-10.1); CREATININE 1.06 MG/DL (0.60-1.30)
[2017-07-28] MEDS: ONDANSETRON HCL 4 MG/2 ML VIAL IV PUSH PRN (06:42)
[2017-07-28] MEDS: RESP: BUDESONIDE 0.5 MG/2 ML NEB NEB SCH ×2 (07:28→20:00)
[2017-07-28] MEDS: PANTOPRAZOLE SODIUM 40 MG VIAL IV PUSH SCH (09:00)
[2017-07-28] MEDS: CLOPIDOGREL 75 MG TAB PO SCH (09:00)
[2017-07-28] MEDS: FOLIC ACID 1 MG TAB PO SCH (09:00)
[2017-07-28] MEDS: MULTIVITAMIN TAB PO SCH (09:00)
[2017-07-28] MEDS: AMIODARONE 200 MG TAB PO SCH (09:00)
[2017-07-28] MEDS: THIAMINE HCL 100 MG TAB PO SCH (09:00)
[2017-07-28] MEDS: LOSARTAN 50 MG TAB PO SCH ×2 (09:00→21:08)
[2017-07-28] MEDS: SODIUM CHLORIDE 0.9% FLUSH 10 ML FLUSH IV FLUSH SCH ×2 (09:00→21:00)
[2017-07-28] MEDS: DILTIAZEM-CD 120 MG CAP ER PO SCH (09:18)
--- NOTE | 2017-07-28 09:45 | HHI.CCPN ---
Subjective Remarks/Hospital Course This is a 82-year-old male. Date of admission 07/18/2017. Date of consultation 07/26/2017. Past medical history includes congestive heart failure, atrial fibrillation, peripheral arterial disease status post stents, COPD, gastroesophageal reflux disease and cataracts. Patient was admitted 07/18/2017 by general surgery as patient has recently underwent laparoscopic cholecystecomy with wedge resection of the stomach on 06/27/17. He was sent to extended care facility for r rehabilitation due to his deconditioned status and the fact that he lives alone. 07/17 he developed abdominal pain and vomiting and was transported to the ER. CT abdomen/pelvis show pneumoperitoneum and he was admitted for further evaluation 07/24 -Kassi-en-Y gastrojejunostomy by Dr. Marsh. Currently on Pipracil/ tazobactam for possible pneumonia on chest x-ray per hospitalist. Patient received furosemide 20 mg IV 1 yesterday. Today, patient acutely short of breath 100% nonrebreather mask was transported to ICU for further evaluation. Chest x-ray revealed pulmonary edema worse right upper lobe. Cannot rule out superimposed pneumonia. Patient is currently on BiPAP 10/500. ABG is currently pending. Received 40 mg furosemide and 500 mg of chlorothiazide. 07/27: On BiPAP 60% O2. CXR with suspected pneumonia - consistent with leukocytosis and fever. States he feels comfortable. 07/28: Off BiPAP and on NRBM. Breathing with acceptable comfort. Abdomen less distended. Comfortable. Objective Vital Signs Date Time Temp Pulse Resp B/P (MAP) Pulse Ox O2 Delivery O2 Flow Rate FiO2 07/28/17 08:00 99.0 79 23 136/63 (87) 99 07/28/17 07:37 Non-Rebreather 15.00 100 Intake and Output 07/28/17 07/28/17 07/29/17 08:00 16:00 00:00 Output Total 525 ml Balance -525 ml Result Diagram: 07/28/17 04207/28/17 042 Imaging Last Impressions Chest X-Ray 07/26/17 0000 Signed Impressions: Service Date/Time: Wednesday, July 26, 2017 09:20 - CONCLUSION: 1. Diffuse interstitial prominence consistent with positive fluid balance. 2. Progression of patchy airspace and interstitial opacities in the right upper lobe which may reflect atypical pulmonary edema although differential considerations include developing superimposed pneumonia. 3. Improved aeration in the right lower lung zone. Mike Mijares MD Upper GI Series 07/22/17 0000 Signed Impressions: Service Date/Time: Saturday, July 22, 2017 09:31 - CONCLUSION: No passage of water-soluble contrast seen beyond the distended stomach suggesting persistent gastric outlet obstruction. Herbert Torres MD Abdomen X-Ray 07/21/17 0000 Signed Impressions: Service Date/Time: Friday, July 21, 2017 13:15 - CONCLUSION: 1. Satisfactory placement of nasogastric tube within the stomach 2. Distended stomach containing contrast. 3. Nonspecific gas pattern described above. 4. Aortic stent graft in place. Patricio Butler MD Abdomen/Pelvis CT 07/18/17 0052 Signed Impressions: Service Date/Time: June 01:52 - CONCLUSION: 1. Pneumoperitoneum. Stomach being the likely source. 2. Dilated stomach containing debris. 3. Bladder calculus measuring 3-4 mm. 4. Unchanged nonobstructing right renal calculus. 5. Status post cholecystectomy. 6. Aortic stent graft with aneurysmal sac measuring [address] Morris was notified. Juanito Chen MD Objective Remarks GENERAL: 82-year-old male currently on NRBM. SKIN: Warm and dry. HEAD: Atraumatic. Normocephalic. EYES: Pupils equal and round 2 mm bilaterally and reactive. No scleral icterus. No injection or drainage. ENT: No nasal bleeding or discharge. Mucous membranes pink and moist. NECK: Trachea midline. Airway widely patent. CARDIOVASCULAR: IRR. S1, S2 no S4 no murmurs, clicks gallops or rubs. No JVD. RESPIRATORY: Clear sounds appreciated throughout lung rocha. No wheezing, acceptable air movement. GASTROINTESTINAL: Abdomen soft, non-tender, nondistended. 3 incisions covered with Steri-Strips are clean dry and intact. BS active. MUSCULOSKELETAL: Extremities with trace bilateral lower extremity edema. No obvious deformities. Warm, well-perfused NEUROLOGICAL: Awake and alert. No obvious cranial nerve deficits. Motor grossly within normal limits. Five out of 5 muscle strength in the arms and legs. Normal speech. 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 Monitor for DTs Lorazepam 1 mg at night as needed anxiety CV: Congestive heart failure unknown etiology likely chronic diastolic Atrial fibrillation Peripheral arterial disease -history of stent to right external iliac and left superior femoral Hypertension 2D echo 12/05 revealed ejection fraction 60 65%. PAP 43 mmHg Currently on diltiazem 120 mg daily, losartan 50 mg p.o. twice daily Currently amiodarone 200 mg p.o. daily Coumadin clopidogrel 75 mg p.o. daily Resp: Acute hypercapnic hypoxic respiratory failure History of COPD Chest x-ray revealed pulmonary edema likely possible superimposed pneumonia Currently on BiPAP 01/24 100% ABG pending Albuterol/ipratropium aerosols every 6 hours W aerosols every 2 hours as needed dyspnea Budesonide 0.5/2 1 puff twice daily Follow-up chest x-ray in a.m. 07/27 Received hydro-chlorothiazide 500 mg IV 1 and furosemide 40 mg normal 81. Recheck GI: Postop day #3 Kassi-en-Y/gastro jejunostomy History of GIST Hypoalbuminemia Status post small bowel surgery which revealed gastric outlet obstruction/[address] Marsh Pantoprazole 40 mg IV daily for GI prophylaxis On clear liquid diet per surgery : History of TURP Please Conrad catheter while on diuretics in the ICU Endo: Sliding scale insulin if indicated Renal: Monitor urine output Accurate I's and O's Heme: Leukocytosis Normocytic anemia Monitor CBC daily. Follow trends Continue clopidogrel 75 mg daily ID: Currently piperacillin l/tazobactam Pertinent cultures 07/18/blood cultures 2/no growth FEN Replace electrolytes as clinically indicated MSK: T12 compression fracture PT evaluate and treat Access -Utilize peripheral IV. Central line if indicated Prophylaxis -GI -pantoprazole -DVT -SCD/enoxaparin Overall impression: Improving hypoxia and respiratory failure. Possibly test clamp NG - defer to surgeons. Leroy Aguilar MD Jul 28, 2017 09:45
[2017-07-28] MEDS: LORazepam 1 MG TAB PO PRN (10:00)
[2017-07-28] MEDS: VANCOMYCIN INJ 1,250 MG in SODIUM CHLOR 0.9% 250 ML INJ 250 ML IV SCH (10:00)
[2017-07-28] MEDS: ENOXAPARIN SODIUM 30 MG/0.3 ML SYRINGE SQ SCH (15:00)
--- NOTE | 2017-07-28 17:43 | HHI.PR ---
Subjective Subjective Notes He is requesting jello. Has been stable on nonrebreather since this am. Objective Vitals/I&O Vital Signs Date Time Temp Pulse Resp B/P (MAP) Pulse Ox O2 Delivery O2 Flow Rate FiO2 07/28/17 16:00 100.4 98 22 156/68 (97) 95 07/28/17 07:37 Non-Rebreather 15.00 100 Labs Laboratory Tests Test 07/28/17 04:20 White Blood Count 13.5 Red Blood Count 3.67 Hemoglobin 11.0 Hematocrit 33.8 Mean Corpuscular Volume 92.1 Mean Corpuscular Hemoglobin 30.0 Mean Corpuscular Hemoglobin Concent 32.6 Red Cell Distribution Width 15.6 Platelet Count 293 Mean Platelet Volume 8.7 Neutrophils (%) (Auto) 83.2 Lymphocytes (%) (Auto) 6.5 Monocytes (%) (Auto) 8.4 Eosinophils (%) (Auto) 1.6 Basophils (%) (Auto) 0.3 Neutrophils # (Auto) 11.2 Lymphocytes # (Auto) 0.9 Monocytes # (Auto) 1.1 Eosinophils # (Auto) 0.2 Basophils # (Auto) 0.0 CBC Comment DIFF FINAL Differential Comment Blood Urea Nitrogen 20 Creatinine 1.06 Random Glucose 75 Calcium Level 8.9 Sodium Level 147 Potassium Level 3.7 Chloride Level 108 Carbon Dioxide Level 31.2 Anion Gap 8 Estimat Glomerular Filtration Rate 67 Date/Time Source Procedure Growth Status 07/26/17 14:18 Blood Peripheral Aerobic Blood Culture - Preliminary NO GROWTH IN 2 DAYS Resulted 07/26/17 14:18 Blood Peripheral Anaerobic Blood Culture - Preliminary NO GROWTH IN 2 DAYS Resulted 07/26/17 12:30 Urine Clean Catch Urine Culture - Final NO GROWTH IN 48 HOURS. Complete Radiology Last 24 hours Impressions [facility] 07/22/17 0000 Signed Impressions: Service Date/Time: Saturday, July 22, 2017 09:31 - CONCLUSION: No passage of water-soluble contrast seen beyond the distended stomach suggesting persistent gastric outlet obstruction. Herbert Torres MD Last Impressions Chest X-Ray 07/18/17 0052 Signed Impressions: Service Date/Time: June 01:12 - CONCLUSION: No acute disease. Juanito Chen MD Abdomen/Pelvis CT 07/18/17 005 Signed Impressions: Service Date/Time: June 01:52 - CONCLUSION: 1. Pneumoperitoneum. Stomach being the likely source. 2. Dilated stomach containing debris. 3. Bladder calculus measuring 3-4 mm. 4. Unchanged nonobstructing right renal calculus. 5. Status post cholecystectomy. 6. Aortic stent graft with aneurysmal sac measuring [address] Morris was notified. Juanito Chen MD Upper GI Series 07/18/17 0000 Signed Impressions: Service Date/Time: June 09:53 - CONCLUSION: The stomach is diffusely distended with debris. By 30-40 minutes there is a small amount of contrast getting into the proximal small bowel. This suggests a partial gastric outlet obstruction. Demond Kingston MD Narrative Exam Alert and oriented. Nonrebreather Abd: NGT to LIS with bilious output 200cc since this am. Abd mild distention, mild post op ttp, inc c/d/i A/P Assessment and Plan s/p lap gastrojejunostomy bypass, respiratory distress. Now on nonrebreather. Appreciate critical care. Cont NGT to LIS, ok for ice chips and sips of water. Start reglan. Plavix. Sujit Bill MD Jul 28, 2017 17:43
[2017-07-28] MEDS: AZITHROMYCIN INJ 500 MG in SODIUM CHLOR 0.9% 250 ML INJ 250 ML IV SCH (18:00)
[2017-07-28] MEDS: MORPHINE SULFATE 30 MG/30 ML PCA IV SCH (19:47)
[2017-07-28] MEDS: METOCLOPRAMIDE HCL 10 MG/2 ML VIAL IV PUSH SCH (21:09)
[2017-07-29] VITALS (16 sets, daily range): BP systolic 136–179; BP diastolic 56–77; PULSE 73–93; RESP 24–28; TEMP 99.3–101.1; O2SAT 91–99
[2017-07-29] MEDS ORDERED: PHARMACY ORDERED LAB ONE (03:45)
[2017-07-29] MEDS: RESP: ALBUTEROL 2.5 MG/IPRATROPIUM 0.5 MG NEB (SCH) NEB ×5 (03:58→15:20)
[2017-07-29] MEDS: VANCOMYCIN INJ 1,250 MG in SODIUM CHLOR 0.9% 250 ML INJ 250 ML IV SCH ×2 (04:00→21:41)
[2017-07-29] MEDS: PIPERACIL-TAZO 3.375 GM PREMIX 50 ML IV SCH ×4 (04:53→21:41)
[2017-07-29] MEDS: METOCLOPRAMIDE HCL 10 MG/2 ML VIAL IV PUSH SCH ×3 (05:25→21:41)
[2017-07-29] MEDS: PCA - TOTAL MG MORPHINE DELIVERED PER SHIFT SCH ×3 (06:00→22:00)
[2017-07-29 07:32] LABS: BICARBONATE 30.2 MEQ/L (21.0-32.0); CALCIUM 8.1 MG/DL (8.5-10.1); CREATININE 0.81 MG/DL (0.60-1.30)
[2017-07-29] MEDS: RESP: BUDESONIDE 0.5 MG/2 ML NEB NEB SCH ×2 (08:05→19:19)
[2017-07-29] MEDS: MULTIVITAMIN TAB PO SCH (09:00)
[2017-07-29] MEDS ORDERED: ICU - POTASSIUM PHOSPHATE 30 MMOL/NS 250 ML IV PRN ×2 (10:00)
[2017-07-29] MEDS ORDERED: POTASSIUM CHLORIDE 25 MEQ EFFERVESCENT TAB PO PRN (10:00)
[2017-07-29] MEDS ORDERED: ICU - POTASSIUM PHOSPHATE MONOBASIC 500 MG TAB PO PRN (10:00)
[2017-07-29] MEDS ORDERED: ICU - MAGNESIUM SULFATE 2 GM/NS 100 ML IV PRN ×2 (10:00)
[2017-07-29] MEDS ORDERED: ICU - MAGNESIUM SULFATE 4 GM/NS 100 ML IV PRN ×2 (10:00)
[2017-07-29] MEDS ORDERED: ICU - POTASSIUM CHLORIDE/AQUEOUS SOLN 40 MEQ/100 ML IVPB IV PRN (10:00)
[2017-07-29] MEDS ORDERED: ICU - D/C ICU ELECTROLYTE ORDERS PRN (10:00)
[2017-07-29] MEDS ORDERED: ICU - MAGNESIUM OXIDE 400 MG TAB PO PRN (10:00)
[2017-07-29] MEDS ORDERED: ICU - SODIUM PHOSPHATE 30 MMOL/NS 250 ML IV PRN ×2 (10:00)
[2017-07-29] MEDS ORDERED: ICU - CALL ORDERING PHYSICIAN PRN (10:00)
[2017-07-29] MEDS: PANTOPRAZOLE SODIUM 40 MG VIAL IV PUSH SCH (10:39)
[2017-07-29] MEDS: SODIUM CHLORIDE 0.9% FLUSH 10 ML FLUSH IV FLUSH SCH ×2 (10:39→21:00)
[2017-07-29] MEDS: FOLIC ACID 1 MG TAB PO SCH (10:40)
[2017-07-29] MEDS: AMIODARONE 200 MG TAB PO SCH (10:40)
[2017-07-29] MEDS: CLOPIDOGREL 75 MG TAB PO SCH (10:40)
[2017-07-29] MEDS: LOSARTAN 50 MG TAB PO SCH ×2 (10:40→21:00)
[2017-07-29] MEDS: THIAMINE HCL 100 MG TAB PO SCH (10:40)
[2017-07-29] MEDS: DILTIAZEM-CD 120 MG CAP ER PO SCH (10:40)
[2017-07-29] MEDS: ICU - POTASSIUM CHLORIDE/AQUEOUS SOLN 20 MEQ/100 ML IVPB IV PRN ×2 (10:40→15:09)
--- NOTE | 2017-07-29 10:58 | HHI.PR ---
Subjective Subjective Notes Failed bedside swallow eval, on honey-thick liquids. Still has some mild tenderness to epigastrium. Reports he feels he is breathing better despite O2 Sats 88-92% on NRB. Pt refuses Bipap Objective Vitals/I&O Vital Signs Date Time Temp Pulse Resp B/P (MAP) Pulse Ox O2 Delivery O2 Flow Rate FiO2 07/29/17 08:05 92 Non-Rebreather 15.00 07/29/17 06:00 22 07/29/17 06:00 78 07/29/17 04:00 99.3 179/77 (111) 07/29/17 03:59 60 Labs Laboratory Tests Test 07/29/17 05:20 07/29/17 06:04 Vancomycin Level Trough 12.3 Blood Urea Nitrogen 19 Creatinine 0.81 Random Glucose 95 Calcium Level 8.1 Sodium Level 150 Potassium Level 3.1 Chloride Level 113 Carbon Dioxide Level 30.2 Anion Gap 7 Estimat Glomerular Filtration Rate 91 Date/Time Source Procedure Growth Status 07/26/17 14:18 Blood Peripheral Aerobic Blood Culture - Preliminary NO GROWTH IN 2 DAYS Resulted 07/26/17 14:18 Blood Peripheral Anaerobic Blood Culture - Preliminary NO GROWTH IN 2 DAYS Resulted 07/26/17 12:30 Urine Clean Catch Urine Culture - Final NO GROWTH IN 48 HOURS. Complete Radiology Last Impressions Chest X-Ray 07/27/17 0600 Signed Impressions: Service Date/Time: Thursday, July 27, 2017 03:02 - CONCLUSION: No significant interval change. Persistent right upper lung and left mid to lower lung opacities. Bahman Rooney MD Upper GI Series 07/22/17 0000 Signed Impressions: Service Date/Time: Saturday, July 22, 2017 09:31 - CONCLUSION: No passage of water-soluble contrast seen beyond the distended stomach suggesting persistent gastric outlet obstruction. Herbert Torres MD Abdomen X-Ray 07/21/17 0000 Signed Impressions: Service Date/Time: Friday, July 21, 2017 13:15 - CONCLUSION: 1. Satisfactory placement of nasogastric tube within the stomach 2. Distended stomach containing contrast. 3. Nonspecific gas pattern described above. 4. Aortic stent graft in place. Patricio Butler MD Abdomen/Pelvis CT 07/18/17 0052 Signed Impressions: Service Date/Time: June 01:52 - CONCLUSION: 1. Pneumoperitoneum. Stomach being the likely source. 2. Dilated stomach containing debris. 3. Bladder calculus measuring 3-4 mm. 4. Unchanged nonobstructing right renal calculus. 5. Status post cholecystectomy. 6. Aortic stent graft with aneurysmal sac measuring [address] Morris was notified. Juanito Chen MD Cardiovascular: Irregular Lungs: Rhonchi Abdomen: Post-op tenderness Extremities: Perfused Wound Wound : Wound Location: Abdomen Appearance: Clean & Dry A/P Assessment and Plan 82yo M s/p gastrojejunostomy bypass -Clamp NGT, may start clear liquids if passes swallow eval and residual is < 100ml over 4 hours -Placed on ICU electrolyte replacement protocol -PT for eval and treat,pt needs to be OOB and ambulate halls with assist. -CBC, CMP, PO4, Mg and CXR in AM -Appreciate input from Medicine The exam, history, and the medical decision-making described in the above note were completed with the assistance of the mid-level provider. I reviewed and agree with the findings presented. I attest that I had a [id number] encounter with the patient on the same day, and personally performed and documented my assessment and findings in the medical record. Discharge Planning Depending on hospital course Talib Feliciano [facility] Jul 29, 2017 10:58 Dayo Marsh MD Aug 07, 2017 21:38
[2017-07-29] MEDS: ENOXAPARIN SODIUM 30 MG/0.3 ML SYRINGE SQ SCH (15:23)
[2017-07-29] MEDS: MORPHINE SULFATE 30 MG/30 ML PCA IV SCH (15:39)
--- NOTE | 2017-07-29 15:50 | HHI.CCPN ---
Subjective Remarks/Hospital Course This is a 82-year-old male. Date of admission 07/18/2017. Date of consultation 07/26/2017. Past medical history includes congestive heart failure, atrial fibrillation, peripheral arterial disease status post stents, COPD, gastroesophageal reflux disease and cataracts. Patient was admitted 07/18/2017 by general surgery as patient has recently underwent laparoscopic cholecystecomy with wedge resection of the stomach on 06/27/17. He was sent to extended care facility for r rehabilitation due to his deconditioned status and the fact that he lives alone. 07/17 he developed abdominal pain and vomiting and was transported to the ER. CT abdomen/pelvis show pneumoperitoneum and he was admitted for further evaluation 07/24 -Kassi-en-Y gastrojejunostomy by Dr. Marsh. Currently on Pipracil/ tazobactam for possible pneumonia on chest x-ray per hospitalist. Patient received furosemide 20 mg IV 1 yesterday. Today, patient acutely short of breath 100% nonrebreather mask was transported to ICU for further evaluation. Chest x-ray revealed pulmonary edema worse right upper lobe. Cannot rule out superimposed pneumonia. Patient is currently on BiPAP 10/500. ABG is currently pending. Received 40 mg furosemide and 500 mg of chlorothiazide. 07/27: On BiPAP 60% O2. CXR with suspected pneumonia - consistent with leukocytosis and fever. States he feels comfortable. 07/28: Off BiPAP and on NRBM. Breathing with acceptable comfort. Abdomen less distended. Comfortable. 07/29: Breathing with acceptable comfort but O2 requirements remain elevated. Bowel activity returning, swallow evaluation discouraging. Well hydrated. Objective Vital Signs Date Time Temp Pulse Resp B/P (MAP) Pulse Ox O2 Delivery O2 Flow Rate FiO2 07/29/17 15:39 29 07/29/17 08:05 92 Non-Rebreather 15.00 07/29/17 08:00 100.0 83 174/74 (107) 07/29/17 03:59 60 Intake and Output 07/29/17 07/29/17 07/30/17 08:00 16:00 00:00 Intake Total 312 ml Output Total 575 ml Balance -263 ml Result Diagram: 07/28/17 0420 07/29/17 0604 Imaging Last Impressions Chest X-Ray 07/26/17 0000 Signed Impressions: Service Date/Time: Wednesday, July 26, 2017 09:20 - CONCLUSION: 1. Diffuse interstitial prominence consistent with positive fluid balance. 2. Progression of patchy airspace and interstitial opacities in the right upper lobe which may reflect atypical pulmonary edema although differential considerations include developing superimposed pneumonia. 3. Improved aeration in the right lower lung zone. Mike Mijares MD Upper GI Series 07/22/17 0000 Signed Impressions: Service Date/Time: Saturday, July 22, 2017 09:31 - CONCLUSION: No passage of water-soluble contrast seen beyond the distended stomach suggesting persistent gastric outlet obstruction. Herbert Torres MD Abdomen X-Ray 07/21/17 0000 Signed Impressions: Service Date/Time: Friday, July 21, 2017 13:15 - CONCLUSION: 1. Satisfactory placement of nasogastric tube within the stomach 2. Distended stomach containing contrast. 3. Nonspecific gas pattern described above. 4. Aortic stent graft in place. Patricio Butler MD Abdomen/Pelvis CT 07/18/17 0052 Signed Impressions: Service Date/Time: June 01:52 - CONCLUSION: 1. Pneumoperitoneum. Stomach being the likely source. 2. Dilated stomach containing debris. 3. Bladder calculus measuring 3-4 mm. 4. Unchanged nonobstructing right renal calculus. 5. Status post cholecystectomy. 6. Aortic stent graft with aneurysmal sac measuring [address] Morris was notified. Juanito Chen MD Objective Remarks GENERAL: 82-year-old male currently on NRBM. SKIN: Warm and dry. HEAD: Atraumatic. Normocephalic. EYES: Pupils equal and round 2 mm bilaterally and reactive. No scleral icterus. No injection or drainage. ENT: No nasal bleeding or discharge. Mucous membranes pink and moist. NECK: Trachea midline. Airway widely patent. No obstructive noises. CARDIOVASCULAR: IRR. S1, S2 no S4 no murmurs, clicks gallops or rubs. No JVD. RESPIRATORY: Clear sounds appreciated throughout lung rocha. No wheezing, acceptable air movement. Mildly labored. GASTROINTESTINAL: Abdomen soft, non-tender, nondistended. BS active. No peritoneal irritation. MUSCULOSKELETAL: Extremities with trace bilateral lower extremity edema. No obvious deformities. Warm, well-perfused NEUROLOGICAL: Awake and alert. No obvious cranial nerve deficits. Motor grossly within normal limits. Five out of 5 muscle strength in the arms and legs. Normal speech. 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 Monitor for DTs Lorazepam 1 mg at night as needed anxiety CV: Congestive heart failure unknown etiology likely chronic diastolic Atrial fibrillation Peripheral arterial disease -history of stent to right external iliac and left superior femoral Hypertension 2D echo 12/05 revealed ejection fraction 60 65%. PAP 43 mmHg Currently on diltiazem 120 mg daily, losartan 50 mg p.o. twice daily Currently amiodarone 200 mg p.o. daily Coumadin clopidogrel 75 mg p.o. daily Resp: Acute hypercapnic hypoxic respiratory failure History of COPD Chest x-ray revealed pulmonary edema likely possible superimposed pneumonia Currently on BiPAP 01/24 100% ABG pending Albuterol/ipratropium aerosols every 6 hours W aerosols every 2 hours as needed dyspnea Budesonide 0.5/2 1 puff twice daily Follow-up chest x-ray in a.m. 4/7 Received hydro-chlorothiazide 500 mg IV 1 and furosemide 40 mg normal 81. Recheck GI: Postop day #5 Kassi-en-Y/gastro jejunostomy History of GIST Hypoalbuminemia Status post small bowel surgery which revealed gastric outlet obstruction/[address] Marsh Pantoprazole 40 mg IV daily for GI prophylaxis On clear liquid diet per surgery : History of TURP Please Conrad catheter while on diuretics in the ICU Endo: Sliding scale insulin if indicated Renal: Monitor urine output Accurate I's and O's Heme: Leukocytosis Normocytic anemia Monitor CBC daily. Follow trends Continue clopidogrel 75 mg daily ID: Currently piperacillin l/tazobactam Pertinent cultures 07/18/blood cultures 2/no growth FEN Replace electrolytes as clinically indicated MSK: T12 compression fracture PT evaluate and treat Access -Utilize peripheral IV. Central line if indicated Prophylaxis -GI -pantoprazole -DVT -SCD/enoxaparin Overall impression: Improving hypoxia and resolving respiratory failure. Possibly test clamp NG - defer to surgeons. Increase activity OOB. Leroy Aguilar MD Jul 29, 2017 15:50
[2017-07-29] MEDS ORDERED: POTASSIUM CHLOR 20 MEQ PREMIX 100 ML IV ONE (16:15)
[2017-07-29] MEDS ORDERED: FUROSEMIDE 40 MG/4 ML VIAL IV PUSH ONE (16:15)
[2017-07-29] MEDS: AZITHROMYCIN INJ 500 MG in SODIUM CHLOR 0.9% 250 ML INJ 250 ML IV SCH (17:15)
[2017-07-29] MEDS: RESP: ALBUTEROL 2.5 MG/3 ML NEB (PRN) NEB (19:19)
[2017-07-30] VITALS (19 sets, daily range): BP systolic 85–179; BP diastolic 45–76; PULSE 76–106; RESP 22–37; TEMP 99–100.8; O2SAT 89–100
[2017-07-30] MEDS: PIPERACIL-TAZO 3.375 GM PREMIX 50 ML IV SCH ×3 (04:00→16:49)
[2017-07-30 04:52] LABS: HEMATOCRIT 30.5 % (39.0-51.0); HEMOGLOBIN 10.2 GM/DL (13.0-17.0); MEAN CELL VOLUME 92.2 FL (80.0-100.0); MEAN CORPUSCULAR HEMOGLOBIN 30.8 PG (27.0-34.0); MEAN CORPUSCULAR HGB CONC 33.4 % (32.0-36.0); MEAN PLATELET VOLUME 8.6 FL (7.0-11.0); PLATELET COUNT 297 TH/MM3 (150-450); RED BLOOD COUNT 3.31 MIL/MM3 (4.50-5.90); WHITE BLOOD COUNT 15.5 TH/MM3 (4.0-11.0)
[2017-07-30 05:19] LABS: BICARBONATE 28.4 MEQ/L (21.0-32.0); CALCIUM 8.2 MG/DL (8.5-10.1); CREATININE 0.88 MG/DL (0.60-1.30); MAGNESIUM 1.8 MG/DL (1.5-2.5)
[2017-07-30 05:22] LABS: PHOSPHORUS 3.4 MG/DL (2.5-4.9)
[2017-07-30] MEDS: METOCLOPRAMIDE HCL 10 MG/2 ML VIAL IV PUSH SCH ×3 (05:32→22:22)
--- NOTE | 2017-07-30 05:51 | RADRPT ---
EXAM DATE/TIME: 07/30/2017 04:45 [facility] COMPARISON: CHEST SINGLE AP, July 27, 2017, 3:02. INDICATIONS : Short of breath. MEDICAL HISTORY : Cardiovascular disease. Renal calculi. Chronic obstructive pulmonary dis ease. SURGICAL HISTORY : Cholecystectomy. ENCOUNTER: Subsequent ACUITY: 1 week PAIN SCORE: Non-responsive. LOCATION: Bilateral chest FINDINGS: A single view of the chest demonstrates bilateral interstitial and alveolar densities. Nasogastric tu be unchanged.. Osseous structures are intact. CONCLUSION: Interstitial and alveolar opacities, slightly more prominent. Juanito Chen MD on July 30, 2017 at 5:49 Board Certified Radiologist. This report was verified electronically.
[2017-07-30] MEDS: PCA - TOTAL MG MORPHINE DELIVERED PER SHIFT SCH ×3 (06:00→22:00)
[2017-07-30] MEDS: MORPHINE SULFATE 30 MG/30 ML PCA IV SCH (06:03)
[2017-07-30] MEDS: RESP: BUDESONIDE 0.5 MG/2 ML NEB NEB SCH ×2 (07:48→19:55)
[2017-07-30] MEDS: MULTIVITAMIN TAB PO SCH ×2 (11:13→11:14)
[2017-07-30] MEDS: SODIUM CHLORIDE 0.9% FLUSH 10 ML FLUSH IV FLUSH SCH ×2 (11:13→20:55)
[2017-07-30] MEDS: FOLIC ACID 1 MG TAB PO SCH ×2 (11:13→11:14)
[2017-07-30] MEDS: AMIODARONE 200 MG TAB PO SCH (11:14)
[2017-07-30] MEDS: DILTIAZEM-CD 120 MG CAP ER PO SCH (11:14)
[2017-07-30] MEDS: LOSARTAN 50 MG TAB PO SCH ×2 (11:14→20:55)
[2017-07-30] MEDS: PANTOPRAZOLE SODIUM 40 MG VIAL IV PUSH SCH (11:14)
[2017-07-30] MEDS: THIAMINE HCL 100 MG TAB PO SCH (11:15)
[2017-07-30] MEDS: CLOPIDOGREL 75 MG TAB PO SCH (11:15)
[2017-07-30] MEDS: ICU - POTASSIUM CHLORIDE/AQUEOUS SOLN 20 MEQ/100 ML IVPB IV PRN ×3 (12:16→22:45)
--- NOTE | 2017-07-30 12:59 | HHI.PR ---
Subjective Subjective Notes Resting comfortable, but still requiring substantial amount of O2. Back on Bipap @ 70% Appears weak. Not tolerating PO intake well. Denies GI complaints Objective Vitals/I&O Vital Signs Date Time Temp Pulse Resp B/P (MAP) Pulse Ox O2 Delivery O2 Flow Rate FiO2 07/30/17 09:50 95 80 07/30/17 07:50 Non-Rebreather 15.00 07/30/17 06:08 24 07/30/17 06:00 80 07/30/17 04:00 99.7 169/73 (105) Labs Laboratory Tests Test 07/30/17 04:00 White Blood Count 15.5 Red Blood Count 3.31 Hemoglobin 10.2 Hematocrit 30.5 Mean Corpuscular Volume 92.2 Mean Corpuscular Hemoglobin 30.8 Mean Corpuscular Hemoglobin Concent 33.4 Red Cell Distribution Width 15.0 Platelet Count 297 Mean Platelet Volume 8.6 Blood Urea Nitrogen 17 Creatinine 0.88 Random Glucose 110 Calcium Level 8.2 Phosphorus Level 3.4 Magnesium Level 1.8 Sodium Level 153 Potassium Level 3.3 Chloride Level 115 Carbon Dioxide Level 28.4 Anion Gap 10 Estimat Glomerular Filtration Rate 83 Date/Time Source Procedure Growth Status 07/26/17 14:18 Blood Peripheral Aerobic Blood Culture - Preliminary NO GROWTH IN 4 DAYS Resulted 07/26/17 14:18 Blood Peripheral Anaerobic Blood Culture - Preliminary NO GROWTH IN 4 DAYS Resulted 07/26/17 12:30 Urine Clean Catch Urine Culture - Final NO GROWTH IN 48 HOURS. Complete Radiology Last Impressions Chest X-Ray 07/30/17 0400 Signed Impressions: Service Date/Time: Sunday, July 30, 2017 04:45 - CONCLUSION: Interstitial and alveolar opacities, slightly more prominent. Juanito Chen MD Abdomen X-Ray 07/30/17 0000 Signed Impressions: Service Date/Time: Sunday, July 30, 2017 15:56 - CONCLUSION: 1. Nasogastric tube has its tip in the stomach. 2. No evidence of bowel obstruction, ileus or perforation. 3. Bibasilar pulmonary infiltrates noted. 4. Degenerative changes and scoliosis of the lumbar spine. Darren Verma MD Upper GI Series 07/22/17 0000 Signed Impressions: Service Date/Time: Saturday, July 22, 2017 09:31 - CONCLUSION: No passage of water-soluble contrast seen beyond the distended stomach suggesting persistent gastric outlet obstruction. Herbert Torres MD Abdomen/Pelvis CT 07/18/17 005 Signed Impressions: Service Date/Time: June 01:52 - CONCLUSION: 1. Pneumoperitoneum. Stomach being the likely source. 2. Dilated stomach containing debris. 3. Bladder calculus measuring 3-4 mm. 4. Unchanged nonobstructing right renal calculus. 5. Status post cholecystectomy. 6. Aortic stent graft with aneurysmal sac measuring [address] Morris was notified. Juanito Chen MD Last Impressions Chest X-Ray 07/27/17 0600 Signed Impressions: Service Date/Time: Thursday, July 27, 2017 03:02 - CONCLUSION: No significant interval change. Persistent right upper lung and left mid to lower lung opacities. Bahman Rooney MD Upper GI Series 07/22/17 0000 Signed Impressions: Service Date/Time: Saturday, July 22, 2017 09:31 - CONCLUSION: No passage of water-soluble contrast seen beyond the distended stomach suggesting persistent gastric outlet obstruction. Herbert Torres MD Abdomen X-Ray 07/21/17 0000 Signed Impressions: Service Date/Time: Friday, July 21, 2017 13:15 - CONCLUSION: 1. Satisfactory placement of nasogastric tube within the stomach 2. Distended stomach containing contrast. 3. Nonspecific gas pattern described above. 4. Aortic stent graft in place. Patricio Butler MD Abdomen/Pelvis CT 07/18/1751 Signed Impressions: Service Date/Time: June 01:52 - CONCLUSION: 1. Pneumoperitoneum. Stomach being the likely source. 2. Dilated stomach containing debris. 3. Bladder calculus measuring 3-4 mm. 4. Unchanged nonobstructing right renal calculus. 5. Status post cholecystectomy. 6. Aortic stent graft with aneurysmal sac measuring [address] Morris was notified. Juanito Chen MD Cardiovascular: Regular Lungs: Rhonchi Abdomen: Other (distended) Extremities: SCD's on Wound Wound : Wound Location: Abdomen Appearance: Clean & Dry A/P Assessment and Plan 82yo M s/p gastrojejunostomy bypass -Continue to follow with speech therapy recommendations for diet advancement -Placed on ICU electrolyte replacement protocol, continue with replacements -Discussed case with Dr. Herrera and Dr. Marsh, after much discussion with patient at bedside it was agreed that his best bet would be intubation at this point. This was explained to the patient at length and he is agreeable. The exam, history, and the medical decision-making described in the above note were completed with the assistance of the mid-level provider. I reviewed and agree with the findings presented. I attest that I had a [id number] encounter with the patient on the same day, and personally performed and documented my assessment and findings in the medical record. Discharge Planning Depending on hospital course Talib Feliciano Jul 30, 2017 12:59 Dayo Marsh MD Aug 07, 2017 21:38
[2017-07-30] MEDS ORDERED: PHARMACY ORDERED LAB ONE (15:45)
--- NOTE | 2017-07-30 16:40 | RADRPT ---
EXAM DATE/TIME: 07/30/2017 15:50 [facility] COMPARISON: CHEST SINGLE AP, July 27, 2017, 3:02. CHEST SINGLE AP, July 30, 2017, 4:45. INDICATIONS : Shortness of breath. MEDICAL HISTORY : Chronic obstructive pulmonary disease. Cardiovascular disease. Renal calculi. SURGICAL HISTORY : Cholecystectomy. ENCOUNTER: Subsequent ACUITY: 1 week PAIN SCORE: 0/10 LOCATION: Bilateral cranial FINDINGS: Portable AP views of the chest demonstrate a normal-sized cardiac silhouette. Nasogastric tube distal tip is in the stomach. Multiple EKG lines overlie the patient. There are coarse interstitial opaciti es in the mid and lower lung zones bilaterally, stable from the study performed earlier today but sli ghtly increased from the study from 3 days ago. No pleural effusion or pneumothorax is identified. Th e bones and soft tissues demonstrate no abnormality. CONCLUSION: Abnormal interstitial opacities in the mid and lower lung zones bilaterally, stable from the study fr om earlier today but increased from the study from 3 days ago. Javier Tyler MD on July 30, 2017 at 16:36 Board Certified Radiologist. This report was verified electronically.
--- NOTE | 2017-07-30 16:41 | RADRPT ---
EXAM DATE/TIME: 07/30/2017 15:56 [facility] COMPARISON: ABDOMEN KUB ONLY, July 21, 2017, 13:15. INDICATIONS : NG tube placement. MEDICAL HISTORY : Chronic obstructive pulmonary disease. Cardiovascular disease. Renal calculi. SURGICAL HISTORY : Cholecystectomy. ENCOUNTER: Subsequent ACUITY: 1 week PAIN SCORE: 0/10 LOCATION: Abdomen. FINDINGS: The nasogastric tube has its tip in the stomach. No bowel obstruction is noted. Aortic stent graft is noted. No free intraperitoneal air is noted. Degenerative changes and scoliosis of the lumbar spine are noted. Pulmonary infiltrates are noted within the visualized lung bases. CONCLUSION: 1. Nasogastric tube has its tip in the stomach. 2. No evidence of bowel obstruction, ileus or perforation. 3. Bibasilar pulmonary infiltrates noted. 4. Degenerative changes and scoliosis of the lumbar spine. Darren Verma MD on July 30, 2017 at 16:34 Board Certified Radiologist. This report was verified electronically.
[2017-07-30] MEDS ORDERED: ROCURONIUM INJ 50 MG/5 ML VIAL IV ONE (16:45)
[2017-07-30] MEDS ORDERED: ETOMIDATE 20 MG/10 ML VIAL IV PUSH ONE (16:45)
[2017-07-30] MEDS ORDERED: MIDAZOLAM HCL 5 MG/ML VIAL (1 ML) IV ONE (16:45)
[2017-07-30] MEDS ORDERED: FUROSEMIDE 40 MG/4 ML VIAL IV PUSH ONE (16:45)
--- NOTE | 2017-07-30 16:45 | HHI.CCPN ---
Subjective Remarks/Hospital Course This is a 82-year-old male. Date of admission 07/18/2017. Date of consultation 07/26/2017. Past medical history includes congestive heart failure, atrial fibrillation, peripheral arterial disease status post stents, COPD, gastroesophageal reflux disease and cataracts. Patient was admitted 07/18/2017 by general surgery as patient has recently underwent laparoscopic cholecystecomy with wedge resection of the stomach on 06/27/17. He was sent to extended care facility for r rehabilitation due to his deconditioned status and the fact that he lives alone. 07/17 he developed abdominal pain and vomiting and was transported to the ER. CT abdomen/pelvis show pneumoperitoneum and he was admitted for further evaluation 07/24 -Kassi-en-Y gastrojejunostomy by Dr. Marsh. Currently on Pipracil/ tazobactam for possible pneumonia on chest x-ray per hospitalist. Patient received furosemide 20 mg IV 1 yesterday. Today, patient acutely short of breath 100% nonrebreather mask was transported to ICU for further evaluation. Chest x-ray revealed pulmonary edema worse right upper lobe. Cannot rule out superimposed pneumonia. Patient is currently on BiPAP 10/500. ABG is currently pending. Received 40 mg furosemide and 500 mg of chlorothiazide. 07/27: On BiPAP 60% O2. CXR with suspected pneumonia - consistent with leukocytosis and fever. States he feels comfortable. 07/28: Off BiPAP and on NRBM. Breathing with acceptable comfort. Abdomen less distended. Comfortable. 07/29: Breathing with acceptable comfort but O2 requirements remain elevated. Bowel activity returning, swallow evaluation discouraging. Well hydrated. 07/30: Patient remains increasingly hypoxemic. Currently saturating barely 90% on FiO2 70% on BiPAP. Tachypneic, increasing respiratory distress despite 40 mg IV Lasix. Patient clearly states that he wants everything done to be kept alive including intubation and CPR. But when he cannot make decision he wants his ex- Anna Marie to make the decisions. Discussed with Dr. Lima Objective Vital Signs Date Time Temp Pulse Resp B/P (MAP) Pulse Ox O2 Delivery O2 Flow Rate FiO2 07/30/17 09:50 95 80 07/30/17 07:50 Non-Rebreather 15.00 07/30/17 06:08 24 07/30/17 06:00 80 07/30/17 04:00 99.7 169/73 (105) Intake and Output 07/30/17 07/30/17 07/31/17 08:00 16:00 00:00 Intake Total 260 ml Output Total 1975 ml Balance -1715 ml Result Diagram: 07/30/17 0400 07/30/17 0400 Other Results Laboratory Tests Test 07/30/17 16:35 Blood Gas Puncture Site LT RADIAL Blood Gas Patient Temperature 98.6 Blood Gas HCO3 30 mmol/L (22-26) Blood Gas Base Excess 5.9 mmol/L (-2-2) Blood Gas Oxygen Saturation 89 % (90-100) Arterial Blood pH 7.47 (7.380-7.420) Arterial Blood Partial Pressure CO2 41 mmHg (38-42) Arterial Blood Partial Pressure O2 59 mmHg (61-120) Arterial Blood Oxygen Content 13.2 Vol % (12.0-20.0) Arterial Blood Carboxyhemoglobin 1.0 % (0-4) Arterial Blood Methemoglobin 0.9 % (0-2) Blood Gas Hemoglobin 10.5 G/DL (12.0-16.0) Oxygen Delivery Device BIPAP Blood Gas Ventilator Setting 03/29/70 Blood Gas Inspired Oxygen 70 % Imaging Last Impressions Chest X-Ray 07/26/17 0000 Signed Impressions: Service Date/Time: Wednesday, July 26, 2017 09:20 - CONCLUSION: 1. Diffuse interstitial prominence consistent with positive fluid balance. 2. Progression of patchy airspace and interstitial opacities in the right upper lobe which may reflect atypical pulmonary edema although differential considerations include developing superimposed pneumonia. 3. Improved aeration in the right lower lung zone. Mike Mijares MD Upper GI Series 07/22/17 0000 Signed Impressions: Service Date/Time: Saturday, July 22, 2017 09:31 - CONCLUSION: No passage of water-soluble contrast seen beyond the distended stomach suggesting persistent gastric outlet obstruction. Herbert Torres MD Abdomen X-Ray 07/21/17 0000 Signed Impressions: Service Date/Time: Friday, July 21, 2017 13:15 - CONCLUSION: 1. Satisfactory placement of nasogastric tube within the stomach 2. Distended stomach containing contrast. 3. Nonspecific gas pattern described above. 4. Aortic stent graft in place. Patricio Butler MD Abdomen/Pelvis CT 07/18/17 0052 Signed Impressions: Service Date/Time: June 01:52 - CONCLUSION: 1. Pneumoperitoneum. Stomach being the likely source. 2. Dilated stomach containing debris. 3. Bladder calculus measuring 3-4 mm. 4. Unchanged nonobstructing right renal calculus. 5. Status post cholecystectomy. 6. Aortic stent graft with aneurysmal sac measuring [address] Morirs was notified. Juanito Chen MD Objective Remarks GENERAL: 82-year-old male currently on BiPAP 12/5 FiO2 70%. Tachypneic in moderate distress SKIN: Warm and dry. HEAD: Atraumatic. Normocephalic. EYES: Pupils equal and round 2 mm bilaterally and reactive. No scleral icterus. No injection or drainage. ENT: No nasal bleeding or discharge. BiPAP mask limits exam NECK: Trachea midline. Airway widely patent. No obstructive noises. CARDIOVASCULAR: IRR. S1, S2 no S4 no murmurs, clicks gallops or rubs. Tachycardic RESPIRATORY: Markedly diminished air entry bilaterally with few crackles scattered. No wheezing. On BIPAP 12/5, 70% FiO2 intermittent desaturation. Tachypneic GASTROINTESTINAL: Abdomen soft, non-tender, nondistended. BS active. No peritoneal irritation. MUSCULOSKELETAL: Extremities with trace bilateral lower extremity edema. No obvious deformities. Warm NEUROLOGICAL: Awake and alert. No obvious cranial nerve deficits. Motor grossly within normal limits. Five out of 5 muscle strength in the arms and legs. Normal speech. 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 Monitor for DTs Hold Lorazepam 1 mg at night as needed anxiety CV: Congestive heart failure likely chronic diastolic Atrial fibrillation Peripheral arterial disease -history of stent to right external iliac and left superior femoral Hypertension 2D Echo 07/26/17: Mild to moderate concentric left ventricular hypertrophy. EF 45- 50%. There is diffuse global hypokinesis with distinct regional wall motion abnormalities. Currently on diltiazem 120 mg daily, losartan 50 mg p.o. twice daily Currently amiodarone 200 mg p.o. daily Coumadin clopidogrel 75 mg p.o. daily IV Lasix 40 mg 1 given Continue diuresis based on clinical course, check BNP Resp: Acute hypercapnic hypoxic respiratory failure COPD, with exacerbation Healthcare associated pneumonia Chest x-ray revealed pulmonary edema likely possible superimposed pneumonia Profoundly hypoxic and tachypneic on BiPAP. Intubated and placed on mechanical ventilation Albuterol/ipratropium aerosols every 4 hours W aerosols every 2 hours as needed dyspnea Budesonide 0.5/2 1 puff twice daily IV Solu-Medrol 125 mg 1 and 60 every 12 Increase Zosyn to antipseudomonal dose, continue azithromycin CT chest to better evaluate infiltrates GI: Postop from Kassi-en-Y/gastro jejunostomy History of GIST Hypoalbuminemia Status post small bowel surgery which revealed gastric outlet obstruction Followed by Dr. Lima Pantoprazole 40 mg IV daily for GI prophylaxis Start trickle tube feeds, if not tolerated start TPN : History of TURP Conrad catheter while on diuretics in the ICU Endo: Sliding scale insulin if indicated Renal: Monitor urine output Accurate I's and O's 1/3 NS to correct hyper NA Heme: Leukocytosis Normocytic anemia Monitor CBC daily. Follow trends Continue clopidogrel 75 mg daily ID: Healthcare associated pneumonia Leukocytosis/sepsis Currently piperacillin l/tazobactam, increase dose to 4.5 g every 6 hours Continue azithromycin Panculture Single dose of vancomycin 1 gm IV Pertinent cultures: 07/18/blood cultures 2/no growth FEN Replace electrolytes as clinically indicated MSK: T12 compression fracture PT evaluate and treat, as appropriate Access -Utilize peripheral IV. Central line if indicated Prophylaxis -GI -pantoprazole -DVT -SCD/enoxaparin Overall impression: Worsening hypoxia probable sepsis, healthcare associated pneumonia. Not improving on BiPAP with high settings and FiO2 70%, profoundly hypoxemic. Intubated and placed on mechanical ventilation antibiotics broadened , added steroids very diminished air entry may be indicative of COPD exacerbation CCT 45 MIN excluding procedures Erickson Herrera MD Jul 30, 2017 16:45
[2017-07-30] MEDS: ENOXAPARIN SODIUM 30 MG/0.3 ML SYRINGE SQ SCH (16:48)
[2017-07-30] MEDS ORDERED: methylPREDNISolone SOD SUCC 125 MG/2 ML VIAL IV PUSH ONE (17:15)
[2017-07-30] MEDS ORDERED: VANCOMYCIN INJ 1,000 MG in SODIUM CHLOR 0.9% 250 ML INJ 250 ML IV ONE (17:15)
--- NOTE | 2017-07-30 17:43 | PD.PROCEDR ---
Procedure Note Procedure Indication-acute hypoxemic respiratory failure INTUBATION: The patient was put in optimal position for the procedure. Rapid sequence intubation was initiated by me using 20 milligrams of etomidate IV and 5 milligrams of Rocuronium IV. Neuromuscular paralysis with 50 mg IV rocuronium. DL MAC 4 Grade 1 view, single attempt. The patient was intubated with a 8 cuffed endotracheal tube. Tube placement was confirmed by visualization of the tube and balloon passing through the cords, capnometry and subsequent chest x-ray. Breath sounds were equal and well aerated bilaterally postintubation. No breath sounds over stomach. Patient tolerated procedure well. Erickson Herrera MD Jul 30, 2017 17:43
--- NOTE | 2017-07-30 18:05 | RADRPT ---
EXAM DATE/TIME: 07/30/2017 17:39 [facility] COMPARISON: CHEST SINGLE AP, July 30, 2017, 15:50. INDICATIONS : Post intubation. MEDICAL HISTORY : Chronic obstructive pulmonary disease. Cardiovascular disease. Renal calculi. SURGICAL HISTORY : Cholecystectomy. ENCOUNTER: Subsequent ACUITY: 1 week PAIN SCORE: Non-responsive. LOCATION: Bilateral chest FINDINGS: The endotracheal tube has its tip 3 cm above the hazel. A nasogastric has tip below diaphragm. Diffu se pulmonary infiltrates are stable. CONCLUSION: 1. Stable diffuse pulmonary infiltrates. 2. Endotracheal tube in good position 3 cm above the hazel. Darren Verma MD on July 30, 2017 at 17:58 Board Certified Radiologist. This report was verified electronically.
[2017-07-30] MEDS: RESP: ALBUTEROL 2.5 MG/3 ML NEB (PRN) NEB (18:13)
[2017-07-30] MEDS: PROPOFOL 1000 MG/100 ML INJ 100 ML IV PRN (18:37)
[2017-07-30] MEDS: fentaNYL DRIP 250 ML IV PRN (18:38)
[2017-07-30] MEDS: AZITHROMYCIN INJ 500 MG in SODIUM CHLOR 0.9% 250 ML INJ 250 ML IV SCH (18:49)
[2017-07-30] MEDS: SODIUM CHLORIDE 23.4% INJ 51.3 MEQ in WATER STERILE FOR INJ 1,000 ML IV SCH (18:58)
[2017-07-30] MEDS: RESP: ALBUTEROL 2.5 MG/IPRATROPIUM 0.5 MG NEB (SCH) NEB ×2 (19:55→23:29)
[2017-07-30] MEDS: CHLORHEXIDINE 0.12% (ORAL KIT) 15 ML CUP MT SCH (20:00)
[2017-07-30] MEDS: VANCOMYCIN INJ 1,250 MG in SODIUM CHLOR 0.9% 250 ML INJ 250 ML IV SCH (20:08)
[2017-07-30] MEDS ORDERED: TERBUTALINE INJ 1 MG/ML AMP SQ PRN (20:45)
[2017-07-30] MEDS ORDERED: DOPamine 800 MG/D5W PREMIX 500 ML IV PRN (20:45)
[2017-07-30] MEDS ORDERED: methylPREDNISolone SOD SUCC 125 MG/2 ML VIAL IV PUSH SCH (21:00)
[2017-07-30 22:19] LABS: AMORPHOUS SEDIMENT, URINE RARE; BACTERIA, URINE OCC /hpf; BILIRUBIN, URINE NEG (NEG); BLOOD, URINE TRACE (NEG); GLUCOSE,URINE NEG (NEG); HYALINE CAST, URINE 18 /lpf (RARE); KETONE, URINE NEG (NEG); MUCUS URINE FEW /lpf (OCC); NITRITE,URINE NEG (NEG); PH, URINE 6.5 (5.0-8.5); SQUAMOUS EPITHELIAL CELL URINE 1 /hpf (0-5); URINE COLOR YELLOW (YELLW/STRAW); URINE LEUKOCYTE ESTERASE SMALL (NEG)
[2017-07-30] MEDS: PIPERACIL-TAZO 4.5 GM PREMIX 100 ML IV SCH (22:22)
[2017-07-31] VITALS (20 sets, daily range): BP systolic 94–117; BP diastolic 47–56; PULSE 56–82; RESP 20–26; TEMP 96.6–99.3; O2SAT 93–100
[2017-07-31] MEDS: ICU - POTASSIUM CHLORIDE/AQUEOUS SOLN 20 MEQ/100 ML IVPB IV PRN (00:45)
[2017-07-31] MEDS: RESP: ALBUTEROL 2.5 MG/IPRATROPIUM 0.5 MG NEB (SCH) NEB ×6 (03:23→23:22)
[2017-07-31] MEDS: SODIUM CHLORIDE 23.4% INJ 51.3 MEQ in WATER STERILE FOR INJ 1,000 ML IV SCH ×2 (05:04→14:49)
[2017-07-31] MEDS: PIPERACIL-TAZO 4.5 GM PREMIX 100 ML IV SCH ×4 (05:04→23:16)
[2017-07-31] MEDS: PCA - TOTAL MG MORPHINE DELIVERED PER SHIFT SCH ×3 (05:04→21:32)
[2017-07-31] MEDS: METOCLOPRAMIDE HCL 10 MG/2 ML VIAL IV PUSH SCH ×3 (05:05→21:34)
[2017-07-31 05:28] LABS: AUTOMATED NEUTROPHIL # 14.5 TH/MM3 (1.8-7.7); BASOPHIL % 0.3 % (0.0-2.0); HEMATOCRIT 29.5 % (39.0-51.0); HEMOGLOBIN 9.7 GM/DL (13.0-17.0); LYMPHOCYTE # 0.3 TH/MM3 (1.0-4.8); MEAN CORPUSCULAR HEMOGLOBIN 30.3 PG (27.0-34.0); MEAN PLATELET VOLUME 8.8 FL (7.0-11.0); MONO % 2.9 % (0.0-8.0); MONOCYTE # 0.4 TH/MM3 (0-0.9); NEUT % 94.8 % (16.0-70.0); PLATELET COUNT 285 TH/MM3 (150-450); RED CELL DISTRIBUTION WIDTH 15.3 % (11.6-17.2); WHITE BLOOD COUNT 15.3 TH/MM3 (4.0-11.0)
--- NOTE | 2017-07-31 05:34 | RADRPT ---
EXAM DATE/TIME: 07/31/2017 04:48 [facility] COMPARISON: CHEST SINGLE AP, July 30, 2017, 17:39. INDICATIONS : Shortness of breath. MEDICAL HISTORY : Renal calculi. Chronic obstructive pulmonary disease. Cardiovascular disease SURGICAL HISTORY : Cholecystectomy. ENCOUNTER: Subsequent ACUITY: 2 weeks PAIN SCORE: Non-responsive. LOCATION: Bilateral chest FINDINGS: A single view of the chest demonstrates interstitial and alveolar densities slightly improved. Endotr acheal tube and nasogastric tube unchanged. Osseous structures are intact. CONCLUSION: Improving interstitial and alveolar densities. Juanito Chen MD on July 31, 2017 at 5:32 Board Certified Radiologist. This report was verified electronically.
[2017-07-31 05:50] LABS: ALT (GPT) 20 U/L (12-78)
[2017-07-31 05:52] LABS: ALKALINE PHOSPHATASE 76 U/L (45-117); TOTAL BILIRUBIN ADULT 0.6 MG/DL (0.2-1.0); TOTAL PROTEIN 6.2 GM/DL (6.4-8.2)
[2017-07-31 05:59] LABS: ALBUMIN 1.6 GM/DL (3.4-5.0); AST (GOT) 34 U/L (15-37); BICARBONATE 26.2 MEQ/L (21.0-32.0); BLOOD UREA NITROGEN 26 MG/DL (7-18); CALCIUM 8.2 MG/DL (8.5-10.1); CHLORIDE 115 MEQ/L (98-107); CREATININE 1.29 MG/DL (0.60-1.30); GLOMERULAR FILTRATION RATE 53 ML/MIN (>89); GLUCOSE,RANDOM 153 MG/DL (74-106); SODIUM (NA) 152 MEQ/L (136-145)
[2017-07-31] MEDS: PROPOFOL 1000 MG/100 ML INJ 100 ML IV PRN ×4 (07:00→23:16)
--- NOTE | 2017-07-31 07:09 | RADRPT ---
EXAM DATE/TIME: 07/31/2017 06:54 [facility] COMPARISON: CHEST SINGLE AP, July 31, 2017, 4:48. INDICATIONS : Bilateral infiltrate. RADIATION DOSE: 13.21 CTDIvol (mGy) MEDICAL HISTORY : Non-responsive. SURGICAL HISTORY : Non-responsive. ENCOUNTER: Initial ACUITY: 1 day PAIN SCALE: Non-responsive LOCATION: cranial TECHNIQUE: Volumetric scanning of the chest was performed. Using automated exposure control and adjustment of t he mA and/or kV according to patient size, radiation dose was kept as low as reasonably achievable to obtain optimal diagnostic quality images. DICOM format image data is available electronically for r eview and comparison. Follow-up recommendations for detected pulmonary nodules are based at a minimum on nodule size and pa tient risk factors according to Fleischner Society Guidelines. FINDINGS: There is severe emphysema, diffuse interstitial opacities bilaterally, and bilateral small pleural ef fusions and consolidation in the left lower lobe. Small pericardial effusion. NG tube tip terminates in the stomach. Endotracheal tube tip terminates above the hazel. Osseous structures are intact. The re is a stent graft within the infrarenal abdominal aorta. There is a remote compression fracture at T12. CONCLUSION: 1. Emphysema. 2. Interstitial lung disease, and left lower lobe consolidation. 3. Bilateral effusions. Rebel Taylor MD on July 31, 2017 at 7:05 Board Certified Radiologist. This report was verified electronically.
--- NOTE | 2017-07-31 07:36 | HHI.CCPN ---
Subjective Remarks/Hospital Course This is a 82-year-old male. Date of admission 07/18/2017. Date of consultation 07/26/2017. Past medical history includes congestive heart failure, atrial fibrillation, peripheral arterial disease status post stents, COPD, gastroesophageal reflux disease and cataracts. Patient was admitted 07/18/2017 by general surgery as patient has recently underwent laparoscopic cholecystecomy with wedge resection of the stomach on 06/27/17. He was sent to extended care facility for r rehabilitation due to his deconditioned status and the fact that he lives alone. 07/17 he developed abdominal pain and vomiting and was transported to the ER. CT abdomen/pelvis show pneumoperitoneum and he was admitted for further evaluation 07/24 -Kassi-en-Y gastrojejunostomy by Dr. Marsh. Currently on Pipracil/ tazobactam for possible pneumonia on chest x-ray per hospitalist. Patient received furosemide 20 mg IV 1 yesterday. Today, patient acutely short of breath 100% nonrebreather mask was transported to ICU for further evaluation. Chest x-ray revealed pulmonary edema worse right upper lobe. Cannot rule out superimposed pneumonia. Patient is currently on BiPAP 10/500. ABG is currently pending. Received 40 mg furosemide and 500 mg of chlorothiazide. 07/27: On BiPAP 60% O2. CXR with suspected pneumonia - consistent with leukocytosis and fever. States he feels comfortable. 07/28: Off BiPAP and on NRBM. Breathing with acceptable comfort. Abdomen less distended. Comfortable. 07/29: Breathing with acceptable comfort but O2 requirements remain elevated. Bowel activity returning, swallow evaluation discouraging. Well hydrated. 07/30: Patient remains increasingly hypoxemic. Currently saturating barely 90% on FiO2 70% on BiPAP. Tachypneic, increasing respiratory distress despite 40 mg IV Lasix. Patient clearly states that he wants everything done to be kept alive including intubation and CPR. But when he cannot make decision he wants his ex- Anna Marie to make the decisions. Discussed with Dr. Lima 07/31: Intubated and placed on mechanical ventilation yesterday. Chest x-ray shows some improvement in bilateral infiltrates. CT chest today shows severe emphysema, diffuse interstitial opacities bilaterally, small pleural effusions LLL consolidation. Currently receiving broad-spectrum antibiotics, IV steroids and scheduled breathing treatments. Holding off IV diuresis at this time. CT chest findings could be secondary to pneumonia and acute lung injury. PEEP remains high at 12, FiO2 down to 50% Objective Vital Signs Date Time Temp Pulse Resp B/P (MAP) Pulse Ox O2 Delivery O2 Flow Rate FiO2 07/31/17 04:56 97 50 07/31/17 00:00 97.2 72 24 117/56 (76) 07/30/17 19:00 Mechanical Ventilator 07/30/17 07:50 15.00 Result Diagram: 07/31/17 0440 07/31/17 0440 Other Results Laboratory Tests Test 07/30/17 16:35 07/30/17 17:47 Blood Gas Puncture Site LT RADIAL RT RADIAL Blood Gas Patient Temperature 98.6 98.6 Blood Gas HCO3 30 mmol/L (22-26) 31 mmol/L (22-26) Blood Gas Base Excess 5.9 mmol/L (-2-2) 3.6 mmol/L (-2-2) Blood Gas Oxygen Saturation 89 % (90-100) 98 % (90-100) Arterial Blood pH 7.47 (7.380-7.420) 7.24 (7.380-7.420) Arterial Blood Partial Pressure CO2 41 mmHg (38-42) 74 mmHg (38-42) Arterial Blood Partial Pressure O2 59 mmHg (61-120) 303 mmHg (61-120) Arterial Blood Oxygen Content 13.2 Vol % (12.0-20.0) 15.4 Vol % (12.0-20.0) Arterial Blood Carboxyhemoglobin 1.0 % (0-4) 0.5 % (0-4) Arterial Blood Methemoglobin 0.9 % (0-2) 0.8 % (0-2) Blood Gas Hemoglobin 10.5 G/DL (12.0-16.0) 10.6 G/DL (12.0-16.0) Oxygen Delivery Device BIPAP VENTILATOR Blood Gas Ventilator Setting 03/29/70 16/550/1.0/+12 Blood Gas Inspired Oxygen 70 % 100 % Imaging Last Impressions Chest X-Ray 07/26/17 0000 Signed Impressions: Service Date/Time: Wednesday, July 26, 2017 09:20 - CONCLUSION: 1. Diffuse interstitial prominence consistent with positive fluid balance. 2. Progression of patchy airspace and interstitial opacities in the right upper lobe which may reflect atypical pulmonary edema although differential considerations include developing superimposed pneumonia. 3. Improved aeration in the right lower lung zone. Mike Mijares MD Upper GI Series 07/22/17 0000 Signed Impressions: Service Date/Time: Saturday, July 22, 2017 09:31 - CONCLUSION: No passage of water-soluble contrast seen beyond the distended stomach suggesting persistent gastric outlet obstruction. Herbert Torres MD Abdomen X-Ray 07/21/17 0000 Signed Impressions: Service Date/Time: Friday, July 21, 2017 13:15 - CONCLUSION: 1. Satisfactory placement of nasogastric tube within the stomach 2. Distended stomach containing contrast. 3. Nonspecific gas pattern described above. 4. Aortic stent graft in place. Patricio Butler MD Abdomen/Pelvis CT 07/18/17 0052 Signed Impressions: Service Date/Time: June 01:52 - CONCLUSION: 1. Pneumoperitoneum. Stomach being the likely source. 2. Dilated stomach containing debris. 3. Bladder calculus measuring 3-4 mm. 4. Unchanged nonobstructing right renal calculus. 5. Status post cholecystectomy. 6. Aortic stent graft with aneurysmal sac measuring [address] Morris was notified. Juanito Chen MD Objective Remarks GENERAL: 82-year-old male currently on PRVC, sedated but breathing above the vent rate SKIN: Warm and dry. HEAD: Atraumatic. Normocephalic. EYES: Pupils equal and round 2 mm bilaterally and reactive. No scleral icterus. No injection or drainage. ENT: No nasal bleeding or discharge. ETT in place, no major secretions NECK: Trachea midline. No visible JVD CARDIOVASCULAR: Appears NSR now. S1, S2 no S4 no murmurs, clicks gallops or rubs. Bradycardic RESPIRATORY: Diminished air entry bilaterally, but improved compared to yesterday. No wheezing. PRVC TV 550 PEEP 12, FiO2 50% GASTROINTESTINAL: Abdomen soft, non-tender, nondistended. BS active. No peritoneal irritation. Trochar sites C/D/I MUSCULOSKELETAL: Extremities with trace bilateral lower extremity edema. No obvious deformities. Warm NEUROLOGICAL: Intubated sedated with propofol and fentanyl, wakes up and follows commands on lightening sedation. Motor grossly within normal limits. 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 Monitor for DTs Holding Lorazepam 1 mg at night as needed anxiety CV: Congestive heart failure likely chronic diastolic Atrial fibrillation, chronic Peripheral arterial disease -history of stent to right external iliac and left superior femoral Hypertension 2D Echo 07/26/17: Mild to moderate concentric left ventricular hypertrophy. EF 45- 50%. Diffuse global hypokinesis with distinct regional wall motion abnormalities. Currently on diltiazem 120 mg daily-hold due to bradycardia, losartan 50 mg p.o. twice daily Currently amiodarone 200 mg p.o. daily Clopidogrel 75 mg p.o. daily. IV Lasix 40 mg 1 given 07/30/17. Hold further diuresis at this time Resp: Acute hypoxic hypercapnic respiratory failure COPD, with exacerbation Severe emphysema Healthcare associated pneumonia Acute lung injury/bilateral interstitial infiltrates Chest x-ray revealed pulmonary edema (cardiogenic versus noncardiogenic) likely possible superimposed pneumonia CT of the chest done today shows bilateral interstitial infiltrates, severe emphysema, left lower lobe consolidation and small effusions Profoundly hypoxic and tachypneic on BiPAP. Intubated and placed on mechanical ventilation, PRVC 20/550/12 FiO2 50% Albuterol/ipratropium aerosols every 4 hours W aerosols every 2 hours as needed dyspnea Budesonide 0.5/2 1 puff twice daily IV Solu-Medrol 125 mg 1 and 60 every 8 Increase Zosyn to antipseudomonal dose, continue azithromycin. Pharmacy dosing vancomycin GI: Postop from Kassi-en-Y/gastro jejunostomy History of GIST Hypoalbuminemia Status post small bowel surgery which revealed gastric outlet obstruction Followed by Dr. Lima Pantoprazole 40 mg IV daily for GI prophylaxis Tolerating trickle tube feeds 10 cc per hour History of TURP Conrad catheter for I/O in the ICU Endo: Sliding scale insulin if indicated Renal: Monitor urine output Accurate I's and O's 1/3 NS to correct hyper NA at 100 ml per hour Heme: Leukocytosis Normocytic anemia Monitor CBC daily. Follow trends Continue clopidogrel 75 mg daily ID: Healthcare associated pneumonia Leukocytosis/sepsis Currently piperacillin l/tazobactam, azithromycin, vancomycin IV Follow up on hensley culture. Send respiratory panel, influenza CT chest shows left lower lobe consolidation, bilateral interstitial infiltrates Pertinent cultures: 07/18/blood cultures 2/no growth FEN Replace electrolytes as clinically indicated MSK: T12 compression fracture PT evaluate and treat, as appropriate Access -Utilize peripheral IV. Central line if indicated Prophylaxis -GI -pantoprazole -DVT -SCD/enoxaparin Overall impression: Worsening hypoxia with sepsis, healthcare associated pneumonia, ALI. Not improving on BiPAP with high settings and FiO2 70%, profoundly hypoxemic. Intubated and placed on mechanical ventilation antibiotics broadened, added steroids. Remains critical, high risk of further decompensation CCT 40 MIN excluding procedures Erickson Herrera MD Jul 31, 2017 07:36
[2017-07-31] MEDS: RESP: BUDESONIDE 0.5 MG/2 ML NEB NEB SCH ×2 (07:50→20:07)
[2017-07-31] MEDS ORDERED: VANCOMYCIN 1,000 MG/NS 250 ML IV SCH ×2 (08:00)
[2017-07-31] MEDS: PANTOPRAZOLE SODIUM 40 MG VIAL IV PUSH SCH (08:31)
[2017-07-31] MEDS: FOLIC ACID 1 MG TAB PO SCH (08:32)
[2017-07-31] MEDS: LOSARTAN 50 MG TAB PO SCH ×2 (08:32→21:32)
[2017-07-31] MEDS: SODIUM CHLORIDE 0.9% FLUSH 10 ML FLUSH IV FLUSH SCH ×2 (08:32→21:32)
[2017-07-31] MEDS: CHLORHEXIDINE 0.12% (ORAL KIT) 15 ML CUP MT SCH ×2 (08:32→21:32)
[2017-07-31] MEDS: CLOPIDOGREL 75 MG TAB PO SCH (08:32)
[2017-07-31] MEDS: THIAMINE HCL 100 MG TAB PO SCH (08:32)
[2017-07-31] MEDS: MULTIVITAMIN TAB PO SCH (08:32)
[2017-07-31] MEDS: AMIODARONE 200 MG TAB PO SCH (08:32)
[2017-07-31] MEDS: methylPREDNISolone SOD SUCC 125 MG/2 ML VIAL IV PUSH SCH ×2 (14:32→21:33)
[2017-07-31] MEDS: ENOXAPARIN SODIUM 30 MG/0.3 ML SYRINGE SQ SCH (14:33)
--- NOTE | 2017-07-31 16:40 | HHI.PR ---
Subjective Subjective Notes Intubated and sedated, O2 down to 40% Objective Vitals/I&O Vital Signs Date Time Temp Pulse Resp B/P (MAP) Pulse Ox O2 Delivery O2 Flow Rate FiO2 07/31/17 16:00 97.0 61 20 111/56 (74) 95 07/31/17 16:00 40 07/31/17 07:00 Mechanical Ventilator 07/30/17 07:50 15.00 Labs Laboratory Tests Test 07/30/17 16:35 07/30/17 17:47 07/30/17 18:12 07/30/17 21:30 Blood Gas Puncture Site LT RADIAL RT RADIAL Blood Gas Patient Temperature 98.6 98.6 Blood Gas HCO3 30 31 Blood Gas Base Excess 5.9 3.6 Blood Gas Oxygen Saturation 89 98 Arterial Blood pH 7.47 7.24 Arterial Blood Partial Pressure CO2 41 74 Arterial Blood Partial Pressure O2 59 303 Arterial Blood Oxygen Content 13.2 15.4 Arterial Blood Carboxyhemoglobin 1.0 0.5 Arterial Blood Methemoglobin 0.9 0.8 Blood Gas Hemoglobin 10.5 10.6 Oxygen Delivery Device BIPAP VENTILATOR Blood Gas Ventilator Setting 03/29/70 16/550/1.0/+12 Blood Gas Inspired Oxygen 70 100 B-Type Natriuretic Peptide 324 Vancomycin Level Trough 1.9 Urine Color YELLOW Urine Turbidity HAZY Urine pH 6.5 Urine Specific [place] 1.011 Urine Protein TRACE Urine Glucose (UA) NEG Urine Ketones NEG Urine Occult Blood TRACE Urine Nitrite NEG Urine Bilirubin NEG Urine Urobilinogen LESS THAN 2.0 Urine Leukocyte Esterase SMALL Urine RBC 6 Urine WBC 15 Urine Squamous Epithelial Cells 1 Urine Amorphous Sediment RARE Urine Bacteria OCC Urine Hyaline Casts 18 Urine Mucus FEW Microscopic Urinalysis Comment CULTURE INDICATED Potassium Level 3.4 Test 07/31/17 04:40 07/31/17 07:35 07/31/17 08:57 White Blood Count 15.3 Red Blood Count 3.20 Hemoglobin 9.7 Hematocrit 29.5 Mean Corpuscular Volume 92.0 Mean Corpuscular Hemoglobin 30.3 Mean Corpuscular Hemoglobin Concent 33.0 Red Cell Distribution Width 15.3 Platelet Count 285 Mean Platelet Volume 8.8 Neutrophils (%) (Auto) 94.8 Lymphocytes (%) (Auto) 2.0 Monocytes (%) (Auto) 2.9 Eosinophils (%) (Auto) 0.0 Basophils (%) (Auto) 0.3 Neutrophils # (Auto) 14.5 Lymphocytes # (Auto) 0.3 Monocytes # (Auto) 0.4 Eosinophils # (Auto) 0.0 Basophils # (Auto) 0.0 CBC Comment DIFF FINAL Differential Comment Blood Urea Nitrogen 26 Creatinine 1.29 Random Glucose 153 Total Protein 6.2 Albumin 1.6 Calcium Level 8.2 Magnesium Level 2.0 Alkaline Phosphatase 76 Aspartate Amino Transf (AST/SGOT) 34 Alanine Aminotransferase (ALT/SGPT) 20 Total Bilirubin 0.6 Sodium Level 152 Potassium Level 4.1 Chloride Level 115 Carbon Dioxide Level 26.2 Anion Gap 11 Estimat Glomerular Filtration Rate 53 Random Vancomycin Level 23.0 Blood Gas Puncture Site RT RADIAL Blood Gas Patient Temperature 98.6 Blood Gas HCO3 28 Blood Gas Base Excess 3.6 Blood Gas Oxygen Saturation 93 Arterial Blood pH 7.40 Arterial Blood Partial Pressure CO2 46 Arterial Blood Partial Pressure O2 78 Arterial Blood Oxygen Content 15.3 Arterial Blood Carboxyhemoglobin 0.8 Arterial Blood Methemoglobin 0.9 Blood Gas Hemoglobin 11.6 Oxygen Delivery Device VENTILATOR Blood Gas Ventilator Setting Blood Gas Inspired Oxygen 45 Adenovirus (PCR) NOT DETECTED Bordetella holmesii (PCR) NOT DETECTED Bordetella pertussis DNA (PCR) NOT DETECTED B. parapertussis/bronchi (PCR) NOT DETECTED Human Metapneumovirus (PCR) NOT DETECTED Influenza Type A (RT-PCR) NOT DETECTED Influenza Type A (H1) (PCR) NOT DETECTED Influenza Type A (H3) (PCR) NOT DETECTED Influenza Type B (RT-PCR) NOT DETECTED Parainfluenza Type 1 (PCR) NOT DETECTED Parainfluenza Type 2 (PCR) NOT DETECTED Parainfluenza Type 3 (PCR) NOT DETECTED Parainfluenza Type 4 (PCR) NOT DETECTED Resp Syncytial Virus Type A (PCR) NOT DETECTED Resp Syncytial Virus Type B (PCR) NOT DETECTED Rhinovirus (PCR) NOT DETECTED Date/Time Source Procedure Growth Status 07/30/17 18:12 Blood Peripheral Aerobic Blood Culture - Preliminary NO GROWTH IN 1 DAY Resulted 07/30/17 18:12 Blood Peripheral Anaerobic Blood Culture - Preliminary NO GROWTH IN 1 DAY Resulted 07/31/17 08:57 Nasal Washing Influenza Types A,B Antigen (CAYDEN) - Final NEGATIVE FOR FLU A AND B ANTIGEN.... Complete 07/30/17 21:30 Urine Clean Catch Urine Culture - Preliminary NO GROWTH IN 24 HOURS. Resulted Radiology Last Impressions Chest X-Ray 07/31/17 0600 Signed Impressions: Service Date/Time: Monday, July 31, 2017 04:48 - CONCLUSION: Improving interstitial and alveolar densities. Juanito Chen MD Chest CT 07/31/17 0000 Signed Impressions: Service Date/Time: Monday, July 31, 2017 06:54 - CONCLUSION: 1. Emphysema. 2. Interstitial lung disease, and left lower lobe consolidation. 3. Bilateral effusions. Rebel Taylor MD Abdomen X-Ray 07/30/17 0000 Signed Impressions: Service Date/Time: Sunday, July 30, 2017 15:56 - CONCLUSION: 1. Nasogastric tube has its tip in the stomach. 2. No evidence of bowel obstruction, ileus or perforation. 3. Bibasilar pulmonary infiltrates noted. 4. Degenerative changes and scoliosis of the lumbar spine. Darren Verma MD Upper GI Series 07/22/17 0000 Signed Impressions: Service Date/Time: Saturday, July 22, 2017 09:31 - CONCLUSION: No passage of water-soluble contrast seen beyond the distended stomach suggesting persistent gastric outlet obstruction. Herbert Torres MD Abdomen/Pelvis CT 07/18/17 0052 Signed Impressions: Service Date/Time: June 01:52 - CONCLUSION: 1. Pneumoperitoneum. Stomach being the likely source. 2. Dilated stomach containing debris. 3. Bladder calculus measuring 3-4 mm. 4. Unchanged nonobstructing right renal calculus. 5. Status post cholecystectomy. 6. Aortic stent graft with aneurysmal sac measuring [address] Morris was notified. Juanito Chen MD Last Impressions Chest X-Ray 07/30/17 0400 Signed Impressions: Service Date/Time: Sunday, July 30, 2017 04:45 - CONCLUSION: Interstitial and alveolar opacities, slightly more prominent. Juanito Chen MD Abdomen X-Ray 07/30/17 0000 Signed Impressions: Service Date/Time: Sunday, July 30, 2017 15:56 - CONCLUSION: 1. Nasogastric tube has its tip in the stomach. 2. No evidence of bowel obstruction, ileus or perforation. 3. Bibasilar pulmonary infiltrates noted. 4. Degenerative changes and scoliosis of the lumbar spine. Darren Verma MD Upper GI Series 07/22/17 0000 Signed Impressions: Service Date/Time: Saturday, July 22, 2017 09:31 - CONCLUSION: No passage of water-soluble contrast seen beyond the distended stomach suggesting persistent gastric outlet obstruction. Herbert Torres MD Abdomen/Pelvis CT 07/18/1751 Signed Impressions: Service Date/Time: June 01:52 - CONCLUSION: 1. Pneumoperitoneum. Stomach being the likely source. 2. Dilated stomach containing debris. 3. Bladder calculus measuring 3-4 mm. 4. Unchanged nonobstructing right renal calculus. 5. Status post cholecystectomy. 6. Aortic stent graft with aneurysmal sac measuring [address] Morris was notified. Juanito Chen MD Last Impressions Chest X-Ray 07/27/17 0600 Signed Impressions: Service Date/Time: Thursday, July 27, 2017 03:02 - CONCLUSION: No significant interval change. Persistent right upper lung and left mid to lower lung opacities. Bahman Rooney MD Upper GI Series 07/22/17 0000 Signed Impressions: Service Date/Time: Saturday, July 22, 2017 09:31 - CONCLUSION: No passage of water-soluble contrast seen beyond the distended stomach suggesting persistent gastric outlet obstruction. Herbert Torres MD Abdomen X-Ray 07/21/17 0000 Signed Impressions: Service Date/Time: Friday, July 21, 2017 13:15 - CONCLUSION: 1. Satisfactory placement of nasogastric tube within the stomach 2. Distended stomach containing contrast. 3. Nonspecific gas pattern described above. 4. Aortic stent graft in place. Patricio Butler MD Abdomen/Pelvis CT 07/18/1751 Signed Impressions: Service Date/Time: June 01:52 - CONCLUSION: 1. Pneumoperitoneum. Stomach being the likely source. 2. Dilated stomach containing debris. 3. Bladder calculus measuring 3-4 mm. 4. Unchanged nonobstructing right renal calculus. 5. Status post cholecystectomy. 6. Aortic stent graft with aneurysmal sac measuring [address] Morris was notified. Juanito Chen MD Lungs: Other (orally intubated) Abdomen: Other (mild distension) Extremities: Perfused A/P Assessment and Plan 82yo M s/p gastrojejunostomy bypass -Increase tube feeding to 20ml/hr, check Q4H for residuals -Continue with vent weaning and support, appreciate input from Critical Care - CBC, CMP, and CXR order for AM -From a surgical standpoint patient is stable, will be able to better assess progress when he is extubated This patient was examined by Dr. Marsh and this note was dictated on his behalf The exam, history, and the medical decision-making described in the above note were completed with the assistance of the mid-level provider. I reviewed and agree with the findings presented. I attest that I had a [id number] encounter with the patient on the same day, and personally performed and documented my assessment and findings in the medical record. Discharge Planning Depending on hospital course Talib Feliciano [facility] Jul 31, 2017 16:40 Dayo Marsh MD Aug 08, 2017 15:16
--- NOTE | 2017-07-31 17:03 | EKG ---
Date Performed: 07/31/2017 Time Performed: 10:28:25 PTAGE: 82 years EKG: Sinus rhythm NONSPECIFIC T-WAVE ABNORMALITY ABNORMAL ECG PREVIOUS TRACING : 07/26/2017 12.14 Since the previous tracing, no significant change noted DOCTOR: Jeramy Osman Interpretating Date/Time 07/31/2017 17:02:56
[2017-07-31] MEDS ORDERED: ROCURONIUM INJ 50 MG/5 ML VIAL ONE (17:13)
[2017-07-31] MEDS ORDERED: ROCURONIUM INJ 50 MG/5 ML VIAL IV PUSH ONE (17:45)
[2017-07-31] MEDS: AZITHROMYCIN INJ 500 MG in SODIUM CHLOR 0.9% 250 ML INJ 250 ML IV SCH (17:51)
[2017-08-01] VITALS (18 sets, daily range): BP systolic 106–157; BP diastolic 53–68; PULSE 51–68; RESP 14–24; TEMP 97–98.2; O2SAT 89–98
[2017-08-01] MEDS: SODIUM CHLORIDE 23.4% INJ 51.3 MEQ in WATER STERILE FOR INJ 1,000 ML IV SCH (02:00)
[2017-08-01] MEDS: RESP: ALBUTEROL 2.5 MG/IPRATROPIUM 0.5 MG NEB (SCH) NEB ×4 (03:49→20:50)
[2017-08-01] MEDS: PIPERACIL-TAZO 4.5 GM PREMIX 100 ML IV SCH (05:13)
[2017-08-01] MEDS: METOCLOPRAMIDE HCL 10 MG/2 ML VIAL IV PUSH SCH ×3 (05:13→21:40)
[2017-08-01] MEDS: PCA - TOTAL MG MORPHINE DELIVERED PER SHIFT SCH (05:13)
[2017-08-01] MEDS: methylPREDNISolone SOD SUCC 125 MG/2 ML VIAL IV PUSH SCH (05:14)
[2017-08-01] MEDS: PROPOFOL 1000 MG/100 ML INJ 100 ML IV PRN ×3 (05:14→22:19)
[2017-08-01 05:49] LABS: AUTOMATED NEUTROPHIL # 11.7 TH/MM3 (1.8-7.7); BASOPHIL % 0.3 % (0.0-2.0); HEMATOCRIT 24.9 % (39.0-51.0); HEMOGLOBIN 8.2 GM/DL (13.0-17.0); LYMPH % 3.2 % (9.0-44.0); LYMPHOCYTE # 0.4 TH/MM3 (1.0-4.8); MEAN CELL VOLUME 91.5 FL (80.0-100.0); MEAN CORPUSCULAR HGB CONC 32.8 % (32.0-36.0); MEAN PLATELET VOLUME 8.8 FL (7.0-11.0); MONO % 3.3 % (0.0-8.0); MONOCYTE # 0.4 TH/MM3 (0-0.9); NEUT % 93.2 % (16.0-70.0); PLATELET COUNT 236 TH/MM3 (150-450); RED BLOOD COUNT 2.72 MIL/MM3 (4.50-5.90); RED CELL DISTRIBUTION WIDTH 15.1 % (11.6-17.2); WHITE BLOOD COUNT 12.5 TH/MM3 (4.0-11.0)
[2017-08-01 06:12] LABS: ALBUMIN 1.5 GM/DL (3.4-5.0); AST (GOT) 28 U/L (15-37); BICARBONATE 28.1 MEQ/L (21.0-32.0); BLOOD UREA NITROGEN 40 MG/DL (7-18); CHLORIDE 113 MEQ/L (98-107); CREATININE 1.45 MG/DL (0.60-1.30); GLOMERULAR FILTRATION RATE 47 ML/MIN (>89); GLUCOSE,RANDOM 165 MG/DL (74-106); SODIUM (NA) 148 MEQ/L (136-145)
--- NOTE | 2017-08-01 06:17 | RADRPT ---
EXAM DATE/TIME: 08/01/2017 04:12 [place] COMPARISON: CT THORAX W/O CONTRAST, July 31, 2017, 6:54. CHEST SINGLE AP, July 31, 2017, 4:48. INDICATIONS : Shortness of breath MEDICAL HISTORY : Renal calculi. Chronic obstructive pulmonary disease. Cardiovascular disease SURGICAL HISTORY : Cholecystectomy. ENCOUNTER: Subsequent ACUITY: 2 weeks PAIN SCORE: Non-responsive. LOCATION: Bilateral chest FINDINGS: A single view of the chest demonstrates interstitial and alveolar densities greater in the right lung , left upper lobe and left lower lobe. Endotracheal tube and nasogastric tube unchanged. Osseous str uctures are intact. CONCLUSION: Slight improvement in the interstitial and alveolar infiltrates. Juanito Chen MD on August 01, 2017 at 6:14 Board Certified Radiologist. This report was verified electronically.
[2017-08-01 06:18] LABS: ALKALINE PHOSPHATASE 68 U/L (45-117); ALT (GPT) 19 U/L (12-78); RANDOM VANCOMYCIN 21.1 COMMENT; TOTAL BILIRUBIN ADULT 0.3 MG/DL (0.2-1.0); TOTAL PROTEIN 5.4 GM/DL (6.4-8.2)
[2017-08-01] MEDS: ICU - POTASSIUM CHLORIDE/AQUEOUS SOLN 20 MEQ/100 ML IVPB IV PRN ×2 (06:24→09:00)
[2017-08-01] MEDS ORDERED: SODIUM CHLORID 0.9% 500 ML INJ 500 ML IV STA (07:14)
[2017-08-01] MEDS ORDERED: DEXMEDETOMIDINE INJ 200 MCG in SODIUM CHLORIDE 0.9% INJ 50 ML IV PRN (07:15)
[2017-08-01] MEDS: FREE WATER OG-TUBE SCH ×4 (07:15→23:14)
--- NOTE | 2017-08-01 07:30 | HHI.CCPN ---
Subjective Remarks/Hospital Course This is a 82-year-old male. Date of admission 07/18/2017. Date of consultation 07/26/2017. Past medical history includes congestive heart failure, atrial fibrillation, peripheral arterial disease status post stents, COPD, gastroesophageal reflux disease and cataracts. Patient was admitted 07/18/2017 by general surgery as patient has recently underwent laparoscopic cholecystecomy with wedge resection of the stomach on 06/27/17. He was sent to extended care facility for r rehabilitation due to his deconditioned status and the fact that he lives alone. 07/17 he developed abdominal pain and vomiting and was transported to the ER. CT abdomen/pelvis show pneumoperitoneum and he was admitted for further evaluation 07/24 -Kassi-en-Y gastrojejunostomy by Dr. Marsh. Currently on Pipracil/ tazobactam for possible pneumonia on chest x-ray per hospitalist. Patient received furosemide 20 mg IV 1 yesterday. Today, patient acutely short of breath 100% nonrebreather mask was transported to ICU for further evaluation. Chest x-ray revealed pulmonary edema worse right upper lobe. Cannot rule out superimposed pneumonia. Patient is currently on BiPAP 10/500. ABG is currently pending. Received 40 mg furosemide and 500 mg of chlorothiazide. 07/27: On BiPAP 60% O2. CXR with suspected pneumonia - consistent with leukocytosis and fever. States he feels comfortable. 07/28: Off BiPAP and on NRBM. Breathing with acceptable comfort. Abdomen less distended. Comfortable. 07/29: Breathing with acceptable comfort but O2 requirements remain elevated. Bowel activity returning, swallow evaluation discouraging. Well hydrated. 07/30: Patient remains increasingly hypoxemic. Currently saturating barely 90% on FiO2 70% on BiPAP. Tachypneic, increasing respiratory distress despite 40 mg IV Lasix. Patient clearly states that he wants everything done to be kept alive including intubation and CPR. But when he cannot make decision he wants his ex- Anna Marie to make the decisions. Discussed with Dr. Lima 07/31: Intubated and placed on mechanical ventilation yesterday. Chest x-ray shows some improvement in bilateral infiltrates. CT chest today shows severe emphysema, diffuse interstitial opacities bilaterally, small pleural effusions LLL consolidation. Currently receiving broad-spectrum antibiotics, IV steroids and scheduled breathing treatments. Holding off IV diuresis at this time. CT chest findings could be secondary to pneumonia and acute lung injury. PEEP remains high at 12, FiO2 down to 50% 08/01: Remains intubated sedated with propofol and fentanyl, remains critical but more stable. Urine output diminishing 700 mL in 24 hours, BUN 40 creatinine 1.45 both increased-will discontinue vancomycin and hold Cozaar. Weight now is 7 kg less than admission weight. Will give 500 ml fluid bolus challenge. Chest x-ray shows slight improvement in FiO2 45%. Yesterday evening required single dose of rocuronium for ventilatory synchrony, currently more synchronous and oxygen saturation better Objective Vital Signs Date Time Temp Pulse Resp B/P (MAP) Pulse Ox O2 Delivery O2 Flow Rate FiO2 08/01/17 06:00 67 08/01/17 04:00 98.2 19 107/53 (71) 93 08/01/17 04:00 40 08/01/17 03:54 Ventilator 07/30/17 07:50 15.00 Intake and Output 08/01/17 08/01/17 08/02/17 08:00 16:00 00:00 Intake Total 218 ml Output Total 300 ml Balance -82 ml Result Diagram: 08/01/17 0451 08/01/17 0451 Other Results Microbiology Date/Time Source Procedure Growth Status 07/31/17 08:57 Nasal Washing Influenza Types A,B Antigen (CAYDEN) - Final NEGATIVE FOR FLU A AND B ANTIGEN.... Complete Laboratory Tests Test 07/31/17 07:35 Blood Gas Puncture Site RT RADIAL Blood Gas Patient Temperature 98.6 Blood Gas HCO3 28 mmol/L (22-26) Blood Gas Base Excess 3.6 mmol/L (-2-2) Blood Gas Oxygen Saturation 93 % (90-100) Arterial Blood pH 7.40 (7.380-7.420) Arterial Blood Partial Pressure CO2 46 mmHg (38-42) Arterial Blood Partial Pressure O2 78 mmHg (61-120) Arterial Blood Oxygen Content 15.3 Vol % (12.0-20.0) Arterial Blood Carboxyhemoglobin 0.8 % (0-4) Arterial Blood Methemoglobin 0.9 % (0-2) Blood Gas Hemoglobin 11.6 G/DL (12.0-16.0) Oxygen Delivery Device VENTILATOR Blood Gas Ventilator Setting Blood Gas Inspired Oxygen 45 % Imaging Last Impressions Chest X-Ray 07/26/17 0000 Signed Impressions: Service Date/Time: Wednesday, July 26, 2017 09:20 - CONCLUSION: 1. Diffuse interstitial prominence consistent with positive fluid balance. 2. Progression of patchy airspace and interstitial opacities in the right upper lobe which may reflect atypical pulmonary edema although differential considerations include developing superimposed pneumonia. 3. Improved aeration in the right lower lung zone. Mike Mijares MD Upper GI Series 07/22/17 0000 Signed Impressions: Service Date/Time: Saturday, July 22, 2017 09:31 - CONCLUSION: No passage of water-soluble contrast seen beyond the distended stomach suggesting persistent gastric outlet obstruction. Herbert Torres MD Abdomen X-Ray 07/21/17 Signed Impressions: Service Date/Time: Friday, July 21, 2017 13:15 - CONCLUSION: 1. Satisfactory placement of nasogastric tube within the stomach 2. Distended stomach containing contrast. 3. Nonspecific gas pattern described above. 4. Aortic stent graft in place. Patricio Butler MD Abdomen/Pelvis CT 07/18/17 0052 Signed Impressions: Service Date/Time: June 01:52 - CONCLUSION: 1. Pneumoperitoneum. Stomach being the likely source. 2. Dilated stomach containing debris. 3. Bladder calculus measuring 3-4 mm. 4. Unchanged nonobstructing right renal calculus. 5. Status post cholecystectomy. 6. Aortic stent graft with aneurysmal sac measuring [address] Morris was notified. Juanito Chen MD Objective Remarks GENERAL: 82-year-old male currently on PRVC, sedated but breathing above the vent rate SKIN: Warm and dry. HEAD: Atraumatic. Normocephalic. EYES: Pupils equal and round 2 mm bilaterally and reactive. No scleral icterus. No injection or drainage. ENT: No nasal bleeding or discharge. ETT in place, no major secretions NECK: Trachea midline. No visible JVD CARDIOVASCULAR: Appears NSR now. S1, S2 no S4 no murmurs, clicks gallops or rubs. Bradycardic RESPIRATORY: Diminished air entry bilaterally, but improved. No wheezing. PRVC TV 550 PEEP 8, FiO2 45% GASTROINTESTINAL: Abdomen soft, non-tender, nondistended. BS active. No peritoneal irritation. Trochar sites C/D/I MUSCULOSKELETAL: Extremities with trace bilateral lower extremity edema. No obvious deformities. Warm NEUROLOGICAL: Intubated sedated with propofol and fentanyl, wakes up and follows commands on lightening sedation. Motor grossly within normal limits. Urinary Catheter: Yes Assessment to: Continue A/P Assessment and Plan Neuro/Psych: Postop pain control Chronic benzodiazepine use History of EtOH Essential tremor Propofol and fentanyl for sedation and ventilator synchrony Start Precedex to facilitate weaning trials Acetaminophen 650 mg by mouth every 6 hours as needed fever Thiamine, multivitamin folate daily for EtOH use. Monitor for DTs IV Lorazepam 1 mg q4hr PRN for anxiety CV: Atrial fibrillation, chronic Chronic diastolic heart failure Peripheral arterial disease -history of stent to right external iliac and left superior femoral Hypertension 2D Echo 07/26/17: Mild to moderate concentric left ventricular hypertrophy. EF 45- 50%. Diffuse global hypokinesis with distinct regional wall motion abnormalities. On diltiazem 120 mg daily-holding due to bradycardia, Hold losartan 50 mg p.o. twice daily due increasing BUN/creatinine Currently amiodarone 200 mg p.o. daily. Clopidogrel 75 mg p.o. daily. Change fluid from 1/3NS to 1/2 NS 84 ml per hour. 500 ml NS bolus challenge for oliguria IV Lasix 40 mg 1 given 07/30/17. Holding further diuresis at this time. 7 kg less than admission weight Resp: Acute hypoxic hypercapnic respiratory failure COPD, with exacerbation Healthcare associated pneumonia Acute lung injury/bilateral interstitial infiltrates Severe emphysema Chest x-ray revealed pulmonary edema (cardiogenic versus noncardiogenic) likely possible superimposed pneumonia CT of the chest done 07/31 shows bilateral interstitial infiltrates, severe emphysema, left lower lobe consolidation and small effusions On 07/30 was profoundly hypoxic and tachypneic on BiPAP. Intubated and placed on mechanical ventilation Continue PRVC 16/550/8 FiO2 45%. Start CPAP trials Albuterol/ipratropium aerosols every 4 hours W aerosols every 2 hours as needed dyspnea Budesonide 0.5/2 1 puff twice daily IV Solu-Medrol 125 mg 1 and 60 every 8-reduce to 40 every 12 Renally adjust Zosyn dose, discontinue azithromycin and vancomycin 08/01 GI: Postop from Kassi-en-Y/gastro jejunostomy History of GIST Hypoalbuminemia s/p lap resection GIST of antrum on 07/10/17. Patient returned 07/18/17 with N/V. found to have partial gastric outlet obstruction Postop from Kassi-en-Y/gastro jejunostomy 07/24/[address] Lima Pantoprazole 40 mg IV daily for GI prophylaxis Tolerating trickle tube feeds 20 cc per hour History of TURP Conrad catheter for I/O in the ICU Endo: Sliding scale insulin if indicated Renal: Monitor urine output Accurate I's and O's 1/3 NS to correct hyper NA at 100 ml per hour-change to 1/2 NS as above with free water replacement Heme: Leukocytosis Normocytic anemia Monitor CBC daily. Follow trends Continue clopidogrel 75 mg daily ID: Healthcare associated pneumonia Leukocytosis/sepsis Currently piperacillin l/tazobactam, azithromycin, vancomycin IV Renally adjust Zosyn dose, discontinue azithromycin and vancomycin 08/01 Follow up on hensley culture-negative to date. Follow up respiratory panel, influenza CT chest shows left lower lobe consolidation, bilateral interstitial infiltrates Pertinent cultures: 07/18/blood cultures 2/no growth FEN Replace electrolytes as clinically indicated MSK: T12 compression fracture PT evaluate and treat, as appropriate Access -Utilize peripheral IV. Central line if indicated Prophylaxis -GI -pantoprazole -DVT -SCD/enoxaparin Overall impression: Worsening hypoxia with sepsis, healthcare associated pneumonia, ALI. Not improving on BiPAP with high settings and FiO2 70%, profoundly hypoxemic. Intubated and placed on mechanical ventilation antibiotics broadened, added steroids. Remains critical, high risk of further decompensation. Showing some signs of improvement, even though overall prognosis still remains guarded considering severe emphysema, and overall debility CCT 32 MIN excluding procedures Erickson Herrera MD Aug 01, 2017 07:30
[2017-08-01] MEDS: RESP: BUDESONIDE 0.5 MG/2 ML NEB NEB SCH ×2 (07:50→20:51)
[2017-08-01] MEDS: CHLORHEXIDINE 0.12% (ORAL KIT) 15 ML CUP MT SCH ×2 (08:00→21:39)
[2017-08-01] MEDS: 1/2 NS + KCL 20 MEQ INJ 1,000 ML IV SCH ×2 (08:55→21:39)
[2017-08-01] MEDS: AMIODARONE 200 MG TAB PO SCH (09:00)
[2017-08-01] MEDS: SODIUM CHLORIDE 0.9% FLUSH 10 ML FLUSH IV FLUSH SCH ×2 (09:26→21:39)
[2017-08-01] MEDS: MULTIVITAMIN TAB PO SCH (09:27)
[2017-08-01] MEDS: PANTOPRAZOLE SODIUM 40 MG VIAL IV PUSH SCH (09:27)
[2017-08-01] MEDS: THIAMINE HCL 100 MG TAB PO SCH (09:27)
[2017-08-01] MEDS: FOLIC ACID 1 MG TAB PO SCH (09:27)
[2017-08-01] MEDS: CLOPIDOGREL 75 MG TAB PO SCH (09:28)
[2017-08-01] MEDS: PIPERACIL-TAZO 3.375 GM PREMIX 50 ML IV SCH ×2 (12:45→21:39)
[2017-08-01] MEDS ORDERED: PIPERACIL-TAZO 4.5 GM PREMIX 100 ML IV SCH (13:00)
[2017-08-01] MEDS: methylPREDNISolone SOD SUCC 40 MG/1 ML VIAL IV PUSH SCH ×2 (13:39→21:40)
[2017-08-01] MEDS: LORazepam 0.5 MG TAB PO SCH ×2 (13:59→21:39)
[2017-08-01] MEDS: fentaNYL DRIP 250 ML IV PRN (13:59)
[2017-08-01] MEDS: ENOXAPARIN SODIUM 30 MG/0.3 ML SYRINGE SQ SCH (14:56)
[2017-08-01] MEDS: LORazepam 2 MG/ML VIAL IV PUSH PRN (14:56)
--- NOTE | 2017-08-01 15:32 | HHI.PR ---
Subjective Subjective Notes Remains orally intubated and sedated, minimal gastric residual but no BM as of yet. UOP decreased, BUN and creatinine increased Objective Vitals/I&O Vital Signs Date Time Temp Pulse Resp B/P (MAP) Pulse Ox O2 Delivery O2 Flow Rate FiO2 08/01/17 12:00 97.2 66 14 134/59 (84) 94 08/01/17 12:00 40 08/01/17 07:00 Mechanical Ventilator 07/30/17 07:50 15.00 Labs Laboratory Tests Test 08/01/17 04:51 White Blood Count 12.5 Red Blood Count 2.72 Hemoglobin 8.2 Hematocrit 24.9 Mean Corpuscular Volume 91.5 Mean Corpuscular Hemoglobin 30.0 Mean Corpuscular Hemoglobin Concent 32.8 Red Cell Distribution Width 15.1 Platelet Count 236 Mean Platelet Volume 8.8 Neutrophils (%) (Auto) 93.2 Lymphocytes (%) (Auto) 3.2 Monocytes (%) (Auto) 3.3 Eosinophils (%) (Auto) 0.0 Basophils (%) (Auto) 0.3 Neutrophils # (Auto) 11.7 Lymphocytes # (Auto) 0.4 Monocytes # (Auto) 0.4 Eosinophils # (Auto) 0.0 Basophils # (Auto) 0.0 CBC Comment DIFF FINAL Differential Comment Blood Urea Nitrogen 40 Creatinine 1.45 Random Glucose 165 Total Protein 5.4 Albumin 1.5 Calcium Level 8.0 Alkaline Phosphatase 68 Aspartate Amino Transf (AST/SGOT) 28 Alanine Aminotransferase (ALT/SGPT) 19 Total Bilirubin 0.3 Sodium Level 148 Potassium Level 3.5 Chloride Level 113 Carbon Dioxide Level 28.1 Anion Gap 7 Estimat Glomerular Filtration Rate 47 Random Vancomycin Level 21.1 Date/Time Source Procedure Growth Status 07/30/17 18:12 Blood Peripheral Aerobic Blood Culture - Preliminary NO GROWTH IN 2 DAYS Resulted 07/30/17 18:12 Blood Peripheral Anaerobic Blood Culture - Preliminary NO GROWTH IN 2 DAYS Resulted 07/31/17 08:57 Nasal Washing Influenza Types A,B Antigen (CAYDEN) - Final NEGATIVE FOR FLU A AND B ANTIGEN.... Complete 07/30/17 21:30 Urine Clean Catch Urine Culture - Final NO GROWTH IN 48 HOURS. Complete Radiology Chest X-Ray 07/30/17 0400 Signed Impressions: Service Date/Time: Sunday, July 30, 2017 04:45 - CONCLUSION: Interstitial and alveolar opacities, slightly more prominent. Juanito Chen MD Abdomen X-Ray 07/30/17 0000 Signed Impressions: Service Date/Time: Sunday, July 30, 2017 15:56 - CONCLUSION: 1. Nasogastric tube has its tip in the stomach. 2. No evidence of bowel obstruction, ileus or perforation. 3. Bibasilar pulmonary infiltrates noted. 4. Degenerative changes and scoliosis of the lumbar spine. Darren Verma MD Upper GI Series 07/22/17 0000 Signed Impressions: Service Date/Time: Saturday, July 22, 2017 09:31 - CONCLUSION: No passage of water-soluble contrast seen beyond the distended stomach suggesting persistent gastric outlet obstruction. Herbert Torres MD Abdomen/Pelvis CT 07/18/17 0052 Signed Impressions: Service Date/Time: June 01:52 - CONCLUSION: 1. Pneumoperitoneum. Stomach being the likely source. 2. Dilated stomach containing debris. 3. Bladder calculus measuring 3-4 mm. 4. Unchanged nonobstructing right renal calculus. 5. Status post cholecystectomy. 6. Aortic stent graft with aneurysmal sac measuring [address] Morris was notified. Juanito Chen MD Last Impressions Chest X-Ray 07/27/17 0600 Signed Impressions: Service Date/Time: Thursday, July 27, 2017 03:02 - CONCLUSION: No significant interval change. Persistent right upper lung and left mid to lower lung opacities. Bahman Rooney MD Upper GI Series 07/22/17 0000 Signed Impressions: Service Date/Time: Saturday, July 22, 2017 09:31 - CONCLUSION: No passage of water-soluble contrast seen beyond the distended stomach suggesting persistent gastric outlet obstruction. Herbert Torres MD Abdomen X-Ray 07/21/17 0000 Signed Impressions: Service Date/Time: Friday, July 21, 2017 13:15 - CONCLUSION: 1. Satisfactory placement of nasogastric tube within the stomach 2. Distended stomach containing contrast. 3. Nonspecific gas pattern described above. 4. Aortic stent graft in place. Patricio Butler MD Abdomen/Pelvis CT 07/18/17 0052 Signed Impressions: Service Date/Time: June 01:52 - CONCLUSION: 1. Pneumoperitoneum. Stomach being the likely source. 2. Dilated stomach containing debris. 3. Bladder calculus measuring 3-4 mm. 4. Unchanged nonobstructing right renal calculus. 5. Status post cholecystectomy. 6. Aortic stent graft with aneurysmal sac measuring [address] Morris was notified. Juanito Chen MD Cardiovascular: Regular Lungs: Rhonchi Abdomen: Non-distended Extremities: Perfused A/P Assessment and Plan 82yo M s/p gastrojejunostomy bypass -Critical care continuing to wean vent, currently at 40% Fi02. CXR slightly improved today, will trail CPAP hopefully today. Appreciate all input from Critical care team -Given the patient has had issues with dysphagia prior to intubation, and we are unsure of when he will be stable enough to be extubated, we will consult dietary to ensure the best tube feeding formula for his current medical status Case was discussed with RN, Dr. Marsh, and Dr. Herrera at bedside The exam, history, and the medical decision-making described in the above note were completed with the assistance of the mid-level provider. I reviewed and agree with the findings presented. I attest that I had a [id number] encounter with the patient on the same day, and personally performed and documented my assessment and findings in the medical record. Discharge Planning Depending on hospital course Talib Feliciano [facility] Aug 01, 2017 15:32 Dayo Marsh MD Aug 08, 2017 15:16
[2017-08-01 16:26] LABS: ALKALINE PHOSPHATASE 78 U/L (45-117); TOTAL BILIRUBIN ADULT 0.4 MG/DL (0.2-1.0); TOTAL PROTEIN 5.7 GM/DL (6.4-8.2)
[2017-08-01 16:30] LABS: ALBUMIN 1.6 GM/DL (3.4-5.0); ALT (GPT) 22 U/L (12-78); AST (GOT) 38 U/L (15-37); BICARBONATE 25.8 MEQ/L (21.0-32.0); BLOOD UREA NITROGEN 42 MG/DL (7-18); CALCIUM 8.2 MG/DL (8.5-10.1); CHLORIDE 113 MEQ/L (98-107); CREATININE 1.45 MG/DL (0.60-1.30); GLOMERULAR FILTRATION RATE 47 ML/MIN (>89); GLUCOSE,RANDOM 140 MG/DL (74-106); SODIUM (NA) 147 MEQ/L (136-145)
[2017-08-01] MEDS: LACTULOSE SYRUP 20 GM/30 ML CUP NG SCH (21:00)
[2017-08-02] VITALS (20 sets, daily range): BP systolic 130–151; BP diastolic 63–68; PULSE 50–73; RESP 12–21; TEMP 96.8–97.9; O2SAT 94–100
[2017-08-02] MEDS: RESP: ALBUTEROL 2.5 MG/IPRATROPIUM 0.5 MG NEB (SCH) NEB ×6 (00:23→21:28)
--- NOTE | 2017-08-02 04:24 | RADRPT ---
EXAM DATE/TIME: 08/02/2017 03:10 [place] COMPARISON: CHEST SINGLE AP, August 01, 2017, 4:12. INDICATIONS : Shortness of breath. MEDICAL HISTORY : Renal calculi. Chronic obstructive pulmonary disease. Cardiovascular disease. SURGICAL HISTORY : Cholecystectomy. ENCOUNTER: Subsequent ACUITY: 1 day PAIN SCORE: Non-responsive. LOCATION: chest FINDINGS: Endotracheal tube and nasogastric tube remain in place. There has been no significant change in aerat ion with diffuse bilateral interstitial and alveolar parenchymal opacity most confluent in the left l isaac base. Cardiac contours are grossly stable. CONCLUSION: No significant change Javier Valentin MD on August 02, 2017 at 4:20 Board Certified Radiologist. This report was verified electronically.
[2017-08-02] MEDS: PIPERACIL-TAZO 3.375 GM PREMIX 50 ML IV SCH ×3 (05:26→21:42)
[2017-08-02] MEDS: METOCLOPRAMIDE HCL 10 MG/2 ML VIAL IV PUSH SCH ×3 (05:26→21:43)
[2017-08-02] MEDS: methylPREDNISolone SOD SUCC 40 MG/1 ML VIAL IV PUSH SCH ×3 (05:27→21:43)
[2017-08-02] MEDS: FREE WATER OG-TUBE SCH ×4 (05:27→23:50)
[2017-08-02 05:30] LABS: AUTOMATED NEUTROPHIL # 10.3 TH/MM3 (1.8-7.7); BASOPHIL % 0.1 % (0.0-2.0); HEMOGLOBIN 8.9 GM/DL (13.0-17.0); LYMPH % 4.5 % (9.0-44.0); LYMPHOCYTE # 0.5 TH/MM3 (1.0-4.8); MEAN CELL VOLUME 91.2 FL (80.0-100.0); MEAN CORPUSCULAR HGB CONC 32.9 % (32.0-36.0); MEAN PLATELET VOLUME 9.1 FL (7.0-11.0); MONO % 4.4 % (0.0-8.0); MONOCYTE # 0.5 TH/MM3 (0-0.9); PLATELET COUNT 242 TH/MM3 (150-450); RED BLOOD COUNT 2.96 MIL/MM3 (4.50-5.90); RED CELL DISTRIBUTION WIDTH 15.3 % (11.6-17.2); WHITE BLOOD COUNT 11.3 TH/MM3 (4.0-11.0)
[2017-08-02 05:54] LABS: ALBUMIN 1.5 GM/DL (3.4-5.0); AST (GOT) 39 U/L (15-37); BLOOD UREA NITROGEN 43 MG/DL (7-18); CALCIUM 7.9 MG/DL (8.5-10.1); CHLORIDE 114 MEQ/L (98-107); CREATININE 1.31 MG/DL (0.60-1.30); GLOMERULAR FILTRATION RATE 52 ML/MIN (>89); GLUCOSE,RANDOM 148 MG/DL (74-106); MAGNESIUM 2.2 MG/DL (1.5-2.5); SODIUM (NA) 147 MEQ/L (136-145)
[2017-08-02 05:57] LABS: ALKALINE PHOSPHATASE 76 U/L (45-117); ALT (GPT) 25 U/L (12-78); TOTAL BILIRUBIN ADULT 0.3 MG/DL (0.2-1.0); TOTAL PROTEIN 5.4 GM/DL (6.4-8.2)
[2017-08-02] MEDS: CHLORHEXIDINE 0.12% (ORAL KIT) 15 ML CUP MT SCH ×2 (08:00→21:42)
[2017-08-02] MEDS: LACTULOSE SYRUP 20 GM/30 ML CUP NG SCH ×2 (08:20→21:00)
[2017-08-02] MEDS: 1/2 NS + KCL 20 MEQ INJ 1,000 ML IV SCH ×2 (08:20→21:42)
[2017-08-02] MEDS: SODIUM CHLORIDE 0.9% FLUSH 10 ML FLUSH IV FLUSH SCH ×2 (08:20→21:42)
[2017-08-02] MEDS: PANTOPRAZOLE SODIUM 40 MG VIAL IV PUSH SCH (08:20)
[2017-08-02] MEDS: CLOPIDOGREL 75 MG TAB PO SCH (08:21)
[2017-08-02] MEDS: THIAMINE HCL 100 MG TAB PO SCH (08:21)
[2017-08-02] MEDS: FOLIC ACID 1 MG TAB PO SCH (08:21)
[2017-08-02] MEDS: MULTIVITAMIN TAB PO SCH (08:21)
[2017-08-02] MEDS: LORazepam 0.5 MG TAB PO SCH ×2 (08:21→21:43)
[2017-08-02] MEDS: PROPOFOL 1000 MG/100 ML INJ 100 ML IV PRN ×2 (08:22→19:51)
[2017-08-02] MEDS: AMIODARONE 200 MG TAB PO SCH (09:00)
[2017-08-02] MEDS: RESP: BUDESONIDE 0.5 MG/2 ML NEB NEB SCH ×2 (11:14→21:29)
--- NOTE | 2017-08-02 14:32 | HHI.PR ---
Subjective Subjective Notes Remains intubated and lightly sedated. Currently tolerating CPAP at 45% Fi02. Has had BM x2 Objective Vitals/I&O Vital Signs Date Time Temp Pulse Resp B/P (MAP) Pulse Ox O2 Delivery O2 Flow Rate FiO2 08/02/17 12:00 45 08/02/17 12:00 97.9 54 14 142/65 (90) 98 08/02/17 07:00 Mechanical Ventilator 07/30/17 07:50 15.00 Labs Laboratory Tests Test 08/01/17 15:19 08/02/17 04:03 Blood Urea Nitrogen 42 43 Creatinine 1.45 1.31 Random Glucose 140 148 Total Protein 5.7 5.4 Albumin 1.6 1.5 Calcium Level 8.2 7.9 Alkaline Phosphatase 78 76 Aspartate Amino Transf (AST/SGOT) 38 39 Alanine Aminotransferase (ALT/SGPT) 22 25 Total Bilirubin 0.4 0.3 Sodium Level 147 147 Potassium Level 3.8 3.9 Chloride Level 113 114 Carbon Dioxide Level 25.8 26.0 Anion Gap 8 7 Estimat Glomerular Filtration Rate 47 52 White Blood Count 11.3 Red Blood Count 2.96 Hemoglobin 8.9 Hematocrit 27.0 Mean Corpuscular Volume 91.2 Mean Corpuscular Hemoglobin 30.0 Mean Corpuscular Hemoglobin Concent 32.9 Red Cell Distribution Width 15.3 Platelet Count 242 Mean Platelet Volume 9.1 Neutrophils (%) (Auto) 91.0 Lymphocytes (%) (Auto) 4.5 Monocytes (%) (Auto) 4.4 Eosinophils (%) (Auto) 0.0 Basophils (%) (Auto) 0.1 Neutrophils # (Auto) 10.3 Lymphocytes # (Auto) 0.5 Monocytes # (Auto) 0.5 Eosinophils # (Auto) 0.0 Basophils # (Auto) 0.0 CBC Comment DIFF FINAL Differential Comment Magnesium Level 2.2 Date/Time Source Procedure Growth Status 07/30/17 18:12 Blood Peripheral Aerobic Blood Culture - Preliminary NO GROWTH IN 3 DAYS Resulted 07/30/17 18:12 Blood Peripheral Anaerobic Blood Culture - Preliminary NO GROWTH IN 3 DAYS Resulted 07/31/17 08:57 Nasal Washing Influenza Types A,B Antigen (CAYDEN) - Final NEGATIVE FOR FLU A AND B ANTIGEN.... Complete 07/30/17 21:30 Urine Clean Catch Urine Culture - Final NO GROWTH IN 48 HOURS. Complete Radiology Chest X-Ray 07/30/17 0400 Signed Impressions: Service Date/Time: Sunday, July 30, 2017 04:45 - CONCLUSION: Interstitial and alveolar opacities, slightly more prominent. Juanito Chen MD Abdomen X-Ray 07/30/17 0000 Signed Impressions: Service Date/Time: Sunday, July 30, 2017 15:56 - CONCLUSION: 1. Nasogastric tube has its tip in the stomach. 2. No evidence of bowel obstruction, ileus or perforation. 3. Bibasilar pulmonary infiltrates noted. 4. Degenerative changes and scoliosis of the lumbar spine. Darren Verma MD Upper GI Series 07/22/17 0000 Signed Impressions: Service Date/Time: Saturday, July 22, 2017 09:31 - CONCLUSION: No passage of water-soluble contrast seen beyond the distended stomach suggesting persistent gastric outlet obstruction. Herbert Torres MD Abdomen/Pelvis CT 07/18/17 0052 Signed Impressions: Service Date/Time: June 01:52 - CONCLUSION: 1. Pneumoperitoneum. Stomach being the likely source. 2. Dilated stomach containing debris. 3. Bladder calculus measuring 3-4 mm. 4. Unchanged nonobstructing right renal calculus. 5. Status post cholecystectomy. 6. Aortic stent graft with aneurysmal sac measuring [address] Morris was notified. Juanito Chen MD Last Impressions Chest X-Ray 07/27/17 0600 Signed Impressions: Service Date/Time: Thursday, July 27, 2017 03:02 - CONCLUSION: No significant interval change. Persistent right upper lung and left mid to lower lung opacities. Bahman Rooney MD Upper GI Series 07/22/17 0000 Signed Impressions: Service Date/Time: Saturday, July 22, 2017 09:31 - CONCLUSION: No passage of water-soluble contrast seen beyond the distended stomach suggesting persistent gastric outlet obstruction. Herbert Torres MD Abdomen X-Ray 07/21/17 0000 Signed Impressions: Service Date/Time: Friday, July 21, 2017 13:15 - CONCLUSION: 1. Satisfactory placement of nasogastric tube within the stomach 2. Distended stomach containing contrast. 3. Nonspecific gas pattern described above. 4. Aortic stent graft in place. Patricio Butler MD Abdomen/Pelvis CT 07/18/17 0052 Signed Impressions: Service Date/Time: June 01:52 - CONCLUSION: 1. Pneumoperitoneum. Stomach being the likely source. 2. Dilated stomach containing debris. 3. Bladder calculus measuring 3-4 mm. 4. Unchanged nonobstructing right renal calculus. 5. Status post cholecystectomy. 6. Aortic stent graft with aneurysmal sac measuring [address] Morris was notified. Juanito Chen MD Cardiovascular: Other (tele) Lungs: Rhonchi Abdomen: Non-distended Extremities: Perfused A/P Assessment and Plan 82yo M s/p gastrojejunostomy bypass -Not much change in CXR today. Currently on CPAP but needs light sedation for synchrony. . Appreciate all input from Critical care team -Can continue to increase tube feeding based on dietary recommendations The exam, history, and the medical decision-making described in the above note were completed with the assistance of the mid-level provider. I reviewed and agree with the findings presented. I attest that I had a [id number] encounter with the patient on the same day, and personally performed and documented my assessment and findings in the medical record. Discharge Planning Depending on hospital course Talib Feliciano [facility] Aug 02, 2017 14:32 Dayo Marsh MD Aug 08, 2017 15:26
[2017-08-02] MEDS: ENOXAPARIN SODIUM 30 MG/0.3 ML SYRINGE SQ SCH (14:47)
[2017-08-02] MEDS: LORazepam 2 MG/ML VIAL IV PUSH PRN (15:01)
--- NOTE | 2017-08-02 20:11 | HHI.CCPN ---
Subjective Remarks/Hospital Course This is a 82-year-old male. Date of admission 07/18/2017. Date of consultation 07/26/2017. Past medical history includes congestive heart failure, atrial fibrillation, peripheral arterial disease status post stents, COPD, gastroesophageal reflux disease and cataracts. Patient was admitted 07/18/2017 by general surgery as patient has recently underwent laparoscopic cholecystecomy with wedge resection of the stomach on 06/27/17. He was sent to extended care facility for r rehabilitation due to his deconditioned status and the fact that he lives alone. 07/17 he developed abdominal pain and vomiting and was transported to the ER. CT abdomen/pelvis show pneumoperitoneum and he was admitted for further evaluation 07/24 -Kassi-en-Y gastrojejunostomy by Dr. Marsh. Currently on Pipracil/ tazobactam for possible pneumonia on chest x-ray per hospitalist. Patient received furosemide 20 mg IV 1 yesterday. Today, patient acutely short of breath 100% nonrebreather mask was transported to ICU for further evaluation. Chest x-ray revealed pulmonary edema worse right upper lobe. Cannot rule out superimposed pneumonia. Patient is currently on BiPAP 10/500. ABG is currently pending. Received 40 mg furosemide and 500 mg of chlorothiazide. 07/27: On BiPAP 60% O2. CXR with suspected pneumonia - consistent with leukocytosis and fever. States he feels comfortable. 07/28: Off BiPAP and on NRBM. Breathing with acceptable comfort. Abdomen less distended. Comfortable. 07/29: Breathing with acceptable comfort but O2 requirements remain elevated. Bowel activity returning, swallow evaluation discouraging. Well hydrated. 07/30: Patient remains increasingly hypoxemic. Currently saturating barely 90% on FiO2 70% on BiPAP. Tachypneic, increasing respiratory distress despite 40 mg IV Lasix. Patient clearly states that he wants everything done to be kept alive including intubation and CPR. But when he cannot make decision he wants his ex- Anna Marie to make the decisions. Discussed with Dr. Lima 07/31: Intubated and placed on mechanical ventilation yesterday. Chest x-ray shows some improvement in bilateral infiltrates. CT chest today shows severe emphysema, diffuse interstitial opacities bilaterally, small pleural effusions LLL consolidation. Currently receiving broad-spectrum antibiotics, IV steroids and scheduled breathing treatments. Holding off IV diuresis at this time. CT chest findings could be secondary to pneumonia and acute lung injury. PEEP remains high at 12, FiO2 down to 50% 08/01: Remains intubated sedated with propofol and fentanyl, remains critical but more stable. Urine output diminishing 700 mL in 24 hours, BUN 40 creatinine 1.45 both increased-will discontinue vancomycin and hold Cozaar. Weight now is 7 kg less than admission weight. Will give 500 ml fluid bolus challenge. Chest x-ray shows slight improvement in FiO2 45%. Yesterday evening required single dose of rocuronium for ventilatory synchrony, currently more synchronous and oxygen saturation better 08/02: remains intubated and sedated. Cr slightly coming down, but remains elevated. o2 saturations better but not yet clinically ready for SBT. discussed with surgery and they agree with conservative approach given recent hypoxemic respiratory failure. Objective Vital Signs Date Time Temp Pulse Resp B/P (MAP) Pulse Ox O2 Delivery O2 Flow Rate FiO2 08/02/17 18:00 54 08/02/17 16:27 96 45 08/02/17 16:00 97.5 12 151/68 (95) 08/02/17 07:00 Mechanical Ventilator 07/30/17 07:50 15.00 Intake and Output 08/02/17 08/02/17 08/03/17 08:00 16:00 00:00 Intake Total 1087.1 ml 1050 ml 736 ml Output Total 425 ml 625 ml Balance 662.1 ml 1050 ml 111 ml Result Diagram: 08/02/17 0403 08/02/17 0403 Other Results Microbiology Date/Time Source Procedure Growth Status 07/31/17 08:57 Nasal Washing Influenza Types A,B Antigen (CAYDEN) - Final NEGATIVE FOR FLU A AND B ANTIGEN.... Complete 07/30/17 21:30 Urine Clean Catch Urine Culture - Final NO GROWTH IN 48 HOURS. Complete Imaging Last Impressions Chest X-Ray 07/26/17 0000 Signed Impressions: Service Date/Time: Wednesday, July 26, 2017 09:20 - CONCLUSION: 1. Diffuse interstitial prominence consistent with positive fluid balance. 2. Progression of patchy airspace and interstitial opacities in the right upper lobe which may reflect atypical pulmonary edema although differential considerations include developing superimposed pneumonia. 3. Improved aeration in the right lower lung zone. Mike Mijares MD Upper GI Series 07/22/17 0000 Signed Impressions: Service Date/Time: Saturday, July 22, 2017 09:31 - CONCLUSION: No passage of water-soluble contrast seen beyond the distended stomach suggesting persistent gastric outlet obstruction. Herbert Torres MD Abdomen X-Ray 07/21/17 0000 Signed Impressions: Service Date/Time: Friday, July 21, 2017 13:15 - CONCLUSION: 1. Satisfactory placement of nasogastric tube within the stomach 2. Distended stomach containing contrast. 3. Nonspecific gas pattern described above. 4. Aortic stent graft in place. Patricio Butler MD Abdomen/Pelvis CT 07/18/17 0052 Signed Impressions: Service Date/Time: June 01:52 - CONCLUSION: 1. Pneumoperitoneum. Stomach being the likely source. 2. Dilated stomach containing debris. 3. Bladder calculus measuring 3-4 mm. 4. Unchanged nonobstructing right renal calculus. 5. Status post cholecystectomy. 6. Aortic stent graft with aneurysmal sac measuring [address] Morris was notified. Juanito Chen MD Objective Remarks GENERAL: 82-year-old male currently intubated, sedated. SKIN: Warm and dry. HEAD: Atraumatic. Normocephalic. EYES: Pupils equal and round 2 mm bilaterally and reactive. No scleral icterus. No injection or drainage. ENT: No nasal bleeding or discharge. ETT in place, no major secretions NECK: Trachea midline. No visible JVD CARDIOVASCULAR: Appears NSR now. normal rate. RESPIRATORY: equal chest rise. no accessory muscle use. full vent support. GASTROINTESTINAL: Abdomen soft, non-tender, nondistended. No peritoneal irritation. Trochar sites C/D/I MUSCULOSKELETAL: Extremities with trace bilateral lower extremity edema. No obvious deformities. Warm NEUROLOGICAL: Intubated sedated with propofol and fentanyl, wakes up and follows commands on lightening sedation. Motor grossly within normal limits. A/P Assessment and Plan Neuro/Psych: Postop pain control Chronic benzodiazepine use History of EtOH Essential tremor Propofol and fentanyl for sedation and ventilator synchrony Acetaminophen 650 mg by mouth every 6 hours as needed fever Thiamine, multivitamin folate daily for EtOH use. Monitor for DTs IV Lorazepam 1 mg q4hr PRN for anxiety CV: Atrial fibrillation, chronic Chronic diastolic heart failure Peripheral arterial disease -history of stent to right external iliac and left superior femoral Hypertension 2D Echo 07/26/17: Mild to moderate concentric left ventricular hypertrophy. EF 45- 50%. Diffuse global hypokinesis with distinct regional wall motion abnormalities. On diltiazem 120 mg daily-holding due to bradycardia, Hold losartan 50 mg p.o. twice daily due increasing BUN/creatinine Currently amiodarone 200 mg p.o. daily. Clopidogrel 75 mg p.o. daily. Change fluid from 1/3NS to 1/2 NS 84 ml per hour. 500 ml NS bolus challenge for oliguria IV Lasix 40 mg 1 given 07/30/17. Holding further diuresis at this time. 7 kg less than admission weight Resp: Acute hypoxic hypercapnic respiratory failure COPD, with exacerbation Healthcare associated pneumonia Acute lung injury/bilateral interstitial infiltrates Severe emphysema Chest x-ray revealed pulmonary edema (cardiogenic versus noncardiogenic) likely possible superimposed pneumonia CT of the chest done 07/31 shows bilateral interstitial infiltrates, severe emphysema, left lower lobe consolidation and small effusions On 07/30 was profoundly hypoxic and tachypneic on BiPAP. Intubated and placed on mechanical ventilation daily CPAP trials- failing for tachypnea. Albuterol/ipratropium aerosols every 4 hours W aerosols every 2 hours as needed dyspnea Budesonide 0.5/2 1 puff twice daily IV Solu-Medrol 125 mg 1 and 60 every 8-reduce to 40 every 12 Renally adjust Zosyn dose, discontinue azithromycin and vancomycin 08/01 GI: Postop from Kassi-en-Y/gastro jejunostomy History of GIST Hypoalbuminemia s/p lap resection GIST of antrum on 07/10/17. Patient returned 07/18/17 with N/V. found to have partial gastric outlet obstruction Postop from Kassi-en-Y/gastro jejunostomy 07/24/[address] Lima Pantoprazole 40 mg IV daily for GI prophylaxis Tolerating trickle tube feeds 20 cc per hour History of TURP Conrad catheter for I/O in the ICU Endo: Sliding scale insulin if indicated Renal: Monitor urine output Accurate I's and O's 1/3 NS to correct hyper NA at 100 ml per hour-change to 1/2 NS as above with free water replacement Heme: Leukocytosis Normocytic anemia Monitor CBC daily. Follow trends Continue clopidogrel 75 mg daily ID: Healthcare associated pneumonia Leukocytosis/sepsis Currently piperacillin l/tazobactam, azithromycin, vancomycin IV Renally adjust Zosyn dose, discontinue azithromycin and vancomycin 08/01 Follow up on hensley culture-negative to date. Follow up respiratory panel, influenza CT chest shows left lower lobe consolidation, bilateral interstitial infiltrates Pertinent cultures: 07/18/blood cultures 2/no growth FEN Replace electrolytes as clinically indicated MSK: T12 compression fracture PT evaluate and treat, as appropriate Access -Utilize peripheral IV. Central line if indicated Prophylaxis -GI -pantoprazole -DVT -SCD/enoxaparin Overall impression: Worsening hypoxia with sepsis, healthcare associated pneumonia, ALI. Not improving on BiPAP with high settings and FiO2 70%, profoundly hypoxemic. Intubated and placed on mechanical ventilation antibiotics broadened, added steroids. Remains critical, high risk of further decompensation. Showing some signs of improvement, even though overall prognosis still remains guarded considering severe emphysema, and overall debility CCT 36 MIN excluding procedures Mahendra Vera MD Aug 02, 2017 20:11
[2017-08-03] VITALS (19 sets, daily range): BP systolic 146–188; BP diastolic 56–79; PULSE 52–90; RESP 18–22; TEMP 96.8–97.8; O2SAT 95–99
[2017-08-03] MEDS: RESP: ALBUTEROL 2.5 MG/IPRATROPIUM 0.5 MG NEB (SCH) NEB ×6 (01:02→21:16)
[2017-08-03] MEDS: fentaNYL DRIP 250 ML IV PRN (01:04)
[2017-08-03] MEDS: PROPOFOL 1000 MG/100 ML INJ 100 ML IV PRN ×3 (02:22→15:59)
[2017-08-03] MEDS: PIPERACIL-TAZO 3.375 GM PREMIX 50 ML IV SCH ×3 (05:17→21:21)
[2017-08-03] MEDS: methylPREDNISolone SOD SUCC 40 MG/1 ML VIAL IV PUSH SCH ×3 (05:18→21:21)
[2017-08-03] MEDS: FREE WATER OG-TUBE SCH ×4 (05:18→20:00)
[2017-08-03] MEDS: METOCLOPRAMIDE HCL 10 MG/2 ML VIAL IV PUSH SCH ×3 (05:18→21:21)
[2017-08-03 05:37] LABS: HEMATOCRIT 29.6 % (39.0-51.0); HEMOGLOBIN 9.9 GM/DL (13.0-17.0); MEAN CELL VOLUME 91.4 FL (80.0-100.0); MEAN CORPUSCULAR HEMOGLOBIN 30.5 PG (27.0-34.0); MEAN CORPUSCULAR HGB CONC 33.4 % (32.0-36.0); MEAN PLATELET VOLUME 9.3 FL (7.0-11.0); PLATELET COUNT 223 TH/MM3 (150-450); RED BLOOD COUNT 3.24 MIL/MM3 (4.50-5.90); RED CELL DISTRIBUTION WIDTH 15.2 % (11.6-17.2)
[2017-08-03 06:06] LABS: BICARBONATE 25.7 MEQ/L (21.0-32.0); CALCIUM 8.1 MG/DL (8.5-10.1); CREATININE 1.11 MG/DL (0.60-1.30)
[2017-08-03] MEDS: 1/2 NS + KCL 20 MEQ INJ 1,000 ML IV SCH ×2 (06:45→09:57)
[2017-08-03] MEDS: RESP: BUDESONIDE 0.5 MG/2 ML NEB NEB SCH ×2 (08:01→21:16)
[2017-08-03] MEDS: LACTULOSE SYRUP 20 GM/30 ML CUP NG SCH ×2 (09:00→21:00)
--- NOTE | 2017-08-03 09:12 | HHI.PR ---
Subjective Subjective Notes pt on vent sedated Objective Vitals/I&O Vital Signs Date Time Temp Pulse Resp B/P (MAP) Pulse Ox O2 Delivery O2 Flow Rate FiO2 08/03/17 08:02 96 45 08/03/17 06:00 70 08/03/17 04:00 96.8 18 153/69 (97) 08/02/17 19:00 Mechanical Ventilator 07/30/17 07:50 15.00 Labs Laboratory Tests Test 08/03/17 04:33 White Blood Count 9.0 Red Blood Count 3.24 Hemoglobin 9.9 Hematocrit 29.6 Mean Corpuscular Volume 91.4 Mean Corpuscular Hemoglobin 30.5 Mean Corpuscular Hemoglobin Concent 33.4 Red Cell Distribution Width 15.2 Platelet Count 223 Mean Platelet Volume 9.3 Blood Urea Nitrogen 38 Creatinine 1.11 Random Glucose 148 Calcium Level 8.1 Sodium Level 147 Potassium Level 4.3 Chloride Level 114 Carbon Dioxide Level 25.7 Anion Gap 7 Estimat Glomerular Filtration Rate 63 Date/Time Source Procedure Growth Status 07/30/17 18:12 Blood Peripheral Aerobic Blood Culture - Preliminary NO GROWTH IN 3 DAYS Resulted 07/30/17 18:12 Blood Peripheral Anaerobic Blood Culture - Preliminary NO GROWTH IN 3 DAYS Resulted 07/31/17 08:57 Nasal Washing Influenza Types A,B Antigen ([facility]) - Final NEGATIVE FOR FLU A AND B ANTIGEN.... Complete 07/30/17 21:30 Urine Clean Catch Urine Culture - Final NO GROWTH IN 48 HOURS. Complete Radiology Chest X-Ray 07/30/17 0400 Signed Impressions: Service Date/Time: Sunday, July 30, 2017 04:45 - CONCLUSION: Interstitial and alveolar opacities, slightly more prominent. Juanito Chen MD Abdomen X-Ray 07/30/17 0000 Signed Impressions: Service Date/Time: Sunday, July 30, 2017 15:56 - CONCLUSION: 1. Nasogastric tube has its tip in the stomach. 2. No evidence of bowel obstruction, ileus or perforation. 3. Bibasilar pulmonary infiltrates noted. 4. Degenerative changes and scoliosis of the lumbar spine. Darren Verma MD Upper GI Series 07/22/17 0000 Signed Impressions: Service Date/Time: Saturday, July 22, 2017 09:31 - CONCLUSION: No passage of water-soluble contrast seen beyond the distended stomach suggesting persistent gastric outlet obstruction. Herbert Torres MD Abdomen/Pelvis CT 07/18/1751 Signed Impressions: Service Date/Time: June 01:52 - CONCLUSION: 1. Pneumoperitoneum. Stomach being the likely source. 2. Dilated stomach containing debris. 3. Bladder calculus measuring 3-4 mm. 4. Unchanged nonobstructing right renal calculus. 5. Status post cholecystectomy. 6. Aortic stent graft with aneurysmal sac measuring [address] Morris was notified. Juanito Chen MD Last Impressions Chest X-Ray 07/27/17 0600 Signed Impressions: Service Date/Time: Thursday, July 27, 2017 03:02 - CONCLUSION: No significant interval change. Persistent right upper lung and left mid to lower lung opacities. Bahman Rooney MD Upper GI Series 07/22/17 0000 Signed Impressions: Service Date/Time: Saturday, July 22, 2017 09:31 - CONCLUSION: No passage of water-soluble contrast seen beyond the distended stomach suggesting persistent gastric outlet obstruction. Herbert Torres MD Abdomen X-Ray 07/21/17 0000 Signed Impressions: Service Date/Time: Friday, July 21, 2017 13:15 - CONCLUSION: 1. Satisfactory placement of nasogastric tube within the stomach 2. Distended stomach containing contrast. 3. Nonspecific gas pattern described above. 4. Aortic stent graft in place. Patricio Butler MD Abdomen/Pelvis CT 07/18/1751 Signed Impressions: Service Date/Time: June 01:52 - CONCLUSION: 1. Pneumoperitoneum. Stomach being the likely source. 2. Dilated stomach containing debris. 3. Bladder calculus measuring 3-4 mm. 4. Unchanged nonobstructing right renal calculus. 5. Status post cholecystectomy. 6. Aortic stent graft with aneurysmal sac measuring [address] Morris was notified. Juanito Chen MD Lungs: Upper airway course sound Abdomen: Post-op tenderness Extremities: Perfused Wound Wound : Wound Location: Abdomen Appearance: Clean & Dry A/P Assessment and Plan s/p lap gastro j resp failure wean vent as yvette yvette tf can increase as yvette PT range of motion Dayo Marhs MD Aug 03, 2017 09:12
[2017-08-03] MEDS: FOLIC ACID 1 MG TAB PO SCH (09:55)
[2017-08-03] MEDS: CLOPIDOGREL 75 MG TAB PO SCH (09:55)
[2017-08-03] MEDS: THIAMINE HCL 100 MG TAB PO SCH (09:55)
[2017-08-03] MEDS: LORazepam 0.5 MG TAB PO SCH ×2 (09:55→21:22)
[2017-08-03] MEDS: MULTIVITAMIN TAB PO SCH (09:55)
[2017-08-03] MEDS: AMIODARONE 200 MG TAB PO SCH (09:55)
[2017-08-03] MEDS: CHLORHEXIDINE 0.12% (ORAL KIT) 15 ML CUP MT SCH ×2 (09:56→20:00)
[2017-08-03] MEDS: SODIUM CHLORIDE 0.9% FLUSH 10 ML FLUSH IV FLUSH SCH ×2 (09:56→21:00)
[2017-08-03] MEDS: PANTOPRAZOLE SODIUM 40 MG VIAL IV PUSH SCH (09:56)
--- NOTE | 2017-08-03 15:15 | HHI.CCPN ---
Subjective Remarks/Hospital Course This is a 82-year-old male. Date of admission 07/18/2017. Date of consultation 07/26/2017. Past medical history includes congestive heart failure, atrial fibrillation, peripheral arterial disease status post stents, COPD, gastroesophageal reflux disease and cataracts. Patient was admitted 07/18/2017 by general surgery as patient has recently underwent laparoscopic cholecystecomy with wedge resection of the stomach on 06/27/17. He was sent to extended care facility for r rehabilitation due to his deconditioned status and the fact that he lives alone. 07/17 he developed abdominal pain and vomiting and was transported to the ER. CT abdomen/pelvis show pneumoperitoneum and he was admitted for further evaluation 07/24 -Kassi-en-Y gastrojejunostomy by Dr. Marsh. Currently on Pipracil/ tazobactam for possible pneumonia on chest x-ray per hospitalist. Patient received furosemide 20 mg IV 1 yesterday. Today, patient acutely short of breath 100% nonrebreather mask was transported to ICU for further evaluation. Chest x-ray revealed pulmonary edema worse right upper lobe. Cannot rule out superimposed pneumonia. Patient is currently on BiPAP 10/500. ABG is currently pending. Received 40 mg furosemide and 500 mg of chlorothiazide. 07/27: On BiPAP 60% O2. CXR with suspected pneumonia - consistent with leukocytosis and fever. States he feels comfortable. 07/28: Off BiPAP and on NRBM. Breathing with acceptable comfort. Abdomen less distended. Comfortable. 07/29: Breathing with acceptable comfort but O2 requirements remain elevated. Bowel activity returning, swallow evaluation discouraging. Well hydrated. 07/30: Patient remains increasingly hypoxemic. Currently saturating barely 90% on FiO2 70% on BiPAP. Tachypneic, increasing respiratory distress despite 40 mg IV Lasix. Patient clearly states that he wants everything done to be kept alive including intubation and CPR. But when he cannot make decision he wants his ex- Anna Marie to make the decisions. Discussed with Dr. Lima 07/31: Intubated and placed on mechanical ventilation yesterday. Chest x-ray shows some improvement in bilateral infiltrates. CT chest today shows severe emphysema, diffuse interstitial opacities bilaterally, small pleural effusions LLL consolidation. Currently receiving broad-spectrum antibiotics, IV steroids and scheduled breathing treatments. Holding off IV diuresis at this time. CT chest findings could be secondary to pneumonia and acute lung injury. PEEP remains high at 12, FiO2 down to 50% 08/01: Remains intubated sedated with propofol and fentanyl, remains critical but more stable. Urine output diminishing 700 mL in 24 hours, BUN 40 creatinine 1.45 both increased-will discontinue vancomycin and hold Cozaar. Weight now is 7 kg less than admission weight. Will give 500 ml fluid bolus challenge. Chest x-ray shows slight improvement in FiO2 45%. Yesterday evening required single dose of rocuronium for ventilatory synchrony, currently more synchronous and oxygen saturation better 08/02: remains intubated and sedated. Cr slightly coming down, but remains elevated. o2 saturations better but not yet clinically ready for SBT. discussed with surgery and they agree with conservative approach given recent hypoxemic respiratory failure. 08/03: more awake today. will attempt SBT. Cr continues to improve. hypernatremia persists. Objective Vital Signs Date Time Temp Pulse Resp B/P (MAP) Pulse Ox O2 Delivery O2 Flow Rate FiO2 08/03/17 12:05 95 45 08/03/17 12:00 68 08/03/17 12:00 97.8 22 176/79 (111) 08/03/17 07:00 Mechanical Ventilator 07/30/17 07:50 15.00 Intake and Output 08/03/17 08/03/17 08/04/17 08:00 16:00 00:00 Intake Total 657 ml Output Total 500.0 ml Balance 157.0 ml Result Diagram: 08/03/17 0433 08/03/17 0433 Imaging Last Impressions Chest X-Ray 07/26/17 0000 Signed Impressions: Service Date/Time: Wednesday, July 26, 2017 09:20 - CONCLUSION: 1. Diffuse interstitial prominence consistent with positive fluid balance. 2. Progression of patchy airspace and interstitial opacities in the right upper lobe which may reflect atypical pulmonary edema although differential considerations include developing superimposed pneumonia. 3. Improved aeration in the right lower lung zone. Mike Mijares MD Upper GI Series 07/22/17 0000 Signed Impressions: Service Date/Time: Saturday, July 22, 2017 09:31 - CONCLUSION: No passage of water-soluble contrast seen beyond the distended stomach suggesting persistent gastric outlet obstruction. Herbert Torres MD Abdomen X-Ray 07/21/17 0000 Signed Impressions: Service Date/Time: Friday, July 21, 2017 13:15 - CONCLUSION: 1. Satisfactory placement of nasogastric tube within the stomach 2. Distended stomach containing contrast. 3. Nonspecific gas pattern described above. 4. Aortic stent graft in place. Patricio Butler MD Abdomen/Pelvis CT 07/18/17 0052 Signed Impressions: Service Date/Time: June 01:52 - CONCLUSION: 1. Pneumoperitoneum. Stomach being the likely source. 2. Dilated stomach containing debris. 3. Bladder calculus measuring 3-4 mm. 4. Unchanged nonobstructing right renal calculus. 5. Status post cholecystectomy. 6. Aortic stent graft with aneurysmal sac measuring [address] Morris was notified. Juanito Chen MD Objective Remarks GENERAL: 82-year-old male currently intubated, sedated. SKIN: Warm and dry. HEAD: Atraumatic. Normocephalic. EYES: Pupils equal and round 2 mm bilaterally and reactive. No scleral icterus. No injection or drainage. ENT: No nasal bleeding or discharge. ETT in place, no major secretions NECK: Trachea midline. No visible JVD CARDIOVASCULAR: Appears NSR now. normal rate. RESPIRATORY: equal chest rise. no accessory muscle use. full vent support. GASTROINTESTINAL: Abdomen soft, non-tender, nondistended. No peritoneal irritation. Trochar sites C/D/I MUSCULOSKELETAL: Extremities with trace bilateral lower extremity edema. No obvious deformities. Warm NEUROLOGICAL: Intubated sedated with propofol and fentanyl, wakes up and follows commands on lightening sedation. Motor grossly within normal limits. A/P Assessment and Plan Neuro/Psych: Postop pain control Chronic benzodiazepine use History of EtOH Essential tremor Propofol and fentanyl for sedation and ventilator synchrony Acetaminophen 650 mg by mouth every 6 hours as needed fever Thiamine, multivitamin folate daily for EtOH use. Monitor for DTs IV Lorazepam 1 mg q4hr PRN for anxiety CV: Atrial fibrillation, chronic Chronic diastolic heart failure Peripheral arterial disease -history of stent to right external iliac and left superior femoral Hypertension 2D Echo 07/26/17: Mild to moderate concentric left ventricular hypertrophy. EF 45- 50%. Diffuse global hypokinesis with distinct regional wall motion abnormalities. On diltiazem 120 mg daily-holding due to bradycardia, Hold losartan 50 mg p.o. twice daily due increasing BUN/creatinine Currently amiodarone 200 mg p.o. daily. Clopidogrel 75 mg p.o. daily. IV Lasix 40 mg 1 given 07/30/17. Holding further diuresis at this time. 7 kg less than admission weight Resp: Acute hypoxic hypercapnic respiratory failure COPD, with exacerbation Healthcare associated pneumonia Acute lung injury/bilateral interstitial infiltrates Severe emphysema Chest x-ray revealed pulmonary edema (cardiogenic versus noncardiogenic) likely possible superimposed pneumonia CT of the chest done 07/31 shows bilateral interstitial infiltrates, severe emphysema, left lower lobe consolidation and small effusions On 07/30 was profoundly hypoxic and tachypneic on BiPAP. Intubated and placed on mechanical ventilation daily CPAP trials- failing for tachypnea. Albuterol/ipratropium aerosols every 4 hours W aerosols every 2 hours as needed dyspnea Budesonide 0.5/2 1 puff twice daily IV Solu-Medrol 125 mg 1 and 60 every 8-reduce to 40 every 12 Renally adjust Zosyn dose, discontinue azithromycin and vancomycin 08/01 GI: Postop from Kassi-en-Y/gastro jejunostomy History of GIST Hypoalbuminemia s/p lap resection GIST of antrum on 07/10/17. Patient returned 07/18/17 with N/V. found to have partial gastric outlet obstruction Postop from Kassi-en-Y/gastro jejunostomy 07/24/[address] Lima Pantoprazole 40 mg IV daily for GI prophylaxis Tolerating trickle tube feeds 20 cc per hour History of TURP Conrad catheter for I/O in the ICU Endo: Sliding scale insulin if indicated Renal: Monitor urine output Accurate I's and O's 1/3 NS to correct hyper NA at 100 ml per hour-change to 1/2 NS as above with free water replacement Heme: Leukocytosis Normocytic anemia Monitor CBC daily. Follow trends Continue clopidogrel 75 mg daily ID: Healthcare associated pneumonia Leukocytosis/sepsis Currently piperacillin l/tazobactam, azithromycin, vancomycin IV Renally adjust Zosyn dose, discontinue azithromycin and vancomycin 08/01 Follow up on hensley culture-negative to date. Follow up respiratory panel, influenza CT chest shows left lower lobe consolidation, bilateral interstitial infiltrates Pertinent cultures: 07/18/blood cultures 2/no growth FEN Replace electrolytes as clinically indicated MSK: T12 compression fracture PT evaluate and treat, as appropriate Access -Utilize peripheral IV. Central line if indicated Prophylaxis -GI -pantoprazole -DVT -SCD/enoxaparin Overall impression: Worsening hypoxia with sepsis, healthcare associated pneumonia, ALI. Not improving on BiPAP with high settings and FiO2 70%, profoundly hypoxemic. Intubated and placed on mechanical ventilation antibiotics broadened, added steroids. Remains critical, high risk of further decompensation. Showing some signs of improvement, even though overall prognosis still remains guarded considering severe emphysema, and overall debility Mahendra Vera MD Aug 03, 2017 15:15
[2017-08-03] MEDS: ENOXAPARIN SODIUM 30 MG/0.3 ML SYRINGE SQ SCH (15:59)
[2017-08-03] MEDS: hydrALAZINE HCL 20 MG/ML VIAL IV PUSH PRN (17:37)
[2017-08-04] VITALS (17 sets, daily range): BP systolic 132–185; BP diastolic 62–96; PULSE 54–90; RESP 18–29; TEMP 96.8–98.1; O2SAT 55–100
[2017-08-04] MEDS: RESP: ALBUTEROL 2.5 MG/IPRATROPIUM 0.5 MG NEB (SCH) NEB ×5 (00:55→21:59)
[2017-08-04] MEDS: PROPOFOL 1000 MG/100 ML INJ 100 ML IV PRN ×2 (03:09→23:00)
[2017-08-04] MEDS: FREE WATER OG-TUBE SCH ×6 (04:00→20:00)
[2017-08-04 05:25] LABS: HEMATOCRIT 28.7 % (39.0-51.0); HEMOGLOBIN 9.6 GM/DL (13.0-17.0); MEAN CELL VOLUME 90.5 FL (80.0-100.0); MEAN CORPUSCULAR HEMOGLOBIN 30.3 PG (27.0-34.0); MEAN CORPUSCULAR HGB CONC 33.5 % (32.0-36.0); MEAN PLATELET VOLUME 9.1 FL (7.0-11.0); PLATELET COUNT 243 TH/MM3 (150-450); RED BLOOD COUNT 3.18 MIL/MM3 (4.50-5.90); RED CELL DISTRIBUTION WIDTH 14.9 % (11.6-17.2); WHITE BLOOD COUNT 12.8 TH/MM3 (4.0-11.0)
[2017-08-04] MEDS: methylPREDNISolone SOD SUCC 40 MG/1 ML VIAL IV PUSH SCH ×3 (05:42→21:51)
[2017-08-04] MEDS: METOCLOPRAMIDE HCL 10 MG/2 ML VIAL IV PUSH SCH ×3 (05:42→21:51)
[2017-08-04] MEDS: PIPERACIL-TAZO 3.375 GM PREMIX 50 ML IV SCH (05:43)
[2017-08-04 05:44] LABS: BICARBONATE 25.5 MEQ/L (21.0-32.0); CALCIUM 8.1 MG/DL (8.5-10.1); CREATININE 1.03 MG/DL (0.60-1.30)
[2017-08-04] MEDS: fentaNYL DRIP 250 ML IV PRN (05:51)
[2017-08-04] MEDS: 1/2 NS + KCL 20 MEQ INJ 1,000 ML IV SCH (06:45)
[2017-08-04] MEDS: CHLORHEXIDINE 0.12% (ORAL KIT) 15 ML CUP MT SCH ×2 (08:00→20:00)
[2017-08-04] MEDS: LACTULOSE SYRUP 20 GM/30 ML CUP NG SCH ×2 (09:00→20:07)
--- NOTE | 2017-08-04 09:32 | HHI.CCPN ---
Subjective Remarks/Hospital Course This is a 82-year-old male. Date of admission 07/18/2017. Date of consultation 07/26/2017. Past medical history includes congestive heart failure, atrial fibrillation, peripheral arterial disease status post stents, COPD, gastroesophageal reflux disease and cataracts. Patient was admitted 07/18/2017 by general surgery as patient has recently underwent laparoscopic cholecystecomy with wedge resection of the stomach on 06/27/17. He was sent to extended care facility for r rehabilitation due to his deconditioned status and the fact that he lives alone. 07/17 he developed abdominal pain and vomiting and was transported to the ER. CT abdomen/pelvis show pneumoperitoneum and he was admitted for further evaluation 07/24 -Kassi-en-Y gastrojejunostomy by Dr. Marsh. Currently on Pipracil/ tazobactam for possible pneumonia on chest x-ray per hospitalist. Patient received furosemide 20 mg IV 1 yesterday. Today, patient acutely short of breath 100% nonrebreather mask was transported to ICU for further evaluation. Chest x-ray revealed pulmonary edema worse right upper lobe. Cannot rule out superimposed pneumonia. Patient is currently on BiPAP 10/500. ABG is currently pending. Received 40 mg furosemide and 500 mg of chlorothiazide. 07/27: On BiPAP 60% O2. CXR with suspected pneumonia - consistent with leukocytosis and fever. States he feels comfortable. 07/28: Off BiPAP and on NRBM. Breathing with acceptable comfort. Abdomen less distended. Comfortable. 07/29: Breathing with acceptable comfort but O2 requirements remain elevated. Bowel activity returning, swallow evaluation discouraging. Well hydrated. 07/30: Patient remains increasingly hypoxemic. Currently saturating barely 90% on FiO2 70% on BiPAP. Tachypneic, increasing respiratory distress despite 40 mg IV Lasix. Patient clearly states that he wants everything done to be kept alive including intubation and CPR. But when he cannot make decision he wants his ex- Anna Marie to make the decisions. Discussed with Dr. Lima 07/31: Intubated and placed on mechanical ventilation yesterday. Chest x-ray shows some improvement in bilateral infiltrates. CT chest today shows severe emphysema, diffuse interstitial opacities bilaterally, small pleural effusions LLL consolidation. Currently receiving broad-spectrum antibiotics, IV steroids and scheduled breathing treatments. Holding off IV diuresis at this time. CT chest findings could be secondary to pneumonia and acute lung injury. PEEP remains high at 12, FiO2 down to 50% 08/01: Remains intubated sedated with propofol and fentanyl, remains critical but more stable. Urine output diminishing 700 mL in 24 hours, BUN 40 creatinine 1.45 both increased-will discontinue vancomycin and hold Cozaar. Weight now is 7 kg less than admission weight. Will give 500 ml fluid bolus challenge. Chest x-ray shows slight improvement in FiO2 45%. Yesterday evening required single dose of rocuronium for ventilatory synchrony, currently more synchronous and oxygen saturation better 08/02: remains intubated and sedated. Cr slightly coming down, but remains elevated. o2 saturations better but not yet clinically ready for SBT. discussed with surgery and they agree with conservative approach given recent hypoxemic respiratory failure. 08/03: more awake today. will attempt SBT. Cr continues to improve. hypernatremia persists. 08/04: still failed CPAP yesterday. however, clinically improving today. hypernatremia improving. Cr improving. will attempt SBT again today. Objective Vital Signs Date Time Temp Pulse Resp B/P (MAP) Pulse Ox O2 Delivery O2 Flow Rate FiO2 08/04/17 06:00 70 08/04/17 04:15 97 40 08/04/17 04:00 97.2 18 138/96 (110) 08/03/17 19:00 Mechanical Ventilator Intake and Output 08/04/17 08/04/17 08/05/17 08:00 16:00 00:00 Intake Total 734 ml Output Total 850 ml Balance -116 ml Result Diagram: 08/04/17 0502 08/04/17 0502 Imaging Last Impressions Chest X-Ray 07/26/17 0000 Signed Impressions: Service Date/Time: Wednesday, July 26, 2017 09:20 - CONCLUSION: 1. Diffuse interstitial prominence consistent with positive fluid balance. 2. Progression of patchy airspace and interstitial opacities in the right upper lobe which may reflect atypical pulmonary edema although differential considerations include developing superimposed pneumonia. 3. Improved aeration in the right lower lung zone. Mike Mijares MD Upper GI Series 07/22/17 0000 Signed Impressions: Service Date/Time: Saturday, July 22, 2017 09:31 - CONCLUSION: No passage of water-soluble contrast seen beyond the distended stomach suggesting persistent gastric outlet obstruction. Herbert Torres MD Abdomen X-Ray 07/21/17 0000 Signed Impressions: Service Date/Time: Friday, July 21, 2017 13:15 - CONCLUSION: 1. Satisfactory placement of nasogastric tube within the stomach 2. Distended stomach containing contrast. 3. Nonspecific gas pattern described above. 4. Aortic stent graft in place. Patricio Butler MD Abdomen/Pelvis CT 07/18/17 0052 Signed Impressions: Service Date/Time: June 01:52 - CONCLUSION: 1. Pneumoperitoneum. Stomach being the likely source. 2. Dilated stomach containing debris. 3. Bladder calculus measuring 3-4 mm. 4. Unchanged nonobstructing right renal calculus. 5. Status post cholecystectomy. 6. Aortic stent graft with aneurysmal sac measuring [address] Morris was notified. Juanito Chen MD Objective Remarks GENERAL: 82-year-old male currently intubated, sedated. SKIN: Warm and dry. HEAD: Atraumatic. Normocephalic. EYES: Pupils equal and round 2 mm bilaterally and reactive. No scleral icterus. No injection or drainage. ENT: No nasal bleeding or discharge. ETT in place, no major secretions NECK: Trachea midline. No visible JVD CARDIOVASCULAR: Appears NSR now. normal rate. RESPIRATORY: equal chest rise. no accessory muscle use. full vent support. GASTROINTESTINAL: Abdomen soft, non-tender, nondistended. No peritoneal irritation. Trochar sites C/D/I MUSCULOSKELETAL: Extremities with trace bilateral lower extremity edema. No obvious deformities. Warm NEUROLOGICAL: Intubated sedated with propofol and fentanyl, wakes up and follows commands on lightening sedation. Motor grossly within normal limits. A/P Assessment and Plan Neuro/Psych: Postop pain control Chronic benzodiazepine use History of EtOH Essential tremor Propofol and fentanyl for sedation and ventilator synchrony Acetaminophen 650 mg by mouth every 6 hours as needed fever Thiamine, multivitamin folate daily for EtOH use. Monitor for DTs IV Lorazepam 1 mg q4hr PRN for anxiety CV: Atrial fibrillation, chronic Chronic diastolic heart failure Peripheral arterial disease -history of stent to right external iliac and left superior femoral Hypertension 2D Echo 07/26/17: Mild to moderate concentric left ventricular hypertrophy. EF 45- 50%. Diffuse global hypokinesis with distinct regional wall motion abnormalities. On diltiazem 120 mg daily-holding due to bradycardia, Hold losartan 50 mg p.o. twice daily due increasing BUN/creatinine Currently amiodarone 200 mg p.o. daily. Clopidogrel 75 mg p.o. daily. IV Lasix 40 mg 1 given 07/30/17. Holding further diuresis at this time. 7 kg less than admission weight Resp: Acute hypoxic hypercapnic respiratory failure COPD, with exacerbation Healthcare associated pneumonia Acute lung injury/bilateral interstitial infiltrates Severe emphysema Chest x-ray revealed pulmonary edema (cardiogenic versus noncardiogenic) likely possible superimposed pneumonia CT of the chest done 07/31 shows bilateral interstitial infiltrates, severe emphysema, left lower lobe consolidation and small effusions On 07/30 was profoundly hypoxic and tachypneic on BiPAP. Intubated and placed on mechanical ventilation daily CPAP trials- failing for tachypnea. Albuterol/ipratropium aerosols every 4 hours W aerosols every 2 hours as needed dyspnea Budesonide 0.5/2 1 puff twice daily IV Solu-Medrol 125 mg 1 and 60 every 8-reduced to 40 every 12 Renally adjust Zosyn dose, discontinue azithromycin and vancomycin 08/01 GI: Postop from Kassi-en-Y/gastro jejunostomy History of GIST Hypoalbuminemia s/p lap resection GIST of antrum on 07/10/17. Patient returned 07/18/17 with N/V. found to have partial gastric outlet obstruction Postop from Kassi-en-Y/gastro jejunostomy 07/24/[address] Lima Pantoprazole 40 mg IV daily for GI prophylaxis Tolerating trickle tube feeds 20 cc per hour: increase to 40mL/hr today. History of TURP Conrad catheter for I/O in the ICU Endo: Sliding scale insulin if indicated Renal: Monitor urine output Accurate I's and O's 1/3 NS to correct hyper NA at 100 ml per hour-change to 1/2 NS as above with free water replacement Heme: Leukocytosis Normocytic anemia Monitor CBC daily. Follow trends Continue clopidogrel 75 mg daily ID: Healthcare associated pneumonia Leukocytosis/sepsis Currently piperacillin l/tazobactam, azithromycin, vancomycin IV Renally adjust Zosyn dose, discontinue azithromycin and vancomycin 08/01 d/c zosyn today: has been 14 days of therapy. Follow up on hensley culture-negative to date. Follow up respiratory panel, influenza CT chest shows left lower lobe consolidation, bilateral interstitial infiltrates Pertinent cultures: 07/18/blood cultures 2/no growth FEN Replace electrolytes as clinically indicated MSK: T12 compression fracture PT evaluate and treat, as appropriate Access -Utilize peripheral IV. Central line if indicated Prophylaxis -GI -pantoprazole -DVT -SCD/enoxaparin Overall impression: remains critically ill with respiratory failure superimposed on chronic respiratory failure from COPD. attempt to wean from mechanical ventilation, but may be difficult. may need to look towards long- term weaning in the future. Mahendra Vera MD Aug 04, 2017 09:32
[2017-08-04] MEDS: FOLIC ACID 1 MG TAB PO SCH (10:11)
[2017-08-04] MEDS: SODIUM CHLORIDE 0.9% FLUSH 10 ML FLUSH IV FLUSH SCH ×2 (10:11→20:07)
[2017-08-04] MEDS: AMIODARONE 200 MG TAB PO SCH (10:11)
[2017-08-04] MEDS: THIAMINE HCL 100 MG TAB PO SCH (10:11)
[2017-08-04] MEDS: MULTIVITAMIN TAB PO SCH (10:11)
[2017-08-04] MEDS: LORazepam 0.5 MG TAB PO SCH ×2 (10:12→20:06)
[2017-08-04] MEDS: CLOPIDOGREL 75 MG TAB PO SCH (10:13)
[2017-08-04] MEDS: PANTOPRAZOLE SODIUM 40 MG VIAL IV PUSH SCH (10:15)
[2017-08-04] MEDS: hydrALAZINE HCL 20 MG/ML VIAL IV PUSH PRN ×2 (14:09→17:22)
[2017-08-04] MEDS: LORazepam 2 MG/ML VIAL IV PUSH PRN (14:10)
[2017-08-04] MEDS: ENOXAPARIN SODIUM 30 MG/0.3 ML SYRINGE SQ SCH (14:10)
[2017-08-04] MEDS: RESP: BUDESONIDE 0.5 MG/2 ML NEB NEB SCH ×2 (14:23→22:00)
[2017-08-04] MEDS: RESP: ALBUTEROL 2.5 MG/3 ML NEB (PRN) NEB (14:23)
[2017-08-04] MEDS ORDERED: LORazepam 1 MG TAB PO PRN (16:00)
[2017-08-05] VITALS (17 sets, daily range): BP systolic 118–158; BP diastolic 56–70; PULSE 55–90; RESP 20–32; TEMP 96.8–98.6; O2SAT 97–100
[2017-08-05] MEDS: RESP: ALBUTEROL 2.5 MG/IPRATROPIUM 0.5 MG NEB (SCH) NEB ×6 (01:08→19:31)
[2017-08-05] MEDS: FREE WATER OG-TUBE SCH ×6 (03:15→20:52)
[2017-08-05] MEDS: 1/2 NS + KCL 20 MEQ INJ 1,000 ML IV SCH ×2 (03:45→14:29)
[2017-08-05] MEDS: PROPOFOL 1000 MG/100 ML INJ 100 ML IV PRN (05:01)
[2017-08-05 05:24] LABS: HEMATOCRIT 28.7 % (39.0-51.0); HEMOGLOBIN 9.4 GM/DL (13.0-17.0); MEAN CELL VOLUME 91.1 FL (80.0-100.0); MEAN CORPUSCULAR HGB CONC 32.9 % (32.0-36.0); MEAN PLATELET VOLUME 8.9 FL (7.0-11.0); PLATELET COUNT 249 TH/MM3 (150-450); RED BLOOD COUNT 3.15 MIL/MM3 (4.50-5.90)
[2017-08-05] MEDS: methylPREDNISolone SOD SUCC 40 MG/1 ML VIAL IV PUSH SCH ×2 (05:29→13:38)
[2017-08-05] MEDS: METOCLOPRAMIDE HCL 10 MG/2 ML VIAL IV PUSH SCH ×3 (05:29→21:18)
[2017-08-05 05:47] LABS: BICARBONATE 25.6 MEQ/L (21.0-32.0); CREATININE 0.99 MG/DL (0.60-1.30)
[2017-08-05] MEDS: fentaNYL DRIP 250 ML IV PRN (06:29)
[2017-08-05] MEDS: RESP: BUDESONIDE 0.5 MG/2 ML NEB NEB SCH ×2 (08:00→19:31)
[2017-08-05] MEDS: CHLORHEXIDINE 0.12% (ORAL KIT) 15 ML CUP MT SCH ×2 (08:00→20:52)
[2017-08-05] MEDS: LACTULOSE SYRUP 20 GM/30 ML CUP NG SCH ×2 (09:00→20:51)
[2017-08-05] MEDS: SODIUM CHLORIDE 0.9% FLUSH 10 ML FLUSH IV FLUSH SCH ×2 (09:14→20:51)
[2017-08-05] MEDS: THIAMINE HCL 100 MG TAB PO SCH (09:14)
[2017-08-05] MEDS: hydrALAZINE HCL 20 MG/ML VIAL IV PUSH PRN (09:14)
[2017-08-05] MEDS: FOLIC ACID 1 MG TAB PO SCH (09:15)
[2017-08-05] MEDS: CLOPIDOGREL 75 MG TAB PO SCH (09:15)
[2017-08-05] MEDS: PANTOPRAZOLE SODIUM 40 MG VIAL IV PUSH SCH (09:15)
[2017-08-05] MEDS: LORazepam 0.5 MG TAB PO SCH ×2 (09:15→21:18)
[2017-08-05] MEDS: MULTIVITAMIN TAB PO SCH (09:15)
[2017-08-05] MEDS: AMIODARONE 200 MG TAB PO SCH (09:15)
--- NOTE | 2017-08-05 13:04 | HHI.PR ---
Subjective Subjective Notes Was recently extubated, currently on NRB. Lethargic but abusable and answers appropriately Objective Vitals/I&O Vital Signs Date Time Temp Pulse Resp B/P (MAP) Pulse Ox O2 Delivery O2 Flow Rate FiO2 08/05/17 08:48 97 40 08/05/17 06:00 58 08/05/17 04:00 97.6 20 120/56 (77) 08/04/17 19:00 Mechanical Ventilator Labs Laboratory Tests Test 08/04/17 16:44 08/05/17 04:20 Blood Gas Puncture Site RT RADIAL Blood Gas Patient Temperature 98.6 Blood Gas HCO3 24 Blood Gas Base Excess 0.4 Blood Gas Oxygen Saturation 88 Arterial Blood pH 7.46 Arterial Blood Partial Pressure CO2 34 Arterial Blood Partial Pressure O2 56 Arterial Blood Oxygen Content 13.3 Arterial Blood Carboxyhemoglobin 1.1 Arterial Blood Methemoglobin 1.0 Blood Gas Hemoglobin 10.7 Oxygen Delivery Device T-PIECE Blood Gas Inspired Oxygen 50 White Blood Count 16.0 Red Blood Count 3.15 Hemoglobin 9.4 Hematocrit 28.7 Mean Corpuscular Volume 91.1 Mean Corpuscular Hemoglobin 30.0 Mean Corpuscular Hemoglobin Concent 32.9 Red Cell Distribution Width 15.0 Platelet Count 249 Mean Platelet Volume 8.9 Blood Urea Nitrogen 32 Creatinine 0.99 Random Glucose 162 Calcium Level 8.0 Sodium Level 144 Potassium Level 4.7 Chloride Level 113 Carbon Dioxide Level 25.6 Anion Gap 5 Estimat Glomerular Filtration Rate 72 Date/Time Source Procedure Growth Status 07/30/17 18:12 Blood Peripheral Aerobic Blood Culture - Final NO GROWTH IN 5 DAYS Complete 07/30/17 18:12 Blood Peripheral Anaerobic Blood Culture - Final NO GROWTH IN 5 DAYS Complete 07/31/17 08:57 Nasal Washing Influenza Types A,B Antigen ([place]) - Final NEGATIVE FOR FLU A AND B ANTIGEN.... Complete 07/30/17 21:30 Urine Clean Catch Urine Culture - Final NO GROWTH IN 48 HOURS. Complete Radiology Chest X-Ray 07/30/17 0400 Signed Impressions: Service Date/Time: Sunday, July 30, 2017 04:45 - CONCLUSION: Interstitial and alveolar opacities, slightly more prominent. Juanito Chen MD Abdomen X-Ray 07/30/17 0000 Signed Impressions: Service Date/Time: Sunday, July 30, 2017 15:56 - CONCLUSION: 1. Nasogastric tube has its tip in the stomach. 2. No evidence of bowel obstruction, ileus or perforation. 3. Bibasilar pulmonary infiltrates noted. 4. Degenerative changes and scoliosis of the lumbar spine. Darren Verma MD Upper GI Series 07/22/17 Signed Impressions: Service Date/Time: Saturday, July 22, 2017 09:31 - CONCLUSION: No passage of water-soluble contrast seen beyond the distended stomach suggesting persistent gastric outlet obstruction. Herbert Torres MD Abdomen/Pelvis CT 07/18/1751 Signed Impressions: Service Date/Time: June 01:52 - CONCLUSION: 1. Pneumoperitoneum. Stomach being the likely source. 2. Dilated stomach containing debris. 3. Bladder calculus measuring 3-4 mm. 4. Unchanged nonobstructing right renal calculus. 5. Status post cholecystectomy. 6. Aortic stent graft with aneurysmal sac measuring [address] Morris was notified. Juanito Chen MD Last Impressions Chest X-Ray 07/27/17 0600 Signed Impressions: Service Date/Time: Thursday, July 27, 2017 03:02 - CONCLUSION: No significant interval change. Persistent right upper lung and left mid to lower lung opacities. Bahman Rooney MD Upper GI Series 07/22/17 0000 Signed Impressions: Service Date/Time: Saturday, July 22, 2017 09:31 - CONCLUSION: No passage of water-soluble contrast seen beyond the distended stomach suggesting persistent gastric outlet obstruction. Herbert Torres MD Abdomen X-Ray 07/21/17 0000 Signed Impressions: Service Date/Time: Friday, July 21, 2017 13:15 - CONCLUSION: 1. Satisfactory placement of nasogastric tube within the stomach 2. Distended stomach containing contrast. 3. Nonspecific gas pattern described above. 4. Aortic stent graft in place. Patricio Butler MD Abdomen/Pelvis CT 07/18/1751 Signed Impressions: Service Date/Time: June 01:52 - CONCLUSION: 1. Pneumoperitoneum. Stomach being the likely source. 2. Dilated stomach containing debris. 3. Bladder calculus measuring 3-4 mm. 4. Unchanged nonobstructing right renal calculus. 5. Status post cholecystectomy. 6. Aortic stent graft with aneurysmal sac measuring [address] Morris was notified. Juanito Chen MD Cardiovascular: Regular Lungs: Rhonchi Abdomen: Non-tender Extremities: Perfused Wound Wound : Wound Location: Abdomen Appearance: Clean & Dry A/P Assessment and Plan 82yo M s/p gastrojejunostomy bypass -Recently extubated, appreciate follow up with Critical care -WBC trending back up -Bun still elevated, but creatinine normalizing -Speech therapy to eval swallow status, suspect pt will not pass, may need to consider parental nutrition Discharge Planning Depending on hospital course Talib Feliciano Aug 05, 2017 13:04
[2017-08-05] MEDS: ONDANSETRON HCL 4 MG/2 ML VIAL IV PUSH PRN (13:37)
[2017-08-05] MEDS: LORazepam 2 MG/ML VIAL IV PUSH PRN (13:38)
[2017-08-05] MEDS: ENOXAPARIN SODIUM 30 MG/0.3 ML SYRINGE SQ SCH (13:39)
--- NOTE | 2017-08-05 15:16 | HHI.CCPN ---
Subjective Remarks/Hospital Course This is a 82-year-old male. Date of admission 07/18/2017. Date of consultation 07/26/2017. Past medical history includes congestive heart failure, atrial fibrillation, peripheral arterial disease status post stents, COPD, gastroesophageal reflux disease and cataracts. Patient was admitted 07/18/2017 by general surgery as patient has recently underwent laparoscopic cholecystecomy with wedge resection of the stomach on 06/27/17. He was sent to extended care facility for r rehabilitation due to his deconditioned status and the fact that he lives alone. 07/17 he developed abdominal pain and vomiting and was transported to the ER. CT abdomen/pelvis show pneumoperitoneum and he was admitted for further evaluation 07/24 -Kassi-en-Y gastrojejunostomy by Dr. Marsh. Currently on Pipracil/ tazobactam for possible pneumonia on chest x-ray per hospitalist. Patient received furosemide 20 mg IV 1 yesterday. Today, patient acutely short of breath 100% nonrebreather mask was transported to ICU for further evaluation. Chest x-ray revealed pulmonary edema worse right upper lobe. Cannot rule out superimposed pneumonia. Patient is currently on BiPAP 10/500. ABG is currently pending. Received 40 mg furosemide and 500 mg of chlorothiazide. 07/27: On BiPAP 60% O2. CXR with suspected pneumonia - consistent with leukocytosis and fever. States he feels comfortable. 07/28: Off BiPAP and on NRBM. Breathing with acceptable comfort. Abdomen less distended. Comfortable. 07/29: Breathing with acceptable comfort but O2 requirements remain elevated. Bowel activity returning, swallow evaluation discouraging. Well hydrated. 07/30: Patient remains increasingly hypoxemic. Currently saturating barely 90% on FiO2 70% on BiPAP. Tachypneic, increasing respiratory distress despite 40 mg IV Lasix. Patient clearly states that he wants everything done to be kept alive including intubation and CPR. But when he cannot make decision he wants his ex- Anna Marie to make the decisions. Discussed with Dr. Lima 07/31: Intubated and placed on mechanical ventilation yesterday. Chest x-ray shows some improvement in bilateral infiltrates. CT chest today shows severe emphysema, diffuse interstitial opacities bilaterally, small pleural effusions LLL consolidation. Currently receiving broad-spectrum antibiotics, IV steroids and scheduled breathing treatments. Holding off IV diuresis at this time. CT chest findings could be secondary to pneumonia and acute lung injury. PEEP remains high at 12, FiO2 down to 50% 08/01: Remains intubated sedated with propofol and fentanyl, remains critical but more stable. Urine output diminishing 700 mL in 24 hours, BUN 40 creatinine 1.45 both increased-will discontinue vancomycin and hold Cozaar. Weight now is 7 kg less than admission weight. Will give 500 ml fluid bolus challenge. Chest x-ray shows slight improvement in FiO2 45%. Yesterday evening required single dose of rocuronium for ventilatory synchrony, currently more synchronous and oxygen saturation better 08/02: remains intubated and sedated. Cr slightly coming down, but remains elevated. o2 saturations better but not yet clinically ready for SBT. discussed with surgery and they agree with conservative approach given recent hypoxemic respiratory failure. 08/03: more awake today. will attempt SBT. Cr continues to improve. hypernatremia persists. 08/04: still failed CPAP yesterday. however, clinically improving today. hypernatremia improving. Cr improving. will attempt SBT again today. 08/05: Patient is strong on spontaneous breathing trial and easily meets parameters for extubation. Following extubation his breath sounds have become more coarse and he has increasing mobile secretions. At present he oxygenates at 97% with a reasonably comfortable respiratory effort. I am concerned that his cough effort may not be adequate to keep his lungs clear however. Objective Vital Signs Date Time Temp Pulse Resp B/P (MAP) Pulse Ox O2 Delivery O2 Flow Rate FiO2 08/05/17 08:48 97 40 08/05/17 06:00 58 08/05/17 04:00 97.6 20 120/56 (77) 08/04/17 19:00 Mechanical Ventilator Intake and Output 08/05/17 08/05/17 08/06/17 08:00 16:00 00:00 Intake Total 1296 ml Output Total 500 ml Balance 796 ml Result Diagram: 08/05/17 0420 08/05/17 0420 Other Results Laboratory Tests Test 08/04/17 16:44 08/05/17 10:35 Blood Gas Puncture Site RT RADIAL RT RADIAL Blood Gas Patient Temperature 98.6 98.6 Blood Gas HCO3 24 mmol/L (22-26) 21 mmol/L (22-26) Blood Gas Base Excess 0.4 mmol/L (-2-2) -2.8 mmol/L (-2-2) Blood Gas Oxygen Saturation 88 % (90-100) 92 % (90-100) Arterial Blood pH 7.46 (7.380-7.420) 7.46 (7.380-7.420) Arterial Blood Partial Pressure CO2 34 mmHg (38-42) 29 mmHg (38-42) Arterial Blood Partial Pressure O2 56 mmHg (61-120) 70 mmHg (61-120) Arterial Blood Oxygen Content 13.3 Vol % (12.0-20.0) 13.5 Vol % (12.0-20.0) Arterial Blood Carboxyhemoglobin 1.1 % (0-4) 1.0 % (0-4) Arterial Blood Methemoglobin 1.0 % (0-2) 0.8 % (0-2) Blood Gas Hemoglobin 10.7 G/DL (12.0-16.0) 10.4 G/DL (12.0-16.0) Oxygen Delivery Device T-PIECE VENTILATOR Blood Gas Inspired Oxygen 50 % 40 % Blood Gas Ventilator Setting Imaging Last Impressions Chest X-Ray 07/26/17 0000 Signed Impressions: Service Date/Time: Wednesday, July 26, 2017 09:20 - CONCLUSION: 1. Diffuse interstitial prominence consistent with positive fluid balance. 2. Progression of patchy airspace and interstitial opacities in the right upper lobe which may reflect atypical pulmonary edema although differential considerations include developing superimposed pneumonia. 3. Improved aeration in the right lower lung zone. Mike Mijares MD Upper GI Series 07/22/17 0000 Signed Impressions: Service Date/Time: Saturday, July 22, 2017 09:31 - CONCLUSION: No passage of water-soluble contrast seen beyond the distended stomach suggesting persistent gastric outlet obstruction. Herbert Torres MD Abdomen X-Ray 07/21/17 0000 Signed Impressions: Service Date/Time: Friday, July 21, 2017 13:15 - CONCLUSION: 1. Satisfactory placement of nasogastric tube within the stomach 2. Distended stomach containing contrast. 3. Nonspecific gas pattern described above. 4. Aortic stent graft in place. Patricio Butler MD Abdomen/Pelvis CT 07/18/17 0052 Signed Impressions: Service Date/Time: June 01:52 - CONCLUSION: 1. Pneumoperitoneum. Stomach being the likely source. 2. Dilated stomach containing debris. 3. Bladder calculus measuring 3-4 mm. 4. Unchanged nonobstructing right renal calculus. 5. Status post cholecystectomy. 6. Aortic stent graft with aneurysmal sac measuring [address] Morris was notified. Juanito Chen MD Objective Remarks GENERAL: 82-year-old male SKIN: Warm and dry. HEAD: Atraumatic. Normocephalic. EYES: Pupils equal and round 3 mm bilaterally and reactive. No scleral icterus. No injection or drainage. ENT: No nasal bleeding or discharge. Extubated. NECK: Trachea midline. Clears mobile secretions but has transmitted noises from deep in airway. CARDIOVASCULAR: NSR now. normal rate. No jugular venous distention RESPIRATORY: equal chest rise. no accessory muscle use. Diffuse rhonchi, scattered mobile secretions. GASTROINTESTINAL: Abdomen soft, non-tender, nondistended. No peritoneal irritation. Trochar sites C/D/I MUSCULOSKELETAL: Extremities with trace bilateral lower extremity edema. No obvious deformities. Warm NEUROLOGICAL: Lethargic. Moves 4 extremities. Intermittently agitated but restful and calm between these episodes. Protects airway. Motor grossly within normal limits. A/P Assessment and Plan Neuro/Psych: Postop pain control Chronic benzodiazepine use History of EtOH Essential tremor Propofol and fentanyl for sedation and ventilator synchrony Acetaminophen 650 mg by mouth every 6 hours as needed fever Thiamine, multivitamin folate daily for EtOH use. Monitor for DTs Minimize IV Lorazepam 0.5 mg q8hr PRN for anxiety CV: Atrial fibrillation, chronic Chronic diastolic heart failure Peripheral arterial disease -history of stent to right external iliac and left superior femoral Hypertension 2D Echo 07/26/17: Mild to moderate concentric left ventricular hypertrophy. EF 45- 50%. Diffuse global hypokinesis with distinct regional wall motion abnormalities. On diltiazem 120 mg daily-holding due to bradycardia, Hold losartan 50 mg p.o. twice daily due increasing BUN/creatinine Currently amiodarone 200 mg p.o. daily. Clopidogrel 75 mg p.o. daily. Holding further diuresis at this time. Resp: Acute hypoxic hypercapnic respiratory failure COPD, with exacerbation Healthcare associated pneumonia Acute lung injury/bilateral interstitial infiltrates Severe emphysema Chest x-ray revealed pulmonary edema (cardiogenic versus noncardiogenic) likely possible superimposed pneumonia CT of the chest done 07/31 shows bilateral interstitial infiltrates, severe emphysema, left lower lobe consolidation and small effusions On 07/30 was profoundly hypoxic and tachypneic on BiPAP. Intubated and placed on mechanical ventilation daily CPAP trials- failing for tachypnea. Albuterol/ipratropium aerosols every 4 hours W aerosols every 2 hours as needed dyspnea Budesonide 0.5/2 1 puff twice daily IV Solu-Medrol 125 mg 1 and 60 every 8-reduced to 40 every 12 Renally adjust Zosyn dose, discontinue azithromycin and vancomycin 08/01 Extubated 08/05 GI: Postop from Kassi-en-Y/gastro jejunostomy History of GIST Hypoalbuminemia s/p lap resection GIST of antrum on 07/10/17. Patient returned 07/18/17 with N/V. found to have partial gastric outlet obstruction Postop from Kassi-en-Y/gastro jejunostomy 07/24/[address] Lima Pantoprazole 40 mg IV daily for GI prophylaxis Tolerating trickle tube feeds 20 cc per hour: increase to 40mL/hr, check residuals History of TURP Conrad catheter for I/O in the ICU Endo: Sliding scale insulin if indicated Renal: Monitor urine output Accurate I's and O's Heme: Leukocytosis Normocytic anemia Monitor CBC daily. Follow trends Continue clopidogrel 75 mg daily ID: Healthcare associated pneumonia Leukocytosis/sepsis Currently piperacillin l/tazobactam, azithromycin, vancomycin IV Renally adjust Zosyn dose, discontinue azithromycin and vancomycin 08/01 d/c zosyn today: has been 14 days of therapy. Follow up on hensley culture-negative to date. Follow up respiratory panel, influenza CT chest shows left lower lobe consolidation, bilateral interstitial infiltrates Pertinent cultures: 07/18/blood cultures 2/no growth FEN Replace electrolytes as clinically indicated MSK: T12 compression fracture PT evaluate and treat, as appropriate Access -Utilize peripheral IV. Central line if indicated Prophylaxis -GI -pantoprazole -DVT -SCD/enoxaparin Overall impression: Resolving respiratory failure superimposed on chronic respiratory failure from COPD. Have weaned from mechanical ventilation, but may be difficult to keep extubated. May need to look towards long-term weaning in the future and possible need for tracheostomy. Leroy Aguilar MD Aug 05, 2017 15:16
[2017-08-05] MEDS ORDERED: DEXMEDETOMIDINE INJ 200 MCG in SODIUM CHLORIDE 0.9% INJ 50 ML IV PRN (21:00)
[2017-08-05] MEDS ORDERED: SODIUM CHLOR 0.45% 1000 ML INJ 1,000 ML IV SCH (22:00)
[2017-08-06] VITALS (12 sets, daily range): BP systolic 144–174; BP diastolic 67–79; PULSE 67–98; RESP 17–29; TEMP 97.5–100.5; O2SAT 92–99
[2017-08-06] MEDS: FREE WATER OG-TUBE SCH ×5 (00:42→16:00)
[2017-08-06] MEDS: RESP: ALBUTEROL 2.5 MG/IPRATROPIUM 0.5 MG NEB (SCH) NEB ×5 (00:48→16:00)
[2017-08-06] MEDS: methylPREDNISolone SOD SUCC 40 MG/1 ML VIAL IV PUSH SCH ×2 (02:00→14:15)
--- NOTE | 2017-08-06 04:25 | RADRPT ---
EXAM DATE/TIME: 08/06/2017 03:10 [facility] COMPARISON: No previous studies available for comparison. INDICATIONS : Short of breath. MEDICAL HISTORY : Renal calculi. Chronic obstructive pulmonary disease. Cardiovascular disease. SURGICAL HISTORY : Cholecystectomy. ENCOUNTER: Subsequent ACUITY: 1 month PAIN SCORE: Non-responsive. LOCATION: Bilateral chest FINDINGS: Mild/moderate chronic appearing interstitial opacities again seen of both lungs. Superimposed mild co nsolidation in each base, left slightly more so than right. Possibly a tiny left pleural effusion as well. These findings are not significantly changed. No pneumothorax. Heart size stable, within normal limits. Patient has been extubated. Nasogastric tube remains in place with tip in the stomach. CONCLUSION: Endotracheal tube out. No significant change mild bibasilar consolidation superimposed on chronic int erstitial changes. Javier Valentine MD on August 06, 2017 at 4:23 Board Certified Radiologist. This report was verified electronically.
[2017-08-06 05:57] LABS: HEMATOCRIT 30.8 % (39.0-51.0); HEMOGLOBIN 10.2 GM/DL (13.0-17.0); MEAN CELL VOLUME 91.7 FL (80.0-100.0); MEAN CORPUSCULAR HEMOGLOBIN 30.3 PG (27.0-34.0); MEAN PLATELET VOLUME 8.8 FL (7.0-11.0); PLATELET COUNT 323 TH/MM3 (150-450); RED BLOOD COUNT 3.36 MIL/MM3 (4.50-5.90); RED CELL DISTRIBUTION WIDTH 15.2 % (11.6-17.2); WHITE BLOOD COUNT 24.2 TH/MM3 (4.0-11.0)
[2017-08-06 06:18] LABS: BICARBONATE 24.3 MEQ/L (21.0-32.0); CALCIUM 8.1 MG/DL (8.5-10.1); CREATININE 0.89 MG/DL (0.60-1.30)
[2017-08-06] MEDS: METOCLOPRAMIDE HCL 10 MG/2 ML VIAL IV PUSH SCH ×2 (06:50→14:16)
[2017-08-06] MEDS: CHLORHEXIDINE 0.12% (ORAL KIT) 15 ML CUP MT SCH (08:00)
[2017-08-06] MEDS: RESP: BUDESONIDE 0.5 MG/2 ML NEB NEB SCH (08:03)
[2017-08-06] MEDS: LACTULOSE SYRUP 20 GM/30 ML CUP NG SCH (09:00)
--- NOTE | 2017-08-06 09:25 | HHI.CCPN ---
Subjective Remarks/Hospital Course This is a 82-year-old male. Date of admission 07/18/2017. Date of consultation 07/26/2017. Past medical history includes congestive heart failure, atrial fibrillation, peripheral arterial disease status post stents, COPD, gastroesophageal reflux disease and cataracts. Patient was admitted 07/18/2017 by general surgery as patient has recently underwent laparoscopic cholecystecomy with wedge resection of the stomach on 06/27/17. He was sent to extended care facility for r rehabilitation due to his deconditioned status and the fact that he lives alone. 07/17 he developed abdominal pain and vomiting and was transported to the ER. CT abdomen/pelvis show pneumoperitoneum and he was admitted for further evaluation 07/24 -Kassi-en-Y gastrojejunostomy by Dr. Marsh. Currently on Pipracil/ tazobactam for possible pneumonia on chest x-ray per hospitalist. Patient received furosemide 20 mg IV 1 yesterday. Today, patient acutely short of breath 100% nonrebreather mask was transported to ICU for further evaluation. Chest x-ray revealed pulmonary edema worse right upper lobe. Cannot rule out superimposed pneumonia. Patient is currently on BiPAP 10/500. ABG is currently pending. Received 40 mg furosemide and 500 mg of chlorothiazide. 07/27: On BiPAP 60% O2. CXR with suspected pneumonia - consistent with leukocytosis and fever. States he feels comfortable. 07/28: Off BiPAP and on NRBM. Breathing with acceptable comfort. Abdomen less distended. Comfortable. 07/29: Breathing with acceptable comfort but O2 requirements remain elevated. Bowel activity returning, swallow evaluation discouraging. Well hydrated. 07/30: Patient remains increasingly hypoxemic. Currently saturating barely 90% on FiO2 70% on BiPAP. Tachypneic, increasing respiratory distress despite 40 mg IV Lasix. Patient clearly states that he wants everything done to be kept alive including intubation and CPR. But when he cannot make decision he wants his ex- Anna Marie to make the decisions. Discussed with Dr. Lima 07/31: Intubated and placed on mechanical ventilation yesterday. Chest x-ray shows some improvement in bilateral infiltrates. CT chest today shows severe emphysema, diffuse interstitial opacities bilaterally, small pleural effusions LLL consolidation. Currently receiving broad-spectrum antibiotics, IV steroids and scheduled breathing treatments. Holding off IV diuresis at this time. CT chest findings could be secondary to pneumonia and acute lung injury. PEEP remains high at 12, FiO2 down to 50% 08/01: Remains intubated sedated with propofol and fentanyl, remains critical but more stable. Urine output diminishing 700 mL in 24 hours, BUN 40 creatinine 1.45 both increased-will discontinue vancomycin and hold Cozaar. Weight now is 7 kg less than admission weight. Will give 500 ml fluid bolus challenge. Chest x-ray shows slight improvement in FiO2 45%. Yesterday evening required single dose of rocuronium for ventilatory synchrony, currently more synchronous and oxygen saturation better 08/02: remains intubated and sedated. Cr slightly coming down, but remains elevated. o2 saturations better but not yet clinically ready for SBT. discussed with surgery and they agree with conservative approach given recent hypoxemic respiratory failure. 08/03: more awake today. will attempt SBT. Cr continues to improve. hypernatremia persists. 08/04: still failed CPAP yesterday. however, clinically improving today. hypernatremia improving. Cr improving. will attempt SBT again today. 08/05: Patient is strong on spontaneous breathing trial and easily meets parameters for extubation. Following extubation his breath sounds have become more coarse and he has increasing mobile secretions. At present he oxygenates at 97% with a reasonably comfortable respiratory effort. I am concerned that his cough effort may not be adequate to keep his lungs clear however. 08/06: He was able to keep his lungs reasonably clear overnight and today he is breathing with acceptable comfort. Oxygenation is markedly impaired and he does require a nonrebreathing mask. Realistically he would benefit from a tracheostomy for pulmonary toilet during this period of his recovery. He expresses exasperation with his plate at this point and has requested that we allow him to . Although he continues to make reasonable progress he will likely require reintubation for hypoxemia and retained secretions. I will ask the palliative care service to assist us with his care plan. Objective Vital Signs Date Time Temp Pulse Resp B/P (MAP) Pulse Ox O2 Delivery O2 Flow Rate FiO2 08/06/17 08:05 92 Venturi Mask 50 08/06/17 06:00 75 08/06/17 04:00 97.5 26 168/74 (105) 08/06/17 01:10 6.00 Intake and Output 08/06/17 08/06/1708/07/18 08:00 16:00 00:00 Intake Total 600 ml Output Total 525 ml Balance 75 ml Result Diagram: 08/06/17 0507 08/06/17 0507 Other Results Laboratory Tests Test 08/05/17 10:35 Blood Gas Puncture Site RT RADIAL Blood Gas Patient Temperature 98.6 Blood Gas HCO3 21 mmol/L (22-26) Blood Gas Base Excess -2.8 mmol/L (-2-2) Blood Gas Oxygen Saturation 92 % (90-100) Arterial Blood pH 7.46 (7.380-7.420) Arterial Blood Partial Pressure CO2 29 mmHg (38-42) Arterial Blood Partial Pressure O2 70 mmHg (61-120) Arterial Blood Oxygen Content 13.5 Vol % (12.0-20.0) Arterial Blood Carboxyhemoglobin 1.0 % (0-4) Arterial Blood Methemoglobin 0.8 % (0-2) Blood Gas Hemoglobin 10.4 G/DL (12.0-16.0) Oxygen Delivery Device VENTILATOR Blood Gas Ventilator Setting Blood Gas Inspired Oxygen 40 % Imaging Last Impressions Chest X-Ray 07/26/17 0000 Signed Impressions: Service Date/Time: Wednesday, July 26, 2017 09:20 - CONCLUSION: 1. Diffuse interstitial prominence consistent with positive fluid balance. 2. Progression of patchy airspace and interstitial opacities in the right upper lobe which may reflect atypical pulmonary edema although differential considerations include developing superimposed pneumonia. 3. Improved aeration in the right lower lung zone. Mike Mijares MD Upper GI Series 07/22/17 0000 Signed Impressions: Service Date/Time: Saturday, July 22, 2017 09:31 - CONCLUSION: No passage of water-soluble contrast seen beyond the distended stomach suggesting persistent gastric outlet obstruction. Herbert Torres MD Abdomen X-Ray 07/21/17 0000 Signed Impressions: Service Date/Time: Friday, July 21, 2017 13:15 - CONCLUSION: 1. Satisfactory placement of nasogastric tube within the stomach 2. Distended stomach containing contrast. 3. Nonspecific gas pattern described above. 4. Aortic stent graft in place. Patricio Butler MD Abdomen/Pelvis CT 07/18/17 0052 Signed Impressions: Service Date/Time: June 01:52 - CONCLUSION: 1. Pneumoperitoneum. Stomach being the likely source. 2. Dilated stomach containing debris. 3. Bladder calculus measuring 3-4 mm. 4. Unchanged nonobstructing right renal calculus. 5. Status post cholecystectomy. 6. Aortic stent graft with aneurysmal sac measuring [address] Morris was notified. Juanito Chen MD Objective Remarks GENERAL: 82-year-old male SKIN: Warm and dry. HEAD: Atraumatic. Normocephalic. EYES: Pupils equal and round 3 mm bilaterally and reactive. No scleral icterus. No injection or drainage. ENT: No nasal bleeding or discharge. Extubated. NECK: Trachea midline. Clears mobile secretions but has transmitted noises from deep in airway. CARDIOVASCULAR: NSR now. normal rate. No jugular venous distention RESPIRATORY: equal chest rise. no accessory muscle use. Scattered rhonchi, few mobile secretions. GASTROINTESTINAL: Abdomen soft, non-tender, nondistended. No peritoneal irritation. Trochar sites C/D/I MUSCULOSKELETAL: Extremities with trace bilateral lower extremity edema. No obvious deformities. Warm NEUROLOGICAL: Lethargic. Moves 4 extremities. Intermittently agitated but restful and calm between these episodes. Protects airway. Motor grossly within normal limits. A/P Assessment and Plan Neuro/Psych: Postop pain control Chronic benzodiazepine use History of EtOH Essential tremor Propofol and fentanyl for sedation and ventilator synchrony Acetaminophen 650 mg by mouth every 6 hours as needed fever Thiamine, multivitamin folate daily for EtOH use. Monitor for DTs Minimize IV Lorazepam 0.5 mg q8hr PRN for anxiety CV: Atrial fibrillation, chronic Chronic diastolic heart failure Peripheral arterial disease -history of stent to right external iliac and left superior femoral Hypertension 2D Echo 07/26/17: Mild to moderate concentric left ventricular hypertrophy. EF 45- 50%. Diffuse global hypokinesis with distinct regional wall motion abnormalities. On diltiazem 120 mg daily-holding due to bradycardia, Hold losartan 50 mg p.o. twice daily due increasing BUN/creatinine Currently amiodarone 200 mg p.o. daily. Clopidogrel 75 mg p.o. daily. Holding further diuresis at this time. Resp: Acute hypoxic hypercapnic respiratory failure COPD, with exacerbation Healthcare associated pneumonia Acute lung injury/bilateral interstitial infiltrates Severe emphysema Chest x-ray revealed pulmonary edema (cardiogenic versus noncardiogenic) likely possible superimposed pneumonia CT of the chest done 07/31 shows bilateral interstitial infiltrates, severe emphysema, left lower lobe consolidation and small effusions On 07/30 was profoundly hypoxic and tachypneic on BiPAP. Intubated and placed on mechanical ventilation daily CPAP trials- failing for tachypnea. Albuterol/ipratropium aerosols every 4 hours W aerosols every 2 hours as needed dyspnea Budesonide 0.5/2 1 puff twice daily IV Solu-Medrol 125 mg 1 and 60 every 8-reduced to 40 every 12 Renally adjust Zosyn dose, discontinue azithromycin and vancomycin 08/01 Extubated 08/05 GI: Postop from Kassi-en-Y/gastro jejunostomy History of GIST Hypoalbuminemia s/p lap resection GIST of antrum on 07/10/17. Patient returned 07/18/17 with N/V. found to have partial gastric outlet obstruction Postop from Kassi-en-Y/gastro jejunostomy 07/24/[address] Lima Pantoprazole 40 mg IV daily for GI prophylaxis Tolerating trickle tube feeds 20 cc per hour: increase to 40mL/hr, check residuals History of TURP Conrad catheter for I/O in the ICU Endo: Sliding scale insulin if indicated Renal: Monitor urine output Accurate I's and O's Heme: Leukocytosis Normocytic anemia Monitor CBC daily. Follow trends Continue clopidogrel 75 mg daily ID: Healthcare associated pneumonia Leukocytosis/sepsis Currently piperacillin l/tazobactam, azithromycin, vancomycin IV Renally adjust Zosyn dose, discontinue azithromycin and vancomycin 08/01 d/c zosyn today: has been 14 days of therapy. Follow up on hensley culture-negative to date. Follow up respiratory panel, influenza CT chest shows left lower lobe consolidation, bilateral interstitial infiltrates Pertinent cultures: 07/18/blood cultures 2/no growth FEN Replace electrolytes as clinically indicated MSK: T12 compression fracture PT evaluate and treat, as appropriate Access -Utilize peripheral IV. Central line if indicated Prophylaxis -GI -pantoprazole -DVT -SCD/enoxaparin Overall impression: Resolving respiratory failure superimposed on chronic interstitial fibrosis and possibly COPD. Have weaned from mechanical ventilation, but may be difficult to keep extubated. May need to look towards long-term weaning in the future and possible need for tracheostomy. Leroy Aguilar MD Aug 06, 2017 09:25
[2017-08-06] MEDS: CLOPIDOGREL 75 MG TAB PO SCH (09:30)
[2017-08-06] MEDS: AMIODARONE 200 MG TAB PO SCH (09:31)
[2017-08-06] MEDS: FOLIC ACID 1 MG TAB PO SCH (09:31)
[2017-08-06] MEDS: SODIUM CHLORIDE 0.9% FLUSH 10 ML FLUSH IV FLUSH SCH (09:31)
[2017-08-06] MEDS: LORazepam 0.5 MG TAB PO SCH (09:31)
[2017-08-06] MEDS: MULTIVITAMIN TAB PO SCH (09:31)
[2017-08-06] MEDS: THIAMINE HCL 100 MG TAB PO SCH (09:31)
[2017-08-06] MEDS: ACETAMINOPHEN 650 MG/20.3 ML UDC PO PRN (09:31)
[2017-08-06] MEDS: PANTOPRAZOLE SODIUM 40 MG VIAL IV PUSH SCH (09:32)
[2017-08-06] MEDS: LORazepam 2 MG/ML VIAL IV PUSH PRN (09:32)
--- NOTE | 2017-08-06 12:37 | HHI.PR ---
Subjective Subjective Notes Appears very frail, is very frustrated with deteriorating health. Currently on Venturi at 50%. Failed swallow eval Objective Vitals/I&O Vital Signs Date Time Temp Pulse Resp B/P (MAP) Pulse Ox O2 Delivery O2 Flow Rate FiO2 08/06/17 08:05 92 Venturi Mask 50 08/06/17 06:00 75 08/06/17 04:00 97.5 26 168/74 (105) 08/06/17 01:10 6.00 Labs Laboratory Tests Test 08/06/17 05:07 White Blood Count 24.2 Red Blood Count 3.36 Hemoglobin 10.2 Hematocrit 30.8 Mean Corpuscular Volume 91.7 Mean Corpuscular Hemoglobin 30.3 Mean Corpuscular Hemoglobin Concent 33.0 Red Cell Distribution Width 15.2 Platelet Count 323 Mean Platelet Volume 8.8 Blood Urea Nitrogen 30 Creatinine 0.89 Random Glucose 100 Calcium Level 8.1 Sodium Level 145 Potassium Level 4.8 Chloride Level 114 Carbon Dioxide Level 24.3 Anion Gap 7 Estimat Glomerular Filtration Rate 82 Date/Time Source Procedure Growth Status 07/30/17 18:12 Blood Peripheral Aerobic Blood Culture - Final NO GROWTH IN 5 DAYS Complete 07/30/17 18:12 Blood Peripheral Anaerobic Blood Culture - Final NO GROWTH IN 5 DAYS Complete 07/31/17 08:57 Nasal Washing Influenza Types A,B Antigen ([place]) - Final NEGATIVE FOR FLU A AND B ANTIGEN.... Complete 07/30/17 21:30 Urine Clean Catch Urine Culture - Final NO GROWTH IN 48 HOURS. Complete Radiology Chest X-Ray 07/30/17 0400 Signed Impressions: Service Date/Time: Sunday, July 30, 2017 04:45 - CONCLUSION: Interstitial and alveolar opacities, slightly more prominent. Juanito Chen MD Abdomen X-Ray 07/30/17 0000 Signed Impressions: Service Date/Time: Sunday, July 30, 2017 15:56 - CONCLUSION: 1. Nasogastric tube has its tip in the stomach. 2. No evidence of bowel obstruction, ileus or perforation. 3. Bibasilar pulmonary infiltrates noted. 4. Degenerative changes and scoliosis of the lumbar spine. Darren Verma MD Upper [facility] 07/22/17 0000 Signed Impressions: Service Date/Time: Saturday, July 22, 2017 09:31 - CONCLUSION: No passage of water-soluble contrast seen beyond the distended stomach suggesting persistent gastric outlet obstruction. Herbert Torres MD Abdomen/Pelvis CT 07/18/17 005 Signed Impressions: Service Date/Time: June 01:52 - CONCLUSION: 1. Pneumoperitoneum. Stomach being the likely source. 2. Dilated stomach containing debris. 3. Bladder calculus measuring 3-4 mm. 4. Unchanged nonobstructing right renal calculus. 5. Status post cholecystectomy. 6. Aortic stent graft with aneurysmal sac measuring [address] Morris was notified. Juanito Chen MD Last Impressions Chest X-Ray 07/27/17 0600 Signed Impressions: Service Date/Time: Thursday, July 27, 2017 03:02 - CONCLUSION: No significant interval change. Persistent right upper lung and left mid to lower lung opacities. Bahman Rooney MD Upper GI Series 07/22/17 0000 Signed Impressions: Service Date/Time: Saturday, July 22, 2017 09:31 - CONCLUSION: No passage of water-soluble contrast seen beyond the distended stomach suggesting persistent gastric outlet obstruction. Herbert Torres MD Abdomen X-Ray 07/21/17 0000 Signed Impressions: Service Date/Time: Friday, July 21, 2017 13:15 - CONCLUSION: 1. Satisfactory placement of nasogastric tube within the stomach 2. Distended stomach containing contrast. 3. Nonspecific gas pattern described above. 4. Aortic stent graft in place. Patricio Butler MD Abdomen/Pelvis CT 07/18/1751 Signed Impressions: Service Date/Time: June 01:52 - CONCLUSION: 1. Pneumoperitoneum. Stomach being the likely source. 2. Dilated stomach containing debris. 3. Bladder calculus measuring 3-4 mm. 4. Unchanged nonobstructing right renal calculus. 5. Status post cholecystectomy. 6. Aortic stent graft with aneurysmal sac measuring [address] Morris was notified. Juanito Chen MD Cardiovascular: Regular Lungs: Rhonchi Abdomen: BS normal Extremities: Perfused Wound Wound : Wound Location: Abdomen Appearance: Clean & Dry A/P Assessment and Plan 82yo M s/p gastrojejunostomy bypass -Patient remains extubated though has a very weak cough effort. CXR relatively unchanged. -WBC continues upward trend, appreciate input from Critical Care -Continue tube feed -At this point a palliative care referral is appropriate, patient would most likely require radio engineer pulmonary care. Discharge Planning Depending on hospital course Talib Feliciano Aug 06, 2017 12:37
[2017-08-06] MEDS: ENOXAPARIN SODIUM 30 MG/0.3 ML SYRINGE SQ SCH (14:15)
--- NOTE | 2017-08-06 16:59 | PD.CONS ---
Consult Service Palliative Care Consult Requested By Dr. Aguilar . Primary Care Physician Mita Carney MD . Reason for Consultation a. To assist with evaluation and management of symptoms including: Dyspnea, pain b. To assist medical decision maker(s) with: better understanding of current medical conditions; weighing benefits/burdens of medical treatment options; making medical treatment decisions. . HPI History of Present Illness This 82-year-old male, with a past history of COPD, PVD, atrial fibrillation, hypertension, and recent surgery (GIST resection and cholecystectomy), was admitted because of abdominal pain. The patient underwent his abdominal surgery on 07/09/17, and he was eventually discharged to a intermediate facility on 07/16/17. However, he developed abdominal pain on 07/21/17 and he was brought to the hospital the following day for evaluation. His abdominal pain was generalized, constant, and not positional. He reportedly did not have vomiting or diarrhea. In the emergency department, findings included: * Temp 98.2, pulse 72, respirations 16, blood pressure 185/83, oxygen saturation 94% on room air * White count 8.3, hemoglobin 11.3 * Sodium 140, creatinine 1.25, albumin 3.2 * Chest x-ray with no acute disease * CT of the abdomen/pelvis revealed pneumoperitoneum and dilated stomach. * Upper GI series revealed a distended stomach and a partial gastric outlet obstruction The patient was provided with antibiotics and fluids and was admitted to the hospital. He was taken to the operating room and underwent Kassi-en-Y with gastrojejunostomy on 07/24/17. He was able to be extubated postop. On 07/26/17 he became more short of breath, and a chest x-ray revealed patchy airspace disease. By the following day, he was on BiPAP but he slowly continued to worsen and was INTUBATED on 07/30/17. CT scan of the chest at that time revealed severe COPD and fibrosis, and diffuse patchy infiltrates. Over the subsequent days, he improved slightly, and he was able to be EXTUBATED on . However, he remained profoundly weak, was found to have significant dysphagia, and required a nonrebreather to achieve adequate oxygenation. It was clear that the patient was very unlikely to be able to maintain adequate respiratory status. The patient reportedly told the foam tank laminator and his nurse multiple times that he just wanted to be left alone so that he could peacefully. Palliative Care was consulted to assist with symptom management, and to enter into discussions with the patient and others regarding the extent of his diseases, the prognosis, and the benefits and burdens of the various medical treatment choices. . Function/Cognitive Trajectory The patient was living independently and alone prior to his surgery a month ago. He was driving a car, shopping, and was clearheaded. . Review of Systems Constitutional: COMPLAINS OF: Fatigue, Weight loss (Since admission) Endocrine: DENIES: Polyuria Eyes: DENIES: Eye inflammation Ears, nose, mouth, throat: DENIES: Epistaxis Respiratory: COMPLAINS OF: Shortness of breath (Recent pneumonia and underlying COPD/fibrosis) Cardiovascular: DENIES: Chest pain, Syncope Gastrointestinal: COMPLAINS OF: Abdominal pain, DENIES: Bloody stools, Diarrhea , Vomiting, Vomiting blood Genitourinary: DENIES: Hematuria Musculoskeletal: DENIES: Back pain Integumentary: DENIES: Rash Hematologic/Lymphatics: COMPLAINS OF: Bruising (On his arms) Immunologic/Allergic: DENIES: Urticaria Neurologic: DENIES: Localized weakness, Seizures Psychiatric: DENIES: Confusion, Hallucinations, Agitation Past Family Social History Coded Allergies: digoxin (Unverified Allergy, Intermediate, hives, 05/16/17) pt stopped this medication 30 years ago Past Medical History * COPD * 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 Past Surgical History * Stent/graft of abdominal aorta * Bilateral cataract * TURP age 60 * Facial fractures repair * Right iliac and left femoral arterial stents 2013 * Laparoscopic cholecystectomy and wedge resection of stomach 07/09/17, with clear margins on pathology report * Kassi-en-Y with gastrojejunostomy 07/24/17 . Reported Medications Reported Meds & Active Scripts Active Ativan (Lorazepam) 1 Mg Tab 1 Mg PO HS PRN Percocet (Oxycodone-Acetaminophen) 5-325 mg Tab 1-2 Tab PO Q4H PRN Percocet (Oxycodone-Acetaminophen) 5-325 mg Tab 1 Tab PO Q6H PRN 30 Days Cozaar (Losartan Potassium) 50 Mg Tab 50 Mg PO DAILY Reported Linzess (Linaclotide) 145 Mcg Cap 145 Mcg PO DAILY Zofran (Ondansetron HCl) 4 Mg Tab 4 Mg PO Q6HR PRN Ferrous Sulfate 325 Mg (65 Mg Iron) Tablet 325 Mg PO BIDPC Miralax Powder (Polyethylene Glycol 3350 Powder) 17 Gm Powd 17 Gm PO DAILY Mix and dissolve one measuring cap-ful (17 grams) in water or juice. Zofran (Ondansetron HCl) 4 Mg Tab 4 Mg PO Q6HR PRN Hydrocodone-Acetaminophen 5-325 mg Tab 1 Tab PO BID PRN Multiple Vitamin 1 Tab 1 Tab PO DAILY Lansoprazole 30 Mg Capdr 30 Mg PO DAILY Cartia Xt (Diltiazem ER 24 HR) 120 Mg Caper 120 Mg PO DAILY Amiodarone (Amiodarone HCl) 200 Mg Tab 200 Mg PO DAILY Plavix (Clopidogrel Bisulfate) 75 Mg Tab 75 Mg PO DAILY Ativan (Lorazepam) 1 Mg Tab 1 Mg PO HS PRN Atrovent HFA 12.9 GM Inh (Ipratropium [place]) 17 Mcg/Act Aer 1 Puff INH Q6HR PRN Duoneb (Ipratropium-Albuterol Neb) 0.5-2.5 Mg/3 Ml Neb 1 Nebule INH Q6HR NEB Ventolin Hfa 18 GM Inh (Albuterol Sulfate) 90 Mcg/Act Aer 2 Puff INH Q6H PRN . Current Medications Medications (Trade) Dose Ordered Sig/Rudolph Route Start Time Stop Time Status Last Admin (NS Flush) 2 ml UNSCH PRN IV FLUSH 07/18/17 03:30 07/24/17 04:38 (NS Flush) 2 ml BID IV FLUSH 07/18/17 09:00 08/06/17 09:31 (Zofran Inj) 4 mg Q6H PRN IV PUSH 07/18/17 03:30 08/05/17 13:37 (Protonix Inj) 40 mg Q24H IV PUSH 07/18/17 09:00 08/06/17 09:32 (Cordarone) 200 mg DAILY PO 07/18/17 09:00 08/06/17 09:31 (Cardizem Cd) 120 mg DAILY PO 07/18/17 09:00 Future Hold 07/30/17 11:14 Patient Own Medication PT OWN MED: LINACLOT... DAILY PO 07/18/17 09:00 Future Hold (Plavix) 75 mg DAILY PO 07/18/17 15:00 Future hold 08/06/17 09:30 (Chloraseptic Martina) 1 lozenge UNSCH PRN BUCCAL 07/20/17 09:00 (Cozaar) 50 mg BID PO 07/23/17 21:00 Future Hold 07/31/17 21:32 (Lovenox Inj) 30 mg Q24H SQ 07/25/17 15:00 08/06/17 14:15 (Albuterol Neb) 2.5 mg Q2HR NEB PRN NEB 07/26/17 11:30 08/04/17 14:23 (Pulmicort Respule Neb) 0.5 mg Q12HR NEB NEB 07/26/17 20:00 08/06/17 08:03 (Tylenol 650 Mg/ 20 ml Liq) 650 mg Q6H PRN PO 07/26/17 11:15 08/06/17 09:31 (Vitamin B1) 100 mg DAILY PO 07/27/17 09:00 08/06/17 09:31 (Folate) 1 mg DAILY PO 07/27/17 09:00 08/06/17 09:31 (Theragran) 1 tab DAILY PO 07/27/17 09:00 08/06/17 09:31 (Reglan Inj) 5 mg Q8HR IV PUSH 07/28/17 22:00 08/06/17 14:16 Miscellaneous Information D/C ICU ELECTROLYTE ORDERS... UNSCH PRN .XX 07/29/17 10:00 Miscellaneous Information ICU - CALL ORDERING PHYSIC... UNSCH PRN .XX 07/29/17 10:00 Potassium Chloride 100 ml @ 25 mls/hr UNSCH PRN IV 07/29/17 10:00 (K-Lyte Cl Eff) 50 meq UNSCH PRN PO 07/29/17 10:00 Potassium Chloride 100 ml @ 50 mls/hr UNSCH PRN IV 07/29/17 10:00 08/01/17 09:00 Magnesium Sulfate 4 gm/Sodium Chloride 108 ml @ 54 mls/hr UNSCH PRN IV 07/29/17 10:00 Magnesium Sulfate 2 gm/Sodium Chloride 104 ml @ 52 mls/hr UNSCH PRN IV 07/29/17 10:00 (Mag-Ox) 800 mg UNSCH PRN PO 07/29/17 10:00 Sodium Phosphate 30 mmol/Sodium Chloride 260 ml @ 43.333 mls/ hr UNSCH PRN IV 07/29/17 10:00 07/30/17 01:00 (K-Phos) 2,000 mg UNSCH PRN PO 07/29/17 10:00 Potassium Phosphate 30 mmol/ Sodium Chloride 260 ml @ 43.333 mls/ hr UNSCH PRN IV 07/29/17 10:00 (Peridex 0.12% Liq) 15 ml BID@08,20 MT 07/30/17 20:00 08/06/17 08:00 (Lactulose Liq) 30 ml BID NG 08/01/17 21:00 (Ativan) 0.5 mg BID PO 08/01/17 13:39 08/06/17 09:31 (Duoneb Neb) 1 ampule Q4HR NEB NEB 08/03/17 16:00 08/06/17 11:48 (Free Water) 300 ml Q4HR OG-TUBE 08/03/17 16:00 08/06/17 16:00 (Apresoline Inj) 10 mg Q30M PRN IV PUSH 08/03/17 17:15 08/05/17 09:14 (Ativan) 0.5 mg HS PRN PO 08/04/17 16:00 (Ativan Inj) 0.25 mg Q6H PRN IV PUSH 08/04/17 19:15 08/06/17 09:32 (SoluMEDROL INJ) 40 mg Q12H IV PUSH 08/06/17 02:00 08/06/17 14:15 Sodium Chloride 1,000 ml @ 42 mls/hr [id number] IV 08/05/17 22:00 08/05/17 22:00 Family History The patient's father at age [address], and a sister of renal cell cancer. . Substance Use Tobacco: He smoked for more than 50 years but quit about 10 years ago. Alcohol: Reportedly was alcoholic and his younger years, but was able to become sober several years ago and more recently has been drinking "only about 4 beers per week." Prescription med abuse: None Illicits: None . Psychosocial History The patient was born and raised in [place], but moved to [place] in 1977. 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 He was and 3 times, and he had been living alone and independently prior to his hospitalization last month. The patient has a son and daughter who both live in [place]. He has been reportedly estranged from the sun for more than 30 years, and has a "on again off again" relationship with his daughter. His nephew Frank Regalado lives locally. . Spiritual/Cultural Factors The patient was connected with the [employer] in the past, but does not want header set up operator visits at this time. . Living Will: Copy in medical record Health Care Surrogate: Copy in medical record Health Care Surrogate(s): His daughter Jackelin Mccullough was the designated HCS . Documented care wishes: The patient has a living will, and I have also in possession of a notarized note from the patient's daughter saying that he would not want to be resuscitated or kept alive artificially if he has an end-stage condition. . Today's verbally stated goals: The patient is consistent and clear that he does not want to be resuscitated when things get worse, and he wants to transition to comfort measures so that he can get out of the hospital "and peacefully." He is asking for DNR status and hospice services. . Family/friends goals: I spoke to the patient's daughter Jackelin by telephone, and she supports her father's requests for a transition to comfort. She understands that he is likely in his last days of life. . Ethical and Legal Issues There are no ethical issues that would impact his care were decision-making at this time. The patient is oriented to day, date, year, president, place, person, and he seems to have reasonable insight into his end-stage lung disease and how it has impacted him this month and would impact him in the future. I believe he has capacity for decision-making at this time. . Physical Exam Vital Signs Date Time Temp Pulse Resp B/P (MAP) Pulse Ox O2 Delivery O2 Flow Rate FiO2 08/06/17 10:31 28 08/06/17 08:05 92 Venturi Mask 50 08/06/17 06:00 75 08/06/17 04:00 97.5 83 26 168/74 (105) 96 4/17/18 04:00 83 08/06/17 02:00 74 08/06/17 01:10 95 Venturi Mask 6.00 50 08/06/17 00:00 97.6 67 17 152/68 (96) 99 08/06/17 00:00 67 08/05/17 22:00 85 08/05/17 20:00 86 08/05/17 20:00 98.6 86 25 140/64 (89) 99 08/05/17 19:34 100 Non-Rebreather 15.00 08/05/17 19:00 98 Non-Rebreather 15.00 08/05/17 18:00 70 Exam CONSTITUTIONAL/GENERAL: This is an elderly, weak patient, in mild respiratory distress. TUBES/LINES/DRAINS: O2 via mask, NG tube, Conrad catheter, IV access, SCDs SKIN: No jaundice, rashes, or lesions. Ecchymoses on upper extremities. No wounds seen anteriorly. Skin temperature appropriate. Not diaphoretic. HEAD: Atraumatic. Normocephalic. EYES: Pupils equal and round. Extraocular motions intact. No scleral icterus. No injection or drainage. Fundi not examined. ENT: Hearing grossly normal. Nose without bleeding or purulent drainage. NECK: Trachea midline. Supple, nontender. No palpable thyroid enlargement or nodularity. CARDIOVASCULAR: Regular rate and rhythm without murmurs, gallops, or rubs. No JVD. Peripheral pulses symmetric. RESPIRATORY/CHEST: Symmetric, mildly labored respirations. Scattered rales in numerous rhonchi. GASTROINTESTINAL: Abdomen soft, mild diffuse tenderness, nondistended. No hepato -splenomegaly, or palpable masses. No guarding. Bowel sounds present. GENITOURINARY: Without palpable bladder distension. Conrad catheter in place. MUSCULOSKELETAL: Extremities without clubbing, cyanosis, or edema. No joint tenderness or effusion noted. No calf tenderness. No mottling or clubbing. LYMPHATICS: No palpable cervical or supraclavicular adenopathy. NEUROLOGICAL: Awake and alert. Motor and sensory grossly within normal limits. Follows commands. Cognitively sharp; oriented 4. Moves all extremities. PSYCHIATRIC: No obvious anxiety/depression. no apparent hallucinations or other psychotic thought process. . Diagnostic Tests Laboratory Laboratory Tests Test 08/04/17 05:02 08/04/17 16:44 08/05/17 04:20 08/05/17 10:35 White Blood Count 12.8 TH/MM3 (4.0-11.0) 16.0 TH/MM3 (4.0-11.0) Red Blood Count 3.18 MIL/MM3 (4.50-5.90) 3.15 MIL/MM3 (4.50-5.90) Hemoglobin 9.6 GM/DL (13.0-17.0) 9.4 GM/DL (13.0-17.0) Hematocrit 28.7 % (39.0-51.0) 28.7 % (39.0-51.0) Mean Corpuscular Volume 90.5 FL (80.0-100.0) 91.1 FL (80.0-100.0) Mean Corpuscular Hemoglobin 30.3 PG (27.0-34.0) 30.0 PG (27.0-34.0) Mean Corpuscular Hemoglobin Concent 33.5 % (32.0-36.0) 32.9 % (32.0-36.0) Red Cell Distribution Width 14.9 % (11.6-17.2) 15.0 % (11.6-17.2) Platelet Count 243 TH/MM3 (150-450) 249 TH/MM3 (150-450) Mean Platelet Volume 9.1 FL (7.0-11.0) 8.9 FL (7.0-11.0) Blood Urea Nitrogen 32 MG/DL (7-18) 32 MG/DL (7-18) Creatinine 1.03 MG/DL (0.60-1.30) 0.99 MG/DL (0.60-1.30) Random Glucose 139 MG/DL (74-106) 162 MG/DL (74-106) Calcium Level 8.1 MG/DL (8.5-10.1) 8.0 MG/DL (8.5-10.1) Sodium Level 143 MEQ/L (136-145) 144 MEQ/L (136-145) Potassium Level 4.5 MEQ/L (3.5-5.1) 4.7 MEQ/L (3.5-5.1) Chloride Level 112 MEQ/L (98-107) 113 MEQ/L (98-107) Carbon Dioxide Level 25.5 MEQ/L (21.0-32.0) 25.6 MEQ/L (21.0-32.0) Anion Gap 6 MEQ/L (5-15) 5 MEQ/L (5-15) Estimat Glomerular Filtration Rate 69 ML/MIN (>89) 72 ML/MIN (>89) Blood Gas Puncture Site RT RADIAL RT RADIAL Blood Gas Patient Temperature 98.6 98.6 Blood Gas HCO3 24 mmol/L (22-26) 21 mmol/L (22-26) Blood Gas Base Excess 0.4 mmol/L (-2-2) -2.8 mmol/L (-2-2) Blood Gas Oxygen Saturation 88 % (90-100) 92 % (90-100) Arterial Blood pH 7.46 (7.380-7.420) 7.46 (7.380-7.420) Arterial Blood Partial Pressure CO2 34 mmHg (38-42) 29 mmHg (38-42) Arterial Blood Partial Pressure O2 56 mmHg (61-120) 70 mmHg (61-120) Arterial Blood Oxygen Content 13.3 Vol % (12.0-20.0) 13.5 Vol % (12.0-20.0) Arterial Blood Carboxyhemoglobin 1.1 % (0-4) 1.0 % (0-4) Arterial Blood Methemoglobin 1.0 % (0-2) 0.8 % (0-2) Blood Gas Hemoglobin 10.7 G/DL (12.0-16.0) 10.4 G/DL (12.0-16.0) Oxygen Delivery Device T-PIECE VENTILATOR Blood Gas Inspired Oxygen 50 % 40 % Blood Gas Ventilator Setting Test 08/06/17 05:07 White Blood Count 24.2 TH/MM3 (4.0-11.0) Red Blood Count 3.36 MIL/MM3 (4.50-5.90) Hemoglobin 10.2 GM/DL (13.0-17.0) Hematocrit 30.8 % (39.0-51.0) Mean Corpuscular Volume 91.7 FL (80.0-100.0) Mean Corpuscular Hemoglobin 30.3 PG (27.0-34.0) Mean Corpuscular Hemoglobin Concent 33.0 % (32.0-36.0) Red Cell Distribution Width 15.2 % (11.6-17.2) Platelet Count 323 TH/MM3 (150-450) Mean Platelet Volume 8.8 FL (7.0-11.0) Blood Urea Nitrogen 30 MG/DL (7-18) Creatinine 0.89 MG/DL (0.60-1.30) Random Glucose 100 MG/DL (74-106) Calcium Level 8.1 MG/DL (8.5-10.1) Sodium Level 145 MEQ/L (136-145) Potassium Level 4.8 MEQ/L (3.5-5.1) Chloride Level 114 MEQ/L (98-107) Carbon Dioxide Level 24.3 MEQ/L (21.0-32.0) Anion Gap 7 MEQ/L (5-15) Estimat Glomerular Filtration Rate 82 ML/MIN (>89) Result Diagram: 08/06/17 0507 08/06/17 0507 Imaging Last Impressions Chest X-Ray 08/06/17 0400 Signed Impressions: Service Date/Time: Sunday, August 06, 2017 03:10 - CONCLUSION: Endotracheal tube out. No significant change mild bibasilar consolidation superimposed on chronic interstitial changes. Javier Valentine MD Chest CT 07/31/17 0000 Signed Impressions: Service Date/Time: Monday, July 31, 2017 06:54 - CONCLUSION: 1. Emphysema. 2. Interstitial lung disease, and left lower lobe consolidation. 3. Bilateral effusions. Rebel Taylor MD Abdomen X-Ray 07/30/17 0000 Signed Impressions: Service Date/Time: Sunday, July 30, 2017 15:56 - CONCLUSION: 1. Nasogastric tube has its tip in the stomach. 2. No evidence of bowel obstruction, ileus or perforation. 3. Bibasilar pulmonary infiltrates noted. 4. Degenerative changes and scoliosis of the lumbar spine. Darren Verma MD Upper GI Series 07/22/17 0000 Signed Impressions: Service Date/Time: Saturday, July 22, 2017 09:31 - CONCLUSION: No passage of water-soluble contrast seen beyond the distended stomach suggesting persistent gastric outlet obstruction. Herbert Torres MD Abdomen/Pelvis CT 07/18/17 0052 Signed Impressions: Service Date/Time: June 01:52 - CONCLUSION: 1. Pneumoperitoneum. Stomach being the likely source. 2. Dilated stomach containing debris. 3. Bladder calculus measuring 3-4 mm. 4. Unchanged nonobstructing right renal calculus. 5. Status post cholecystectomy. 6. Aortic stent graft with aneurysmal sac measuring [address] Morris was notified. Juanito Chen MD Procedures Kassi-en-Y with gastrojejunostomy 07/24/17 INTUBATION 07/30/17 EXTUBATION 08/05/17 . Patient/Family Conference Present at Family Conference: Initially patient's nephew, Frank Regalado was present in the room, then I spoke by telephone with daughter Jackelin Mccullough . Family Conference Time (mins): 39 Family Conference Location: Bedside, Hallway, Telephone Issues Discussed: * Palliative care role, purpose, approach * Hospice care role, purpose, approach * Additional medical, psychosocial, and spiritual history * Patients general health, functional status, and cognitive changes in the months leading up to the current hospitalization * Patient/family understanding of the current medical problems * Patient/family understanding of prognosis * Patients goals of care as best understood from advance directives and/or conversations and/or values * Current medical treatment options and benefits/burdens of those options * Likely scenarios comparing ongoing aggressive care with a transition to comfort measures only * Questions answered to the best of my ability * Palliative care contact information provided . Assessment and Plan Disease Oriented Problem List: (1) End-stage lung disease, COPD/fibrosis (2) Hypoxic respiratory failure (3) Pneumonia, likely aspiration (4) Dysphagia, likely aspiration (5) History of atrial fibrillation (6) Peripheral vascular disease (7) History of anxiety (8) Recent abdominal surgery Symptom Scale: (1) Pain 0-10 Scale: 3 (Postsurgical, and likely has musculoskeletal pain from prolonged hospitalization) (2) Dyspnea 0-10 Scale: Unable to quantify Pertinent Non-Medical Issues Psychosocial: Spiritual: Legal: Ethical issues impacting care: Code Status: No Code Plan * DO NOT RESUSCITATE, per request of patient, daughter, and nephew on 08/06/17 * DECISION-MAKING: The patient has capacity for decision-making at this time. His healthcare surrogate designee is his daughter Jackelin. * SYMPTOMS: The patient's dyspnea has been somewhat improved with Lorazepam, but certainly would benefit from judicious use of opiates and continued benzodiazepines. If his transition to comfort/hospice is completed, additional medications will be added. The patient continues to have some abdominal pain, and that also would be improved with some opiates. * GOALS of MEDICAL TREATMENT: The patient has requested a transition to comfort care, and the patient's HCS daughter and his nephew support that decision. I believe he will likely benefit from a transition to a hospice care center. * Palliative Care will continue to follow the patient during this hospitalization. Time Spent Total Floor Time (mins): 79 Face to Face Time (mins): 24 >50% Counseling/Coord of Care: Yes Thank you for the opportunity to participate in the care of Mr. Nino. Attestation To help prompt me to consider important information that might be impacting today's encounter and assessment, information from prior notes written by myself or my colleagues may have been "brought forward" into today's note. My signature on this note, however, is an attestation that I personally performed the exam, history, and/or decision-making noted today, and, unless otherwise indicated, the interactions with patient, family, and staff as well as the review of records all occurred today. I also attest that the listed assessment and stated plan reflect my best clinical judgment today based on the combination of historical information, prior notes, and today's exam/ interactions. When time spent is documented, it refers only to time spent today by the signer, or if indicated, combined time spent today by collaborating physician/nurse practitioner. Ruba Abraham MD Aug 06, 2017 16:59
--- NOTE | 2017-08-07 15:57 | HHI.CCPN ---
Subjective Remarks/Hospital Course This is a 82-year-old male. Date of admission 07/18/2017. Date of consultation 07/26/2017. Past medical history includes congestive heart failure, atrial fibrillation, peripheral arterial disease status post stents, COPD, gastroesophageal reflux disease and cataracts. Patient was admitted 07/18/2017 by general surgery as patient has recently underwent laparoscopic cholecystecomy with wedge resection of the stomach on 06/27/17. He was sent to extended care facility for r rehabilitation due to his deconditioned status and the fact that he lives alone. 07/17 he developed abdominal pain and vomiting and was transported to the ER. CT abdomen/pelvis show pneumoperitoneum and he was admitted for further evaluation 07/24 -Kassi-en-Y gastrojejunostomy by Dr. Marsh. Currently on Pipracil/ tazobactam for possible pneumonia on chest x-ray per hospitalist. Patient received furosemide 20 mg IV 1 yesterday. Today, patient acutely short of breath 100% nonrebreather mask was transported to ICU for further evaluation. Chest x-ray revealed pulmonary edema worse right upper lobe. Cannot rule out superimposed pneumonia. Patient is currently on BiPAP 10/500. ABG is currently pending. Received 40 mg furosemide and 500 mg of chlorothiazide. 07/27: On BiPAP 60% O2. CXR with suspected pneumonia - consistent with leukocytosis and fever. States he feels comfortable. 07/28: Off BiPAP and on NRBM. Breathing with acceptable comfort. Abdomen less distended. Comfortable. 07/29: Breathing with acceptable comfort but O2 requirements remain elevated. Bowel activity returning, swallow evaluation discouraging. Well hydrated. 07/30: Patient remains increasingly hypoxemic. Currently saturating barely 90% on FiO2 70% on BiPAP. Tachypneic, increasing respiratory distress despite 40 mg IV Lasix. Patient clearly states that he wants everything done to be kept alive including intubation and CPR. But when he cannot make decision he wants his ex- Anna Marie to make the decisions. Discussed with Dr. Lima 07/31: Intubated and placed on mechanical ventilation yesterday. Chest x-ray shows some improvement in bilateral infiltrates. CT chest today shows severe emphysema, diffuse interstitial opacities bilaterally, small pleural effusions LLL consolidation. Currently receiving broad-spectrum antibiotics, IV steroids and scheduled breathing treatments. Holding off IV diuresis at this time. CT chest findings could be secondary to pneumonia and acute lung injury. PEEP remains high at 12, FiO2 down to 50% 08/01: Remains intubated sedated with propofol and fentanyl, remains critical but more stable. Urine output diminishing 700 mL in 24 hours, BUN 40 creatinine 1.45 both increased-will discontinue vancomycin and hold Cozaar. Weight now is 7 kg less than admission weight. Will give 500 ml fluid bolus challenge. Chest x-ray shows slight improvement in FiO2 45%. Yesterday evening required single dose of rocuronium for ventilatory synchrony, currently more synchronous and oxygen saturation better 08/02: remains intubated and sedated. Cr slightly coming down, but remains elevated. o2 saturations better but not yet clinically ready for SBT. discussed with surgery and they agree with conservative approach given recent hypoxemic respiratory failure. 08/03: more awake today. will attempt SBT. Cr continues to improve. hypernatremia persists. 08/04: still failed CPAP yesterday. however, clinically improving today. hypernatremia improving. Cr improving. will attempt SBT again today. 08/05: Patient is strong on spontaneous breathing trial and easily meets parameters for extubation. Following extubation his breath sounds have become more coarse and he has increasing mobile secretions. At present he oxygenates at 97% with a reasonably comfortable respiratory effort. I am concerned that his cough effort may not be adequate to keep his lungs clear however. 08/06: He was able to keep his lungs reasonably clear overnight and today he is breathing with acceptable comfort. Oxygenation is markedly impaired and he does require a nonrebreathing mask. Realistically he would benefit from a tracheostomy for pulmonary toilet during this period of his recovery. He expresses exasperation with his plate at this point and has requested that we allow him to . Although he continues to make reasonable progress he will likely require reintubation for hypoxemia and retained secretions. I will ask the palliative care service to assist us with his care plan. 08/07: Arrangements have been made to transfer patient [facility] today. Objective Vital Signs Date Time Temp Pulse Resp B/P (MAP) Pulse Ox O2 Delivery O2 Flow Rate FiO2 08/06/17 18:00 79 08/06/17 16:00 98.1 29 173/75 (107) 95 08/06/17 08:05 Venturi Mask 50 08/06/17 07:00 15.00 Result Diagram: 08/06/17 0507 08/06/17 0507 Imaging Last Impressions Chest X-Ray 07/26/17 0000 Signed Impressions: Service Date/Time: Wednesday, July 26, 2017 09:20 - CONCLUSION: 1. Diffuse interstitial prominence consistent with positive fluid balance. 2. Progression of patchy airspace and interstitial opacities in the right upper lobe which may reflect atypical pulmonary edema although differential considerations include developing superimposed pneumonia. 3. Improved aeration in the right lower lung zone. Mike Mijares MD Upper GI Series 07/22/17 0000 Signed Impressions: Service Date/Time: Saturday, July 22, 2017 09:31 - CONCLUSION: No passage of water-soluble contrast seen beyond the distended stomach suggesting persistent gastric outlet obstruction. Herbert Torres MD Abdomen X-Ray 07/21/17 0000 Signed Impressions: Service Date/Time: Friday, July 21, 2017 13:15 - CONCLUSION: 1. Satisfactory placement of nasogastric tube within the stomach 2. Distended stomach containing contrast. 3. Nonspecific gas pattern described above. 4. Aortic stent graft in place. Patricio Butler MD Abdomen/Pelvis CT 07/18/17 0052 Signed Impressions: Service Date/Time: June 01:52 - CONCLUSION: 1. Pneumoperitoneum. Stomach being the likely source. 2. Dilated stomach containing debris. 3. Bladder calculus measuring 3-4 mm. 4. Unchanged nonobstructing right renal calculus. 5. Status post cholecystectomy. 6. Aortic stent graft with aneurysmal sac measuring [address] Morris was notified. Juanito Chen MD Objective Remarks GENERAL: 82-year-old male SKIN: Warm and dry. HEAD: Atraumatic. Normocephalic. EYES: Pupils equal and round 3 mm bilaterally and reactive. No scleral icterus. No injection or drainage. ENT: No nasal bleeding or discharge. Extubated. NECK: Trachea midline. Clears mobile secretions but has transmitted noises from deep in airway. CARDIOVASCULAR: NSR now. normal rate. No jugular venous distention RESPIRATORY: equal chest rise. no accessory muscle use. Scattered rhonchi, few mobile secretions. GASTROINTESTINAL: Abdomen soft, non-tender, nondistended. No peritoneal irritation. Trochar sites C/D/I MUSCULOSKELETAL: Extremities with trace bilateral lower extremity edema. No obvious deformities. Warm NEUROLOGICAL: Lethargic. Moves 4 extremities. Intermittently agitated but restful and calm between these episodes. Protects airway. Motor grossly within normal limits. A/P Assessment and Plan Neuro/Psych: Postop pain control Chronic benzodiazepine use History of EtOH Essential tremor Propofol and fentanyl for sedation and ventilator synchrony Acetaminophen 650 mg by mouth every 6 hours as needed fever Thiamine, multivitamin folate daily for EtOH use. Monitor for DTs IV Lorazepam 0.5 mg q8hr PRN for anxiety CV: Atrial fibrillation, chronic Chronic diastolic heart failure Peripheral arterial disease -history of stent to right external iliac and left superior femoral Hypertension 2D Echo 07/26/17: Mild to moderate concentric left ventricular hypertrophy. EF 45- 50%. Diffuse global hypokinesis with distinct regional wall motion abnormalities. On diltiazem 120 mg daily-holding due to bradycardia, Hold losartan 50 mg p.o. twice daily due increasing BUN/creatinine Currently amiodarone 200 mg p.o. daily. Clopidogrel 75 mg p.o. daily. Holding further diuresis at this time. Resp: Acute hypoxic hypercapnic respiratory failure COPD, with exacerbation Healthcare associated pneumonia Acute lung injury/bilateral interstitial infiltrates Severe emphysema Chest x-ray revealed pulmonary edema (cardiogenic versus noncardiogenic) likely possible superimposed pneumonia CT of the chest done 07/31 shows bilateral interstitial infiltrates, severe emphysema, left lower lobe consolidation and small effusions On 07/30 was profoundly hypoxic and tachypneic on BiPAP. Intubated and placed on mechanical ventilation daily CPAP trials- failing for tachypnea. Albuterol/ipratropium aerosols every 4 hours W aerosols every 2 hours as needed dyspnea Budesonide 0.5/2 1 puff twice daily IV Solu-Medrol 125 mg 1 and 60 every 8-reduced to 40 every 12 Renally adjust Zosyn dose, discontinue azithromycin and vancomycin 08/01 Extubated 08/05 GI: Postop from Kassi-en-Y/gastro jejunostomy History of GIST Hypoalbuminemia s/p lap resection GIST of antrum on 07/10/17. Patient returned 07/18/17 with N/V. found to have partial gastric outlet obstruction Postop from Kassi-en-Y/gastro jejunostomy 4/4/[address] Clarence Pantoprazole 40 mg IV daily for GI prophylaxis Tolerating trickle tube feeds 20 cc per hour: increase to 40mL/hr, check residuals History of TURP Conrad catheter for I/O in the ICU Endo: Sliding scale insulin if indicated Renal: Monitor urine output Accurate I's and O's Heme: Leukocytosis Normocytic anemia Monitor CBC daily. Follow trends Continue clopidogrel 75 mg daily ID: Healthcare associated pneumonia Leukocytosis/sepsis Currently piperacillin l/tazobactam, azithromycin, vancomycin IV Renally adjust Zosyn dose, discontinue azithromycin and vancomycin 08/01 d/c zosyn today: has been 14 days of therapy. Follow up on hensley culture-negative to date. Follow up respiratory panel, influenza CT chest shows left lower lobe consolidation, bilateral interstitial infiltrates Pertinent cultures: 07/18/blood cultures 2/no growth FEN Replace electrolytes as clinically indicated MSK: T12 compression fracture PT evaluate and treat, as appropriate Access -Utilize peripheral IV. Central line if indicated Prophylaxis -GI -pantoprazole -DVT -SCD/enoxaparin Overall impression: Resolving respiratory failure superimposed on chronic interstitial fibrosis and possibly COPD. Have weaned from mechanical ventilation, but may be difficult to keep extubated. May need to look towards long-term weaning in the future and possible need for tracheostomy. Patient and family have decided to transfer patient to hospice care afetr discussions with Dr. Abraham. I agree with plan. This patient is severely debilitated and declining. Leroy Aguilar MD Aug 07, 2017 15:57
--- NOTE | 2017-08-07 15:59 | HHI.DS ---
Discharge Summary Admission Date Jul 22, 2017 at 16:35 Admitting Diagnosis pneumoperitoneum s/p cholecystectomy and antral biopsy (1) Gastric out let obstruction ICD Code: K31.1 - Adult hypertrophic pyloric stenosis Status: Acute (2) Paroxysmal atrial fibrillation ICD Code: I48.0 - Paroxysmal atrial fibrillation Status: Chronic (3) COPD (chronic obstructive pulmonary disease) ICD Code: J44.9 - Chronic obstructive pulmonary disease, unspecified Status: Chronic (4) Anxiety ICD Code: F41.9 - Anxiety disorder, unspecified Status: Chronic (5) HTN (hypertension) ICD Code: I10 - Essential (primary) hypertension Status: Chronic Procedures laparoscopic intestinal bypass surgery. CBC/BMP: 08/06/17 0507 08/06/17 0507 Significant Findings Laboratory Tests Test 08/04/17 16:44 08/05/17 04:20 08/05/17 10:35 08/06/17 05:07 Blood Gas Oxygen Saturation 88 % (90-100) Arterial Blood pH 7.46 (7.380-7.420) 7.46 (7.380-7.420) Arterial Blood Partial Pressure CO2 34 mmHg (38-42) 29 mmHg (38-42) Arterial Blood Partial Pressure O2 56 mmHg (61-120) Blood Gas Hemoglobin 10.7 G/DL (12.0-16.0) 10.4 G/DL (12.0-16.0) White Blood Count 16.0 TH/MM3 (4.0-11.0) 24.2 TH/MM3 (4.0-11.0) Red Blood Count 3.15 MIL/MM3 (4.50-5.90) 3.36 MIL/MM3 (4.50-5.90) Hemoglobin 9.4 GM/DL (13.0-17.0) 10.2 GM/DL (13.0-17.0) Hematocrit 28.7 % (39.0-51.0) 30.8 % (39.0-51.0) Blood Urea Nitrogen 32 MG/DL (7-18) 30 MG/DL (7-18) Random Glucose 162 MG/DL (74-106) Calcium Level 8.0 MG/DL (8.5-10.1) 8.1 MG/DL (8.5-10.1) Chloride Level 113 MEQ/L (98-107) 114 MEQ/L (98-107) Estimat Glomerular Filtration Rate 72 ML/MIN (>89) 82 ML/MIN (>89) Blood Gas HCO3 21 mmol/L (22-26) Blood Gas Base Excess -2.8 mmol/L (-2-2) Imaging CXR: Advanced interstitial lung disease PE at Discharge Deteriorating clinical condition. Transfer Summary See below. Hospital Course This is a 82-year-old male. Date of admission 07/18/2017. Date of consultation 07/26/2017. Past medical history includes congestive heart failure, atrial fibrillation, peripheral arterial disease status post stents, COPD, gastroesophageal reflux disease and cataracts. Patient was admitted 07/18/2017 by general surgery as patient has recently underwent laparoscopic cholecystecomy with wedge resection of the stomach on 06/27/17. He was sent to extended care facility for r rehabilitation due to his deconditioned status and the fact that he lives alone. 07/17 he developed abdominal pain and vomiting and was transported to the ER. CT abdomen/pelvis show pneumoperitoneum and he was admitted for further evaluation 07/24 -Kassi-en-Y gastrojejunostomy by Dr. Marsh. Currently on Pipracil/ tazobactam for possible pneumonia on chest x-ray per hospitalist. Patient received furosemide 20 mg IV 1 yesterday. Today, patient acutely short of breath 100% nonrebreather mask was transported to ICU for further evaluation. Chest x-ray revealed pulmonary edema worse right upper lobe. Cannot rule out superimposed pneumonia. Patient is currently on BiPAP 10/500. ABG is currently pending. Received 40 mg furosemide and 500 mg of chlorothiazide. 07/27: On BiPAP 60% O2. CXR with suspected pneumonia - consistent with leukocytosis and fever. States he feels comfortable. 07/28: Off BiPAP and on NRBM. Breathing with acceptable comfort. Abdomen less distended. Comfortable. 07/29: Breathing with acceptable comfort but O2 requirements remain elevated. Bowel activity returning, swallow evaluation discouraging. Well hydrated. 07/30: Patient remains increasingly hypoxemic. Currently saturating barely 90% on FiO2 70% on BiPAP. Tachypneic, increasing respiratory distress despite 40 mg IV Lasix. Patient clearly states that he wants everything done to be kept alive including intubation and CPR. But when he cannot make decision he wants his ex- Anna Marie to make the decisions. Discussed with Dr. Lima 07/31: Intubated and placed on mechanical ventilation yesterday. Chest x-ray shows some improvement in bilateral infiltrates. CT chest today shows severe emphysema, diffuse interstitial opacities bilaterally, small pleural effusions LLL consolidation. Currently receiving broad-spectrum antibiotics, IV steroids and scheduled breathing treatments. Holding off IV diuresis at this time. CT chest findings could be secondary to pneumonia and acute lung injury. PEEP remains high at 12, FiO2 down to 50% 08/01: Remains intubated sedated with propofol and fentanyl, remains critical but more stable. Urine output diminishing 700 mL in 24 hours, BUN 40 creatinine 1.45 both increased-will discontinue vancomycin and hold Cozaar. Weight now is 7 kg less than admission weight. Will give 500 ml fluid bolus challenge. Chest x-ray shows slight improvement in FiO2 45%. Yesterday evening required single dose of rocuronium for ventilatory synchrony, currently more synchronous and oxygen saturation better 08/02: remains intubated and sedated. Cr slightly coming down, but remains elevated. o2 saturations better but not yet clinically ready for SBT. discussed with surgery and they agree with conservative approach given recent hypoxemic respiratory failure. 08/03: more awake today. will attempt SBT. Cr continues to improve. hypernatremia persists. 08/04: still failed CPAP yesterday. however, clinically improving today. hypernatremia improving. Cr improving. will attempt SBT again today. 08/05: Patient is strong on spontaneous breathing trial and easily meets parameters for extubation. Following extubation his breath sounds have become more coarse and he has increasing mobile secretions. At present he oxygenates at 97% with a reasonably comfortable respiratory effort. I am concerned that his cough effort may not be adequate to keep his lungs clear however. 08/06: He was able to keep his lungs reasonably clear overnight and today he is breathing with acceptable comfort. Oxygenation is markedly impaired and he does require a nonrebreathing mask. Realistically he would benefit from a tracheostomy for pulmonary toilet during this period of his recovery. He expresses exasperation with his plate at this point and has requested that we allow him to . Although he continues to make reasonable progress he will likely require reintubation for hypoxemia and retained secretions. I will ask the palliative care service to assist us with his care plan. 08/07: Arrangements have been made to transfer patient to the [facility] center today. Pt Condition on Discharge: Stable Discharge Disposition: Hospice/Med Facility Discharge Instructions DIET: Follow Instructions for: Full Liquid Diet Activities you can perform: Partial Weight Bearing Leroy Aguilar MD Aug 07, 2017 15:59
== END 2017-08-06 21:06 | disposition hospice, inpatient (51) | DRG 326 ==
LOC: NEPC 00:36 → NEDA 03:20 → INTOOBSV 03:20 → NEDA 06:36 → HOCA 15:00 → N06B 07-19 17:02 → OBSVTOIN 07-22 16:35 → N03A 07-26 09:21
PROVIDERS: ADMIT Surgery; ATTEND Surgery
PROC: 0D164ZA Bypass Stomach to Jejunum, Percutaneous Endoscopic Approach (ICD-10-PCS; 2017-07-24)
PROC: 5A1955Z Respiratory Ventilation, Greater than 96 Consecutive Hours (ICD-10-PCS; principal; 2017-07-30)
PROC: 0BH17EZ Insertion of Endotracheal Airway into Trachea, Via Natural or Artificial Opening (ICD-10-PCS; 2017-07-30)
DX: K31.1 Adult hypertrophic pyloric stenosis (principal); J96.02 Acute respiratory failure with hypercapnia; J69.0 Pneumonitis due to inhalation of food and vomit; A41.9 Sepsis, unspecified organism; E87.0 Hyperosmolality and hypernatremia; J96.01 Acute respiratory failure with hypoxia; J44.1 Chronic obstructive pulmonary disease with (acute) exacerbation; K66.8 Other specified disorders of peritoneum; I50.32 Chronic diastolic (congestive) heart failure; I11.0 Hypertensive heart disease with heart failure; M48.54XA Collapsed vertebra, not elsewhere classified, thoracic region, initial encounter for fracture; I48.0 Paroxysmal atrial fibrillation; E88.09 Other disorders of plasma-protein metabolism, not elsewhere classified; G25.0 Essential tremor; I25.10 Atherosclerotic heart disease of native coronary artery without angina pectoris; K21.9 Gastro-esophageal reflux disease without esophagitis; N40.0 Benign prostatic hyperplasia without lower urinary tract symptoms; Z80.51 Family history of malignant neoplasm of kidney; Z82.49 Family history of ischemic heart disease and other diseases of the circulatory system; Z85.00 Personal history of malignant neoplasm of unspecified digestive organ; Z86.79 Personal history of other diseases of the circulatory system; Z87.442 Personal history of urinary calculi; Z90.49 Acquired absence of other specified parts of digestive tract; Z95.5 Presence of coronary angioplasty implant and graft; Z87.891 Personal history of nicotine dependence; I73.9 Peripheral vascular disease, unspecified; Z95.820 Peripheral vascular angioplasty status with implants and grafts; E03.9 Hypothyroidism, unspecified; H91.90 Unspecified hearing loss, unspecified ear; E87.6 Hypokalemia; E16.2 Hypoglycemia, unspecified; F41.9 Anxiety disorder, unspecified; G43.909 Migraine, unspecified, not intractable, without status migrainosus; Z86.010 Personal history of colon polyps; R13.10 Dysphagia, unspecified; Z51.5 Encounter for palliative care; M19.90 Unspecified osteoarthritis, unspecified site; Z63.8 Other specified problems related to primary support group; Z66 Do not resuscitate; M79.1 Myalgia; Y95 Nosocomial condition; D64.9 Anemia, unspecified
CPT/HCPCS: 31500; 36600; 43752; 71045; 71250; 74018; 74177; 74240; 80048; 80053; 80202; 81001; 82550; 82805; 82948; 83605; 83690; 83735; 83880; 84100; 84132; 84134; 84484; 85025; 85027; 85610; 85730; 86850; 86900; 86901; 87040; 87070; 87086; 87205; 87633; 87804; 93005; 93308; 94002; 94003; 94150; 94640; 94664; 94667; 96361; 96365; 96375; 96376; C1769; C9113; G0378; J0360; J0456; J1100; J1170; J1205; J1650; J1940; J2060; J2250; J2270; J2405; J2543; J2710; J2765; J2920; J2930; J3010; J3370; J3475; J3480; J7030; J7040; J7050; J7613; J7626; Q9963; Q9967